=== PATIENT | female | born 1995 | race Hispanic/Latino ===

== ENCOUNTER 2017-09-25 19:45 | Emergency (ER) | payer SELFPAY ==
[2017-09-25 20:30] LABS: Urine Bacteria <20 /HPF (<20); Urine Culture Reflex Order NOT NEEDED; Urine RBC <5 /HPF (NONE SEEN)
[2017-09-25 20:31] LABS: Urine Amorphous Sediment 1+ /HPF (NONE SEEN)
[2017-09-25 20:31] LABS: Urine Blood TRACE (NEG); Urine Glucose NEGATIVE (NEG); Urine Protein 1+ (NEG); Urine Specific Gravity >1.030 (1.005-1.030)
[2017-09-25] MEDS ORDERED: MORPHINE 4 MG/ML SYR ONE (20:51)
[2017-09-25] MEDS ORDERED: ONDANSETRON 4 MG/2 ML VIAL ONE (20:51)
[2017-09-25 20:59] LABS: Absolute Lymphocytes (CBC) 1.5 K/uL (0.7-4.9); Absolute Monocytes 0.5 K/uL (0.1-1.3); Absolute Neutrophil 6.3 K/uL (1.8-8.0); Basophils % 0.6 % (0-1.3); Eosinophils % 2.2 % (0-4.4); Hematocrit 40.7 % (36.0-45.0); Lymphocytes % 17.6 % (15.3-44.8); MCH 31.4 pg (27.0-35.0); MCV 90.2 fL (80-100); MPV 9.9 fL (7.6-11.3); RBC Red Blood Cell Count 4.51 M/uL (3.86-4.86)
[2017-09-25 21:20] LABS: ALT/SGPT 15 U/L (12-78); AST/SGOT 11 U/L (15-37); Albumin 3.9 g/dL (3.4-5.0); Alkaline Phosphatase 70 U/L (45-117); Amylase Level 62 U/L (25-115); BUN Blood Urea Nitrogen 15 mg/dL (7-18); Bicarbonate 25 mmol/L (21-32); Bilirubin Direct < 0.1 mg/dL (0-0.2); Bilirubin Total 0.4 mg/dL (0.2-1.0); Glucose Level 76 mg/dL (74-106); Lipase 142 U/L (73-393); Potassium 3.8 mmol/L (3.5-5.1); Protein, Total 7.6 g/dL (6.4-8.2); Sodium Level 138 mmol/L (136-145)
--- NOTE | 2017-09-25 22:04 | RAD REPORT ---
EXAM DESCRIPTION: CT - Abdomen Pelvis W Contrast - 09/25/2017 9:51 pm CLINICAL HISTORY: Bilateral pelvic pain, abdominal pain COMPARISON: CT study April 2015 TECHNIQUE: Biphasic, helical CT imaging of the abdomen and pelvis was performed following 100 ml non -ionic IV contrast. Oral contrast was given. All CT scans are performed using dose optimization technique as appropriate and may include automated exposure control or mA/KV adjustment according to patient size. FINDINGS: No suspicious findings in the lung bases. The liver, spleen, and pancreas show no suspicious findings. Gallbladder and biliary tree are also wi thout suspicious finding. Symmetric renal function is seen with no hydronephrosis or suspicious renal mass. No pyelonephritis o r acute renal parenchymal process. Mostly contracted urinary bladder shows no suspicious finding. No suspicious uterine finding. A small involuting cyst is noted in the left ovary probably not a source for the patient's multi month pelvic pain pattern. No suspicious right ovarian finding. There are num erous fluid-filled small bowel loops draping along the ovaries and uterus. Active bowel process is un likely. No appendicitis findings. No dilated bowel loops or bowel wall thickening. No free air, free fluid or inflammatory stranding. No hernia, mass or bulky lymphadenopathy. No adrenal abnormality. No suspicious bony findings. IMPRESSION: Contrast enhanced CT abdomen and pelvis showing no significant or suspicious finding. Uterus and ovaries show no suspicious findings. Numerous fluid-filled small bowel loops drape along t he uterus, ovaries and adnexa. Active bowel process is not suspected.
--- NOTE | 2017-09-25 22:25 | ER ---
Nurse's Notes [facility] Name: Sonja Covarrubias Age: 22 yrs Sex: Female : 1995 Arrival Date: 09/25/2017 Time: 19:47 Bed 6 Private MD: Diagnosis: Lower abdominal pain, unspecified Presentation: 09/25 19:52 Presenting complaint: Patient states: Bilateral pelvic pain that started a few months aj ago but got worse in the past few days. Patient has appointment with OBGYN for same complaint but feels she cannot wait. Transition of care: patient was not received from another setting of care. Onset of symptoms was May 2017. Risk Assessment: Do you want to hurt yourself or someone else? Patient reports no desire to harm self or others. Initial Sepsis Screen: Does the patient meet any 2 criteria? No. Patient's initial sepsis screen is negative. Does the patient have a suspected source of infection? No. Patient's initial sepsis screen is negative. Care prior to arrival: None. 19:52 Method Of Arrival: Ambulatory 19:52 Acuity: JANNY 3 aj Triage Assessment: 19:54 General: Appears in no apparent distress. comfortable, Behavior is calm, cooperative, aj appropriate for age. Pain: Complains of pain in suprapubic area, right inguinal area and left inguinal area. Neuro: Level of Consciousness is awake, alert, obeys commands, Oriented to person, place, time, situation, Appropriate for age. Respiratory: Airway is patent Respiratory effort is even, unlabored, Respiratory pattern is regular, symmetrical. : Reports pain in bilateral in suprapubic area. Derm: Skin is intact, is healthy with good turgor, Skin is pink, warm \T\ dry. normal. 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 - Social history:: Smoking status: Patient/guardian denies using tobacco. - Ebola Screening: : Patient negative for fever greater than or equal to 101.5 degrees Fahrenheit, and additional compatible Ebola Virus Disease symptoms Patient denies exposure to infectious person Patient denies travel to an Ebola-affected area in the 21 days before illness onset No symptoms or risks identified at this time. Screenin:52 Abuse screen: Denies threats or abuse. Denies injuries from another. Nutritional tl1 screening: No deficits noted. Tuberculosis screening: No symptoms or risk factors identified. Fall Risk IV access (20 points). Assessment: 20:21 General: Appears in no apparent distress. comfortable, Behavior is calm, cooperative, tl1 appropriate for age. Pain: Complains of pain in pelvis and left inguinal area and right inguinal area and suprapubic area. 20:22 Neuro: Level of Consciousness is awake, alert, obeys commands, Oriented to person, tl1 place, time, situation. Cardiovascular: Denies chest pain. Respiratory: Airway is patent Trachea midline Respiratory effort is even, unlabored, Breath sounds are clear bilaterally. GI: Abdomen is non-distended, Bowel sounds present X 4 quads. Abd is soft X 4 quads Abdomen is tender to palpation in suprapubic area Reports lower abdominal pain. : No signs and/or symptoms were reported regarding the genitourinary system. EENT: No signs and/or symptoms were reported regarding the EENT system. 21:52 Reassessment: Pt out to CT. tl2 22:38 Reassessment: Patient appears in no apparent distress at this time. Patient and/or tl2 family updated on plan of care and expected duration. Pain level reassessed. Patient is alert, oriented x 3, equal unlabored respirations, skin warm/dry/pink. Pt and family verbalized understanding of discharge instructions, need for follow up. Vital Signs: 19:54 BP 128 / 85; Pulse 75; Resp 16; Temp 98.5; Pulse Ox 100% on R/A; Weight 58.06 kg; aj Height 5 ft. 5 in. (165.10 cm); 20:48 BP 110 / 65; Pulse 67; Resp 17; Pulse Ox 100% on R/A; mw2 21:57 BP 123 / 78; Pulse 96; Resp 18; Pulse Ox 100% on R/A; tl2 22:38 BP 112 / 77; Pulse 83; Resp 18; Pulse Ox 100% on R/A; tl2 19:54 Body Mass Index 21.30 (58.06 kg, 165.10 cm) ED Course: 19:47 Patient arrived in ED. am2 19:53 Triage completed. aj 19:54 Arm band placed on right wrist. Patient placed in an exam room. aj 20:00 Micheal Leon PA is PHCP. cp 20:00 Temo Holliday MD is Attending Physician. cp 20:01 Trisha Hi, APARNA is Primary Nurse. tl1 20:42 Radiology exam delayed due to lab results not completed at this time. (BUN/Creatinine). 20:51 No provider procedures requiring assistance completed. Inserted saline lock: 20 gauge tl1 in left antecubital area, using aseptic technique. 21:00 Radiology exam delayed due to lab results not completed at this time. (BUN/Creatinine). vm2 21:00 Patient has correct armband on for positive identification. Placed in gown. Bed in low tl2 position. Call light in reach. Side rails up X 1. Adult w/ patient. 21:[address] nj 21:51 CT completed. Patient tolerated procedure well. Patient moved back from CT. nj 21:51 CT Abd/Pelvis - W/Contrast: no oral contrast In Process Unspecified. EDMS 22:24 Kat Tobin MD is Referral Physician. cp 22:39 IV discontinued, intact, bleeding controlled, No redness/swelling at site. Pressure tl2 dressing applied. Administered Medications: 20:54 Drug: morphine 2 mg Route: IVP; Infused Over: 2 mins; Site: left antecubital; tl1 21:30 Follow up: Response: No adverse reaction; Pain is decreased tl2 20:54 Drug: Zofran 4 mg Route: IVP; Infused Over: 2 mins; Site: left antecubital; tl1 21:30 Follow up: Response: No adverse reaction tl2 Outcome: 22:24 Discharge ordered by MD. cp 22:39 Discharged to home ambulatory, with family. tl2 22:39 Condition: stable tl2 22:39 Discharge instructions given to patient, family, Instructed on discharge instructions, follow up and referral plans. Demonstrated understanding of instructions, follow-up care. 22:40 Patient left the ED. tl2 Signatures: Dispatcher [employer] EDIA Amalia Castilol RN RN aj Jones, Susan Trisha Hi, RN RN tl1 Micheal Leon PA PA cp Knox, Taylor, RN RN tl2 Amauri Quintero Amanda am2 Yue Jimenez 2 Braxton Harmon 2 Corrections: (The following items were deleted from the chart) 22:39 21:00 IV discontinued, intact, bleeding controlled, No redness/swelling at site. tl2 Pressure dressing applied, tl2 22:40 22:39 Discharged to 2 tl2
--- NOTE | 2017-09-25 22:25 | EDPHYS ---
Physician Documentation [facility] Name: Sonja Covarrubias Age: 22 yrs Sex: Female : 1995 Arrival Date: 09/25/2017 Time: 19:47 Bed 6 Private MD: ED Physician Temo Holliday HPI: 09/25 20:18 This 22 yrs old Female presents to ER via Ambulatory with complaints of Pelvic cp Pain. 20:18 The patient presents with pelvic pain, that is located in/on the lower abdomen. cp 20:18 Onset: The symptoms/episode began/occurred 2 month(s) ago, and became worse 3 day(s) cp ago. 20:18 Associated signs and symptoms: Pertinent positives: vaginal discharge, Pertinent cp negatives: constipation, diarrhea, dysuria, fever, vaginal bleeding. Severity of symptoms: in the emergency department the symptoms are unchanged, despite home interventions. 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 - Social history:: Smoking status: Patient/guardian denies using tobacco. - Ebola Screening: : Patient negative for fever greater than or equal to 101.5 degrees Fahrenheit, and additional compatible Ebola Virus Disease symptoms Patient denies exposure to infectious person Patient denies travel to an Ebola-affected area in the 21 days before illness onset No symptoms or risks identified at this time. ROS: 20:25 Constitutional: Negative for body aches, chills, fever, poor PO intake. cp 20:25 Eyes: Negative for injury, pain, redness, and discharge. cp 20:25 ENT: Negative for drainage from ear(s), ear pain, sore throat, difficulty swallowing, difficulty handling secretions. 20:25 Cardiovascular: Negative for chest pain, palpitations. 20:25 Respiratory: Negative for cough, shortness of breath, wheezing. 20:25 Abdomen/GI: Positive for abdominal pain, of the right lower quadrant and left lower quadrant, Negative for vomiting, diarrhea, constipation, black/tarry stool, rectal bleeding. 20:25 Back: Negative for pain at rest, pain with movement, radiated pain. 20:25 : Positive for vaginal discharge, Negative for urinary symptoms, vaginal bleeding. 20:25 Skin: Negative for cellulitis, rash. 20:25 Neuro: Negative for altered mental status, headache, weakness. 20:25 All other systems are negative. Exam: 20:30 Constitutional: The patient appears in no acute distress, alert, awake, non-toxic, well cp developed, well nourished. 20:30 Head/Face: Normocephalic, atraumatic. cp 20:30 Eyes: Periorbital structures: appear normal, Conjunctiva: normal, no exudate, no injection, Sclera: no appreciated abnormality, Lids and lashes: appear normal, bilaterally. 20:30 ENT: External ear(s): are unremarkable, Nose: is normal, Mouth: is normal, Posterior pharynx: is normal, airway is patent, no erythema, no exudate. 20:30 Neck: ROM/movement: is normal, is supple, without pain, no range of motions limitations, no nuchal rigidity. 20:30 Chest/axilla: Inspection: normal, Palpation: is normal, no crepitus, no tenderness. 20:30 Cardiovascular: Rate: normal, Rhythm: regular. 20:30 Respiratory: the patient does not display signs of respiratory distress, Respirations: normal, no use of accessory muscles, no retractions, no splinting, no tachypnea, labored breathing, is not present, Breath sounds: are clear throughout, no decreased breath sounds, no stridor, no wheezing. 20:30 Abdomen/GI: Inspection: abdomen appears normal, Bowel sounds: active, all quadrants, Palpation: soft, in all quadrants, moderate abdominal tenderness, in the right lower quadrant and left lower quadrant, rebound tenderness, is not appreciated, voluntary guarding, is elicited in the right lower quadrant and left lower quadrant, involuntary guarding, is not appreciated. 20:30 Back: pain, is absent, ROM is normal, CVA tenderness, is absent. 20:30 Skin: cellulitis, is not appreciated, no rash present. 20:30 Neuro: Orientation: to person, place \T\ time. Mentation: lucid, able to follow commands, Cerebellar function: is grossly normal, Motor: moves all fours, strength is normal, Sensation: is normal. 22:15 : Pelvic Exam: The exam is refused by the patient/guardian. The risks and cp consequences are understood by the patient, Sexual behavior: the patient is sexually active, and reports a single partner. Vital Signs: 19:54 BP 128 / 85; Pulse 75; Resp 16; Temp 98.5; Pulse Ox 100% on R/A; Weight 58.06 kg; aj Height 5 ft. 5 in. (165.10 cm); 20:48 BP 110 / 65; Pulse 67; Resp 17; Pulse Ox 100% on R/A; mw2 21:57 BP 123 / 78; Pulse 96; Resp 18; Pulse Ox 100% on R/A; tl2 22:38 BP 112 / 77; Pulse 83; Resp 18; Pulse Ox 100% on R/A; tl2 19:54 Body Mass Index 21.30 (58.06 kg, 165.10 cm) aj MDM: 20:00 Patient medically screened. cp 21:00 Differential diagnosis: UTI, PID, ovarian cyst, appendicitis. cp 21:00 Differential diagnosis: appendicitis, cervicitis, ovarian cyst, pelvic inflammatory cp disease, urinary tract infection, vaginosis. 22:15 Refusal of service: The patient/guardian displays adequate decision making capability cp and despite a detailed discussion of alternatives, benefits, risks, and consequences refuses: pelvic exam. 22:20 Data reviewed: vital signs, nurses notes, lab test result(s), radiologic studies, CT cp scan, and as a result, I will discharge patient. 22:20 Special discussion: Based on the patient's Hx, exam, and Dx evaluation, there is no cp indication for emergent surgery or inpatient Tx. It is understood by the patient/guardian that if the Sx's persist or worsen they need to return immediately for re-evaluation. 09/25 20:14 Order name: Urine Dipstick--Ancillary (enter results); Complete Time: 22:04 [facility] 09/25 22:25 Interpretation: Normal except: UBLD TRACE; UPROT 1+. cp 09/25 20:14 Order name: Urine Microscopic Only; Complete Time: 22:04 [facility] 09/25 20:14 Order name: Urine --Ancillary (enter results); Complete Time: 22:04 [facility] 09/25 20:28 Order name: Amylase, Serum; Complete Time: 22:04 cp 09/25 20:28 Order name: Basic Metabolic Panel; Complete Time: 22:04 cp 09/25 22:04 Interpretation: Normal except: CRE 0.50. cp 09/25 20:28 Order name: CBC with Diff; Complete Time: 22:04 cp 09/25 20:28 Order name: Creatinine for Radiology; Complete Time: 22:04 cp 09/25 20:28 Order name: Hepatic Function; Complete Time: 22:04 cp 09/25 20:28 Order name: Lipase; Complete Time: 22:04 cp 09/25 20:34 Order name: CT Abd/Pelvis - W/Contrast: no oral contrast; Complete Time: 22:04 cp 09/25 20:28 Order name: IV Saline Lock; Complete Time: 20:45 cp 09/25 20:28 Order name: Labs collected and sent; Complete Time: 20:45 cp 09/25 20:28 Order name: Urine Dipstick-Ancillary (obtain specimen); Complete Time: 20:46 cp Administered Medications: 20:54 Drug: morphine 2 mg Route: IVP; Infused Over: 2 mins; Site: left antecubital; tl1 21:30 Follow up: Response: No adverse reaction; Pain is decreased tl2 20:54 Drug: Zofran 4 mg Route: IVP; Infused Over: 2 mins; Site: left antecubital; tl1 21:30 Follow up: Response: No adverse reaction tl2 Disposition: 09/26 06:45 Co-signature as Attending Physician, Temo Holliday MD. Disposition: 09/25/17 22:24 Discharged to Home. Impression: Lower abdominal pain, unspecified. - Condition is Stable. - Discharge Instructions: Abdominal Pain, Women. - Medication Reconciliation Form, Thank You Letter, Antibiotic Education, Prescription Opioid Use form. - Follow up: Kat Tobin MD; When: 1 - 2 days; Reason: Recheck today's complaints. - Problem is new. - Symptoms have improved. - Notes: may take extra strength tylenol for pain. Follow-up with MANAGER INVESTMENT Signatures: Dispatcher [employer] Amalia Luque RN RN aj Lasagna, Tonya, RN RN tl1 Micheal Leon PA PA cp Knox, Taylor, RN RN tl2 Temo Holliday MD MD Corrections: (The following items were deleted from the chart) 09/25 22:37 22:06 Pelvic Exam Setup ordered. cp tl2 22:40 22:24 09/25/2017 22:24 Discharged to Home. Impression: Lower abdominal pain, tl2 unspecified. Condition is Stable. Forms are Medication Reconciliation Form, Thank You Letter, Antibiotic Education, Prescription Opioid Use. Follow up: Mini Mahad; When: 1 - 2 days; Reason: Recheck today's complaints. Problem is new. Symptoms have improved. cp
== END 2017-09-25 22:40 | disposition home or self-care (01) ==
LOC: ER 19:45
DX: R10.30 Lower abdominal pain, unspecified (principal); Z88.6 Allergy status to analgesic agent
CPT/HCPCS: 36415; 74177; 80048; 80076; 81003; 81015; 81025; 82150; 83690; 85025; 96374; 96375; 99284; J2405; Q9967

== ENCOUNTER 2018-02-06 20:56 | Emergency (ER) | payer SELFPAY ==
[2018-02-06] MEDS ORDERED: ONDANSETRON 4 MG/2 ML VIAL ONE (22:13)
[2018-02-06] MEDS ORDERED: FAMOTIDINE 20 MG/2 ML VIAL IV ONE (22:14)
[2018-02-06 22:21] LABS: Absolute Lymphocytes (CBC) 1.6 K/uL (0.7-4.9); Absolute Monocytes 0.6 K/uL (0.1-1.3); Absolute Neutrophil 4.1 K/uL (1.8-8.0); Basophils % 0.4 % (0-1.3); Eosinophils % 3.1 % (0-4.4); Hematocrit 40.3 % (36.0-45.0); Lymphocytes % 24.4 % (15.3-44.8); MCH 32.1 pg (27.0-35.0); MCV 90.9 fL (80-100); MPV 9.6 fL (7.6-11.3); RBC Red Blood Cell Count 4.43 M/uL (3.86-4.86)
[2018-02-06 22:33] LABS: ALT/SGPT 19 U/L (12-78); AST/SGOT 12 U/L (15-37); Albumin 3.8 g/dL (3.4-5.0); Alkaline Phosphatase 101 U/L (45-117); BUN Blood Urea Nitrogen 14 mg/dL (7-18); Bicarbonate 28 mmol/L (21-32); Bilirubin Direct 0.2 mg/dL (0-0.2); Bilirubin Total 0.6 mg/dL (0.2-1.0); Glucose Level 79 mg/dL (74-106); Lipase 129 U/L (73-393); Potassium 3.7 mmol/L (3.5-5.1); Protein, Total 7.9 g/dL (6.4-8.2); Sodium Level 140 mmol/L (136-145)
[2018-02-06 22:42] LABS: Urine Blood NEGATIVE (NEG); Urine Glucose NEGATIVE (NEG); Urine Protein TRACE (NEG); Urine pH 8.5 (5.0-7.0)
[2018-02-06] MEDS ORDERED: MAGNE/ALUM HYDROXD 30 ML UCUP ONE (23:29)
[2018-02-06] MEDS ORDERED: LIDOCAINE VISCOUS 2% SOLN 15 ML UDC ONE (23:30)
[2018-02-06] MEDS ORDERED: DICYCLOMINE HCL 10 MG CAP ONE (23:30)
--- NOTE | 2018-02-07 00:44 | EDPHYS ---
Physician Documentation [facility] Name: Sonja Covarrubias Age: 23 yrs Sex: Female : 1995 Arrival Date: 02/06/2018 Time: 20:59 Bed 19 Private MD: ED Physician Cody Carias HPI: 02/06 21:40 This 23 yrs old Female presents to ER via Ambulatory with complaints of cp Abdominal Pain. 21:40 The patient presents with abdominal pain in the epigastric area, in the upper abdomen. cp 21:40 Onset: The symptoms/episode began/occurred 3 day(s) ago. cp 21:40 The symptoms do not radiate. Associated signs and symptoms: Pertinent positives: cp nausea, Pertinent negatives: anorexia, blood in stools, constipation, diarrhea, dysuria, fever, active vomiting. The symptoms are described as sharp. Modifying factors: the symptoms are aggravated by pressure. Severity of pain: in the emergency department the pain is unchanged despite home interventions. 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 - Social history:: Smoking status: Patient/guardian denies using tobacco. - Ebola Screening: : Patient denies travel to an Ebola-affected area in the 21 days before illness onset. ROS: 21:45 Constitutional: Negative for body aches, chills, fever, poor PO intake. cp 21:45 Eyes: Negative for injury, pain, redness, and discharge. cp 21:45 ENT: Negative for drainage from ear(s), ear pain, sore throat, difficulty swallowing, difficulty handling secretions. 21:45 Cardiovascular: Negative for chest pain, edema, palpitations. 21:45 Respiratory: Negative for cough, shortness of breath, wheezing. 21:45 Abdomen/GI: Positive for abdominal pain, nausea, Negative for diarrhea, constipation, black/tarry stool, rectal bleeding, active vomiting. 21:45 Back: Negative for pain at rest, pain with movement. 21:45 : Negative for urinary symptoms, vaginal bleeding, vaginal discharge. 21:45 Skin: Negative for cellulitis, rash. 21:45 Neuro: Negative for altered mental status, headache, weakness. 21:45 All other systems are negative. Exam: 21:52 Constitutional: The patient appears in no acute distress, alert, awake, non-toxic, well cp developed, well nourished, uncomfortable. 21:52 Head/Face: Normocephalic, atraumatic. Eyes: Pupils equal round and reactive to light, cp extra-ocular motions intact. Lids and lashes normal. Conjunctiva and sclera are non-icteric and not injected. Cornea within normal limits. Periorbital areas with no swelling, redness, or edema. ENT: Nares patent. No nasal discharge, no septal abnormalities noted. Tympanic membranes are normal and external auditory canals are clear. Oropharynx with no redness, swelling, or masses, exudates, or evidence of obstruction, uvula midline. Mucous membranes moist. Neck: Trachea midline, no thyromegaly or masses palpated, and no cervical lymphadenopathy. Supple, full range of motion without nuchal rigidity, or vertebral point tenderness. No Meningismus. Chest/axilla: Normal chest wall appearance and motion. Nontender with no deformity. No lesions are appreciated. 21:52 Cardiovascular: Rate: normal, Rhythm: regular. 21:52 Respiratory: the patient does not display signs of respiratory distress, Respirations: normal, no use of accessory muscles, no retractions, no splinting, no tachypnea, labored breathing, is not present, Breath sounds: are clear throughout, no decreased breath sounds, no stridor, no wheezing. 21:52 Abdomen/GI: Inspection: abdomen appears normal, Bowel sounds: active, all quadrants, Palpation: soft, in all quadrants, moderate abdominal tenderness, in the epigastric area, right upper quadrant and left upper quadrant, rebound tenderness, is not appreciated, voluntary guarding, is elicited in the epigastric area, right upper quadrant and left upper quadrant. 21:52 Back: CVA tenderness, is absent. 21:52 Skin: cellulitis, is not appreciated, no rash present. Vital Signs: 21:14 BP 111 / 82; Pulse 92; Resp 20; Temp 97.8; Pulse Ox 100% on R/A; aj1 21:32 Weight 60.2 kg (M); Height 5 ft. 4 in. (162.56 cm) (R); jb4 22:38 BP 108 / 83; Pulse 78; Resp 16; Pulse Ox 100% on R/A; jb4 23:30 BP 108 / 83; Pulse 72; Resp 16; Pulse Ox 100% on R/A; jb4 02/07 00:10 BP 107 / 80; Pulse 70; Resp 16; Pulse Ox 99% on R/A; rr5 02/06 21:32 Body Mass Index 22.78 (60.20 kg, 162.56 cm) jb4 MDM: 02/06 21:34 Patient medically screened. cp 22:00 Differential diagnosis: cholecystitis, Cholelithiasis, gastritis, gastroesophageal cp reflux disease, GI Bleed, pancreatitis, Pyelonephritis, Ureterolithiasis, urinary tract infection. 02/07 00:42 Data reviewed: vital signs, nurses notes, lab test result(s), radiologic studies, CT cp scan, ultrasound. 00:42 Counseling: I had a detailed discussion with the patient and/or guardian regarding: the cp historical points, exam findings, and any diagnostic results supporting the discharge/admit diagnosis, lab results, radiology results, to return to the emergency department if symptoms worsen or persist or if there are any questions or concerns that arise at home. Response to treatment: the patient's symptoms have markedly improved after treatment, VSS. Pain improved with IV fluids and meds. Will discharge to home for continued monitoring. 02/06 21:39 Order name: Urine Dipstick--Ancillary (enter results); Complete Time: 22:55 mw2 02/06 21:39 Order name: Urine --Ancillary (enter results); Complete Time: 22:55 mw2 02/06 21:52 Order name: Basic Metabolic Panel; Complete Time: 22:55 cp 02/06 21:52 Order name: CBC with Diff; Complete Time: 22:33 cp 02/06 22:33 Interpretation: Reviewed. cp 02/06 21:52 Order name: Creatinine for Radiology; Complete Time: 22:33 cp 02/06 21:52 Order name: Hepatic Function; Complete Time: 22:55 cp 02/06 21:34 Order name: Urine Dipstick-Ancillary (obtain specimen); Complete Time: 21:38 cp 02/06 21:52 Order name: Lipase; Complete Time: 22:55 cp 02/06 22:33 Order name: US Abdomen Limited: RUQ/epigastric area cp 02/06 22:57 Order name: CT Abd/Pelvis - W/Contrast: no oral contrast cp 02/06 21:34 Order name: Urine Test (obtain specimen); Complete Time: 21:38 cp 02/06 21:52 Order name: IV Saline Lock; Complete Time: 22:02 cp 02/06 21:52 Order name: Labs collected and sent; Complete Time: 22:02 cp 02/07 00:40 Order name: PO challenge; Complete Time: 00:47 cp Administered Medications: 02/06 20:13 Drug: Zofran 4 mg Route: IVP; Site: right antecubital; jb4 23:24 Follow up: Response: No adverse reaction; Nausea is decreased jb4 20:15 Drug: Pepcid 20 mg Route: IVP; Site: right antecubital; jb4 23:24 Follow up: Response: No adverse reaction; Pain is decreased jb4 23:28 Drug: Bentyl 20 mg Route: PO; jb4 02/07 00:58 Follow up: Response: No adverse reaction rr5 02/06 23:28 Drug: GI Cocktail without - (Maalox Suspension 30 ml, Lidocaine Liquid 2 % 15 jb4 ml) Route: PO; 02/07 00:58 Follow up: Response: No adverse reaction rr5 Disposition: 02/07/18 00:43 Discharged to Home. Impression: Upper abdominal pain, unspecified. - Condition is Stable. - Discharge Instructions: Abdominal Pain, Adult. - Prescriptions for Protonix 40 mg Oral Tablet - take 1 tablet by ORAL route once daily; 30 tablet. Zofran 4 mg Oral Tablet - take 1 tablet by ORAL route every 12 hours As needed; 20 tablet. - Medication Reconciliation Form, Thank You Letter, Antibiotic Education, Prescription Opioid Use form. - Follow up: Private Physician; When: 2 - 3 days; Reason: Recheck today's complaints. - Problem is new. - Symptoms have improved. Addendum: 02/08/2018 04:05 Co-signature as Attending Physician, Cody Carias MD I agree with the assessment and w a plan of care. Signatures: Dispatcher MedJefferson Lansdale HospitalLoida Greene RN RN aj1 Micheal Leon PA PA Dre Morris RN RN jb4 Cody Carias MD MD wa Roque, Raymond, RN RN rr5 Corrections: (The following items were deleted from the chart) 02/07 00:59 00:43 02/07/2018 00:43 Discharged to Home. Impression: Upper abdominal pain, rr5 unspecified. Condition is Stable. Forms are Medication Reconciliation Form, Thank You Letter, Antibiotic Education, Prescription Opioid Use. Follow up: Private Physician; When: 2 - 3 days; Reason: Recheck today's complaints. Problem is new. Symptoms have improved. cp
--- NOTE | 2018-02-07 00:44 | ER ---
Nurse's Notes [facility] Name: Sonja Covarrubias Age: 23 yrs Sex: Female : 1995 Arrival Date: 02/06/2018 Time: 20:59 Bed 19 Private MD: Diagnosis: Upper abdominal pain, unspecified Presentation: 02/06 21:10 Presenting complaint: Patient states: Abdominal pain for the past 3 days. She was aj1 running fever yesterday, but not today. Denies N/V/D. Reports epigastric pain that she reports as throbbing. Transition of care: patient was not received from another setting of care. Onset of symptoms was February 03, 2018. Risk Assessment: Do you want to hurt yourself or someone else? Patient reports no desire to harm self or others. Initial Sepsis Screen: Does the patient meet any 2 criteria? No. Patient's initial sepsis screen is negative. Does the patient have a suspected source of infection? Yes: Acute abdominal pain. Care prior to arrival: None. 21:10 [facility] 21:10 Acuity: JANNY 3 aj1 Triage Assessment: 21:14 General: Appears in no apparent distress. comfortable, Behavior is calm, cooperative, aj1 appropriate for age. Pain: Complains of pain in epigastric area. Neuro: Level of Consciousness is awake, alert, obeys commands. Cardiovascular: Patient's skin is warm and dry. Respiratory: Airway is patent Respiratory effort is even, unlabored, Respiratory pattern is regular, symmetrical. GI: Reports upper abdominal pain. 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 - Social history:: Smoking status: Patient/guardian denies using tobacco. - Ebola Screening: : Patient denies travel to an Ebola-affected area in the 21 days before illness onset. Screenin:26 Abuse screen: Denies threats or abuse. Nutritional screening: No deficits noted. jb4 Tuberculosis screening: No symptoms or risk factors identified. Fall Risk None identified. Assessment: 21:26 General: Appears in no apparent distress. uncomfortable, Behavior is calm, cooperative, jb4 appropriate for age. Pain: Complains of pain in umbilical area, right upper quadrant and left upper quadrant Pain does not radiate. Pain currently is 4 out of 10 on a pain scale. at worst was 9 out of 10 on a pain scale. Quality of pain is described as crampy, Pain began 2-3 days ago. Neuro: Level of Consciousness is awake, alert, obeys commands, Oriented to person, place, time, situation. Cardiovascular: Patient's skin is warm and dry. Respiratory: Airway is patent Respiratory effort is even, unlabored, Respiratory pattern is regular, symmetrical. GI: Abdomen is flat, non-distended, Bowel sounds present X 4 quads. Abd is soft X 4 quads Abd is non tender in right lower quadrant and left lower quadrant Abdomen is tender to palpation in umbilical area, right upper quadrant and left upper quadrant. : No signs and/or symptoms were reported regarding the genitourinary system. EENT: No signs and/or symptoms were reported regarding the EENT system. Derm: Skin is intact, Skin is pink, warm \T\ dry. Musculoskeletal: Circulation, motion, and sensation intact. 22:38 Reassessment: Patient appears in no apparent distress at this time. Patient and/or jb4 family updated on plan of care and expected duration. Pain level reassessed. Patient is alert, oriented x 3, equal unlabored respirations, skin warm/dry/pink. Patient states feeling better. 23:30 Reassessment: Patient appears in no apparent distress at this time. Patient and/or jb4 family updated on plan of care and expected duration. Pain level reassessed. Patient is alert, oriented x 3, equal unlabored respirations, skin warm/dry/pink. Pt to CT. 02/07 00:40 Reassessment: Patient appears in no apparent distress at this time. Patient and/or rr5 family updated on plan of care and expected duration. Pain level reassessed. Patient is alert, oriented x 3, equal unlabored respirations, skin warm/dry/pink. tolerated the fluid challenge. explained to patients brother the discharged instruction, follow up and medication. Patient states feeling better. Vital Signs: 02/06 21:14 BP 111 / 82; Pulse 92; Resp 20; Temp 97.8; Pulse Ox 100% on R/A; aj1 21:32 Weight 60.2 kg (M); Height 5 ft. 4 in. (162.56 cm) (R); jb4 22:38 BP 108 / 83; Pulse 78; Resp 16; Pulse Ox 100% on R/A; jb4 23:30 BP 108 / 83; Pulse 72; Resp 16; Pulse Ox 100% on R/A; jb4 02/07 00:10 BP 107 / 80; Pulse 70; Resp 16; Pulse Ox 99% on R/A; rr5 02/06 21:32 Body Mass Index 22.78 (60.20 kg, 162.56 cm) jb4 ED Course: 02/06 20:59 Patient arrived in ED. al2 21:12 Triage completed. aj1 21:14 Arm band placed on Patient placed in an exam room. aj1 21:17 Dre Hernandez, RN is Primary Nurse. jb4 21:34 Mihceal Leon PA is PHCP. cp 21:34 Cody Carias MD is Attending Physician. cp 22:54 US Abdomen Limited: RUQ/epigastric area In Process Unspecified. EDMS 02/07 00:00 CT Abd/Pelvis - W/Contrast: no oral contrast In Process Unspecified. EDMS 00:00 CT completed. Patient tolerated procedure well. Patient moved to CT via wheelchair. Patient moved back from CT. 00:00 Patient has correct armband on for positive identification. Bed in low position. Call rr5 light in reach. 00:54 No provider procedures requiring assistance completed. IV discontinued, bleeding rr5 controlled, Pressure dressing applied. Administered Medications: 02/06 20:13 Drug: Zofran 4 mg Route: IVP; Site: right antecubital; jb4 23:24 Follow up: Response: No adverse reaction; Nausea is decreased jb4 20:15 Drug: Pepcid 20 mg Route: IVP; Site: right antecubital; jb4 23:24 Follow up: Response: No adverse reaction; Pain is decreased jb4 23:28 Drug: Bentyl 20 mg Route: PO; jb4 02/07 00:58 Follow up: Response: No adverse reaction rr5 02/06 23:28 Drug: GI Cocktail without - (Maalox Suspension 30 ml, Lidocaine Liquid 2 % 15 jb4 ml) Route: PO; 02/07 00:58 Follow up: Response: No adverse reaction rr5 Outcome: 00:43 Discharge ordered by MD. cp 00:54 Discharged to home via ambulance, with family. rr5 00:54 Condition: stable 00:54 Discharge instructions given to family, Instructed on discharge instructions, follow up and referral plans. medication usage, Demonstrated understanding of instructions, follow-up care, medications, Prescriptions given X 2. 00:59 Patient left the ED. rr5 Signatures: Dispatcher [employer] EDMS Loida Ingram RN RN aj1 Laureano Long Corey, PA PA Dre Morris RN RN jb4 Ambika Sanabria Raymond RN RN rr5 Corrections: (The following items were deleted from the chart) 01:15 00:40 Reassessment: Patient appears in no apparent distress at this time. Patient rr5 and/or family updated on plan of care and expected duration. Pain level reassessed. Patient is alert, oriented x 3, equal unlabored respirations, skin warm/dry/pink. tolerated the fluid challenge Patient states feeling better. rr5
--- NOTE | 2018-02-07 07:49 | RAD REPORT ---
EXAM DESCRIPTION: CT - Abdomen Pelvis W Contrast - 02/07/2018 5:12 am CLINICAL HISTORY: Abdominal pain/epigastric pain for 3 days COMPARISON: none. TECHNIQUE: Computed axial tomography of the abdomen pelvis was obtained. 100 cc Isovue-300 was admin istered intravenously. Oral contrast was not requested which limits evaluation of bowel. A preliminar y report was generated by [employer] in review prior to this dictation All CT scans are performed using dose optimization technique as appropriate and may include automated exposure control or mA/KV adjustment according to patient size. FINDINGS: The liver, spleen, pancreas, adrenal and kidneys appear unremarkable. Small left renal cys t suspected There is no evidence of diverticulitis. The appendix is not seen. An adnexal mass is not visualized. Fluid is present within nondilated small bowel. Small umbilical hernia IMPRESSION: Fluid within nondilated small bowel may indicate an enteritis
--- NOTE | 2018-02-07 07:53 | RAD REPORT ---
EXAM DESCRIPTION: US - Abdomen Exam Limited - 02/06/2018 10:54 pm CLINICAL HISTORY: Abdominal pain. COMPARISON: None. FINDINGS: The gallbladder is contracted. Gallbladder wall is mildly thickened. A gallstone is not se en although evaluation is limited. The biliary tree is normal caliber. IMPRESSION: Contracted gallbladder can be normal the patient has recently eaten. If not this could i ndicate chronic cholecystitis. A gallstone is not seen however evaluation is limited secondary to the degree contraction of the gall bladder
== END 2018-02-07 00:59 | disposition home or self-care (01) ==
LOC: ER 20:56
DX: R10.10 Upper abdominal pain, unspecified (principal); Z88.6 Allergy status to analgesic agent
CPT/HCPCS: 36415; 74177; 76705; 80048; 80076; 81003; 81025; 83690; 85025; 96374; 96375; 99284; J2405; Q9967

== ENCOUNTER 2018-03-29 19:26 | Emergency (ER) | payer SELFPAY ==
[2018-03-29 20:26] LABS: Absolute Lymphocytes (CBC) 1.7 K/uL (0.7-4.9); Absolute Monocytes 0.5 K/uL (0.1-1.3); Absolute Neutrophil 4.1 K/uL (1.8-8.0); Basophils % 0.5 % (0-1.3); Eosinophils % 3.4 % (0-4.4); Hematocrit 40.1 % (36.0-45.0); Lymphocytes % 25.6 % (15.3-44.8); MPV 9.6 fL (7.6-11.3); Monocytes % 7.1 % (3.3-12.3); RBC Red Blood Cell Count 4.41 M/uL (3.86-4.86)
[2018-03-29] MEDS ORDERED: NA CHLORIDE 0.9% 1,000 ML ONE (20:31)
[2018-03-29 20:37] LABS: Urine Blood NEGATIVE (NEG); Urine Glucose NEGATIVE (NEG); Urine Protein NEGATIVE (NEG); Urine Specific Gravity 1.025 (1.005-1.030)
[2018-03-29 20:45] LABS: ALT/SGPT 18 U/L (12-78); AST/SGOT 9 U/L (15-37); Alkaline Phosphatase 78 U/L (45-117); BUN Blood Urea Nitrogen 18 mg/dL (7-18); Bicarbonate 30 mmol/L (21-32); Bilirubin Direct 0.1 mg/dL (0-0.2); Bilirubin Total 0.4 mg/dL (0.2-1.0); Glucose Level 76 mg/dL (74-106); Lipase 134 U/L (73-393); Potassium 3.7 mmol/L (3.5-5.1); Protein, Total 7.4 g/dL (6.4-8.2); Sodium Level 141 mmol/L (136-145)
--- NOTE | 2018-03-29 23:42 | ER ---
Nurse's Notes [facility] Name: Sonja Covarrubias Age: 23 yrs Sex: Female : 1995 Arrival Date: 03/29/2018 Time: 19:27 Bed 26 Private MD: Diagnosis: Abdominal pain Presentation: 03/29 19:57 Presenting complaint: Patient states: Suprapubic pain for the past 5 days. Denies aj1 abnormal vaginal discharge, denies dysuria. Patient reports LMP was March 11. Denies N/V/D. Denies fever. Transition of care: patient was not received from another setting of care. Onset of symptoms was March 2018. Risk Assessment: Do you want to hurt yourself or someone else? Patient reports no desire to harm self or others. Initial Sepsis Screen: Does the patient meet any 2 criteria? No. Patient's initial sepsis screen is negative. Does the patient have a suspected source of infection? Yes: Acute abdominal pain. Care prior to arrival: None. 19:57 Method Of Arrival: Ambulatory aj 19:57 Acuity: JANNY 3 aj1 Triage Assessment: 19:59 General: Appears in no apparent distress. uncomfortable, Behavior is calm, cooperative, aj1 appropriate for age. Pain: Complains of pain in suprapubic area. Neuro: Level of Consciousness is awake, alert, obeys commands. Cardiovascular: Patient's skin is warm and dry. Respiratory: Airway is patent Respiratory effort is even, unlabored, Respiratory pattern is regular, symmetrical. GI: Patient currently denies diarrhea, nausea, vomiting. : Denies burning with urination, discharge, vaginal bleeding. 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 - Social history:: Smoking status: Patient/guardian denies using tobacco. - Ebola Screening: : Patient denies travel to an Ebola-affected area in the 21 days before illness onset. Screenin:29 Abuse screen: Denies threats or abuse. Denies injuries from another. Nutritional kr2 screening: No deficits noted. Tuberculosis screening: No symptoms or risk factors identified. Fall Risk None identified. Assessment: 20:14 Reassessment: Patient communicates through writing due to being deaf, family member at kr2 bedside. 20:15 General: Appears in no apparent distress. comfortable, well groomed, well developed, kr2 well nourished, Behavior is calm, cooperative. Pain: Complains of pain in right lower quadrant and suprapubic area Pain does not radiate. Pain currently is 5 out of 10 on a pain scale. Quality of pain is described as aching, tender, Is continuous, Alleviated by rest, Aggravated by increased activity. Neuro: Level of Consciousness is awake, alert, obeys commands, Oriented to person, place, time, situation, Appropriate for age. Cardiovascular: Capillary refill < 3 seconds in bilateral fingers Patient's skin is warm and dry. Respiratory: Airway is patent Respiratory effort is even, unlabored, Respiratory pattern is regular, symmetrical. GI: Abdomen is flat, non-distended, Bowel sounds present X 4 quads. Abd is soft X 4 quads Abdomen is tender to palpation in suprapubic area and right lower quadrant. : Urine is clear. EENT: Oral mucosa is moist. Derm: Skin is intact, is healthy with good turgor, Skin is pink, warm \T\ dry. Musculoskeletal: Circulation, motion, and sensation intact. 21:15 Reassessment: Patient appears in no apparent distress at this time. Patient and/or kr2 family updated on plan of care and expected duration. Pain level reassessed. Patient is alert, oriented x 3, equal unlabored respirations, skin warm/dry/pink. 22:18 Reassessment: No changes from previously documented assessment. kr2 23:50 Reassessment: Patient appears in no apparent distress at this time. Patient and/or kr2 family updated on plan of care and expected duration. Pain level reassessed. Patient is alert, oriented x 3, equal unlabored respirations, skin warm/dry/pink. Patient communicates through writing due to be deaf, indicates in writing that she understands discharge instructions. Vital Signs: 19:59 BP 110 / 61; Pulse 80; Resp 16; Temp 98.0; Pulse Ox 99% on R/A; Height 5 ft. 4 in. aj1 (162.56 cm) (R); 21:42 BP 114 / 80; Pulse 67; Resp 16; Pulse Ox 100% on R/A; mt 22:19 BP 113 / 77; Pulse 65; Resp 17; Pulse Ox 100% ; kr2 23:50 BP 120 / 77; Pulse 66; Resp 16; Pulse Ox 99% ; Pain 0/10; kr2 ED Course: 19:27 Patient arrived in ED. do 19:58 Triage completed. aj1 19:59 Giovanni Buchanan MD is Attending Physician. pkl 19:59 Arm band placed on Patient placed in an exam room. aj1 20:10 Patient has correct armband on for positive identification. Bed in low position. Call kr2 light in reach. Side rails up X 1. Adult w/ patient. Pulse ox on. NIBP on. Door closed. Warm blanket given. Head of bed elevated. 20:11 Mini Terry, APARNA is Primary Nurse. kr2 20:21 Inserted saline lock: 20 gauge in right antecubital area, using aseptic technique. la Blood collected. 23:03 CT Abd/Pelvis - W/Contrast In Process Unspecified. EDMS 23:03 CT completed. Patient tolerated procedure well. Patient moved to CT via stretcher. Patient moved back from CT. 23:53 No provider procedures requiring assistance completed. IV discontinued, intact, kr2 bleeding controlled, No redness/swelling at site. Pressure dressing applied. Administered Medications: Discontinued: NS 0.9% 1000 ml IV at 125 ml/hr continuous 20:27 Drug: NS 0.9% 1000 ml Route: IV; Rate: 125 ml/hr; Site: right antecubital; kr2 23:45 Follow up: Response: No adverse reaction; IV Status: Order to discontinue infusion kr2 Outcome: 23:41 Discharge ordered by . pkchico 23:53 Discharged to home ambulatory, with family. kr2 23:53 Condition: good 23:53 Discharge instructions given to patient, family, Instructed on discharge instructions, follow up and referral plans. medication usage, Demonstrated understanding of instructions, follow-up care, medications, Prescriptions given X 1. 23:55 Patient left the ED. kr2 Signatures: Dispatcher [employer] EDMS Loida Ingram RN RN aj1 Giovanni Buchanan MD MD pkl Hagler, Ervin Gayle Underwood [facility] Mini Terry RN RN kr2
--- NOTE | 2018-03-29 23:42 | EDPHYS ---
Physician Documentation [facility] Name: Sonja Covarrubias Age: 23 yrs Sex: Female : 1995 Arrival Date: 03/29/2018 Time: 19:27 Bed 26 Private MD: ED Physician Giovanni Buchanan HPI: 03/29 20:17 This 23 yrs old Female presents to ER via Ambulatory with complaints of pkl Abdominal Pain. 20:17 The patient presents with abdominal pain right lower quadrant, suprapubic. Onset: The pkl symptoms/episode began/occurred 1 week(s) ago. The symptoms do not radiate. Associated signs and symptoms: Pertinent positives: vaginal bleeding. The patient has not experienced similar symptoms in the past. 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 - Social history:: Smoking status: Patient/guardian denies using tobacco. - Ebola Screening: : Patient denies travel to an Ebola-affected area in the 21 days before illness onset. ROS: 20:17 Eyes: Negative for injury, pain, redness, and discharge, ENT: Negative for injury, pkl pain, and discharge, Neck: Negative for injury, pain, and swelling, Cardiovascular: Negative for chest pain, palpitations, and edema, Respiratory: Negative for shortness of breath, cough, wheezing, and pleuritic chest pain. 20:17 Abdomen/GI: Positive for abdominal pain, of the suprapubic area and right lower quadrant. 20:17 Back: Negative for acute changes. 20:17 : Positive for vaginal bleeding. 20:17 MS/extremity: Negative for acute changes. 20:17 Skin: Negative for rash. 20:17 Neuro: Negative for altered mental status. Exam: 20:17 Head/Face: Normocephalic, atraumatic. Eyes: Pupils equal round and reactive to light, pkl extra-ocular motions intact. Lids and lashes normal. Conjunctiva and sclera are non-icteric and not injected. Cornea within normal limits. Periorbital areas with no swelling, redness, or edema. ENT: Nares patent. No nasal discharge, no septal abnormalities noted. Tympanic membranes are normal and external auditory canals are clear. Oropharynx with no redness, swelling, or masses, exudates, or evidence of obstruction, uvula midline. Mucous membranes moist. Neck: Trachea midline, no thyromegaly or masses palpated, and no cervical lymphadenopathy. Supple, full range of motion without nuchal rigidity, or vertebral point tenderness. No Meningismus. Chest/axilla: Normal chest wall appearance and motion. Nontender with no deformity. No lesions are appreciated. Cardiovascular: Regular rate and rhythm with a normal S1 and S2. No gallops, murmurs, or rubs. Normal PMI, no JVD. No pulse deficits. Respiratory: Lungs have equal breath sounds bilaterally, clear to auscultation and percussion. No rales, rhonchi or wheezes noted. No increased work of breathing, no retractions or nasal flaring. 20:17 Abdomen/GI: Bowel sounds: normal, Palpation: soft, mild abdominal tenderness, in the suprapubic area and right lower quadrant. 20:17 Back: Exam negative for acute changes. 20:17 : Exam negative for acute changes. 20:17 Musculoskeletal/extremity: Exam is negative for acute changes. 20:17 Skin: Exam negative for rash. 20:17 Neuro: Orientation: is normal, Mentation: is normal, Cranial nerves: grossly normal, Motor: is normal. Vital Signs: 19:59 BP 110 / 61; Pulse 80; Resp 16; Temp 98.0; Pulse Ox 99% on R/A; Height 5 ft. 4 in. aj1 (162.56 cm) (R); 21:42 BP 114 / 80; Pulse 67; Resp 16; Pulse Ox 100% on R/A; mt 22:19 BP 113 / 77; Pulse 65; Resp 17; Pulse Ox 100% ; kr2 23:50 BP 120 / 77; Pulse 66; Resp 16; Pulse Ox 99% ; Pain 0/10; kr2 MDM: 19:59 Patient medically screened. pkl 23:40 Data reviewed: vital signs, nurses notes, lab test result(s), radiologic studies, CT pkl scan. 03/29 20:05 Order name: Urine Dipstick--Ancillary (enter results); Complete Time: 20:46 ar5 03/29 20:05 Order name: Urine --Ancillary (enter results); Complete Time: 20:46 ar5 03/29 20:11 Order name: Basic Metabolic Panel; Complete Time: 20:46 pkl 03/29 20:11 Order name: CBC with Diff; Complete Time: 20:46 pkl 03/29 20:11 Order name: Creatinine for Radiology; Complete Time: 20:46 pkl 03/29 20:11 Order name: Hepatic Function; Complete Time: 20:46 pkl 03/29 20:11 Order name: Lipase; Complete Time: 20:46 pkl 03/29 20:11 Order name: IV Saline Lock; Complete Time: 20:13 pkl 03/29 20:11 Order name: Labs collected and sent; Complete Time: 20:13 pkl 03/29 20:11 Order name: CT Abd/Pelvis - W/Contrast pkl Administered Medications: Discontinued: NS 0.9% 1000 ml IV at 125 ml/hr continuous 20:27 Drug: NS 0.9% 1000 ml Route: IV; Rate: 125 ml/hr; Site: right antecubital; kr2 23:45 Follow up: Response: No adverse reaction; IV Status: Order to discontinue infusion kr2 Disposition: 03/29/18 23:41 Discharged to Home. Impression: Abdominal pain. - Condition is Stable. - Prescriptions for Ultram 50 mg Oral Tablet - take 1 tablet by ORAL route every 8 hours As needed; 20 tablet. - Medication Reconciliation Form, Thank You Letter, Antibiotic Education, Prescription Opioid Use form. - Follow up: Private Physician; When: 2 - 3 days; Reason: Re-evaluation by your physician. - Problem is new. - Symptoms have improved. Signatures: Dispatcher [employer] EDLoida Greene RN RN aj1 Giovanni Buchanan MD MD pkl Mini Terry RN RN kr2 Corrections: (The following items were deleted from the chart) 23:55 23:41 03/29/2018 23:41 Discharged to Home. Impression: Abdominal pain. Condition is kr2 Stable. Forms are Medication Reconciliation Form, Thank You Letter, Antibiotic Education, Prescription Opioid Use. Follow up: Private Physician; When: 2 - 3 days; Reason: Re-evaluation by your physician. Problem is new. Symptoms have improved. pkl
--- NOTE | 2018-03-30 11:34 | RAD REPORT ---
EXAM DESCRIPTION: CTAbdomen Pelvis W Contrast - 03/30/2018 5:06 am CLINICAL HISTORY: Abdominal pain. ABD PAIN COMPARISON: Abdomen Pelvis W Contrast dated 02/06/2018; Abdomen Pelvis W Contrast dated 09/25/2017 ; CT ABD PELVIS W CONTRAST dated 04/14/2015; CT ABD PELVIS W CONTRAST dated 08/15/2013 TECHNIQUE: Biphasic CT imaging of the abdomen and pelvis was performed with 100 ml non-ionic IV cont rast. All CT scans are performed using dose optimization technique as appropriate and may include automated exposure control or mA/KV adjustment according to patient size. FINDINGS: The lung bases are clear. The liver, spleen, pancreas, adrenal glands and kidneys are within normal limits. Benign renal cysts noted, small. No bowel obstruction, free air, free fluid or abscess. The appendix is normal. No evidence of signi ficant lymphadenopathy. No suspicious bony findings. IMPRESSION: No acute intra-abdominal or pelvic finding.
== END 2018-03-29 23:55 | disposition home or self-care (01) ==
LOC: ER 19:26
DX: R10.31 Right lower quadrant pain (principal); Z88.6 Allergy status to analgesic agent
CPT/HCPCS: 36415; 74177; 80048; 80076; 81003; 81025; 83690; 85025; 96360; 96361; 99284; J7030; Q9967

== ENCOUNTER 2018-05-29 18:51 | Emergency (ER) | payer SELFPAY ==
--- NOTE | 2018-05-29 21:08 | RAD REPORT ---
EXAM DESCRIPTION: RAD - Chest Pa And Lat (2 Views) - 05/29/2018 8:52 pm CLINICAL HISTORY: Cough, abdominal pain COMPARISON: September 2016 TECHNIQUE: PA and lateral views of the chest were obtained. FINDINGS: The lungs are clear. Heart size is normal and central vasculature is within normal limit s. No pleural effusion or pneumothorax seen. No acute bony finding noted. No aortic abnormality. IMPRESSION: No acute cardiopulmonary process. No significant change from comparison.
[2018-05-29 21:29] LABS: Urine Bacteria <20 /HPF (<20); Urine Culture Reflex Order NOT NEEDED; Urine Mucus 1+ /HPF (NONE SEEN); Urine RBC <5 /HPF (NONE SEEN)
[2018-05-29 21:37] LABS: Urine Specific Gravity 1.025 (1.005-1.030)
[2018-05-29 21:39] LABS: Urine Blood NEGATIVE (NEG); Urine Glucose NEGATIVE (NEG); Urine Protein TRACE (NEG); Urine Specific Gravity 1.025 (1.005-1.030)
--- NOTE | 2018-05-29 22:39 | ER ---
Nurse's Notes [facility] Name: Sonja Covarrubias Age: 23 yrs Sex: Female : 1995 Arrival Date: 05/29/2018 Time: 18:53 Bed 19 Private MD: Diagnosis: Lower abdominal pain, unspecified;Cough Presentation: 05/29 19:08 Presenting complaint: Significant other states: Shes had lower abdominal cramping and sg pain for several days, denies any nausea/vomiting, reports having a cough as well, no N/V/D/Fever reported at this time. Transition of care: patient was not received from another setting of care. Onset of symptoms was May 29, 2018. Risk Assessment: Do you want to hurt yourself or someone else? Patient reports no desire to harm self or others. Initial Sepsis Screen: Does the patient meet any 2 criteria? No. Patient's initial sepsis screen is negative. Does the patient have a suspected source of infection? No. Patient's initial sepsis screen is negative. Care prior to arrival: None. 19:08 Method Of Arrival: Ambulatory sg 19:08 Acuity: JANNY 3 sg Historical: - Allergies: 19:07 Motrin; sg - Home Meds: 19:08 None [Active]; sg - PMHx: 19:07 Deaf; mute; sg - Immunization history:: Adult Immunizations up to date. - Social history:: Smoking status: Patient/guardian denies using tobacco. - Ebola Screening: : Patient negative for fever greater than or equal to 101.5 degrees Fahrenheit, and additional compatible Ebola Virus Disease symptoms Patient denies exposure to infectious person Patient denies travel to an Ebola-affected area in the 21 days before illness onset No symptoms or risks identified at this time. Screenin:00 Abuse screen: Denies threats or abuse. Nutritional screening: No deficits noted. jb4 Tuberculosis screening: No symptoms or risk factors identified. Fall Risk None identified. Assessment: 20:00 General: Appears uncomfortable, slender, well groomed, well developed, well nourished, jb4 Behavior is calm, cooperative, appropriate for age. Pain: Complains of pain in anterior aspect of left lateral abdomen and left lower quadrant Pain does not radiate. Pain currently is 2 out of 10 on a pain scale. Quality of pain is described as crampy. Neuro: Level of Consciousness is awake, alert, obeys commands, Oriented to person, place, time, situation. Cardiovascular: Patient's skin is warm and dry. Respiratory: Airway is patent Respiratory effort is even, unlabored, Respiratory pattern is regular, symmetrical. GI: Abdomen is flat, non-distended, Bowel sounds present X 4 quads. Abd is soft X 4 quads Abd is non tender in right upper quadrant, left upper quadrant and left lower quadrant Abdomen is tender to palpation in right lower quadrant. : No signs and/or symptoms were reported regarding the genitourinary system. EENT: No signs and/or symptoms were reported regarding the EENT system. Derm: Skin is intact, Skin is pink, warm \T\ dry. Musculoskeletal: Circulation, motion, and sensation intact. Range of motion: intact in all extremities. 21:18 Reassessment: No changes from previously documented assessment. Patient and/or family jb4 updated on plan of care and expected duration. Pain level reassessed. Patient is alert, oriented x 3, equal unlabored respirations, skin warm/dry/pink. 22:14 Reassessment: No changes from previously documented assessment. Patient and/or family jb4 updated on plan of care and expected duration. Pain level reassessed. Patient is alert, oriented x 3, equal unlabored respirations, skin warm/dry/pink. 23:03 Reassessment: No changes from previously documented assessment. Patient and/or family jb4 updated on plan of care and expected duration. Pain level reassessed. Patient is alert, oriented x 3, equal unlabored respirations, skin warm/dry/pink. Vital Signs: 19:07 Pulse 98; Resp 17; Temp 98.0; Pulse Ox 100% on R/A; sg 19:07 BP 116 / 66; sg 20:00 BP 112 / 70; Pulse 76; Resp 18; Pulse Ox 100% on R/A; jb4 21:18 BP 112 / 78; Pulse 76; Resp 18; Pulse Ox 100% on R/A; jb4 22:14 BP 112 / 75; Pulse 65; Resp 18; Pulse Ox 100% on R/A; jb4 22:45 BP 126 / 97; Pulse 69; Resp 16; Pulse Ox 100% on R/A; jb4 ED Course: 18:53 Patient arrived in ED. as 19:06 Arm band placed on. sg 19:09 Triage completed. sg 20:00 Patient has correct armband on for positive identification. Bed in low position. Call jb4 light in reach. Side rails up X 1. Pulse ox on. NIBP on. Warm blanket given. 20:11 Eusebia Maharaj FNP-C is [facility]. snw 20:11 Cody Carias MD is Attending Physician. snw 20:13 Dre Hernandez, RN is Primary Nurse. jb4 20:35 Radiology exam delayed due to test not completed at this time. kw 20:44 Patient moved to radiology via wheelchair. kw 20:53 Chest Pa And Lat (2 Views) XRAY In Process Unspecified. EDMS 21:32 US Transvaginal Study (Probe) In Process Unspecified. EDMS 23:04 No provider procedures requiring assistance completed. Patient did not have IV access jb4 during this emergency room visit. Administered Medications: 22:37 CANCELLED (motrin severe allergy): TORadol 60 mg IM once snw 22:45 Drug: [place] 5 mg-325 mg 1 tabs Route: PO; jb4 23:04 Follow up: Response: No adverse reaction jb4 Outcome: 22:38 Discharge ordered by . snw 23:04 Discharged to home ambulatory, with family. jb4 23:04 Condition: stable 23:04 Discharge instructions given to patient, family, Instructed on discharge instructions, follow up and referral plans. medication usage, Demonstrated understanding of instructions, follow-up care, medications, Prescriptions given X 1. 23:05 Patient left the ED. jb4 Signatures: Dispatcher [employer] Eulogio Anderson RN RN Eusebia Maharaj FNP-C HYPERCIL CORE TRANSFORMER ASSEMBLER-Thais Johnson Kimberlee Dre Hernandez, RN RN jb4
--- NOTE | 2018-05-29 22:39 | EDPHYS ---
Physician Documentation [facility] Name: Sonja Covarrubias Age: 23 yrs Sex: Female : 1995 Arrival Date: 05/29/2018 Time: 18:53 Bed 19 Private MD: ED Physician Cody Carias HPI: 05/29 23:48 This 23 yrs old Female presents to ER via Ambulatory with complaints of snw Abdominal Pain, Cough. 21:17 The patient presents with abdominal pain in the lower abdomen, abdominal distention snw that is diffuse. Onset: The symptoms/episode began/occurred gradually, 2 month(s) ago, and became persistent. The symptoms do not radiate. The symptoms are described as crampy. Severity of pain: At its worst the pain was moderate. It is unknown whether or not the patient has had similar symptoms in the past. It is unknown whether or not the patient has recently seen a physician. Historical: - Allergies: 19:07 Motrin; sg - Home Meds: 19:08 None [Active]; sg - PMHx: 19:07 Deaf; mute; sg - Immunization history:: Adult Immunizations up to date. - Social history:: Smoking status: Patient/guardian denies using tobacco. - Ebola Screening: : Patient negative for fever greater than or equal to 101.5 degrees Fahrenheit, and additional compatible Ebola Virus Disease symptoms Patient denies exposure to infectious person Patient denies travel to an Ebola-affected area in the 21 days before illness onset No symptoms or risks identified at this time. ROS: 21:16 Eyes: Negative for injury, pain, redness, and discharge, ENT: Negative for injury, snw pain, and discharge, Neck: Negative for injury, pain, and swelling, Cardiovascular: Negative for chest pain, palpitations, and edema. 21:16 Back: Negative for injury and pain, : Negative for injury, bleeding, discharge, and swelling, MS/Extremity: Negative for injury and deformity, Skin: Negative for injury, rash, and discoloration, Neuro: Negative for headache, weakness, numbness, tingling, and seizure. 21:16 Constitutional: Positive for malaise, Negative for fever. 21:16 Respiratory: Positive for cough. 21:16 Abdomen/GI: Positive for abdominal pain. Exam: 21:14 Constitutional: This is a well developed, well nourished patient who is awake, alert, snw and in no acute distress. Head/Face: Normocephalic, atraumatic. Eyes: Pupils equal round and reactive to light, extra-ocular motions intact. Lids and lashes normal. Conjunctiva and sclera are non-icteric and not injected. Cornea within normal limits. Periorbital areas with no swelling, redness, or edema. ENT: Nares patent. No nasal discharge, no septal abnormalities noted. Tympanic membranes are normal and external auditory canals are clear. Oropharynx with no redness, swelling, or masses, exudates, or evidence of obstruction, uvula midline. Mucous membranes moist. Neck: Trachea midline, no thyromegaly or masses palpated, and no cervical lymphadenopathy. Supple, full range of motion without nuchal rigidity, or vertebral point tenderness. No Meningismus. Chest/axilla: Normal chest wall appearance and motion. Nontender with no deformity. No lesions are appreciated. Cardiovascular: Regular rate and rhythm with a normal S1 and S2. No gallops, murmurs, or rubs. Normal PMI, no JVD. No pulse deficits. Respiratory: Lungs have equal breath sounds bilaterally, clear to auscultation and percussion. No rales, rhonchi or wheezes noted. No increased work of breathing, no retractions or nasal flaring. Dry cough 21:14 Back: No spinal tenderness. No costovertebral tenderness. Full range of motion. Skin: Warm, dry with normal turgor. Normal color with no rashes, no lesions, and no evidence of cellulitis. MS/ Extremity: Pulses equal, no cyanosis. Neurovascular intact. Full, normal range of motion. Neuro: Awake and alert, GCS 15, oriented to person, place, time, and situation. Cranial nerves II-XII grossly intact. Motor strength 5/5 in all extremities. Sensory grossly intact. Cerebellar exam normal. Normal gait. Psych: Awake, alert, with orientation to person, place and time. Behavior, mood, and affect are within normal limits. 21:14 Abdomen/GI: Inspection: distension, Bowel sounds: normal, in all quadrants, Palpation: moderate abdominal tenderness, in the suprapubic area. Vital Signs: 19:07 Pulse 98; Resp 17; Temp 98.0; Pulse Ox 100% on R/A; sg 19:07 BP 116 / 66; sg 20:00 BP 112 / 70; Pulse 76; Resp 18; Pulse Ox 100% on R/A; jb4 21:18 BP 112 / 78; Pulse 76; Resp 18; Pulse Ox 100% on R/A; jb4 22:14 BP 112 / 75; Pulse 65; Resp 18; Pulse Ox 100% on R/A; jb4 22:45 BP 126 / 97; Pulse 69; Resp 16; Pulse Ox 100% on R/A; jb4 MDM: 20:15 Patient medically screened. snw 23:46 Data reviewed: vital signs, nurses notes. Data interpreted: Pulse oximetry: on room air snw is 100 %. Interpretation: normal. Counseling: I had a detailed discussion with the patient and/or guardian regarding: the historical points, exam findings, and any diagnostic results supporting the discharge/admit diagnosis, lab results, the need for outpatient follow up, for definitive care, to return to the emergency department if symptoms worsen or persist or if there are any questions or concerns that arise at home. 23:47 Special discussion: Based on the history and exam findings, there is no indication for snw further emergent testing or inpatient evaluation. I discussed with the patient/guardian the need to see the OB Gyne specialist for further evaluation of the symptoms. 05/29 20:12 Order name: Urine Microscopic Only; Complete Time: 21:46 snw 05/29 20:30 Order name: Urine Dipstick--Ancillary (enter results); Complete Time: 21:46 mw2 05/29 20:12 Order name: Chest Pa And Lat (2 Views) XRAY; Complete Time: 21:10 snw 05/29 21:06 Order name: Urine --Ancillary (enter results); Complete Time: 21:46 snw 05/29 21:10 Order name: US Transvaginal Study (Probe) snw 05/29 20:12 Order name: Urine Test (obtain specimen); Complete Time: 20:46 snw 05/29 20:12 Order name: Urine Dipstick-Ancillary (obtain specimen); Complete Time: 20:32 snw Administered Medications: 22:37 CANCELLED (motrin severe allergy): TORadol 60 mg IM once snw 22:45 Drug: [place] 5 mg-325 mg 1 tabs Route: PO; jb4 23:04 Follow up: Response: No adverse reaction jb4 Disposition: 05/30 07:46 Co-signature as Attending Physician, Cody Carias MD I agree with the assessment and tx plan of care. Disposition: 05/29/18 22:38 Discharged to Home. Impression: Lower abdominal pain, unspecified, Cough. - Condition is Stable. - Discharge Instructions: Abdominal Pain, Adult, Cool Mist Vaporizer, Cough, Adult. - Prescriptions for Protonix 40 mg Oral Tablet - take 1 tablet by ORAL route once daily; 30 tablet. - Medication Reconciliation Form, Thank You Letter, Antibiotic Education, Prescription Opioid Use form. - Follow up: Private Physician; When: 2 - 3 days; Reason: Recheck today's complaints, Continuance of care, Re-evaluation by your physician. Follow up: Emergency Department; When: As needed; Reason: Worsening of condition. Signatures: Dispatcher [employer] EDMS Eulogio Vogt RN RN sg Therrien, Shelly, INVESTMENT ACCOUNTANT-C INVESTMENT ACCOUNTANT-Csnw Dre Hernandez RN RN jbCody Reis MD MD tx Corrections: (The following items were deleted from the chart) 05/29 22:37 22:32 TORadol 60 mg IM once ordered. snw snw 23:05 22:38 05/29/2018 22:38 Discharged to Home. Impression: Lower abdominal pain, jb4 unspecified; Cough. Condition is Stable. Forms are Medication Reconciliation Form, Thank You Letter, Antibiotic Education, Prescription Opioid Use. Follow up: Private Physician; When: 2 - 3 days; Reason: Recheck today's complaints, Continuance of care, Re-evaluation by your physician. Follow up: Emergency Department; When: As needed; Reason: Worsening of condition. snw
[2018-05-29] MEDS ORDERED: HYDROCODONE/APAP 5/325 MG TAB ONE (22:51)
--- NOTE | 2018-05-30 07:42 | RAD REPORT ---
EXAM DESCRIPTION: US - Transvaginal Study Probe - 05/29/2018 9:32 pm CLINICAL HISTORY: Pelvic pain Preliminary findings provided the time of the study. COMPARISON: None. TECHNIQUE: Endovaginal sonography was performed. FINDINGS: Endometrial stripe is 8- 9 mm in maximum thickness. No focal endometrial mass or polyp kendall ntifiable. Endometrium myometrium interface is preserved. No myometrial mass identified. Both ovaries are identified. Doppler evaluation shows normal stroma blood flow pattern. No dominant s olid or cystic ovarian or adnexal finding. No blood or fluid in the cul de sac. IMPRESSION: Negative endovaginal pelvic ultrasound.
== END 2018-05-29 23:05 | disposition home or self-care (01) ==
LOC: ER 18:51
DX: R05 Cough (principal); Z88.6 Allergy status to analgesic agent
CPT/HCPCS: 71046; 76830; 81003; 81015; 81025; 99284

== ENCOUNTER 2018-06-12 07:58 | Emergency (ER) | payer SELFPAY ==
[2018-06-12 08:38] LABS: Absolute Lymphocytes (CBC) 0.3 K/uL (0.7-4.9); Absolute Monocytes 0.3 K/uL (0.1-1.3); Absolute Neutrophil 7.4 K/uL (1.8-8.0); Basophils % 0.2 % (0-1.3); Eosinophils % 0.8 % (0-4.4); Hematocrit 43.1 % (36.0-45.0); Lymphocytes % 3.7 % (15.3-44.8); MPV 9.1 fL (7.6-11.3); Monocytes % 3.3 % (3.3-12.3); RBC Red Blood Cell Count 4.75 M/uL (3.86-4.86)
[2018-06-12 08:46] LABS: BUN Blood Urea Nitrogen 17 mg/dL (7-18); Bicarbonate 27 mmol/L (21-32); Glucose Level 96 mg/dL (74-106); Potassium 3.9 mmol/L (3.5-5.1); Sodium Level 141 mmol/L (136-145)
[2018-06-12] MEDS ORDERED: NA CHLORIDE 0.9% 1,000 ML ONE (09:00)
[2018-06-12 09:01] LABS: Albumin 3.9 g/dL (3.4-5.0); Bilirubin Direct 0.2 mg/dL (0-0.2); Bilirubin Total 0.8 mg/dL (0.2-1.0); Protein, Total 7.5 g/dL (6.4-8.2)
[2018-06-12 09:05] LABS: Urine Blood NEGATIVE (NEG); Urine Glucose NEGATIVE (NEG); Urine Protein 1+ (NEG); Urine Specific Gravity 1.025 (1.005-1.030)
--- NOTE | 2018-06-12 09:31 | RAD REPORT ---
EXAM DESCRIPTION: CT - Stone Protocol - 06/12/2018 9:03 am CLINICAL HISTORY: Abdominal pain. Lower abdominal pain. Urinary frequency COMPARISON: March 2018 TECHNIQUE: Computed axial tomography of the abdomen pelvis was obtained without oral or IV contrast. Lack of IV and oral contrast limits evaluation of solid organs, bowel, and vessels. Coronal reformat diane images were obtained and reviewed. All CT scans are performed using dose optimization technique as appropriate and may include automated exposure control or mA/KV adjustment according to patient size. FINDINGS: A renal calculus is not seen. An ureteral calculus is not noted. A bladder calculus is not present. The liver, spleen, pancreas and adrenals appear grossly normal There is no evidence of diverticulitis. The appendix appears normal The posterior aspect of the uterus appears more prominent on the prior exam IMPRESSION: Negative for a genitourinary calculus Posterior aspect of the uterus appears more prominent than on the prior exam. It is uncertain if this indicates a fibroid, isodense adnexal mass or simply the normal retroverted appearance of the uterus . Pelvic ultrasound recommended
[2018-06-12 09:32] LABS: Blood Morphology Comment NOTED (NOT SEEN); Platelet Estimate ADEQ; Polychromasia 1+
[2018-06-12 09:33] LABS: Platelets, Giant FEW
[2018-06-12] MEDS ORDERED: MORPHINE 4 MG/ML SYR ONE (11:25)
[2018-06-12] MEDS ORDERED: CEFTRIAXONE/SWI 1gm 1 GM/10 ML SYR ONE (11:25)
[2018-06-12] MEDS ORDERED: ONDANSETRON 4 MG/2 ML VIAL ONE (11:25)
--- NOTE | 2018-06-12 12:16 | RAD REPORT ---
EXAM DESCRIPTION: CTAbdomen Pelvis W Contrast - 06/12/2018 12:05 pm CLINICAL HISTORY: Abdominal pain. ABD PAIN COMPARISON: Abdomen Pelvis W Contrast dated 03/29/2018; Abdomen Pelvis W Contrast dated 8; Abdomen Pelvis W Contrast dated 09/25/2017; CT ABD PELVIS W CONTRAST dated 04/14/2015; Stone Martín col dated 06/12/2018 TECHNIQUE: Biphasic CT imaging of the abdomen and pelvis was performed with 100 ml non-ionic IV cont rast. All CT scans are performed using dose optimization technique as appropriate and may include automated exposure control or mA/KV adjustment according to patient size. FINDINGS: The lung bases are clear. The liver, spleen, pancreas, adrenal glands and kidneys are within normal limits. No bowel obstruction, free air, free fluid or abscess. The appendix is normal. No evidence of signi ficant lymphadenopathy. No suspicious bony findings. IMPRESSION: No acute intra-abdominal or pelvic finding.
--- NOTE | 2018-06-12 13:02 | ER ---
Nurse's Notes [facility] Name: Sonja Covarrubias Age: 23 yrs Sex: Female : 1995 Arrival Date: 06/12/2018 Time: 08:00 Bed 15 Private MD: Diagnosis: Abdominal tenderness;Vomiting Presentation: 06/12 08:13 Presenting complaint: Low back pain that radiates to groin and N/V x 2 days. Transition hb of care: patient was not received from another setting of care. Onset of symptoms was June 11, 2018. Risk Assessment: Do you want to hurt yourself or someone else? Patient reports no desire to harm self or others. Initial Sepsis Screen: Does the patient meet any 2 criteria? No. Patient's initial sepsis screen is negative. Does the patient have a suspected source of infection? No. Patient's initial sepsis screen is negative. Care prior to arrival: None. 08:13 Method Of Arrival: Ambulatory hb 08:13 Acuity: JANNY 3 hb Triage Assessment: 09:32 General: Appears uncomfortable, Behavior is calm, cooperative. Musculoskeletal: No ls4 deficits noted. 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 - Social history:: Smoking status: Patient/guardian denies using tobacco. - Ebola Screening: : No symptoms or risks identified at this time. - Family history:: not pertinent. Screenin:54 Abuse screen: Denies threats or abuse. Denies injuries from another. Nutritional ls4 screening: No deficits noted. Tuberculosis screening: No symptoms or risk factors identified. Fall Risk. Assessment: 08:53 Pain: Complains of pain in suprapubic area, posterior aspect of right lateral abdomen, ls4 posterior aspect of left lateral abdomen and right upper quadrant Pain currently is 7 out of 10 on a pain scale. Neuro: Level of Consciousness is awake, alert, obeys commands, Oriented to person, place, time, situation. Respiratory: Airway is patent Respiratory effort is even, unlabored, Respiratory pattern is regular. Derm: Skin is pink, warm \T\ dry. 09:31 Reassessment: No changes from previously documented assessment. Patient and/or family ls4 updated on plan of care and expected duration. Pain level reassessed. Patient is alert, oriented x 3, equal unlabored respirations, skin warm/dry/pink. PAIN AND ANTI NAUSEA MEDICATION OFFERED. PT REFUSED. 10:30 Reassessment: Patient and/or family updated on plan of care and expected duration. Pain ls4 level reassessed. Patient is alert, oriented x 3, equal unlabored respirations, skin warm/dry/pink. Vital Signs: 08:14 BP 121 / 81; Pulse 116; Resp 16; Temp 98.9; Pulse Ox 98% on R/A; Pain 8/10; hb 11:42 BP 116 / 73; Pulse 98; Resp 16; Pulse Ox 99% on R/A; Pain 3/10; ls4 13:24 BP 110 / 78; Pulse 14; Resp 84; Pulse Ox 100% on R/A; Pain 3/10; ls4 ED Course: 08:00 Patient arrived in ED. tw3 08:12 Micheal Leon MD is Attending Physician. johanna 08:14 Triage completed. hb 08:14 Arm band placed on. hb 08:17 Ruthy Mukherjee, RN is Primary Nurse. ls4 08:36 No provider procedures requiring assistance completed. Initial lab(s) drawn, by or, ls4 sent to lab. Urine collected: clean catch specimen, cloudy, main colored. Inserted saline lock: 20 gauge in right antecubital area, using aseptic technique. Blood collected. 08:54 Patient has correct armband on for positive identification. Bed in low position. Call ls4 light in reach. Side rails up X 1. 09:01 CT completed. Patient tolerated procedure well. Patient moved to CT via wheelchair. jg6 Patient moved back from CT. 09:03 CT Stone Protocol In Process Unspecified. EDMS 10:41 Blood Culture Adult (2) Sent. mh5 10:41 Procalcitonin Sent. mh5 10:45 First set of blood cultures drawn by or, Second set of blood cultures drawn by me. mh5 10:46 Warm blanket given. Pulse ox on. NIBP on. 5 12:06 CT Abd/Pelvis - W/Contrast In Process Unspecified. EDMS 12:06 CT completed. Patient tolerated procedure well. Patient moved to CT via wheelchair. jg6 Patient moved back from CT. Patient moved back from radiology. 13:23 Patient did not have IV access during this emergency room visit. intact, bleeding ls4 controlled, No redness/swelling at site. Pressure dressing applied. Administered Medications: 08:55 Drug: NS 0.9% 1000 ml Route: IV; Rate: 1 bolus; Site: right antecubital; ls4 09:00 Follow up: IV Status: Completed infusion; IV Intake: 1000ml ls4 11:22 Drug: Rocephin - (cefTRIAXone) 1 grams Route: IVPB; Infused Over: 10 mins; Site: right ls4 antecubital; 11:32 Follow up: Response: No adverse reaction; IV Status: Completed infusion; IV Intake: [id number] 11:23 Drug: morphine 4 mg Route: IVP; Site: right antecubital; ls4 12:08 Follow up: Response: No adverse reaction; Marked relief of symptoms; Pain is decreased ls4 11:23 Drug: Zofran 4 mg Route: IVP; Site: right antecubital; ls4 11:53 Follow up: Response: No adverse reaction ls4 Intake: 09:00 IV: 1000ml; Total: 1000ml. ls4 11:32 IV: 10ml; Total: 1010ml. ls4 Outcome: 13:02 Discharge ordered by MD. spencer 13:25 Discharged to home ambulatory, with family. ls4 13:25 Condition: good 13:25 Discharge instructions given to patient, family, Instructed on discharge instructions, follow up and referral plans. medication usage, Demonstrated understanding of instructions, follow-up care, medications. 13:27 Patient left the ED. ls4 Signatures: Dispatcher [employer] EDMicheal Gurrola MD MD cha Baxter, Heather, RN RN Jordana Ch 5 Virginia Alexander 3 Ana Moore6 Ruthy Mukherjee RN RN ls4 Corrections: (The following items were deleted from the chart) 12:08 11:53 Response: No adverse reaction ls4 ls4
--- NOTE | 2018-06-12 13:02 | EDPHYS ---
Physician Documentation [facility] Name: Sonja Covarrubias Age: 23 yrs Sex: Female : 1995 Arrival Date: 06/12/2018 Time: 08:00 Bed 15 Private MD: ED Physician Micheal Leon HPI: 06/12 09:10 This 23 yrs old Female presents to ER via Ambulatory with complaints of Back johanna Pain, Side Pain. 09:10 The patient presents with pain that is acute, with no known mechanism of injury. The johanna symptoms are located in the left low back, left mid back, right mid back and right low back. Onset: The symptoms/episode began/occurred 60 day(s) ago. The pain does not radiate. Associated signs and symptoms: Pertinent positives: vomiting. Severity of symptoms: At their worst the symptoms were mild, moderate, in the emergency department the symptoms are unchanged. 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 - Social history:: Smoking status: Patient/guardian denies using tobacco. - Ebola Screening: : No symptoms or risks identified at this time. - Family history:: not pertinent. ROS: 09:10 Constitutional: Negative for fever, chills, and weight loss, Eyes: Negative for injury, johanna pain, redness, and discharge, ENT: Negative for injury, pain, and discharge, Neck: Negative for injury, pain, and swelling, Cardiovascular: Negative for chest pain, palpitations, and edema, Respiratory: Negative for shortness of breath, cough, wheezing, and pleuritic chest pain, : Negative for injury, bleeding, discharge, and swelling, MS/Extremity: Negative for injury and deformity, Skin: Negative for injury, rash, and discoloration, Neuro: Negative for headache, weakness, numbness, tingling, and seizure, Psych: Negative for depression, anxiety, suicide ideation, homicidal ideation, and hallucinations, Allergy/Immunology: Negative for hives, rash, and allergies, Endocrine: Negative for neck swelling, polydipsia, polyuria, polyphagia, and marked weight changes, Hematologic/Lymphatic: Negative for swollen nodes, abnormal bleeding, and unusual bruising. 09:10 Abdomen/GI: Positive for abdominal pain, nausea and vomiting, of the posterior aspect of right lateral abdomen, posterior aspect of left lateral abdomen, right lower quadrant and left lower quadrant. Exam: 09:10 Constitutional: This is a well developed, well nourished patient who is awake, alert, johanna and in no acute distress. Head/Face: Normocephalic, atraumatic. Eyes: Pupils equal round and reactive to light, extra-ocular motions intact. Lids and lashes normal. Conjunctiva and sclera are non-icteric and not injected. Cornea within normal limits. Periorbital areas with no swelling, redness, or edema. ENT: Nares patent. No nasal discharge, no septal abnormalities noted. Tympanic membranes are normal and external auditory canals are clear. Oropharynx with no redness, swelling, or masses, exudates, or evidence of obstruction, uvula midline. Mucous membranes moist. Neck: Trachea midline, no thyromegaly or masses palpated, and no cervical lymphadenopathy. Supple, full range of motion without nuchal rigidity, or vertebral point tenderness. No Meningismus. Chest/axilla: Normal chest wall appearance and motion. Nontender with no deformity. No lesions are appreciated. Respiratory: Lungs have equal breath sounds bilaterally, clear to auscultation and percussion. No rales, rhonchi or wheezes noted. No increased work of breathing, no retractions or nasal flaring. Back: No spinal tenderness. No costovertebral tenderness. Full range of motion. Female : Normal external genitalia. Skin: Warm, dry with normal turgor. Normal color with no rashes, no lesions, and no evidence of cellulitis. MS/ Extremity: Pulses equal, no cyanosis. Neurovascular intact. Full, normal range of motion. Neuro: Awake and alert, GCS 15, oriented to person, place, time, and situation. Cranial nerves II-XII grossly intact. Motor strength 5/5 in all extremities. Sensory grossly intact. Cerebellar exam normal. Normal gait. Psych: Awake, alert, with orientation to person, place and time. Behavior, mood, and affect are within normal limits. 09:10 Cardiovascular: Rate: tachycardic, Rhythm: regular, Pulses: Pulses are 4+ in bilateral radial, brachial, femoral, popliteal, posterior tibial and and dorsalis pedis arteries.. Heart sounds: normal, JVD: is not appreciated. Vital Signs: 08:14 BP 121 / 81; Pulse 116; Resp 16; Temp 98.9; Pulse Ox 98% on R/A; Pain 8/10; hb 11:42 BP 116 / 73; Pulse 98; Resp 16; Pulse Ox 99% on R/A; Pain 3/10; ls4 13:24 BP 110 / 78; Pulse 14; Resp 84; Pulse Ox 100% on R/A; Pain 3/10; ls4 MDM: 08:12 Patient medically screened. [facility] 09:13 Data reviewed: vital signs, nurses notes, lab test result(s), radiologic studies. [facility] 06/12 08:21 Order name: CBC with Diff; Complete Time: 09:40 [facility] 06/12 08:21 Order name: Basic Metabolic Panel; Complete Time: 09:04 [facility] 06/12 08:25 Order name: Creatinine for Radiology; Complete Time: 09:04 [facility] 06/12 08:25 Order name: Hepatic Function; Complete Time: 09:04 [facility] 06/12 08:25 Order name: Lipase; Complete Time: 09:04 [facility] 06/12 08:25 Order name: Urine Culture [facility] 06/12 08:37 Order name: Urine Dipstick--Ancillary (enter results); Complete Time: 09:40 06/12 08:37 Order name: Urine --Ancillary (enter results); Complete Time: 09:40 06/12 08:42 Order name: Manual Differential; Complete Time: 09:40 EDMS 06/12 08:42 Order name: CT Stone Protocol; Complete Time: 09:40 [facility] 06/12 09:50 Order name: Blood Culture Adult (2) [facility] 06/12 09:50 Order name: CT Abd/Pelvis - W/Contrast; Complete Time: 12:54 johanna 06/12 09:50 Order name: Procalcitonin; Complete Time: 12:54 [facility] 06/12 08:25 Order name: IV Saline Lock; Complete Time: 08:35 [facility] 06/12 08:25 Order name: Labs collected and sent; Complete Time: 08:35 johanna 06/12 08:25 Order name: Urine Dipstick-Ancillary (obtain specimen); Complete Time: 08:35 [facility] 06/12 08:25 Order name: Urine Test (obtain specimen); Complete Time: 08:35 [facility] Administered Medications: 08:55 Drug: NS 0.9% 1000 ml Route: IV; Rate: 1 bolus; Site: right antecubital; ls4 09:00 Follow up: IV Status: Completed infusion; IV Intake: 1000ml ls4 11:22 Drug: Rocephin - (cefTRIAXone) 1 grams Route: IVPB; Infused Over: 10 mins; Site: right ls4 antecubital; 11:32 Follow up: Response: No adverse reaction; IV Status: Completed infusion; IV Intake: [id number] 11:23 Drug: morphine 4 mg Route: IVP; Site: right antecubital; ls4 12:08 Follow up: Response: No adverse reaction; Marked relief of symptoms; Pain is decreased ls4 11:23 Drug: Zofran 4 mg Route: IVP; Site: right antecubital; ls4 11:53 Follow up: Response: No adverse reaction ls4 Disposition: 06/12/18 13:02 Discharged to Home. Impression: Abdominal tenderness, Vomiting. - Condition is Stable. - Discharge Instructions: Abdominal Pain, Adult, Nausea and Vomiting, Adult, Nausea and Vomiting, Adult, [id number], Abdominal Pain, Adult, [id number]. - Prescriptions for Bentyl 20 mg Oral Tablet - take 1 tablet by ORAL route every 6 hours As needed; 20 tablet. Cipro 250 mg Oral Tablet - take 1 tablet by ORAL route every 12 hours; 14 tablet. Pepcid 20 mg Oral Tablet - take 1 tablet by ORAL route every 12 hours for 10 days; 20 tablet. Zofran 4 mg Oral Tablet - take 1 tablet by ORAL route every 12 hours As needed; 20 tablet. - Medication Reconciliation Form, Thank You Letter, Antibiotic Education, Prescription Opioid Use form. - Follow up: Private Physician; When: 2 - 3 days; Reason: Recheck today's complaints, Continuance of care, Re-evaluation by your physician. - Problem is new. - Symptoms have improved. Signatures: Dispatcher [employer] EDVT Micheal Leon MD MD cha Baxter, Heather, RN RN Ruthy Bey RN RN ls4 Corrections: (The following items were deleted from the chart) 13:04 13:02 06/12/2018 13:02 Discharged to Home. Impression: Abdominal tenderness. Condition johanna is Stable. Forms are Medication Reconciliation Form, Thank You Letter, Antibiotic Education, Prescription Opioid Use. Follow up: Private Physician; When: 2 - 3 days; Reason: Recheck today's complaints, Continuance of care, Re-evaluation by your physician. Problem is new. Symptoms have improved. [facility] 13:27 13:04 06/12/2018 13:02 Discharged to Home. Impression: Abdominal tenderness; Vomiting. ls4 Condition is Stable. Forms are Medication Reconciliation Form, Thank You Letter, Antibiotic Education, Prescription Opioid Use. Follow up: Private Physician; When: 2 - 3 days; Reason: Recheck today's complaints, Continuance of care, Re-evaluation by your physician. Problem is new. Symptoms have improved. [facility]
== END 2018-06-12 13:27 | disposition home or self-care (01) ==
LOC: ER 07:58
DX: R11.10 Vomiting, unspecified (principal); Z88.6 Allergy status to analgesic agent
CPT/HCPCS: 36415; 74176; 74177; 76377; 80048; 80076; 81003; 81025; 83690; 84145; 85025; 87040; 87086; 87088; 96374; 96375; 99284; J0696; J2405; J7030; Q9967

== ENCOUNTER 2019-01-19 17:54 | Emergency (ER) | payer SELFPAY ==
[2019-01-19] MEDS ORDERED: CYCLOBENZAPRINE 10 MG TAB ONE (19:32)
[2019-01-19] MEDS ORDERED: ACETAMINOPHEN 500 MG TAB ONE (19:32)
[2019-01-19 20:30] LABS: Urine Blood NEGATIVE (NEG); Urine Glucose NEGATIVE (NEG); Urine Protein NEGATIVE (NEG); Urine pH 5.5 (5.0-7.0)
--- NOTE | 2019-01-19 20:33 | ER ---
Nurse's Notes [facility] Name: Sonja Covarrubias Age: 23 yrs Sex: Female : 1995 Arrival Date: 01/19/2019 Time: 17:56 Bed 14 Private MD: Diagnosis: Strain of muscle, fascia and tendon at neck level-left Presentation: 01/19 18:29 Presenting complaint: Left Shoulder pain, "Wasn't doing anything strenuous, just hurts. 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 Onset of symptoms was January 19, 2019. Risk Assessment: Do you want to hurt yourself or someone else? Patient reports no desire to harm self or others. Initial Sepsis Screen: Does the patient meet any 2 criteria? No. Patient's initial sepsis screen is negative. Does the patient have a suspected source of infection? No. Patient's initial sepsis screen is negative. Care prior to arrival: None. 18:29 Method Of Arrival: Ambulatory [facility] 18:29 Acuity: JANNY 4 [facility] 18:37 Presenting complaint:. 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 - Social history:: Smoking status: Patient/guardian denies using tobacco. - Ebola Screening: : No symptoms or risks identified at this time. Screenin:16 Abuse screen: Denies threats or abuse. Denies injuries from another. Nutritional wh screening: No deficits noted. Tuberculosis screening: No symptoms or risk factors identified. Fall Risk None identified. Assessment: 20:16 General: Appears in no apparent distress. comfortable, Behavior is calm, cooperative, wh appropriate for age. Pain: Complains of pain in Left Shoulder Pain does not radiate. Pain currently is 9 out of 10 on a pain scale. Quality of pain is described as aching, Pain began 2 hours ago. Neuro: Level of Consciousness is awake, alert, obeys commands. Cardiovascular: Capillary refill < 3 seconds. Respiratory: Airway is patent Respiratory effort is even, unlabored, Respiratory pattern is regular, symmetrical. GI: Abdomen is flat, non-distended. : No signs and/or symptoms were reported regarding the genitourinary system. EENT: No signs and/or symptoms were reported regarding the EENT system. Derm: Skin is intact, is healthy with good turgor, Skin is pink, warm \\T\\ dry. normal. Musculoskeletal: Circulation, motion, and sensation intact. 20:50 Reassessment: Patient appears in no apparent distress at this time. No changes from previously documented assessment. Patient and/or family updated on plan of care and expected duration. Pain level reassessed. Patient is alert, oriented x 3, equal unlabored respirations, skin warm/dry/pink. Patient states feeling better. Patient states symptoms have improved. Vital Signs: 18:36 BP 112 / 73; Pulse 96; Resp 16 S; Temp 98.2(O); Pulse Ox 100% on R/A; Pain 10/10; jl7 20:00 BP 102 / 54; Pulse 94; Resp 18; Pulse Ox 97% on R/A; wh ED Course: 17:56 Patient arrived in ED. mr 18:35 Triage completed. jl7 18:36 Arm band placed on right wrist. jl7 18:45 Micheal Leon PA is PHCP. cp 18:45 Papito Joe MD is Attending Physician. cp 19:31 Bandar Carbajal is Primary Nurse. wh 19:47 Micheal Leon MD is Attending Physician. cp 20:00 XRAY Chest (1 view) In Process Unspecified. EDMS 20:18 Patient has correct armband on for positive identification. Placed in gown. Bed in low wh position. Call light in reach. Side rails up X 1. Pulse ox on. NIBP on. 20:49 No provider procedures requiring assistance completed. Patient did not have IV access during this emergency room visit. Administered Medications: 19:34 Drug: Flexeril 10 mg Route: PO; 20:48 Follow up: Response: No adverse reaction; Pain is decreased wh 19:34 Drug: Tylenol 1000 mg Route: PO; 20:48 Follow up: Response: No adverse reaction; Pain is decreased wh 20:38 Drug: Lidoderm 5 % (700 mg/patch) 1 patches Route: Topical; Site: affected area; 20:49 Follow up: Response: No adverse reaction; Pain is decreased Outcome: 20:33 Discharge ordered by MD. cp 20:49 Discharged to home ambulatory, with family. 20:49 Condition: stable 20:49 Discharge instructions given to patient, family, Instructed on discharge instructions, follow up and referral plans. medication usage, POC Muscle strain Demonstrated understanding of instructions, follow-up care, medications, POC Prescriptions given X 2. 20:50 Patient left the ED. Signatures: Dispatcher [employer] ROHIT CabreraJoy leroy mr Micheal Leon, PA PA Claudio Lynn RN RN tina7 Bandar Carbajal Corrections: (The following items were deleted from the chart) 18:38 18:29 Presenting complaint: Left Shoulder pain, "Wasn't doing anything strenuous, just jl7 hurts. Feels like a pull." jl7
--- NOTE | 2019-01-19 20:33 | EDPHYS ---
Physician Documentation [facility] Name: Sonja Covarrubias Age: 23 yrs Sex: Female : 1995 Arrival Date: 01/19/2019 Time: 17:56 Bed 14 Private MD: ED Physician Micheal Leon HPI: 01/19 19:30 This 23 yrs old Female presents to ER via Ambulatory with complaints of cp Shoulder Pain. 19:30 The patient presents with pain that is acute, and tenderness. cp 19:30 The symptoms are located in the left trapezius and left scapular area and left anterior cp shoulder. Onset: The symptoms/episode began/occurred suddenly, 1 hour(s) ago. The pain does not radiate. Associated signs and symptoms: Pertinent negatives: abdominal pain, chest pain, fever, headache, numbness, tingling, weakness. The problem was sustained Patient reports she was talking on phone when she turned head suddenly to right and started having pain. 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 - Social history:: Smoking status: Patient/guardian denies using tobacco. - Ebola Screening: : No symptoms or risks identified at this time. ROS: 19:35 Constitutional: Negative for body aches, chills, fever, poor PO intake. cp 19:35 Eyes: Negative for injury, pain, redness, and discharge. cp 19:35 Neck: Positive for pain with movement, pain at rest, stiffness, tenderness, of the left lateral neck. 19:35 Cardiovascular: Negative for chest pain, edema, palpitations. 19:35 Respiratory: Negative for cough, shortness of breath, wheezing. 19:35 Back: Positive for pain at rest, pain with movement, of the left trapezius and left scapular area. 19:35 MS/extremity: Positive for pain, tenderness, of the anterior left shoulder, Negative for injury or acute deformity, decreased range of motion, paresthesias. 19:35 Neuro: Negative for headache, numbness. 19:35 All other systems are negative. Exam: 19:45 Constitutional: The patient appears in no acute distress, alert, awake, cp non-diaphoretic, non-toxic, well developed, well nourished, uncomfortable. 19:45 Head/Face: Normocephalic, atraumatic. cp 19:45 Eyes: Periorbital structures: appear normal, Conjunctiva: normal, no exudate, no injection, Sclera: no appreciated abnormality, Lids and lashes: appear normal, bilaterally. 19:45 ENT: External ear(s): are unremarkable, Nose: is normal, Mouth: Lips: moist, Oral mucosa: pink and intact, moist, Posterior pharynx: is normal, airway is patent. 19:45 Neck: External neck: swelling, that is mild, left lateral neck, tenderness, that is moderate, left lateral neck, ROM/movement: pain, that is moderate, with rotation to the left, limited range of motion, that is moderate, when rotating to the left, Meningeal signs: are not present. 19:45 Chest/axilla: Inspection: normal, Palpation: is normal, no crepitus, no tenderness. 19:45 Cardiovascular: Rate: normal, Rhythm: regular, Heart sounds: murmur, not appreciated, Edema: is not appreciated, JVD: is not appreciated. 19:45 Respiratory: the patient does not display signs of respiratory distress, Respirations: normal, no use of accessory muscles, no retractions, no splinting, no tachypnea, labored breathing, is not present, Breath sounds: are clear throughout, no decreased breath sounds, no stridor, no wheezing. 19:45 Abdomen/GI: Exam negative for discomfort, distension, guarding, Inspection: abdomen appears normal. 19:45 Back: pain, that is moderate, of the left trapezius and left scapular area, ROM is painful, with rotation to the left. 19:45 Musculoskeletal/extremity: Extremities: grossly normal except: noted in the anterior left shoulder: tenderness, There is no evidence of decreased ROM, deformity. 19:45 Skin: no rash present. 19:45 Neuro: Orientation: to person, place \T\ time. Mentation: is normal, Motor: moves all fours, strength is normal, Sensation: is normal. Vital Signs: 18:36 BP 112 / 73; Pulse 96; Resp 16 S; Temp 98.2(O); Pulse Ox 100% on R/A; Pain 10/10; jl7 20:00 BP 102 / 54; Pulse 94; Resp 18; Pulse Ox 97% on R/A; wh MDM: 19:12 Patient medically screened. cp 19:35 Differential diagnosis: cervical strain, pneumothorax, torticollis. cp 20:32 Data reviewed: vital signs, nurses notes, radiologic studies, plain films. cp 20:32 Test interpretation: by ED physician or midlevel provider: plain radiologic studies, cp chest xray negative for pneumothorax or infiltrates. Counseling: I had a detailed discussion with the patient and/or guardian regarding: the historical points, exam findings, and any diagnostic results supporting the discharge/admit diagnosis, radiology results, the need for outpatient follow up, a family practitioner, to return to the emergency department if symptoms worsen or persist or if there are any questions or concerns that arise at home. Response to treatment: the patient's symptoms have mildly improved after treatment, and as a result, I will discharge patient. 01/19 20:14 Order name: Urine Dipstick--Ancillary (enter results); Complete Time: 20:32 cm6 01/19 20:14 Order name: Urine --Ancillary (enter results); Complete Time: 20:32 cm6 01/19 19:22 Order name: XRAY Chest (1 view) cp 01/19 19:12 Order name: Urine Dipstick-Ancillary (obtain specimen); Complete Time: 19:31 cp 01/19 19:12 Order name: Urine Test (obtain specimen); Complete Time: 19:31 cp Administered Medications: 19:34 Drug: Flexeril 10 mg Route: PO; wh 20:48 Follow up: Response: No adverse reaction; Pain is decreased wh 19:34 Drug: Tylenol 1000 mg Route: PO; wh 20:48 Follow up: Response: No adverse reaction; Pain is decreased wh 20:38 Drug: Lidoderm 5 % (700 mg/patch) 1 patches Route: Topical; Site: affected area; wh 20:49 Follow up: Response: No adverse reaction; Pain is decreased wh Disposition: 01/20 06:17 Co-signature as Attending Physician, Micheal Leon MD I agree with the assessment and johanna plan of care. Disposition: 01/19/19 20:33 Discharged to Home. Impression: Strain of muscle, fascia and tendon at neck level - left. - Condition is Stable. - Discharge Instructions: Muscle Strain, Heat Therapy, Neck Exercises. - Prescriptions for Lidoderm 5 % Topical adhesive patch,medicated - apply 1 patch by TRANSDERMAL route once daily; 1 box. Cyclobenzaprine 10 mg Oral Tablet - take 1 tablet by ORAL route every 8 hours As needed no driving while taking medication; 20 tablet. - Medication Reconciliation Form, Thank You Letter, Antibiotic Education, Prescription Opioid Use form. - Follow up: Private Physician; When: 2 - 3 days; Reason: Recheck today's complaints. - Problem is new. - Symptoms have improved. Signatures: Dispatcher [employer] EDMS Micheal Leon MD MD cha Page, Corey, PA PA cp Leal, Jahala, RN RN Bandar Sarabia Corrections: (The following items were deleted from the chart) 01/19 20:50 20:33 01/19/2019 20:33 Discharged to Home. Impression: Strain of muscle, fascia and wh tendon at neck level - left. Condition is Stable. Forms are Medication Reconciliation Form, Thank You Letter, Antibiotic Education, Prescription Opioid Use. Follow up: Private Physician; When: 2 - 3 days; Reason: Recheck today's complaints. Problem is new. Symptoms have improved. cp
--- NOTE | 2019-01-19 20:40 | RAD REPORT ---
EXAM DESCRIPTION: RAD - Chest Single View - 01/19/2019 8:00 pm CLINICAL HISTORY: Chest pain, left shoulder pain COMPARISON: May 2018 TECHNIQUE: AP portable chest image was obtained 1939 hours . FINDINGS: Lungs are clear. Heart and vasculature are normal. No measurable pleural effusion and no p neumothorax. No acute bony abnormality seen. No acute aortic findings suspected. IMPRESSION: No acute cardiopulmonary process.
[2019-01-19] MEDS ORDERED: LIDOCAINE 4% PATCH ONE (20:45)
[2019-01-19 20:57] VITALS: TEMP 98.2
[2019-01-19 20:58] VITALS: BP 102/54; O2SAT 97
== END 2019-01-19 20:50 | disposition home or self-care (01) ==
LOC: ER 17:54
DX: S16.1XXA Strain of muscle, fascia and tendon at neck level, initial encounter (principal); X58.XXXA Exposure to other specified factors, initial encounter; Y93.89 Activity, other specified; Y92.9 Unspecified place or not applicable; Z88.6 Allergy status to analgesic agent
CPT/HCPCS: 71045; 81003; 81025

== ENCOUNTER 2019-04-23 23:38 | Emergency (ER) | payer SELFPAY ==
--- NOTE | 2019-04-24 00:30 | EDPHYS ---
Physician Documentation [facility] Name: Sonja Covarrubias Age: 24 yrs Sex: Female : 1995 Arrival Date: 04/23/2019 Time: 23:40 Bed 15 Private MD: CADEN Physician Micheal Leon HPI: 04/24 00:02 This 24 yrs old Female presents to ER via Ambulatory with complaints of Leg la1 Pain. 00:02 The patient presents with pain, that is acute. The complaints affect the right knee. la1 Context: The problem was sustained at an unknown site, resulted from an unknown cause, the patient can fully bear weight, the patient is able to ambulate, without difficulty. Onset: The symptoms/episode began/occurred 3 month(s) ago. Modifying factors: The symptoms are alleviated by nothing. the symptoms are aggravated by bending knee. Associated signs and symptoms: The patient has no apparent associated signs or symptoms. Severity of symptoms: At their worst the symptoms were mild. 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 - Social history:: Smoking status: Patient denies any tobacco usage or history of. - Ebola Screening: : No symptoms or risks identified at this time. ROS: 00:04 MS/extremity: Positive for pain, of the right knee. la1 00:04 All other systems are negative. Exam: 00:04 Constitutional: This is a well developed, well nourished patient who is awake, alert, la1 and in no acute distress. Head/Face: Normocephalic, atraumatic. ENT: Mucous membranes moist. Neck: . No Meningismus. Chest/axilla: Normal chest wall appearance and motion. Nontender with no deformity. No lesions are appreciated. Cardiovascular: Regular rate and rhythm with a normal S1 and S2. No gallops, murmurs, or rubs. Normal PMI, no JVD. No pulse deficits. Respiratory: No increased work of breathing, no retractions or nasal flaring. Back: No spinal tenderness. No costovertebral tenderness. Full range of motion. Skin: Warm, dry with normal turgor. MS/ Extremity: Pulses equal, no cyanosis. Neurovascular intact. Full, normal range of motion. Vital Signs: 00:01 BP 136 / 97; Pulse 83; Resp 16; Temp 97.8(TE); Pulse Ox 100% on R/A; Weight 66.68 kg; lp1 Height 5 ft. 4 in. (162.56 cm); Pain 9/10; 00:01 Body Mass Index 25.23 (66.68 kg, 162.56 cm) lp1 MDM: 04/23 23:53 Patient medically screened. johanna 04/24 00:28 Data reviewed: vital signs, nurses notes, radiologic studies, plain films, and as a la1 result, I will discharge patient. Data interpreted: Pulse oximetry: on room air is 100 %. Interpretation: normal. Test interpretation: by ED physician or midlevel provider: plain radiologic studies. Counseling: I had a detailed discussion with the patient and/or guardian regarding: the historical points, exam findings, and any diagnostic results supporting the discharge/admit diagnosis, radiology results, the need for outpatient follow up, a orthopedic surgeon, to return to the emergency department if symptoms worsen or persist or if there are any questions or concerns that arise at home. Special discussion: Based on the history and exam findings, there is no indication for further emergent testing or inpatient evaluation. I discussed with the patient/guardian the need to see the orthopedic surgeon for further evaluation of the symptoms. 04/23 23:57 Order name: Knee Right 3 View XRAY la1 Administered Medications: 00:06 Drug: Tylenol 650 mg Route: PO; ea 00:40 Follow up: Response: No adverse reaction ea Disposition: 09:29 Co-signature as Attending Physician, Micheal Leon MD I agree with the assessment and johanna plan of care. Disposition: 04/24/19 00:29 Discharged to Home. Impression: Pain in right knee. - Condition is Stable. - Discharge Instructions: Joint Pain, Musculoskeletal Pain, Knee Pain. - Medication Reconciliation Form, Thank You Letter form. - Follow up: Private Physician; When: As needed; Reason: Recheck today's complaints, Continuance of care, Re-evaluation by your physician. - Problem is new. - Symptoms are unchanged. - Notes: There are no fractures or broken bones on you X-ray, you should see an orthopedic doctor for further evaluation of the pain in your knee. Take ibuprofen or tylenol as needed for the pain at home. The list of orthopedic doctors is in you discharge paperwork. Signatures: Dispatcher [employer] Micheal Robles MD MD cha Pena, Laura, RN RN lp1 Jean Oro, ROLL BUILDER-C ROLL BUILDER-Cla1 Alla West RN RN ea Corrections: (The following items were deleted from the chart) 00:42 00:29 04/24/2019 00:29 Discharged to Home. Impression: Pain in right knee. Condition is ea Stable. Forms are Medication Reconciliation Form, Thank You Letter, Antibiotic Education, Prescription Opioid Use. Follow up: Private Physician; When: As needed; Reason: Recheck today's complaints, Continuance of care, Re-evaluation by your physician. Problem is new. Symptoms are unchanged. la1
--- NOTE | 2019-04-24 00:30 | ER ---
Nurse's Notes [facility] Name: Sonja Covarrubias Age: 24 yrs Sex: Female : 1995 Arrival Date: 04/23/2019 Time: 23:40 Bed 15 Private MD: Diagnosis: Pain in right knee Presentation: 04/24 00:00 Presenting complaint: Patient states: R knee pain since December, denies any trauma or lp1 injury; States pain when walking, bending right knee. Transition of care: patient was not received from another setting of care. Onset of symptoms was April 24, 2019. Risk Assessment: Do you want to hurt yourself or someone else? Patient reports no desire to harm self or others. Initial Sepsis Screen: Does the patient meet any 2 criteria? No. Patient's initial sepsis screen is negative. Does the patient have a suspected source of infection? No. Patient's initial sepsis screen is negative. Care prior to arrival: None. 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 - Social history:: Smoking status: Patient denies any tobacco usage or history of. - Ebola Screening: : No symptoms or risks identified at this time. Screenin:03 Abuse screen: Denies threats or abuse. Denies injuries from another. Nutritional lp1 screening: No deficits noted. Tuberculosis screening: No symptoms or risk factors identified. Fall Risk None identified. Assessment: 00:02 General: Appears in no apparent distress. Behavior is calm, cooperative, appropriate lp1 for age. Pain: Complains of pain in right knee Pain currently is 9 out of 10 on a pain scale. Aggravated by exercise, weight bearing. Neuro: No deficits noted. Cardiovascular: No deficits noted. Respiratory: No deficits noted. GI: No deficits noted. : No deficits noted. EENT: No deficits noted. Derm: Skin is pink, warm \T\ dry. Musculoskeletal: Circulation, motion, and sensation intact. Reports pain in right knee. 00:41 Reassessment: Patient and/or family updated on plan of care and expected duration. Pain ea level reassessed. Patient is alert, oriented x 3, equal unlabored respirations, skin warm/dry/pink. Discharge instruction given to patient, verbalized the understanding of instruction. Pt left ED ambulatory accompanied by significant other. Vital Signs: 00:01 BP 136 / 97; Pulse 83; Resp 16; Temp 97.8(TE); Pulse Ox 100% on R/A; Weight 66.68 kg; lp1 Height 5 ft. 4 in. (162.56 cm); Pain 9/10; 00:01 Body Mass Index 25.23 (66.68 kg, 162.56 cm) lp1 ED Course: 04/23 23:40 Patient arrived in ED. cl3 23:49 [facility] la1 23:49 Micheal Leon MD is Attending Physician. la1 04/24 00:01 Triage completed. lp1 00:01 Arm band placed on. lp1 00:02 Alla West, RN is Primary Nurse. ea 00:03 Patient has correct armband on for positive identification. lp1 00:18 Knee Right 3 View XRAY In Process Unspecified. EDMS 00:40 No provider procedures requiring assistance completed. Patient did not have IV access ea during this emergency room visit. Administered Medications: 00:06 Drug: Tylenol 650 mg Route: PO; ea 00:40 Follow up: Response: No adverse reaction ea Outcome: 00:29 Discharge ordered by MD. la1 00:41 Discharged to home ambulatory, with significant other. ea 00:41 Condition: stable 00:41 Discharge instructions given to patient, Instructed on discharge instructions, Demonstrated understanding of instructions. 00:42 Patient left the ED. ea Signatures: Dispatcher [employer] EDMS Shirley Bautista RN RN lp1 Jean Oro FNP-C FNP-[facility] Alla West RN RN ea Lewis, Charde cl3
[2019-04-24 01:00] VITALS: BP 136/97; TEMP 97.8; O2SAT 100
--- NOTE | 2019-04-24 08:53 | RAD REPORT ---
EXAM DESCRIPTION: RAD - Knee Right 3 View - 04/24/2019 12:18 am CLINICAL HISTORY: PAIN COMPARISON: No comparisons FINDINGS: No fracture, dislocation or joint effusion.
== END 2019-04-24 00:42 | disposition home or self-care (01) ==
LOC: ER 23:38
DX: M79.604 Pain in right leg (principal)
CPT/HCPCS: 99283

== ENCOUNTER 2019-06-05 00:27 | Emergency (ER) | payer SELFPAY ==
[2019-06-05] MEDS ORDERED: NA CHLORIDE 0.9% 500 ML ONE (00:58)
[2019-06-05 01:06] LABS: Absolute Lymphocytes (CBC) 1.8 K/uL (0.7-4.9); Basophils % 0.3 % (0-1.3); Hematocrit 40.3 % (36.0-45.0); Lymphocytes % 25.4 % (15.3-44.8); MPV 9.3 fL (7.6-11.3); RBC Red Blood Cell Count 4.39 M/uL (3.86-4.86)
[2019-06-05] MEDS ORDERED: MORPHINE 4 MG/ML SYR ONE (01:12)
[2019-06-05] MEDS ORDERED: ONDANSETRON 4 MG/2 ML VIAL ONE (01:12)
[2019-06-05 01:23] LABS: ALT/SGPT 82 U/L (12-78); AST/SGOT 40 U/L (15-37); Albumin 3.9 g/dL (3.4-5.0); Alkaline Phosphatase 92 U/L (45-117); BUN Blood Urea Nitrogen 16 mg/dL (7-18); Bicarbonate 28 mmol/L (21-32); Bilirubin Direct 0.2 mg/dL (0-0.2); Bilirubin Total 0.5 mg/dL (0.2-1.0); Glucose Level 92 mg/dL (74-106); Lipase 112 U/L (73-393); Protein, Total 7.8 g/dL (6.4-8.2); Sodium Level 141 mmol/L (136-145)
--- NOTE | 2019-06-05 02:20 | ER ---
Nurse's Notes [facility] Name: Sonja Covarrubias Age: 24 yrs Sex: Female : 1995 Arrival Date: 06/05/2019 Time: 00:28 Bed 8 Private MD: Diagnosis: Abdominal and pelvic pain Presentation: 06/04 00:36 Chief complaint: Parent and/or Guardian states: "She is having lower stomach pain and j has reported she is having woman's problems. she also haven't had her period in 3 months.". Coronavirus screen: The patient has NOT traveled to a country currently being monitored by the [facility] within the last 14 days. The patient has NOT had contact with any known and/or suspected case of coronavirus. Proceed with normal triage procedures. Ebola Screen: Patient negative for fever greater than or equal to 101.5 degrees Fahrenheit, and additional compatible Ebola Virus Disease symptoms. Initial Sepsis Screen: Does the patient meet any 2 criteria? No. Patient's initial sepsis screen is negative. Does the patient have a suspected source of infection? No. Patient's initial sepsis screen is negative. Risk Assessment: Do you want to hurt yourself or someone else? Patient reports no desire to harm self or others. 00:36 Method Of Arrival: Ambulatory [facility] 00:36 Acuity: JANNY 3 [facility] 00:44 Onset of symptoms was June 05, 2019. 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 - Social history:: Smoking status: Patient denies any tobacco usage or history of. Screenin:43 Abuse screen: Denies threats or abuse. Nutritional screening: No deficits noted. jd3 Tuberculosis screening: No symptoms or risk factors identified. Fall Risk Ambulatory Aid- None/Bed Rest/Nurse Assist (0 pts). Gait- Normal/Bed Rest/Wheelchair (0 pts) Mental Status- Oriented to own ability (0 pts). Total Montejo Fall Scale indicates No Risk (0-24 pts). Assessment: 00:47 General: Appears in no apparent distress. comfortable, Behavior is calm, cooperative. mg2 Pain: Complains of pain in abdomen Pain does not radiate. Quality of pain is described as aching, Pain began gradually. Neuro: Level of Consciousness is awake, alert, obeys commands, Oriented to person, place, time, situation. Cardiovascular: Capillary refill < 3 seconds Patient's skin is warm and dry. Respiratory: Airway is patent Respiratory effort is even, unlabored, Respiratory pattern is regular, symmetrical. GI: Bowel sounds present X 4 quads. Abd is soft and non tender Reports lower abdominal pain. : No signs and/or symptoms were reported regarding the genitourinary system. EENT: No deficits noted. Derm: Skin is intact, is healthy with good turgor, Skin is pink, warm \\T\\ dry. normal. Musculoskeletal: Circulation, motion, and sensation intact. Capillary refill < 3 seconds. 01:20 Reassessment: Patient appears in no apparent distress at this time. Patient and/or mg2 family updated on plan of care and expected duration. Pain level reassessed. Patient is alert, oriented x 3, equal unlabored respirations, skin warm/dry/pink. 02:20 Reassessment: Patient denies pain at this time. Patient states feeling better. Patient mg2 states symptoms have improved. Vital Signs: 00:40 BP 115 / 81; Pulse 110; Resp 17 S; Temp 98.2(TE); Pulse Ox 99% on R/A; Weight 69.85 kg jd3 (R); Height 5 ft. 4 in. (162.56 cm) (R); Pain 7/10; 01:49 BP 122 / 86; Pulse 84; Resp 18; Pulse Ox 100% on R/A; mg2 02:20 BP 120 / 78; Pulse 82; Resp 18; Temp 98; Pulse Ox 100% on R/A; mg2 00:40 Body Mass Index 26.43 (69.85 kg, 162.56 cm) jd3 ED Course: 00:28 Patient arrived in ED. cl3 00:29 Juice Wiseman, APARNA is Primary Nurse. jd3 00:33 [facility]C [facility] la1 00:33 Rodrigo Lizarraga MD is Attending Physician. la1 00:37 Gardose, Ben, RN is Primary Nurse. mg2 00:39 Triage completed. jd3 00:41 Arm band placed on. jd3 00:43 Patient has correct armband on for positive identification. Bed in low position. Call jd3 light in reach. Side rails up X 1. Adult w/ patient. 00:48 No provider procedures requiring assistance completed. mg2 00:55 Inserted saline lock: 20 gauge in right antecubital area, using aseptic technique. mg2 Blood collected. 02:32 IV discontinued, intact, bleeding controlled, No redness/swelling at site. Pressure jd3 dressing applied. Administered Medications: 01:01 Drug: NS 0.9% 500 ml Route: IV; Rate: bolus; Site: right antecubital; mg2 02:13 Follow up: Response: No adverse reaction; IV Status: Completed infusion; IV Intake: mg2 500ml 01:12 Drug: Zofran (Ondansetron) 4 mg Route: IVP; Site: right antecubital; mg2 02:12 Follow up: Response: No adverse reaction mg2 01:13 Drug: morphine 2 mg Route: IVP; Site: right antecubital; mg2 02:13 Follow up: Response: No adverse reaction; RASS: Alert and Calm (0) mg2 01:13 Drug: morphine 2 mg Route: IVP; Site: right antecubital; mg2 02:12 Follow up: Response: No adverse reaction; Marked relief of symptoms mg2 Intake: 02:13 IV: 500ml; Total: 500ml. mg2 Outcome: 02:18 Discharge ordered by MD. la1 02:29 Discharged to home ambulatory, with family. jd3 02:29 Condition: stable 02:29 Discharge instructions given to patient, family, Instructed on discharge instructions, follow up and referral plans. medication usage, Demonstrated understanding of instructions, follow-up care, medications, Prescriptions given X 2. 02:33 Patient left the ED. jd3 Signatures: Jean Oro, ASPHALT PAVING FOREMAN-C ASPHALT PAVING FOREMAN-Cla1 Juice Wiseman RN RN jBen Jenkins RN RN mg2 Johana Dorantes cl3 Corrections: (The following items were deleted from the chart) 00:43 00:40 LMP 04/01/2019 jd3 jd3 01:50 01:49 BP 122 / 86; Pulse 66bpm; Resp 18bpm; Pulse Ox 100% RA; mg2 mg2 02:32 02:29 Discharge instructions given to patient, family, Instructed on discharge jd3 instructions, follow up and referral plans. Demonstrated understanding of instructions, follow-up care, jd3
--- NOTE | 2019-06-05 02:21 | EDPHYS ---
Physician Documentation [facility] Name: Sonja Covarrubias Age: 24 yrs Sex: Female : 1995 Arrival Date: 06/05/2019 Time: 00:28 Bed 8 Private MD: ED Physician Rodrigo Lizarraga HPI: 06/04 00:54 This 24 yrs old Female presents to ER via Ambulatory with complaints of la1 Abdominal Pain. 00:54 The patient presents with abdominal pain right lower quadrant. Onset: The la1 symptoms/episode began/occurred 3 day(s) ago. The symptoms do not radiate. The symptoms are described as sharp. Modifying factors: The symptoms are alleviated by nothing, the symptoms are aggravated by pressure. Severity of pain: At its worst the pain was moderate. The patient has not experienced similar symptoms in the past. 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 - Social history:: Smoking status: Patient denies any tobacco usage or history of. ROS: 00:54 Constitutional: Negative for fever, chills, and weight loss, Eyes: Negative for injury, la1 pain, redness, and discharge, ENT: Negative for injury, pain, and discharge, Neck: Negative for injury, pain, and swelling, Cardiovascular: Negative for chest pain, palpitations, and edema, Respiratory: Negative for shortness of breath, cough, wheezing, and pleuritic chest pain. 00:54 Back: Negative for injury and pain, : Negative for injury, bleeding, discharge, and swelling, MS/Extremity: Negative for injury and deformity, Neuro: Negative for headache, weakness, numbness, tingling, and seizure. 00:54 Abdomen/GI: Positive for abdominal pain, constipation. Exam: 00:55 Constitutional: This is a well developed, well nourished patient who is awake, alert, la1 and in no acute distress. Head/Face: Normocephalic, atraumatic. ENT: Mucous membranes moist. Neck: Trachea midline, Chest/axilla: Normal chest wall appearance and motion. Nontender with no deformity. No lesions are appreciated. Cardiovascular: Regular rate and rhythm with a normal S1 and S2. No gallops, murmurs, or rubs. Normal PMI, no JVD. No pulse deficits. 00:55 Respiratory: Lungs have equal breath sounds bilaterally, clear to auscultation and percussion. 00:55 Abdomen/GI: Inspection: abdomen appears normal, Bowel sounds: normal, Palpation: soft, in all quadrants, moderate abdominal tenderness, in the right lower quadrant, Indicators: McBurney's point is tender, Cao's sign is negative, Rovsing's sign is negative, Obturator sign is negative, Psoas sign is negative. Vital Signs: 00:40 BP 115 / 81; Pulse 110; Resp 17 S; Temp 98.2(TE); Pulse Ox 99% on R/A; Weight 69.85 kg jd3 (R); Height 5 ft. 4 in. (162.56 cm) (R); Pain 7/10; 01:49 BP 122 / 86; Pulse 84; Resp 18; Pulse Ox 100% on R/A; mg2 02:20 BP 120 / 78; Pulse 82; Resp 18; Temp 98; Pulse Ox 100% on R/A; mg2 00:40 Body Mass Index 26.43 (69.85 kg, 162.56 cm) jd3 MDM: 00:33 Patient medically screened. la1 02:18 Data reviewed: vital signs, nurses notes, lab test result(s), radiologic studies, I la1 have discussed the patient's presentation/case with the attending Emergency Department Physician; and as a result, I will discharge patient. Data interpreted: Pulse oximetry: on room air is 100 %. Interpretation: normal. Counseling: I had a detailed discussion with the patient and/or guardian regarding: the historical points, exam findings, and any diagnostic results supporting the discharge/admit diagnosis, lab results, radiology results, the need for outpatient follow up. Special discussion: Based on the patient's Hx, exam, and Dx evaluation, there is no indication for emergent surgery or inpatient Tx. It is understood by the patient/guardian that if the Sx's persist or worsen they need to return immediately for re-evaluation. 06/04 00:46 Order name: Basic Metabolic Panel mg2 06/04 00:46 Order name: CBC with Diff mg2 06/04 00:46 Order name: Creatinine for Radiology mg2 06/04 00:46 Order name: Hepatic Function mg2 06/04 00:46 Order name: Lipase mg2 06/04 01:10 Order name: CBC with Automated Diff; Complete Time: 02:09 EDMS 06/04 00:47 Order name: CT Abd/Pelvis - IV Contrast Only la1 06/04 01:23 Order name: Creatinine (Radiology Only); Complete Time: 02:09 EDMS 06/04 01:23 Order name: Basic Metabolic Panel; Complete Time: 02:09 EDMS 06/04 01:23 Order name: Liver (Hepatic) Function; Complete Time: 02:09 EDMS 06/04 01:23 Order name: Lipase; Complete Time: 02:09 EDMS 06/04 00:46 Order name: IV Saline Lock; Complete Time: 01:01 mg2 06/04 00:46 Order name: Labs collected and sent; Complete Time: 01:01 mg2 06/04 00:46 Order name: Urine Dipstick-Ancillary (obtain specimen); Complete Time: 00:46 mg2 06/04 00:46 Order name: Urine Test (obtain specimen); Complete Time: 00:46 mg2 Administered Medications: 01:01 Drug: NS 0.9% 500 ml Route: IV; Rate: bolus; Site: right antecubital; mg2 02:13 Follow up: Response: No adverse reaction; IV Status: Completed infusion; IV Intake: mg2 500ml 01:12 Drug: Zofran (Ondansetron) 4 mg Route: IVP; Site: right antecubital; mg2 02:12 Follow up: Response: No adverse reaction mg2 01:13 Drug: morphine 2 mg Route: IVP; Site: right antecubital; mg2 02:13 Follow up: Response: No adverse reaction; RASS: Alert and Calm (0) mg2 01:13 Drug: morphine 2 mg Route: IVP; Site: right antecubital; mg2 02:12 Follow up: Response: No adverse reaction; Marked relief of symptoms mg2 Disposition: 04:18 Co-signature as Attending Physician, Rodrigo Lizarraga MD I agree with the assessment and tw4 plan of care. Disposition: 06/05/19 02:18 Discharged to Home. Impression: Abdominal and pelvic pain. - Condition is Stable. - Discharge Instructions: Abdominal Pain, Adult, Abdominal Pain, Adult, [id number]. - Prescriptions for Bentyl 20 mg Oral Tablet - take 1 tablet by ORAL route every 6 hours As needed; 20 tablet. Zofran 4 mg Oral Tablet - take 1 tablet by ORAL route every 12 hours As needed; 6 tablet. - Medication Reconciliation Form, Thank You Letter form. - Follow up: Private Physician; When: 2 - 3 days; Reason: Recheck today's complaints, Re-evaluation by your physician. - Problem is new. - Symptoms have improved. Signatures: Dispatcher [employer] EDMS Jean Oro, PIANO MOVER-C PIANO MOVER-Cla1 Juice Wiseman, RN RN jd3 Rodrigo Lizarraga MD MD tw4 Ben Joyce RN RN mg2 Corrections: (The following items were deleted from the chart) 02:33 02:18 06/05/2019 02:18 Discharged to Home. Impression: Abdominal and pelvic pain. jd3 Condition is Stable. Forms are Medication Reconciliation Form, Thank You Letter, Antibiotic Education, Prescription Opioid Use. Follow up: Private Physician; When: 2 - 3 days; Reason: Recheck today's complaints, Re-evaluation by your physician. Problem is new. Symptoms have improved. la1
[2019-06-05 02:42] VITALS: TEMP 98.2
[2019-06-05 02:43] VITALS: BP 122/86; O2SAT 100
--- NOTE | 2019-06-05 09:24 | RAD REPORT ---
EXAM DESCRIPTION: CT - Abdomen Pelvis W Contrast - 06/05/2019 4:48 am CLINICAL HISTORY: 24 years Female ABD PAIN TECHNIQUE: Contiguous axial images obtained through the abdomen and pelvis following intravenous con trast administration. Coronal and sagittal reformatted images provided. This CT exam was performed according to our departmental dose-optimization program, which includes on e or more of the following dose reduction techniques: automated exposure control, adjustment of the m A and/or kV according to patient size, and/or use of iterative reconstruction technique. COMPARISON: No prior exams provided for comparison. FINDINGS: The appendix is normal. There is no bowel inflammation, obstruction, free intraperitoneal air, or ascites. Minimal bibasilar atelectasis. The liver, biliary tree, gallbladder, pancreas, spleen, adrenal glands , kidneys, uterus, ovaries, urinary bladder, and osseous structures are unremarkable. Small fat-containing umbilical hernia. IMPRESSION: Normal appendix. No acute abdominal or pelvic abnormalities. Electronically signed by: Claudia Castro MD 06/05/2019 1:54 AM WARDROBE COORDINATOR Due to temporary technical issues with the PACS/Fluency reporting system, reports are being signed by the in house radiologist as a courtesy to ensure prompt reporting. The interpreting radiologist is f ully responsible for the content of the report.
== END 2019-06-05 02:33 | disposition home or self-care (01) ==
LOC: ER 00:27
DX: R10.2 Pelvic and perineal pain (principal); H91.3 Deaf nonspeaking, not elsewhere classified
CPT/HCPCS: 36415; 74177; 80048; 80076; 83690; 85025; 96361; 96374; 96375; 99284; J2405; J7040; Q9967

== ENCOUNTER 2019-07-06 15:11 | Emergency (ER) | payer SELFPAY ==
--- NOTE | 2019-07-06 16:56 | RAD REPORT ---
EXAM DESCRIPTION: CT - Soft Tissue Neck W/Contr - 07/06/2019 4:44 pm CLINICAL HISTORY: r/o peritonsillar abscess, sore throat, swollen tonsils, right ear pain COMPARISON: No comparisons TECHNIQUE: During dynamic enhancement using 100 milliliters nonionic IV contrast, axial 5 millimeter thick images of the neck were obtained. All CT scans are performed using dose optimization technique as appropriate and may include automated exposure control or mA/KV adjustment according to patient size. FINDINGS: Intracranial portion the examination is unremarkable. No globe or orbital content abnormal ity seen. Mastoid air cells are clear. Middle ears are normally aerated as well. No ossicle abnormali ty seen. Paranasal sinuses are clear. No nasopharyngeal mucosal mass or asymmetry. Parapharyngeal fat is normal in appearance. Tonsillar ti ssue is minimally prominent, slightly greater on the right. No peritonsillar abscess. No tongue base abnormality identified. Soft palate and epiglottis are without suspicious findings. No vocal cord abn ormality seen. The thyroid, submandibular and thyroid gland tissue show no suspicious findings. Patient has small bi lateral nonspecific cervical lymph nodes. No abscess or necrotic lymph nodes seen. No one lymph node seen that shows more aggressive or prominent enhancement pattern. No vascular abnormality seen. IMPRESSION: No peritonsillar abscess. Right tonsil is fractionally larger than the left but does not have any abnormal enhancement or hypoe choic areas. Small nonspecific bilateral cervical lymph nodes. The mastoid air cells and middle ears are clear. No external auditory canal abnormality seen.
--- NOTE | 2019-07-06 17:03 | ER ---
Nurse's Notes [facility] Name: Sonja Covarrubias Age: 24 yrs Sex: Female : 1995 Arrival Date: 07/06/2019 Time: 15:13 Bed 18 Private MD: Diagnosis: Acute tonsillitis Presentation: 07/05 15:17 Chief complaint: Patient states: sore throat and swollen tonsils that began today. Pt aa5 also reports right ear pain. Coronavirus screen: Patient denies a cough. Patient denies shortness of breath or difficulty breathing. Patient denies measured and/or subjective temperature greater than 100.4F prior to today's visit. Patient denies travel on a cruise ship or to a country the [facility] currently lists as an affected area. Patient denies contact with known and/or suspected case of COVID-19. Ebola Screen: Patient negative for fever greater than or equal to 101.5 degrees Fahrenheit, and additional compatible Ebola Virus Disease symptoms. Initial Sepsis Screen: Does the patient meet any 2 criteria? No. Patient's initial sepsis screen is negative. Does the patient have a suspected source of infection? No. Patient's initial sepsis screen is negative. Risk Assessment: Do you want to hurt yourself or someone else? Patient reports no desire to harm self or others. Onset of symptoms was July 2019. 15:17 Method Of Arrival: Ambulatory aa5 15:17 Acuity: JANNY 3 aa5 Historical: - Allergies: 15:20 Motrin; aa5 - Home Meds: 15:20 levothyroxine oral [Active]; aa5 - PMHx: 15:20 Deaf; mute; Hypothyroidism; aa5 - PSHx: 15:20 None; aa5 - Immunization history:: Adult Immunizations up to date. - Social history:: Smoking status: Patient denies any tobacco usage or history of. Screenin:15 Abuse screen: Denies threats or abuse. Denies injuries from another. Nutritional ph screening: No deficits noted. Tuberculosis screening: No symptoms or risk factors identified. Fall Risk None identified. Assessment: 16:00 General: Appears in no apparent distress. comfortable, well groomed, Behavior is calm, ph cooperative, appropriate for age. Pain: Complains of pain in throat. Neuro: Level of Consciousness is awake, alert, obeys commands, Oriented to person, place, time, situation. Cardiovascular: Capillary refill < 3 seconds in bilateral fingers Patient's skin is warm and dry. Respiratory: Airway is patent Respiratory effort is even, unlabored, Respiratory pattern is regular, symmetrical, Breath sounds are clear bilaterally. GI: Patient currently denies abdominal pain, nausea, vomiting. EENT: Throat is reddened has enlarged tonsils on right Reports pain when swallowing. Derm: Skin is intact, is healthy with good turgor, Skin is pink, warm \T\ dry. Musculoskeletal: Circulation, motion, and sensation intact. Range of motion: intact in all extremities. Vital Signs: 15:20 BP 107 / 86; Pulse 71; Resp 18 S; Temp 98.2(TE); Pulse Ox 100% on R/A; Weight 63.5 kg aa5 (R); 17:25 BP 104 / 78; Pulse 68; Resp 18; Temp 97.8; Pulse Ox 99% on R/A; ph ED Course: 15:13 Patient arrived in ED. mr 15:14 Micheal Leon MD is Attending Physician. [facility] 15:14 Lisa Ji FNP-C [facility]. kb 15:19 Triage completed. aa5 15:19 Arm band placed on. aa5 15:30 Radha Antunez, RN is Primary Nurse. ph 15:37 Initial lab(s) drawn, by me, sent to lab. Strep swab sent to lab. Inserted saline lock: dh3 20 gauge in right antecubital area, using aseptic technique. Blood collected. 16:10 Radiology exam delayed due to lab results not completed at this time. (BUN/Creatinine). nj 16:44 CT Soft Tissue Neck W/contr In Process Unspecified. EDMS 17:15 Patient has correct armband on for positive identification. Bed in low position. Call ph light in reach. Side rails up X 1. Pulse ox on. NIBP on. Warm blanket given. 17:17 No provider procedures requiring assistance completed. IV discontinued, intact, ph bleeding controlled, No redness/swelling at site. Pressure dressing applied. Administered Medications: No medications were administered Outcome: 17:02 Discharge ordered by . kb 17:27 Discharged to home ambulatory. ph 17:27 Condition: good 17:27 Discharge instructions given to patient, Instructed on discharge instructions, follow up and referral plans. medication usage, Demonstrated understanding of instructions, follow-up care, medications, Prescriptions given X 1. 17:30 Patient left the ED. ph Signatures: Dispatcher [employer] EDLisa Gilliland, MODESTA QUINNP-Micheal Lynne MD MD cha Rivera, Joy mr [place], Lianna RN RN aa5 Radha Antunez RN RN [facility], Amauri Brown, Katelyn [facility] Corrections: (The following items were deleted from the chart) 15:20 15:17 Chief complaint: Patient states: sore throat and swollen tonsils that began today aa5 aa5 15:32 15:17 Acuity: JANNY 4 aa5 aa5
--- NOTE | 2019-07-06 17:03 | EDPHYS ---
Physician Documentation [facility] Name: Sonja Covarrubias Age: 24 yrs Sex: Female : 1995 Arrival Date: 07/06/2019 Time: 15:13 Bed 18 Private MD: ED Physician Micheal Leon HPI: 07/05 15:38 This 24 yrs old Female presents to ER via Ambulatory with complaints of Sore kb Throat. 15:38 The patient presents with sore throat. The patient describes throat pain as constant. kb Onset: The symptoms/episode began/occurred 4 day(s) ago. Severity of symptoms: At their worst the symptoms were moderate, in the emergency department the symptoms are unchanged. Modifying factors: The symptoms are alleviated by nothing, the symptoms are aggravated by swallowing, Patient's oral intake status: good Denies contact with similarly ill indivduals. Associated signs and symptoms: Pertinent positives: Sore throat Pertinent negatives fever, shortness of breath. The patient has not experienced similar symptoms in the past. The patient has not recently seen a physician. Historical: - Allergies: 15:20 Motrin; aa5 - Home Meds: 15:20 levothyroxine oral [Active]; aa5 - PMHx: 15:20 Deaf; mute; Hypothyroidism; aa5 - PSHx: 15:20 None; aa5 - Immunization history:: Adult Immunizations up to date. - Social history:: Smoking status: Patient denies any tobacco usage or history of. ROS: 15:31 Constitutional: Negative for fever, chills, and weight loss, Neck: Negative for injury, kb pain, and swelling, Cardiovascular: Negative for chest pain, palpitations, and edema, Respiratory: Negative for shortness of breath, cough, wheezing, and pleuritic chest pain, Abdomen/GI: Negative for abdominal pain, nausea, vomiting, diarrhea, and constipation, Back: Negative for injury and pain, MS/Extremity: Negative for injury and deformity, Skin: Negative for injury, rash, and discoloration, Neuro: Negative for headache, weakness, numbness, tingling, and seizure. 15:31 ENT: Positive for sore throat, Negative for injury or acute deformity, drainage from ear(s), ear pain, foreign body sensation, Gum pain hearing loss, pulling at ears, Teeth pain tinnitus, nasal discharge, rhinorrhea, sinus congestion, sinus pain, dental pain, difficulty swallowing, difficulty handling secretions, hoarseness. Exam: 15:37 Constitutional: This is a well developed, well nourished patient who is awake, alert, kb and in no acute distress. Head/Face: Normocephalic, atraumatic. Neck: Trachea midline, no thyromegaly or masses palpated, and no cervical lymphadenopathy. Supple, full range of motion without nuchal rigidity, or vertebral point tenderness. No Meningismus. Chest/axilla: Normal chest wall appearance and motion. Nontender with no deformity. No lesions are appreciated. Cardiovascular: Regular rate and rhythm with a normal S1 and S2. No gallops, murmurs, or rubs. Normal PMI, no JVD. No pulse deficits. Respiratory: Lungs have equal breath sounds bilaterally, clear to auscultation and percussion. No rales, rhonchi or wheezes noted. No increased work of breathing, no retractions or nasal flaring. Abdomen/GI: Soft, non-tender, with normal bowel sounds. No distension or tympany. No guarding or rebound. No evidence of tenderness throughout. Skin: Warm, dry with normal turgor. Normal color with no rashes, no lesions, and no evidence of cellulitis. MS/ Extremity: Pulses equal, no cyanosis. Neurovascular intact. Full, normal range of motion. Neuro: Awake and alert, GCS 15, oriented to person, place, time, and situation. Cranial nerves II-XII grossly intact. Motor strength 5/5 in all extremities. Sensory grossly intact. Cerebellar exam normal. Normal gait. 15:37 ENT: Posterior pharynx: Airway: normal, no evidence of obstruction, Tonsils: enlarged on the right, with erythema, with exudate, Uvula: normal, midline, swelling, that is moderate, erythema, that is moderate, exudate, that is moderate. Vital Signs: 15:20 BP 107 / 86; Pulse 71; Resp 18 S; Temp 98.2(TE); Pulse Ox 100% on R/A; Weight 63.5 kg aa5 (R); 17:25 BP 104 / 78; Pulse 68; Resp 18; Temp 97.8; Pulse Ox 99% on R/A; ph MDM: 15:24 Patient medically screened. [facility] 15:37 Data reviewed: vital signs, nurses notes. Data interpreted: Pulse oximetry: on room air kb is 100 %. Interpretation: normal. 17:02 Counseling: I had a detailed discussion with the patient and/or guardian regarding: the kb historical points, exam findings, and any diagnostic results supporting the discharge/admit diagnosis, lab results, radiology results, the need for outpatient follow up, an ENT specialist, to return to the emergency department if symptoms worsen or persist or if there are any questions or concerns that arise at home. 07/05 15:19 Order name: Strep; Complete Time: 16:15 kb 07/05 15:29 Order name: Creatinine for Radiology; Complete Time: 16:15 kb 07/05 15:29 Order name: IV Start; Complete Time: 15:44 kb 07/05 15:29 Order name: CT Soft Tissue Neck W/contr; Complete Time: 17:02 kb 07/05 16:12 Order name: Throat Culture EDMS Administered Medications: No medications were administered Disposition: 07/06 07:39 Co-signature as Attending Physician, Micheal Leon MD I agree with the assessment and [facility] plan of care. Disposition: 07/06/19 17:02 Discharged to Home. Impression: Acute tonsillitis. - Condition is Stable. - Discharge Instructions: Tonsillitis, [id number]. - Prescriptions for Augmentin 875- 125 mg Oral Tablet - take 1 tablet by ORAL route every 12 hours for 10 days; 20 tablet. - Medication Reconciliation Form, Thank You Letter, Antibiotic Education, Prescription Opioid Use form. - Follow up: Emergency Department; When: As needed; Reason: Worsening of condition. Follow up: Private Physician; When: 2 - 3 days; Reason: Recheck today's complaints, Continuance of care, Re-evaluation by your physician. Signatures: Dispatcher [employer] EDMS Lisa Ji, CUTTING MACHINE TENDER DECORATIVE-C ROSS-Micheal Lynne MD MD cha Calderon, Audri, RN RN xu5 Radha Antunez RN RN ph Corrections: (The following items were deleted from the chart) 07/05 17:30 17:02 07/06/2019 17:02 Discharged to Home. Impression: Acute tonsillitis. Condition is ph Stable. Forms are Medication Reconciliation Form, Thank You Letter, Antibiotic Education, Prescription Opioid Use. Follow up: Emergency Department; When: As needed; Reason: Worsening of condition. Follow up: Private Physician; When: 2 - 3 days; Reason: Recheck today's complaints, Continuance of care, Re-evaluation by your physician. kb
[2019-07-06 17:38] VITALS: BP 104/78; TEMP 97.8; O2SAT 99
== END 2019-07-06 17:30 | disposition home or self-care (01) ==
LOC: ER 15:11
DX: J03.90 Acute tonsillitis, unspecified (principal); E03.9 Hypothyroidism, unspecified; Z88.6 Allergy status to analgesic agent
CPT/HCPCS: 36415; 70491; 87070; 87081; 99284; Q9967

== ENCOUNTER 2019-10-07 19:57 | Inpatient (IN) | payer SELFPAY ==
[2019-10-08] MEDS ORDERED: ACETAMINOPHEN 325 MG TABLET ONE (00:11)
[2019-10-08] MEDS ORDERED: dexAMETHasone 10 MG/ML VIAL ONE (00:12)
[2019-10-08] MEDS ORDERED: AZITHROMYCIN 500 MG INJ IVPB ONE (00:12)
[2019-10-08] MEDS ORDERED: NA CHLORIDE 0.9% 250 ML ONE (00:12)
[2019-10-08] MEDS ORDERED: CEFTRIAXONE/SWI 1gm 1 GM/10 ML SYR ONE (00:12)
[2019-10-08 01:06] LABS: Absolute Lymphocytes (CBC) 0.5 K/uL (0.7-4.9); Basophils % 0.3 % (0-1.3); Hematocrit 38.8 % (36.0-45.0); Lymphocytes % 11.7 % (15.3-44.8); MPV 10.3 fL (7.6-11.3); RBC Red Blood Cell Count 4.25 M/uL (3.86-4.86)
[2019-10-08 01:23] LABS: ALT/SGPT 16 U/L (12-78); AST/SGOT 10 U/L (15-37); Albumin 3.9 g/dL (3.4-5.0); Alkaline Phosphatase 64 U/L (45-117); BUN Blood Urea Nitrogen 9 mg/dL (7-18); Bicarbonate 23 mmol/L (21-32); Bilirubin Total 0.7 mg/dL (0.2-1.0); Glucose Level 83 mg/dL (74-106); Potassium 3.8 mmol/L (3.5-5.1); Protein, Total 7.8 g/dL (6.4-8.2); Sodium Level 138 mmol/L (136-145)
--- NOTE | 2019-10-08 05:22 | EDPHYS ---
Physician Documentation [facility] Name: Sonja Covarrubias Age: 24 yrs Sex: Female : 1995 Arrival Date: 10/07/2019 Time: 19:59 Bed 8 Private MD: CADEN Physician Micheal Leon HPI: 10/06 23:48 This 24 yrs old Female presents to ER via Ambulatory with complaints of Heart johanna Racing. 23:48 The patient has shortness of breath with light activity. Onset: The symptoms/episode johanna began/occurred 3 day(s) ago. Duration: The symptoms are continuous, and are steadily getting worse. The patient's shortness of breath is aggravated by supine position, talking, walking, is alleviated by application of supplemental oxygen. The patient presents with a history of heart racing. Context: The symptoms occur with light activity. Modifying factors: The symptoms are aggravated by nothing. The symptoms are alleviated by nothing. The patient or guardian reports cough, flu symptoms. 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 - Social history:: Smoking status: Patient denies any tobacco usage or history of. - Family history:: not pertinent. ROS: 23:48 Constitutional: Negative for fever, chills, and weight loss, Eyes: Negative for injury, johanna pain, redness, and discharge, ENT: Negative for injury, pain, and discharge, Neck: Negative for injury, pain, and swelling, Abdomen/GI: Negative for abdominal pain, nausea, vomiting, diarrhea, and constipation, Back: Negative for injury and pain, : Negative for injury, bleeding, discharge, and swelling, MS/Extremity: Negative for injury and deformity, Skin: Negative for injury, rash, and discoloration, Neuro: Negative for headache, weakness, numbness, tingling, and seizure, Psych: Negative for depression, anxiety, suicide ideation, homicidal ideation, and hallucinations, Allergy/Immunology: Negative for hives, rash, and allergies, Endocrine: Negative for neck swelling, polydipsia, polyuria, polyphagia, and marked weight changes. 23:48 Cardiovascular: Positive for chest pain, palpitations. 23:48 Respiratory: Positive for cough, shortness of breath, at rest. 23:48 MS/extremity: Negative for decreased range of motion, swelling, tenderness. Exam: 23:50 Constitutional: This is a well developed, well nourished patient who is awake, alert, johanna and in no acute distress. Head/Face: Normocephalic, atraumatic. Eyes: Pupils equal round and reactive to light, extra-ocular motions intact. Lids and lashes normal. Conjunctiva and sclera are non-icteric and not injected. Cornea within normal limits. Periorbital areas with no swelling, redness, or edema. ENT: Nares patent. No nasal discharge, no septal abnormalities noted. Tympanic membranes are normal and external auditory canals are clear. Oropharynx with no redness, swelling, or masses, exudates, or evidence of obstruction, uvula midline. Mucous membranes moist. Neck: Trachea midline, no thyromegaly or masses palpated, and no cervical lymphadenopathy. Supple, full range of motion without nuchal rigidity, or vertebral point tenderness. No Meningismus. Chest/axilla: Normal chest wall appearance and motion. Nontender with no deformity. No lesions are appreciated. Cardiovascular: Regular rate and rhythm with a normal S1 and S2. No gallops, murmurs, or rubs. Normal PMI, no JVD. No pulse deficits. Respiratory: Lungs have equal breath sounds bilaterally, clear to auscultation and percussion. No rales, rhonchi or wheezes noted. No increased work of breathing, no retractions or nasal flaring. Abdomen/GI: Soft, non-tender, with normal bowel sounds. No distension or tympany. No guarding or rebound. No evidence of tenderness throughout. Back: No spinal tenderness. No costovertebral tenderness. Full range of motion. Female : Normal external genitalia. Skin: Warm, dry with normal turgor. Normal color with no rashes, no lesions, and no evidence of cellulitis. MS/ Extremity: Pulses equal, no cyanosis. Neurovascular intact. Full, normal range of motion. Neuro: Awake and alert, GCS 15, oriented to person, place, time, and situation. Cranial nerves II-XII grossly intact. Motor strength 5/5 in all extremities. Sensory grossly intact. Cerebellar exam normal. Normal gait. Psych: Awake, alert, with orientation to person, place and time. Behavior, mood, and affect are within normal limits. 23:50 Musculoskeletal/extremity: DVT Exam: No signs of deep vein thrombosis. no pain, no swelling, no tenderness, negative Homans' sign noted on exam, no appreciated bluish discoloration, no erythema, no increased warmth. Vital Signs: 20:13 BP 126 / 77; Pulse 122; Resp 18; Temp 100.1(TE); Pulse Ox 100% on R/A; sg 20:30 BP 125 / 86; Pulse 122; Resp 20; Pulse Ox 100% on R/A; sg 20:30 Temp 100.8; sg 23:16 BP 127 / 87; Pulse 92; Resp 18; Pulse Ox 99% on R/A; 10/07 01:00 BP 110 / 74; Pulse 84; Resp 18; Pulse Ox 100% on R/A; 02:30 BP 106 / 69; Pulse 85; Resp 18; Temp 98.5; Pulse Ox 100% on R/A; 04:00 BP 108 / 61; Pulse 79; Resp 18; Pulse Ox 100% on R/A; 05:30 BP 105 / 63; Pulse 58; Resp 18; Pulse Ox 100% on R/A; 05:31 Weight 63.5 kg; Height 5 ft. 4 in. (162.56 cm); 06:30 BP 120 / 75; Pulse 77; Resp 18; Pulse Ox 100% on R/A; 05:31 Body Mass Index 24.03 (63.50 kg, 162.56 cm) MDM: 10/06 23:05 Patient medically screened. johanna 23:51 Differential diagnosis: Anemia Anxiety Reaction asthma, CHF exacerbation, Chronic johanna Obstructive Pulmonary Disease bronchitis, flu, URI, pneumonia, pulmonary edema, reactive airway disease, Sepsis Unstable Angina. Antibiotic administration: Rocephin and Zithromax given. The patient's Wells Deep Vein Thrombosis Score was calculated as follows: Total Score: 0-2 Pts- Low Risk. The patient's pulmonary embolism risk score was calculated as follows: Total Score: 0-2 points. This patient was found to be at low risk for a pulmonary embolism by using the Well's assessment criteria. Data reviewed: vital signs, nurses notes, EMS record, lab test result(s), CBC, electrolytes, Flu: radiologic studies. 10/07 01:40 Immunization status:. ED course: d dimer positive, ct chest ro pe ordered. [facility] 01:42 Data interpreted: awake overnight monitor: rate is 92 beats/min, rhythm is regular, Pulse johanna oximetry: on room air is 99 %. Test interpretation: by ED physician or midlevel provider: plain radiologic studies. Counseling: I had a detailed discussion with the patient and/or guardian regarding: the historical points, exam findings, and any diagnostic results supporting the discharge/admit diagnosis, lab results, radiology results, the need for outpatient follow up. 10/06 21:03 Order name: Flu 10/06 21:03 Order name: Strep 10/06 22:00 Order name: Group A Streptococcus Rapid Sc; Complete Time: 23:42 EDPA 10/06 22:00 Order name: Influenza Screen (A ; Complete Time: 23:42 EDPA 10/06 23:46 Order name: CBC with Diff [facility] 10/06 23:46 Order name: Comprehensive Metabolic Panel [facility] 10/06 23:46 Order name: D-Dimer [facility] 10/06 23:46 Order name: COVID-19 [facility] 10/06 23:46 Order name: Blood Culture Adult (2) [facility] 10/07 00:17 Order name: Urine Dipstick--Ancillary (enter results) [facility] 10/07 00:17 Order name: Urine --Ancillary (enter results) [facility] 10/07 01:11 Order name: D-Dimer; Complete Time: 01:39 EDPA 10/07 01:12 Order name: CBC with Automated Diff; Complete Time: 01:39 [facility] 10/07 01:23 Order name: Comprehensive Metabolic Panel; Complete Time: 01:39 EDPA 10/06 23:46 Order name: Chest Single View XRAY [facility] 10/06 23:47 Order name: Urine Dipstick-Ancillary (obtain specimen); Complete Time: 00:16 [facility] 10/06 23:47 Order name: Urine Test (obtain specimen); Complete Time: 00:16 [facility] 10/07 01:40 Order name: CT Chest For PE Angio [facility] 10/07 06:48 Order name: CORONAVIRUS; Complete Time: 07:26 EDPA 10/07 07:30 Order name: RAD EDMS 10/07 17:52 Order name: CT EDMS Administered Medications: 00:34 Drug: Rocephin 1 grams Route: IV; Rate: calculated rate; Site: right antecubital; 05:59 Follow up: Response: No adverse reaction; IV Status: Completed infusion 00:36 Drug: Decadron - Dexamethasone 6 mg Route: IVP; Site: right antecubital; 05:59 Follow up: Response: No adverse reaction 00:38 Drug: Tylenol 650 mg Route: PO; 06:07 Follow up: Response: No adverse reaction; Temperature is decreased 00:38 Drug: Zithromax 500 mg Route: IVPB; Infused Over: 1 hrs; Site: right antecubital; 05:59 Follow up: Response: No adverse reaction; IV Status: Completed infusion 05:45 Drug: Lovenox 1 mg/kg Route: Sub-Q; Site: right lower abdomen; 05:59 Follow up: Response: No adverse reaction 06:58 Follow up: Response: No adverse reaction Disposition: 10/08/19 05:22 Hospitalization ordered by Abel Tavera for Observation. Preliminary diagnosis are Chest pain, unspecified, Pulmonary embolism - left upprt lobe. - Bed requested for [facility] ER HOLD. - Status is Observation. ph - Condition is Stable. - Problem is new. - Symptoms have improved. Signatures: Dispatcher [employer] EDPA Micheal Leon MD MD cha Smirch, Shelby, RN Jean Lei, TITLE CHECKER-C TITLE CHECKER-[facility] Radha Antunez RN RN Bandar Carbajal Lesli Dunbar Corrections: (The following items were deleted from the chart) 06:55 05:22 Hospitalization Ordered by Abel Tavera for Observation. Preliminary diagnosis eb is Chest pain, unspecified; Pulmonary embolism - left upprt lobe. Bed requested for Telemetry/MedSurg (observation). Status is Observation. Condition is Stable. Problem is new. Symptoms have improved. [facility] 19:00 06:55 10/08/2019 05:22 Hospitalization Ordered by Abel Tavera for Observation. ph Preliminary diagnosis is Chest pain, unspecified; Pulmonary embolism - left upprt lobe. Bed requested for [facility] ER HOLD. Status is Observation. Condition is Stable. Problem is new. Symptoms have improved. eb
--- NOTE | 2019-10-08 05:22 | ER ---
Nurse's Notes [facility] Name: Sonja Covarrubias Age: 24 yrs Sex: Female : 1995 Arrival Date: 10/07/2019 Time: 19:59 Bed 8 Private MD: Diagnosis: Chest pain, unspecified;Pulmonary embolism-left upprt lobe Presentation: 10/06 20:13 Acuity: JANNY 3 ss 20:13 Chief complaint: Patient states: I woke up from a nap with back pain some chills, sg feeling dizzy, and having body aches, having coughing with sneezing as well, [employer] hourly sign language interpreter utilized, [id number]. Coronavirus screen: Patient reports a cough. Patient denies shortness of breath or difficulty breathing. Patient denies measured and/or subjective temperature greater than 100.4F prior to today's visit. Patient denies travel on a cruise ship or to a country the [facility] currently lists as an affected area. Patient denies contact with known and/or suspected case of COVID-19. reports feeling chills. Ebola Screen: Patient negative for fever greater than or equal to 101.5 degrees Fahrenheit, and additional compatible Ebola Virus Disease symptoms Patient denies exposure to infectious person. Care prior to arrival: None. Transition of care: patient was not received from another setting of care. 20:13 Method Of Arrival: Ambulatory sg 20:13 Acuity: JANNY 3 sg 23:13 Chief complaint: Patient states: per hourly sign language interpreter Pt C/O coughing, sneezing, loss of wh appetite, leg pain, back pain and chills and body aches that started this morning. Coronavirus screen: Proceed with normal triage. Patient reports a cough. Patient denies shortness of breath or difficulty breathing. Patient denies measured and/or subjective temperature greater than 100.4F prior to today's visit. Patient denies travel on a cruise ship or to a country the [facility] currently lists as an affected area. Patient denies contact with known and/or suspected case of COVID-19. Ebola Screen: Patient negative for fever greater than or equal to 101.5 degrees Fahrenheit, and additional compatible Ebola Virus Disease symptoms Patient denies exposure to infectious person. Initial Sepsis Screen: Does the patient meet any 2 criteria? No. Patient's initial sepsis screen is negative. Does the patient have a suspected source of infection? No. Patient's initial sepsis screen is negative. Risk Assessment: Do you want to hurt yourself or someone else? Patient reports no desire to harm self or others. Onset of symptoms was October 07, 2019. 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 - Social history:: Smoking status: Patient denies any tobacco usage or history of. - Family history:: not pertinent. Screenin:14 Abuse screen: Denies threats or abuse. Denies injuries from another. Nutritional wh screening: No deficits noted. Tuberculosis screening: No symptoms or risk factors identified. Fall Risk None identified. Assessment: 23:15 General: Appears in no apparent distress. Behavior is calm, cooperative, appropriate wh for age. Pain: Complains of pain in back pain and leg pain. Neuro: Level of Consciousness is awake, alert, obeys commands, Oriented to person, place, time, situation, Appropriate for age. Cardiovascular: Heart tones S1 S2. Respiratory: Airway is patent Respiratory effort is even, unlabored, Respiratory pattern is regular, symmetrical, Breath sounds are clear bilaterally. GI: Abdomen is flat, non-distended, Abd is soft and non tender X 4 quads. : No signs and/or symptoms were reported regarding the genitourinary system. EENT: No signs and/or symptoms were reported regarding the EENT system. Derm: Skin is intact, is healthy with good turgor, Skin is pink, warm \T\ dry. normal. Musculoskeletal: Circulation, motion, and sensation intact. 10/07 01:00 Reassessment: No changes from previously documented assessment. Patient and/or family wh updated on plan of care and expected duration. Pain level reassessed. Patient is alert, oriented x 3, equal unlabored respirations, skin warm/dry/pink. 01:20 Reassessment: d dimer 560 called by shaan, ED provider aware. rr5 02:52 Reassessment: Patient appears in no apparent distress at this time. No changes from previously documented assessment. Patient and/or family updated on plan of care and expected duration. Pain level reassessed. Patient is alert, oriented x 3, equal unlabored respirations, skin warm/dry/pink. 04:30 Reassessment: Patient appears in no apparent distress at this time. No changes from previously documented assessment. Patient and/or family updated on plan of care and expected duration. Pain level reassessed. Patient is alert, oriented x 3, equal unlabored respirations, skin warm/dry/pink. 05:57 Reassessment: Patient appears in no apparent distress at this time. No changes from previously documented assessment. Patient and/or family updated on plan of care and expected duration. Pain level reassessed. Patient is alert, oriented x 3, equal unlabored respirations, skin warm/dry/pink. MD at bedside explaining POC need for admit. 06:45 Reassessment: Patient appears in no apparent distress at this time. No changes from previously documented assessment. Patient and/or family updated on plan of care and expected duration. Pain level reassessed. Patient is alert, oriented x 3, equal unlabored respirations, skin warm/dry/pink. Vital Signs: 10/06 20:13 BP 126 / 77; Pulse 122; Resp 18; Temp 100.1(TE); Pulse Ox 100% on R/A; sg 20:30 BP 125 / 86; Pulse 122; Resp 20; Pulse Ox 100% on R/A; sg 20:30 Temp 100.8; sg 23:16 BP 127 / 87; Pulse 92; Resp 18; Pulse Ox 99% on R/A; 10/07 01:00 BP 110 / 74; Pulse 84; Resp 18; Pulse Ox 100% on R/A; 02:30 BP 106 / 69; Pulse 85; Resp 18; Temp 98.5; Pulse Ox 100% on R/A; 04:00 BP 108 / 61; Pulse 79; Resp 18; Pulse Ox 100% on R/A; 05:30 BP 105 / 63; Pulse 58; Resp 18; Pulse Ox 100% on R/A; 05:31 Weight 63.5 kg; Height 5 ft. 4 in. (162.56 cm); 06:30 BP 120 / 75; Pulse 77; Resp 18; Pulse Ox 100% on R/A; 05:31 Body Mass Index 24.03 (63.50 kg, 162.56 cm) ED Course: 10/06 19:59 Patient arrived in ED. cl3 20:13 Triage completed. ss 20:13 Arm band placed on. ss 23:04 Bandar Carbajal is Primary Nurse. 23:05 Micheal Leon MD is Attending Physician. johanna 23:15 Patient has correct armband on for positive identification. Bed in low position. Call light in reach. Side rails up X 1. Pulse ox on. NIBP on. 10/07 00:30 Inserted saline lock: 20 gauge in right antecubital area, using aseptic technique. Blood collected. 05:17 Abel Tavera is Hospitalizing Provider. [facility] 06:58 No provider procedures requiring assistance completed. Patient admitted, IV remains in place. 07:20 Primary Nurse role handed off by Bandar Carbajal 07:20 Katerina Dominguez RN is Primary Nurse. sv Administered Medications: 00:34 Drug: Rocephin 1 grams Route: IV; Rate: calculated rate; Site: right antecubital; 05:59 Follow up: Response: No adverse reaction; IV Status: Completed infusion 00:36 Drug: Decadron - Dexamethasone 6 mg Route: IVP; Site: right antecubital; 05:59 Follow up: Response: No adverse reaction 00:38 Drug: Tylenol 650 mg Route: PO; 06:07 Follow up: Response: No adverse reaction; Temperature is decreased 00:38 Drug: Zithromax 500 mg Route: IVPB; Infused Over: 1 hrs; Site: right antecubital; 05:59 Follow up: Response: No adverse reaction; IV Status: Completed infusion 05:45 Drug: Lovenox 1 mg/kg Route: Sub-Q; Site: right lower abdomen; 05:59 Follow up: Response: No adverse reaction 06:58 Follow up: Response: No adverse reaction Outcome: 05:22 Decision to Hospitalize by Provider. johanna 06:58 Admitted to ER Hold. Please see [facility] for further documentation. 06:58 Condition: stable 06:58 Instructed on the need for admit. 19:00 Patient left the ED. ph Signatures: Katerina Dominguez, RN RN Eulogio Scott, RN RN Micheal Gonzales MD MD cha Smirch, Shelby, RN RN ss Radha Antunez, RN RN sammy Carbajal, Kaleb Gamboa RN RN rr5 Jose E, Johana cl3
[2019-10-08] MEDS ORDERED: ENOXAPARIN 80 MG/0.8 ML SQ ONE (05:45)
--- NOTE | 2019-10-08 06:50 | P.HP ---
Certification for Inpatient Patient admitted to: Observation With expected LOS: <2 Midnights Practitioner: I am a practitioner with admitting privileges, knowledge of patient current condition, hospital course, and medical plan of care. 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 Workup in the ED was positive for elevated D-dimer. CTA thorax performed report small burden pulmonary embolism. Patient is not hypoxic, denies any chest pain. History is limited because she is deaf and dumb. She is placed under observation for further management. Allergies ibuprofen [From Motrin] Allergy (Unverified 09/25/17 22:42) Unknown NKDA Allergy (Uncoded 08/15/13 17:31) Unknown No Known Allergies Allergy (Uncoded 04/14/15 04:34) Unknown - Past Medical/Surgical History -: None - Family History Family History: Reviewed- Non-Contributory - Social History Smoking Status: Never smoker Alcohol use: No CD- Drugs: No Place of Residence: Home Review of Systems Other: Except as documented, all other systems reviewed and negative. Physical Examination - Physical Exam General: Alert, In no apparent distress, Oriented x3 HEENT: Normocephalic, PERRLA, Mucous membr. moist/pink, Sclerae nonicteric Neck: Supple, JVD not distended Respiratory: Clear to auscultation bilaterally, Normal air movement Cardiovascular: No edema, Regular rate/rhythm, Normal S1 S2 Capillary refill: <2 Seconds Gastrointestinal: Normal bowel sounds, Soft and benign, No tenderness Musculoskeletal: No swelling, No erythema Integumentary: No rashes Neurological: Normal strength at 5/5 x4 extr - Studies Laboratory Data (last 24 hrs) 10/08/19 00:20: Sodium 138, Potassium 3.8, BUN 9, Creatinine 0.68, Glucose 83, Total Bilirubin 0.7, AST 10 L, ALT 16, Alkaline Phosphatase 64 10/08/19 00:20: WBC 4.2 L, Hgb 13.3, Hct 38.8, Plt Count 174 Microbiology Data (last 24 hrs): 10/07/19 21:00 Nasopharnyx Influenza Type A Antigen Screen - Final 10/07/19 21:00 Nasopharnyx Influenza Type B Antigen Screen - Final 10/07/19 21:00 Throat Group A Streptococcus Rapid Screen - Final Assessment and Plan - Problems (Diagnosis) (1) Pulmonary embolism Current Visit: Yes Status: Acute (2) Acute viral disease Current Visit: Yes Status: Acute - Plan Place patient under observation. Will start patient on Xarelto. Obtain venous Doppler of lower extremities to rule out DVT. COVID 19 screen is done and the result is pending. - Advance Directives Does patient have a Living Will: No Does patient have a Durable POA for Healthcare: No
--- NOTE | 2019-10-08 07:30 | RAD REPORT ---
EXAM DESCRIPTION: [place] Single View10/08/2019 1:06 am CLINICAL HISTORY: Chest pain COMPARISON: 2019 FINDINGS: The lungs appear clear of acute infiltrate. The heart is normal size IMPRESSION: No acute abnormalities displayed
[2019-10-08] MEDS ORDERED: ACETAMINOPHEN 500 MG TAB PO PRN (07:54)
[2019-10-08] MEDS ORDERED: NA CHLORIDE 0.9% 1,000 ML IV SCH (08:00)
[2019-10-08 10:07] VITALS: BMI 24.0
--- NOTE | 2019-10-08 16:46 | P.DS ---
Admission Date: 10/08/19 Discharge Date: 10/08/19 Primary Care Provider: none Disposition: ROUTINE DISCHARGE Discharge Condition: GOOD Reason for Admission: Shortness of breath Consultations: Pulmonary-Dr. Barnes Procedures: CT Scan: Left upper lobe pulmonary embolism Medical Problem List: Shortness of breath secondary to pulmonary embolism likely from medication- Provera/Clomid complicated with positive COVID 19 Hypothyroidism Brief History of Present Illness: 24-year-old female presented to the emergency room with shortness of breath. Patient had been started recently on Provera and Clomid to help with ovulation to get . She also has underlying hypothyroidism. D-dimer was elevated. CT scan revealed left upper lobe pulmonary embolism. Patient was admitted for further evaluation and treatment. Hospital Course: Patient presented with shortness of breath secondary to left upper lobe pulmonary embolism. This is likely related to recent medication-Provera and Clomid. Both medication were initiated recently by her physician to help with ovulation and to get . D-dimer elevated in the emergency room. CT scan revealed left upper lobe pulmonary embolism. Patient was started on IV Lovenox. Pulmonology was consulted. Pulmonology recommends anticoagulation therapy for 6 months. During the course of her stay, she has done well. Lab unremarkable. Hemoglobin stable. She is without significant shortness of breath. Social work has arranged for the patient to obtain free Eliquis through the company web site. Recommendation is for the patient to continue with Eliquis at 10 mg twice daily for 7 days then 5 mg twice daily for 6 months. Risk and benefit addressed with the patient in detail. Risks include bleeding. Benefit outweighs risk at this time. She agrees with plan of care to continue Eliquis. At discharge she would provided information on Eliquis. She will also be provided information about pulmonary embolism. At discharge she will need a follow up with pulmonology in 1 week to follow up this hospitalization. Pulmonology will continue to monitor her and make further recommendation. The patient will also need to establish care with a PCP to continue her care. Recommend to recheck lab-CBC in 2-4 weeks to monitor her progress. It is recommended at discharge to discontinue Provera and Clomid as this is the likely cause of the pulmonary embolism. Patient will need to practice abstinence and safe sex to prevent , as this mamay further complicate her treatment for pulmonary embolism. If patient continues to have shortness of breath, excessive bleeding, she is to contact her PCP or return to the hospital. Prior to discharge family has obtained her medication. Patient also has hypothyroidism. Patient may continue with her current thyroid medication. Recommend to recheck tsh and free T4 in 4-6 weeks to monitor progress. Further adjustment can be done by her PCP. Patient was evaluated for COVID 19. She did test positive. This also could be a cause of her pulmonary embolism. Patient will continue with Eliquis as directed above. Due to her positive test she will need to quarantine for 14 days. She will need to continue with hand washing, face mask and social distanc ing. CDC guidelines on further recommendations will be provided. Infection control will contact the health department to further evaluate her positive test. Family members may need to be tested as well. Patient does not have any significant symptoms at this time. 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) Neck: Supple Respiratory: Clear to auscultation bilaterally, Normal air movement Cardiovascular: Normal pulses, Regular rate/rhythm Gastrointestinal: Normal bowel sounds, No tenderness, No masses, No rebound, No guarding Neurological: Normal strength at 5/5 x4 extr, Normal tone, Normal affect Laboratory Data at Discharge: WBC 4.2 K/uL (4.3-10.9) L 10/08/19 00:20 Hgb 13.3 g/dL (12.0-15.0) 10/08/19 00:20 Hct 38.8 % (36.0-45.0) 10/08/19 00:20 Plt Count 174 K/uL (152-406) 10/08/19 00:20 Sodium 138 mmol/L (136-145) 10/08/19 00:20 Potassium 3.8 mmol/L (3.5-5.1) 10/08/19 00:20 BUN 9 mg/dL (7-18) 10/08/19 00:20 Creatinine 0.68 mg/dL (0.55-1.3) 10/08/19 00:20 Glucose 83 mg/dL (74-106) 10/08/19 00:20 Total Bilirubin 0.7 mg/dL (0.2-1.0) 10/08/19 00:20 AST 10 U/L (15-37) L 10/08/19 00:20 ALT 16 U/L (12-78) 10/08/19 00:20 Alkaline Phosphatase 64 U/L (45-117) 10/08/19 00:20 Home Medications: Apixaban [Eliquis] 5 mg PO SEECOM #70 tablet 10/08/19 New Medications: Apixaban [Eliquis] 5 mg PO SEECOM #70 tablet Patient Discharge Instructions: 1. Patient presented with shortness of breath secondary to left upper lobe pulmonary embolism. This is likely related to recent medication-Provera and Clomid. Both medication were initiated recently by her physician to help with ovulation and to get . D-dimer elevated in the emergency room. CT scan revealed left upper lobe pulmonary embolism. Patient was started on IV Lovenox. Pulmonology was consulted. Pulmonology recommends anticoagulation therapy for 6 months. During the course of her stay, she has done well. Lab unremarkable. Hemoglobin stable. She is without significant shortness of breath. Social work has arranged for the patient to obtain free Eliquis through the company web site. Recommendation is for the patient to continue with Eliquis at 10 mg twice daily for 7 days then 5 mg twice daily for 6 months. Risk and benefit addressed with the patient in detail. Risks include bleeding. Benefit outweighs risk at this time. She agrees with plan of care to continue Eliquis. At discharge she would provided information on Eliquis. She will also be provided information about pulmonary embolism. At discharge she will need a follow up with pulmonology in 1 week to follow up this hospitalization. Pulmonology will continue to monitor her and make further recommendation. The patient will also need to establish care with a PCP to continue her care. Recommend to recheck lab-CBC in 2-4 weeks to monitor her progress. It is recommended at discharge to discontinue Provera and Clomid as this is the likely cause of the pulmonary embolism. Patient will need to practice abstinence and safe sex to prevent , as this mamay further complicate her treatment for pulmonary embolism. If patient continues to have shortness of breath, excessive bleeding, she is to contact her PCP or return to the hospital. Prior to discharge family has obtained her medication. 2. Patient also has hypothyroidism. Patient may continue with her current thyroid medication. Recommend to recheck tsh and free T4 in 4-6 weeks to monitor progress. Further adjustment can be done by her PCP. 3. Patient was evaluated for COVID 19. She did test positive. This also could be a cause of her pulmonary embolism. Patient will continue with Eliquis as directed above. Due to her positive test she will need to quarantine for 14 days. She will need to continue with hand washing, face mask and social distancing. CDC guidelines on further recommendations will be provided. Infection control will contact the health department to further evaluate her positive test. Family members may need to be tested as well. Patient does not have any significant symptoms at this time. Diet: Regular Activity: Ad jaci Time spent managing pt's care (in minutes): 55
--- NOTE | 2019-10-08 17:51 | RAD REPORT ---
EXAM DESCRIPTION: CT - Chest For Pe Angio - 10/08/2019 6:19 am ADDENDUM #1 These critical findings were discussed with Dr. Micheal Leon on 10/08/2019 at 5:12 AM central time by a member of [facility] (Katerina Pratt) since my phone was not operating. Electronically signed by: Zuri Freed DO 10/08/2019 5:42 AM CDT End of Addendum EXAM: CT chest angiography with intravenous contrast CLINICAL HISTORY: 24-year-old female with chest pain, coughing, sneezing, body aches and chills. TECHNIQUE: Following the administration of intravenous contrast, multiple high-resolution axial images of the ch est were performed followed by sagittal and coronal reconstructed images. No MIP images were performe d. The CT study is performed according to ALARA (as low as reasonably achievable) or ALARA/IMAGE GENT LY, with automatic adjustment of mA and/or kV according to patient size. Performed on: 10/08/2019 at 3:56 AM COMPARISON: 10/04/2016 FINDINGS: There is satisfactory visualization and contrast opacification of pulmonary arteries. Th ere appear to be small intra-arterial filling defects within an anterior left upper lobe pulmonary ar maria guadalupe branch concerning for pulmonary emboli (series 401, image 47 through 50). Otherwise, no signific ant intra-arterial filling defects are identified. The thoracic aorta is normal in caliber and contou r without evidence of aneurysm or dissection. The lungs are well expanded and are clear. There is no evidence of a pneumothorax. There are no pleur al effusions. The heart is normal in size. There is no pericardial effusion. There is no evidence of hilar, mediastinal or axillary lymphadenopathy. No acute osseous abnormality is identified. The visualized upper abdominal structures are unremarkable. IMPRESSION: 1. There appear to be small intra-arterial filling defects within an anterior left upper lobe pulmona ry artery branch concerning for pulmonary emboli. Otherwise, no significant pulmonary emboli are iden tified. 2. No evidence of thoracic aortic aneurysm or dissection. 3. No acute lung pathology. Electronically signed by: Zuri Freed DO 10/08/2019 5:10 AM CDT Due to temporary technical issues with the PACS/Fluency reporting system, reports are being signed by the in house radiologist without Review as a courtesy to ensure prompt reporting. The interpreting r adiologist is fully responsible for the content of the report.
[2019-10-08 19:00] VITALS: BP 115/74; TEMP 98
[2019-10-08 19:47] VITALS: O2SAT 100
[2019-10-08 21:54] LABS: Urine Blood 1+ (NEG); Urine Glucose NEGATIVE (NEG); Urine Protein 1+ (NEG); Urine Specific Gravity >1.030 (1.005-1.030); Urine pH 5.5 (5.0-7.0)
--- NOTE | 2019-10-09 13:03 | ECHO ---
HEIGHT: 5 ft 4 in WEIGHT: 139 lb 15.897 oz DATE OF STUDY: 10/08/[address]: muriel sotelo 2-DIMENSIONAL: YES M.MODE: YES DOPPLER: YES COLOR FLOW: YES TDS: NO PORTABLE: NO DEFINITY: NO BUBBLE STUDY: NO DIAGNOSIS: PULMONARY EMBOLISM CARDIAC HISTORY: CATHERIZATION: NO SURGERY: NO PROSTHETIC VALVE: NO PACEMAKER: NO MEASUREMENTS (cm) DIASTOLIC (NORMALS) SYSTOLIC (NORMALS) IVSd 0.7 (0.6-1.2) LA Diam 2.0 (1.9-4.0) LVEF 59% LVIDd 3.5 (3.5-5.7) LVIDs 2.4 (2.0-3.5) %FS 31% LVPWd 0.9 (0.6-1.2) Ao Diam 2.2 (2.0-3.7) 2 DIMENSIONAL ASSESSMENT: RIGHT ATRIUM: NORMAL LEFT ATRIUM: NORMAL RIGHT VENTRICLE: NORMAL LEFT VENTRICLE: NORMAL TRICUSPID VALVE: TRACE TRICUSPID REGURGITATION MITRAL VALVE: NORMAL PULMONIC VALVE: MILD PULMONIC INSUFFICIENCY AORTIC VALVE: NORMAL PERICARDIAL EFFUSION: NONE AORTIC ROOT: NORMAL LEFT VENTRICULAR WALL MOTION: NORMAL. DOPPLER/COLOR FLOW: NORMAL. COMMENTS: NORMAL LEFT VENTRICULAR EJECTION FRACTION 55-60% WITH NORMAL WALL MOTION. NORMAL DIASTOLIC FUNCTION. RIGHT VENTRICLE APPEARS NORMAL IN SIZE AND FUNCTION TECHNOLOGIST: LUZ SOUSA
== END 2019-10-08 18:40 | disposition home or self-care (01) | DRG 177 ==
LOC: ER 19:57 → ERHOLD 10-08 07:38 → OBSVTOIN 10-08 11:00
PROVIDERS: ADMIT Internal Medicine; ATTEND Internal Medicine
DX: U07.1 COVID-19 (principal); I26.99 Other pulmonary embolism without acute cor pulmonale; E03.9 Hypothyroidism, unspecified; B34.9 Viral infection, unspecified; T38.5X5A Adverse effect of other estrogens and progestogens, initial encounter; Z79.890 Hormone replacement therapy; Z88.8 Allergy status to other drugs, medicaments and biological substances
CPT/HCPCS: 36415; 71045; 71275; 80053; 81003; 81025; 85025; 85379; 87040; 87070; 87081; 87804; 93306; 96365; 96366; 96372; 96375; 99285; G0378; J0456; J0696; J1100; J7050; Q9967; U0002

== ENCOUNTER 2019-11-09 18:00 | Emergency (ER) | payer SELFPAY ==
--- NOTE | 2019-11-10 07:29 | EDPHYS ---
Physician Documentation [facility] Name: Sonja Covarrubias Age: 24 yrs Sex: Female : 1995 Arrival Date: 11/09/2019 Time: 18:05 Bed 19 Private MD: ED Physician Papito Joe HPI: 11/08 19:10 This 24 yrs old Female presents to ER via Ambulatory with complaints of jr8 Medication Refill . 19:10 Patient had PE secondary to COVID about a month ago. Is down to six left on her jr8 Eliquis. Stated that she was given eliquis assistance card and has been trying to utilize it but that it is not working and/or disabled. Had pharmacy try as well and called assistance line without help. Came here to see if we could assist since she was admitted here . Severity of symptoms: At their worst the symptoms were very mild. The patient has not experienced similar symptoms in the past. The patient has not recently seen a physician. Historical: - Allergies: 18:08 Motrin; ll1 - PMHx: 18:08 Hypothyroidism; Deaf; mute; ll1 - PSHx: 18:08 None; ll1 - Immunization history:: Flu vaccine is not up to date. - Social history:: Smoking status: Patient denies any tobacco usage or history of. Patient/guardian denies using alcohol, street drugs. ROS: 19:10 Constitutional: Negative for fever, chills, and weight loss, Cardiovascular: Negative jr8 for chest pain, palpitations, and edema, Respiratory: Negative for shortness of breath, cough, wheezing, and pleuritic chest pain, Neuro: Negative for headache, weakness, numbness, tingling, and seizure. 19:10 All other systems are negative. Exam: 19:10 Constitutional: This is a well developed, well nourished patient who is awake, alert, jr8 and in no acute distress. Cardiovascular: Regular rate and rhythm with a normal S1 and S2. No gallops, murmurs, or rubs. Normal PMI, no JVD. No pulse deficits. Respiratory: Lungs have equal breath sounds bilaterally, clear to auscultation and percussion. No rales, rhonchi or wheezes noted. No increased work of breathing, no retractions or nasal flaring. Abdomen/GI: Soft, non-tender, with normal bowel sounds. No distension or tympany. No guarding or rebound. No evidence of tenderness throughout. Skin: Warm, dry with normal turgor. Normal color with no rashes, no lesions, and no evidence of cellulitis. MS/ Extremity: Pulses equal, no cyanosis. Neurovascular intact. Full, normal range of motion. Neuro: Awake and alert, GCS 15, oriented to person, place, time, and situation. Cranial nerves II-XII grossly intact. Motor strength 5/5 in all extremities. Sensory grossly intact. Cerebellar exam normal. Normal gait. Vital Signs: 18:08 BP 115 / 80; Pulse 68; Resp 17; Temp 98.5; Pulse Ox 99% ; ll1 MDM: 18:36 Patient medically screened. jr8 19:08 Data reviewed: vital signs, nurses notes. Medical screen evaluation completed. BELLE [email or web address] emergency medical condition absent. 19:10 ED course: Called Dr. Nagel about situation since Case management is gone for the day. jr8 He does not have any of the assistance cards either. Took patients information down and is going to assist her with this tomorrow. Patient is good with this plan . Administered Medications: No medications were administered Disposition: 19:08 Encounter for Medication Refill. jr8 Disposition: 11/09/19 19:09 Discharged to Home. Impression: Encounter for Medication Refill . - Condition is Stable. - Medication Reconciliation Form, Thank You Letter, Antibiotic Education, Prescription Opioid Use form. - Follow up: Private Physician; When: 1 - 2 days; Reason: Recheck today's complaints, Continuance of care, Re-evaluation by your physician. - Problem is new. - Symptoms are unchanged. Signatures: Gabriela Baumann, RN RN Atul Zapata PA PA jr8 Drew Dorantes RN RN ll1 Corrections: (The following items were deleted from the chart) 19:14 19:09 11/09/2019 19:09 Discharged to Home. Impression: Encounter for Medication Refill iw . Condition is Stable. Forms are Medication Reconciliation Form, Thank You Letter, Antibiotic Education, Prescription Opioid Use. Follow up: Private Physician; When: 1 - 2 days; Reason: Recheck today's complaints, Continuance of care, Re-evaluation by your physician. Problem is new. Symptoms are unchanged. jr8
--- NOTE | 2019-11-10 07:30 | ER ---
Nurse's Notes [facility] Name: Sonja Covarrubias Age: 24 yrs Sex: Female : 1995 Arrival Date: 11/09/2019 Time: 18:05 Bed 19 Private MD: Diagnosis: Encounter for Medication Refill Presentation: 11/08 18:08 Method Of Arrival: Ambulatory ll1 18:15 Chief complaint: Patient states: Having trouble refilling her Eliquis. States she was ll1 put on eliquis by Dr. Davidson for PE. [place] sign language int. used for triage. Coronavirus screen: Client denies travel out of the [place] in the last 14 days. At this time, the client does not indicate any symptoms associated with coronavirus-19. Ebola Screen: Patient denies travel to an Ebola-affected area in the 21 days before illness onset. Initial Sepsis Screen: Does the patient meet any 2 criteria? No. Patient's initial sepsis screen is negative. Risk Assessment: Do you want to hurt yourself or someone else? Patient reports no desire to harm self or others. Onset of symptoms was November 09, 2019. 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 - Social history:: Smoking status: Patient denies any tobacco usage or history of. Patient/guardian denies using alcohol, street drugs. Screenin:35 Abuse screen: Denies threats or abuse. Denies injuries from another. Nutritional ks7 screening: No deficits noted. Tuberculosis screening: No symptoms or risk factors identified. Fall Risk None identified. Assessment: 18:35 Reassessment: pt comes to ED today d/t no refill of her prescription for eliquis. hx of ks7 prior blood clot. pt aaox4, ambulatory, no s/s of disress. General: Appears in no apparent distress. Behavior is calm, cooperative. Pain: Denies pain. Vital Signs: 18:08 BP 115 / 80; Pulse 68; Resp 17; Temp 98.5; Pulse Ox 99% ; ll1 ED Course: 18:05 Patient arrived in ED. mr 18:09 Atul Zapata PA is PHCP. jr8 18:09 Papito Joe MD is Attending Physician. jr8 18:09 Arm band placed on Patient placed in an exam room, on a stretcher. ll1 18:11 Irene Briggs, APARNA is Primary Nurse. ks7 18:17 Triage completed. ll1 18:35 Resting quietly. ks7 18:35 Patient has correct armband on for positive identification. Bed in low position. Call ks7 light in reach. Side rails up X2. 18:35 No provider procedures requiring assistance completed. Patient did not have IV access ks7 during this emergency room visit. 18:44 Nurse Practitioner and/or Physician Corporate Travel Manager to see patient. in room with PA using the ks7 ASL video electronics warfare technician. Atul TONEY will call hospitalist to try and get a new Eliquis packet with a new reference # so pt can get a refill for Eliquis medication. Pt will wait in room while we try to figure out a way for her to get more meds. Pt resting quietly no s/s of distress. Administered Medications: No medications were administered Outcome: 19:09 Discharge ordered by . jr8 19:14 Patient left the ED. iw Signatures: Joy Cabrera mr Gabriela Baumann, RN RN Atul Peres PA PA jr8 Drew Dorantes, RN RN 1 Irene Briggs, APARNA RN ks7
== END 2019-11-09 19:14 | disposition home or self-care (01) ==
LOC: ER 18:00
DX: Z76.0 Encounter for issue of repeat prescription (principal); Z88.6 Allergy status to analgesic agent
CPT/HCPCS: 99281

== ENCOUNTER 2020-01-19 02:42 | Emergency (ER) | payer SELFPAY ==
[2020-01-19 04:39] LABS: Absolute Lymphocytes (CBC) 1.5 K/uL (0.7-4.9); Basophils % 0.4 % (0-1.3); Hematocrit 39.5 % (36.0-45.0); MPV 9.8 fL (7.6-11.3); RBC Red Blood Cell Count 4.38 M/uL (3.86-4.86)
[2020-01-19 04:53] LABS: ALT/SGPT 18 U/L (12-78); AST/SGOT 13 U/L (15-37); Albumin 3.7 g/dL (3.4-5.0); Alkaline Phosphatase 98 U/L (45-117); BUN Blood Urea Nitrogen 13 mg/dL (7-18); Bicarbonate 24 mmol/L (21-32); Bilirubin Direct 0.1 mg/dL (0-0.2); Bilirubin Total 0.4 mg/dL (0.2-1.0); Glucose Level 98 mg/dL (74-106); NT PRO-BNP 18 pg/mL (<125); Potassium 3.9 mmol/L (3.5-5.1); Protein, Total 7.8 g/dL (6.4-8.2); Sodium Level 139 mmol/L (136-145); Troponin (Emerg Dept Use Only) < 0.02 ng/mL (0.0-0.045)
[2020-01-19 05:00] LABS: Protime INR 1.08
[2020-01-19 05:01] LABS: Urine Blood TRACE (NEG); Urine Glucose NEGATIVE (NEG); Urine Protein NEGATIVE (NEG); Urine pH 7.5 (5.0-7.0)
[2020-01-19] MEDS ORDERED: ACETAMINOPHEN 500 MG TAB ONE (05:06)
[2020-01-19 05:28] LABS: Arterial Blood Carboxyhemoglob 1.1 % (0-1.5); Blood Gas Oxyhemoglobin 61.5 % (94-97); Blood O2 Saturation 62.7 % (92-98.5)
--- NOTE | 2020-01-19 06:01 | ER ---
Nurse's Notes [facility] Name: Sonja Covarrubias Age: 24 yrs Sex: Female : 1995 Arrival Date: 01/19/2020 Time: 02:43 Bed 20 Private MD: Diagnosis: Acute dyspnea ( Resolved ) Presentation: 01/18 03:16 Chief complaint: Patient states: pt stated she had sudden shortness of breath while she jv1 was sleeping. Coronavirus screen: Client denies travel out of the [place] in the last 14 days. Client presents with at least one sign or symptom that may indicate coronavirus-19. Client reports previous positive COVID test result. Date of collection: October 07, 2019. Ebola Screen: No symptoms or risks identified at this time. Initial Sepsis Screen: Does the patient meet any 2 criteria? No. Patient's initial sepsis screen is negative. Does the patient have a suspected source of infection? No. Patient's initial sepsis screen is negative. Risk Assessment: Do you want to hurt yourself or someone else? Patient reports no desire to harm self or others. Onset of symptoms was January 19, 2020 at 01:30. 03:16 Method Of Arrival: Ambulatory jv1 03:16 Acuity: JANNY 3 jv1 03:21 Note pt deaf and mute. Significant other there to translate and pt able to communicate jv1 by reading the questions and writing the answers. Triage Assessment: 03:22 General: Behavior is calm, cooperative, appropriate for age. Respiratory: Reports jv1 shortness of breath since 0130am Onset: The symptoms/episode began/occurred at 01:30am while she was sleeping, the patient has moderate shortness of breath. 03:22 General: Appears in no apparent distress. comfortable, well groomed, Behavior is calm, jv1 cooperative, appropriate for age. 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 - Social history:: Smoking status: Patient/guardian denies using alcohol, street drugs, tobacco products. Screenin:22 Abuse screen: Denies threats or abuse. Nutritional screening: No deficits noted. jv1 Tuberculosis screening: No symptoms or risk factors identified. Fall Risk None identified. Assessment: 03:22 Pain: Complains of pain in head Pain does not radiate. Pain currently is 8 out of 10 on jv1 a pain scale. Quality of pain is described as aching. 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 Speech pt mute and deaf. Cardiovascular: Denies chest pain, Heart tones S1 S2 Capillary refill < 3 seconds Rhythm is regular. Respiratory: Airway is patent Respiratory effort is even, unlabored, Respiratory pattern is regular, symmetrical. GI: Abdomen is flat, non-distended, Bowel sounds present X 4 quads. : No signs and/or symptoms were reported regarding the genitourinary system. EENT: pt deaf and mute. Derm: Skin is healthy with good turgor, Skin is pink, warm \T\ dry. Musculoskeletal: Circulation, motion, and sensation intact. Capillary refill < 3 seconds. 03:30 Reassessment: Dr. Buchanan in the room. jv1 04:30 Reassessment: Patient appears in no apparent distress at this time. No changes from jv1 previously documented assessment. Patient and/or family updated on plan of care and expected duration. Pain level reassessed. Patient is alert, oriented x 3, equal unlabored respirations, skin warm/dry/pink. 04:41 Reassessment: tech took pt for CT. jv1 04:42 Reassessment: notified Dr. Buchanan that pt is complaining of headache, pt stated she gets jv1 headache a lot. Dr. Buchanan ordered tylenol 1000mg po x 1. 04:50 Reassessment: pt back from CT. Respiratory: Breath sounds are clear bilaterally. jv1 05:00 Reassessment: notified Dr. Buchanan that the RT was not able to get an ABG, she tried twice. jv1 Instead was she was able to get was only a VBG. I showed the results to him as well. He said to just document that RT was not able to get ABG. 05:36 Reassessment: Patient appears in no apparent distress at this time. No changes from jv1 previously documented assessment. Patient and/or family updated on plan of care and expected duration. Pain level reassessed. Patient is alert, oriented x 3, equal unlabored respirations, skin warm/dry/pink. Patient denies pain at this time. Patient states feeling better. 05:49 Reassessment: went with Dr. Buchanan in the pt's room. Wrote that she does not have blood jv1 clot and all was normal as per Dr. Buchanan. Wrote questions for the pt to read as well, asked if she feels better, pt stated yes she feels better. Asked if she has any shortness of breath, she said no more shortness of breath. explained to her in writing that she is now for discharge. She understood. Vital Signs: 03:16 BP 116 / 80; Pulse 71; Resp 22; Temp 98.4; Pulse Ox 100% ; Pain 8/10; jv1 03:22 BP 116 / 80; Pulse 71; Resp 22; Temp 98.4; Pulse Ox 100% ; Weight 65.77 kg; Height 5 jv1 ft. 3 in. (160.02 cm); Pain 8/10; 04:30 BP 118 / 82; Pulse 72; Resp 22; Temp 98.5; Pulse Ox 100% ; Pain 8/10; jv1 05:30 BP 118 / 84; Pulse 64; Resp 18; Temp 98.3; Pulse Ox 100% ; Pain 4/10; jv1 06:30 BP 115 / 85; Pulse 65; Resp 18; Temp 98; Pulse Ox 100% ; Pain 0/10; jv1 03:22 Body Mass Index 25.69 (65.77 kg, 160.02 cm) jv1 ED Course: 02:43 Patient arrived in ED. cl3 03:12 Giovanni Buchanan MD is Attending Physician. pkl 03:20 Triage completed. jv1 03:22 Arm band placed on right wrist. jv1 03:22 Patient has correct armband on for positive identification. Placed in gown. Bed in low jv1 position. Call light in reach. Side rails up X 1. 03:58 XRAY Chest (1 view) In Process Unspecified. EDMS 04:25 Inserted saline lock: 22 gauge in left antecubital area, using aseptic technique. Blood ds4 collected. 05:01 CT Chest For PE Angio In Process Unspecified. EDMS 06:10 No provider procedures requiring assistance completed. IV discontinued, intact, jv1 bleeding controlled, No redness/swelling at site. Pressure dressing applied. Administered Medications: 05:00 Drug: Tylenol 1000 mg Route: PO; jv1 06:07 Follow up: Response: No adverse reaction; Pain is decreased jv1 Outcome: 06:00 Discharge ordered by . pkchico 06:30 Discharged to home ambulatory, with family. jv1 06:30 Condition: stable 06:30 Discharge instructions given to patient, significant other, Instructed on discharge instructions, follow up and referral plans. Demonstrated understanding of instructions, follow-up care. 06:43 Patient left the ED. bb Signatures: Dispatcher [employer] EDOH Giovanni Buchanan MD MD pkl Kavita Garcia RN RN bb Phong Smyth ds4 Bekah Rollins RN RN jv1 Johana Dorantes cl3 Corrections: (The following items were deleted from the chart) 04:55 04:51 General: Appears jv1 jv1
--- NOTE | 2020-01-19 06:01 | EDPHYS ---
Physician Documentation [facility] Name: Sonja Covarrubias Age: 24 yrs Sex: Female : 1995 Arrival Date: 01/19/2020 Time: 02:43 Bed 20 Private MD: ED Physician Giovanni Buchanan HPI: 01/18 05:54 This 24 yrs old Female presents to ER via Ambulatory with complaints of pkl Shortness Of Breath. 05:54 The patient has shortness of breath at rest. Onset: The symptoms/episode began/occurred pkl acutely, just prior to arrival. Patient was diagnosed with pulmonary embolism recently. 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 - Social history:: Smoking status: Patient/guardian denies using alcohol, street drugs, tobacco products. ROS: 05:54 Eyes: Negative for injury, pain, redness, and discharge, ENT: Negative for injury, pkl pain, and discharge, Neck: Negative for injury, pain, and swelling, Cardiovascular: Negative for chest pain, palpitations, and edema. 05:54 Respiratory: Positive for shortness of breath, at rest. 05:54 Abdomen/GI: Negative for abdominal pain, nausea, vomiting, and diarrhea. 05:54 Back: Negative for acute changes. 05:54 : Negative for urinary symptoms. 05:54 MS/extremity: Negative for acute changes. 05:54 Skin: Negative for rash. 05:54 Neuro: Negative for altered mental status. Exam: 05:54 Head/Face: Normocephalic, atraumatic. Eyes: Pupils equal round and reactive to light, pkl extra-ocular motions intact. Lids and lashes normal. Conjunctiva and sclera are non-icteric and not injected. Cornea within normal limits. Periorbital areas with no swelling, redness, or edema. ENT: Nares patent. No nasal discharge, no septal abnormalities noted. Tympanic membranes are normal and external auditory canals are clear. Oropharynx with no redness, swelling, or masses, exudates, or evidence of obstruction, uvula midline. Mucous membranes moist. Neck: Trachea midline, no thyromegaly or masses palpated, and no cervical lymphadenopathy. Supple, full range of motion without nuchal rigidity, or vertebral point tenderness. No Meningismus. Chest/axilla: Normal chest wall appearance and motion. Nontender with no deformity. No lesions are appreciated. Cardiovascular: Regular rate and rhythm with a normal S1 and S2. No gallops, murmurs, or rubs. Normal PMI, no JVD. No pulse deficits. Respiratory: Lungs have equal breath sounds bilaterally, clear to auscultation and percussion. No rales, rhonchi or wheezes noted. No increased work of breathing, no retractions or nasal flaring. Abdomen/GI: Soft, non-tender, with normal bowel sounds. No distension or tympany. No guarding or rebound. No evidence of tenderness throughout. Back: No spinal tenderness. No costovertebral tenderness. Full range of motion. Skin: Warm, dry with normal turgor. Normal color with no rashes, no lesions, and no evidence of cellulitis. MS/ Extremity: Pulses equal, no cyanosis. Neurovascular intact. Full, normal range of motion. Neuro: Awake and alert, GCS 15, oriented to person, place, time, and situation. Cranial nerves II-XII grossly intact. Motor strength 5/5 in all extremities. Sensory grossly intact. Cerebellar exam normal. Normal gait. Vital Signs: 03:16 BP 116 / 80; Pulse 71; Resp 22; Temp 98.4; Pulse Ox 100% ; Pain 8/10; jv1 03:22 BP 116 / 80; Pulse 71; Resp 22; Temp 98.4; Pulse Ox 100% ; Weight 65.77 kg; Height 5 jv1 ft. 3 in. (160.02 cm); Pain 8/10; 04:30 BP 118 / 82; Pulse 72; Resp 22; Temp 98.5; Pulse Ox 100% ; Pain 8/10; jv1 05:30 BP 118 / 84; Pulse 64; Resp 18; Temp 98.3; Pulse Ox 100% ; Pain 4/10; jv1 06:30 BP 115 / 85; Pulse 65; Resp 18; Temp 98; Pulse Ox 100% ; Pain 0/10; jv1 03:22 Body Mass Index 25.69 (65.77 kg, 160.02 cm) jv1 MDM: 03:12 Patient medically screened. pkl 05:54 Data reviewed: vital signs, nurses notes, EKG, radiologic studies. pkl 06:00 ED course: Patient feeling better. Discussed lab and CT Scan results with patient and pkl . Advised to follow up with PCP in 1 to 2 days. To return if necessary. Patient and understood instructions. 01/18 03:34 Order name: Basic Metabolic Panel; Complete Time: 05:44 pkl 01/18 03:34 Order name: CBC with Diff; Complete Time: 05:44 pkl 01/18 03:34 Order name: LFT's; Complete Time: 05:44 pkl 01/18 03:34 Order name: Magnesium; Complete Time: 05:44 pkl 01/18 03:34 Order name: NT PRO-BNP; Complete Time: 05:44 pkl 01/18 03:34 Order name: PT-INR; Complete Time: 05:44 pkl 01/18 03:34 Order name: Troponin (emerg Dept Use Only); Complete Time: 05:44 pkl 01/18 03:34 Order name: XRAY Chest (1 view) pkl 01/18 03:34 Order name: D-Dimer; Complete Time: 05:44 pkl 01/18 03:34 Order name: ABG; Complete Time: 05:44 pkl 01/18 03:58 Order name: Urine Dipstick--Ancillary (enter results); Complete Time: 05:44 mw2 01/18 03:58 Order name: Urine --Ancillary (enter results); Complete Time: 05:44 mw2 01/18 04:07 Order name: CT Chest For PE Angio pkl 01/18 04:46 Order name: CREATININE WHOLE BLOOD; Complete Time: 05:44 EDMS 01/18 03:34 Order name: EKG; Complete Time: 03:35 pkl 01/18 03:34 Order name: Cardiac monitoring; Complete Time: 04:38 pkl 01/18 03:34 Order name: EKG - Nurse/Tech; Complete Time: 04:38 pkl 01/18 03:34 Order name: IV Saline Lock; Complete Time: 04:38 pkl 01/18 03:34 Order name: Labs collected and sent; Complete Time: 04:38 pkl 01/18 03:34 Order name: O2 Per Protocol; Complete Time: 04:39 pkl 01/18 03:34 Order name: O2 Sat Monitoring; Complete Time: 04:39 pkl Administered Medications: 05:00 Drug: Tylenol 1000 mg Route: PO; jv1 06:07 Follow up: Response: No adverse reaction; Pain is decreased jv1 Disposition: 01/19/20 06:00 Discharged to Home. Impression: Acute dyspnea ( Resolved ). - Condition is Stable. - Medication Reconciliation Form, Thank You Letter, Antibiotic Education, Prescription Opioid Use form. - Follow up: Private Physician; When: 2 - 3 days; Reason: Re-evaluation by your physician. - Problem is new. - Symptoms have improved. Signatures: Dispatcher [employer] EDMS Giovanni Buchanan MD MD pkl Kavita Garcia, RN RN bb Bekah Rollins RN RN jv1 Corrections: (The following items were deleted from the chart) 06:43 06:00 01/19/2020 06:00 Discharged to Home. Impression: Acute dyspnea ( Resolved ). bb Condition is Stable. Forms are Medication Reconciliation Form, Thank You Letter, Antibiotic Education, Prescription Opioid Use. Follow up: Private Physician; When: 2 - 3 days; Reason: Re-evaluation by your physician. Problem is new. Symptoms have improved. pkl
[2020-01-19 07:12] VITALS: O2SAT 100
[2020-01-19 07:17] VITALS: BP 118/84; TEMP 98.3
--- NOTE | 2020-01-19 09:05 | RAD REPORT ---
EXAM DESCRIPTION: RAD - Chest Single View - 01/19/2020 3:58 am CLINICAL HISTORY: DYSPNEA Chest pain. COMPARISON: Chest Single View dated 10/08/2019; Chest Single View dated 01/19/2019; Chest Pa And Lat ( 2 Views) dated 05/29/2018; Chest Single View dated 10/04/2016 FINDINGS: Portable technique limits examination quality. The lungs are grossly clear. The heart is normal in size. No displaced fractures. IMPRESSION: No acute intrathoracic process suspected.
--- NOTE | 2020-01-19 09:53 | RAD REPORT ---
EXAM DESCRIPTION: CT Angiography Chest With Intravenous Contrast CLINICAL HISTORY: The patient is 24 years old and is Female; DYSPNEA TECHNIQUE: Axial computed tomographic angiography images of the chest with intravenous contrast. S agittal and coronal reformatted images were created and reviewed. This CT exam was performed using one or more of the following dose reduction techniques: automated exposure control, adjustment of t he mA and/or kV according to patient size, and/or use of iterative reconstruction technique. MIP re constructed images were created and reviewed. COMPARISON: CTA chest October 08, 2019. FINDINGS: Pulmonary arteries: No PE identified. Aorta: No acute findings. No thoracic aortic aneurysm. Lungs: No pulmonary consolidation or groundglass opacities. Pleural space: No pleural effusion or pneumothorax. Heart: Unremarkable. No cardiomegaly. No significant pericardial effusion. No evidence of RV dysfunction. Bones/joints: No acute fracture. No dislocation. Soft tissues: Unremarkable. Lymph nodes: Unremarkable. No enlarged lymph nodes. IMPRESSION: No PE identified. Electronically signed by: Katerina Ortiz MD 01/19/2020 5:15 AM CDT Due to temporary technical issues with the PACS/Fluency reporting system, reports are being signed by the in house radiologist without review as a courtesy to ensure prompt reporting. The interpreting r adiologist is fully responsible for the content of the report.
--- NOTE | 2020-01-19 16:08 | EKG ---
Test Date: 2020-01-19 Test Time: 04:34:08 Zipper Trimmer: RUDI MEASUREMENT RESULTS: Intervals: Rate: 63 FL: 182 QRSD: 76 QT: 404 QTc: 413 [place]: P: 63 FL: 182 QRS: 64 T: 54 INTERPRETIVE STATEMENTS: Normal sinus rhythm Normal ECG Compared to ECG 10/03/2016 23:26:45 Sinus arrhythmia no longer present Electronically Signed On 01-19-20 16:07:46 CDT by Kanu Umana
== END 2020-01-19 06:43 | disposition home or self-care (01) ==
LOC: ER 02:42
DX: R06.02 Shortness of breath (principal); E03.9 Hypothyroidism, unspecified; Z86.711 Personal history of pulmonary embolism; Z79.01 Long term (current) use of anticoagulants; Z88.6 Allergy status to analgesic agent
CPT/HCPCS: 36415; 71045; 71275; 80048; 80076; 81003; 81025; 82565; 82805; 83735; 83880; 84484; 85025; 85379; 85610; 93005; 99284; Q9967

== ENCOUNTER 2020-02-08 03:22 | Emergency (ER) | payer SELFPAY ==
[2020-02-08 04:17] LABS: Urine Blood NEGATIVE (NEG); Urine Glucose NEGATIVE (NEG); Urine Protein NEGATIVE (NEG); Urine Specific Gravity 1.015 (1.005-1.030)
[2020-02-08 04:18] LABS: Absolute Lymphocytes (CBC) 2.1 K/uL (0.7-4.9); Basophils % 0.3 % (0-1.3); Hematocrit 38.8 % (36.0-45.0); Lymphocytes % 27.9 % (15.3-44.8); MPV 9.7 fL (7.6-11.3); RBC Red Blood Cell Count 4.31 M/uL (3.86-4.86)
[2020-02-08] MEDS ORDERED: FENTANYL CITR 100 MCG/2 ML ONE (04:24)
[2020-02-08] MEDS ORDERED: ONDANSETRON 4 MG/2 ML VIAL ONE (04:24)
[2020-02-08 04:35] LABS: ALT/SGPT 19 U/L (12-78); AST/SGOT 11 U/L (15-37); Albumin 3.9 g/dL (3.4-5.0); Alkaline Phosphatase 85 U/L (45-117); BUN Blood Urea Nitrogen 20 mg/dL (7-18); Bicarbonate 25 mmol/L (21-32); Bilirubin Direct 0.2 mg/dL (0-0.2); Bilirubin Total 0.7 mg/dL (0.2-1.0); Glucose Level 81 mg/dL (74-106); Lipase 124 U/L (73-393); Potassium 3.7 mmol/L (3.5-5.1); Protein, Total 7.9 g/dL (6.4-8.2); Sodium Level 138 mmol/L (136-145)
--- NOTE | 2020-02-08 05:54 | EDPHYS ---
Physician Documentation [facility] Name: Sonja Covarrubias Age: 25 yrs Sex: Female : 1995 Arrival Date: 02/08/2020 Time: 03:23 Bed 5 Private MD: ED Physician Rodrigo Lizarraga HPI: 02/07 04:09 This 25 yrs old Female presents to ER via Ambulatory with complaints of tw4 Abdominal Pain. 04:09 Onset: The symptoms/episode began/occurred today. Modifying factors: The symptoms are tw4 alleviated by nothing, the symptoms are aggravated by nothing. Associated signs and symptoms: The patient has no apparent associated signs or symptoms. Severity of symptoms: At their worst the symptoms were moderate, in the emergency department the symptoms are unchanged. The patient has not experienced similar symptoms in the past. 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 - Social history:: Smoking status: Patient denies any tobacco usage or history of. Patient/guardian denies using alcohol, street drugs. ROS: 04:09 Constitutional: Negative for fever, chills, and weight loss, Eyes: Negative for injury, tw4 pain, redness, and discharge, Cardiovascular: Negative for chest pain, palpitations, and edema, Respiratory: Negative for shortness of breath, cough, wheezing, and pleuritic chest pain, : Negative for injury, bleeding, discharge, and swelling, MS/Extremity: Negative for injury and deformity, Skin: Negative for injury, rash, and discoloration, Neuro: Negative for headache, weakness, numbness, tingling, and seizure. Exam: 04:09 Chest/axilla: Normal chest wall appearance and motion. Nontender with no deformity. tw4 No lesions are appreciated. Cardiovascular: Regular rate and rhythm with a normal S1 and S2. No gallops, murmurs, or rubs. Normal PMI, no JVD. No pulse deficits. Respiratory: Lungs have equal breath sounds bilaterally, clear to auscultation and percussion. No rales, rhonchi or wheezes noted. No increased work of breathing, no retractions or nasal flaring. Abdomen/GI: Soft, non-tender, with normal bowel sounds. No distension or tympany. No guarding or rebound. No evidence of tenderness throughout. Back: No spinal tenderness. No costovertebral tenderness. Full range of motion. MS/ Extremity: Pulses equal, no cyanosis. Neurovascular intact. Full, normal range of motion. Neuro: Awake and alert, GCS 15, oriented to person, place, time, and situation. Cranial nerves II-XII grossly intact. Motor strength 5/5 in all extremities. Sensory grossly intact. Cerebellar exam normal. Normal gait. 04:09 Constitutional: The patient appears uncomfortable. 04:42 : Pelvic Exam: External exam: is normal, Speculum exam: normal findings, bimanual tw4 exam reveals cervical motion tenderness, os that is closed. Vital Signs: 03:47 BP 130 / 92; Pulse 92; Resp 16; Temp 98.2(TE); Pulse Ox 98% on R/A; Weight 67.13 kg jb4 (R); Height 5 ft. 4 in. (162.56 cm) (R); Pain 10/10; 04:30 BP 117 / 69; Pulse 73; Resp 16; Pulse Ox 100% on R/A; jb4 06:07 BP 97 / 67; Pulse 62; Resp 16; Temp 98; Pulse Ox 99% on R/A; rv 03:47 Body Mass Index 25.40 (67.13 kg, 162.56 cm) jb4 MDM: 03:46 Patient medically screened. tw4 06:55 Differential diagnosis: nonspecific abdominal pain, appendicitis, Abraham catheter tw4 problem, prostatitis. Data reviewed: vital signs, nurses notes. Data interpreted: Pulse oximetry: Interpretation: normal. Counseling: I had a detailed discussion with the patient and/or guardian regarding: the historical points, exam findings, and any diagnostic results supporting the discharge/admit diagnosis, lab results. Special discussion: I discussed with the patient/guardian in detail that at this point there is no indication for admission to the hospital. It is understood, however, that if the symptoms persist or worsen the patient needs to return immediately for re-evaluation. Special discussion: Based on the patient's Hx, exam, and Dx evaluation, there is no indication for emergent surgery or inpatient Tx. It is understood by the patient/guardian that if the Sx's persist or worsen they need to return immediately for re-evaluation. 02/07 03:48 Order name: Basic Metabolic Panel 02/07 03:48 Order name: CBC with Diff 02/07 03:48 Order name: Hepatic Function 02/07 03:48 Order name: Lipase 02/07 03:48 Order name: Basic Metabolic Panel; Complete Time: 05:38 EDMS 02/07 05:38 Interpretation: Normal except: BUN 20. 02/07 03:48 Order name: CBC with Automated Diff; Complete Time: 05:38 EDMS 02/07 05:39 Interpretation: Within normal limits. 02/07 03:48 Order name: Liver (Hepatic) Function; Complete Time: 05:38 EDMS 02/07 05:38 Interpretation: Normal except: AST 11; GLOB 4.0; A/G 1.0. 02/07 03:48 Order name: Lipase; Complete Time: 05:38 EDMS 02/07 05:39 Interpretation: Within normal limits: LIP 124. 02/07 04:15 Order name: Urine --Ancillary (enter results); Complete Time: 05:38 tt3 02/07 05:39 Interpretation: Within normal limits: USPGR 1.015. 02/07 04:15 Order name: Urine Dipstick--Ancillary (enter results); Complete Time: 05:38 tt3 02/07 05:39 Interpretation: Within normal limits. 02/07 04:37 Order name: GC (GONORR/CHLAMYDIA) Probe 02/07 04:37 Order name: Wet Prep; Complete Time: 05:38 02/07 03:48 Order name: IV Saline Lock; Complete Time: 04:11 02/07 03:48 Order name: Labs collected and sent; Complete Time: 04:11 02/07 03:48 Order name: Urine Dipstick-Ancillary (obtain specimen); Complete Time: 04:11 02/07 03:48 Order name: Urine Test (obtain specimen); Complete Time: 04:11 tw4 Administered Medications: 04:14 Drug: fentaNYL (PF) 25 mcg {Note: rass 0.} Route: IVP; Site: right antecubital; rv 04:30 Follow up: Response: No adverse reaction; Pain is decreased; RASS: Alert and Calm (0) jb4 04:15 Drug: Zofran (Ondansetron) 4 mg Route: IVP; Site: right antecubital; rv 04:30 Follow up: Response: No adverse reaction jb4 Disposition: 02/08/20 05:54 Discharged to Home. Impression: Bacterial vaginosis, Abdominal and pelvic pain. - Condition is Stable. - Discharge Instructions: Bacterial Vaginosis, Vaginitis. - Prescriptions for Flagyl 500 mg Oral Tablet - take 1 tablet by ORAL route every 12 hours for 7 days; 14 tablet. - Medication Reconciliation Form, Thank You Letter, Antibiotic Education, Prescription Opioid Use form. - Follow up: Private Physician; When: Upon discharge from the Emergency Department; Reason: Recheck today's complaints, Continuance of care, Re-evaluation by your physician. - Problem is new. - Symptoms have improved. Signatures: Dispatcher [employer] EDMS Dre Hernandez RN RN jb4 Rodrigo Lizarraga MD MD tw4 Ricardo Rollins RN RN rv Corrections: (The following items were deleted from the chart) 06:21 05:54 02/08/2020 05:54 Discharged to Home. Impression: Bacterial vaginosis; Abdominal jb4 and pelvic pain. Condition is Stable. Forms are Medication Reconciliation Form, Thank You Letter, Antibiotic Education, Prescription Opioid Use. Follow up: Private Physician; When: Upon discharge from the Emergency Department; Reason: Recheck today's complaints, Continuance of care, Re-evaluation by your physician. Problem is new. Symptoms have improved. tw4
--- NOTE | 2020-02-08 05:54 | ER ---
Nurse's Notes [facility] Name: Sonja Covarrubias Age: 25 yrs Sex: Female : 1995 Arrival Date: 02/08/2020 Time: 03:23 Bed 5 Private MD: Diagnosis: Bacterial vaginosis;Abdominal and pelvic pain Presentation: 02/07 03:47 Chief complaint: Patient states: I am having vaginal or rectal pain that started jb4 tonight. It is painful when I urinate and it all hurts in my private region. Coronavirus screen: Client denies travel out of the [place] in the last 14 days. At this time, the client does not indicate any symptoms associated with coronavirus-19. Ebola Screen: No symptoms or risks identified at this time. Initial Sepsis Screen: Does the patient meet any 2 criteria? HR > 90 bpm. Yes Does the patient have a suspected source of infection? No. Patient's initial sepsis screen is negative. Risk Assessment: Do you want to hurt yourself or someone else? Patient reports no desire to harm self or others. Onset of symptoms was February 08, 2020. Transition of care: patient was not received from another setting of care. 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 - Social history:: Smoking status: Patient denies any tobacco usage or history of. Patient/guardian denies using alcohol, street drugs. Screenin:40 Abuse screen: Denies threats or abuse. Nutritional screening: No deficits noted. jb4 Tuberculosis screening: No symptoms or risk factors identified. Fall Risk None identified. Assessment: 03:40 General: Appears in no apparent distress. uncomfortable, Behavior is calm, cooperative, jb4 appropriate for age. Pain: Complains of pain in buttocks and pelvis Pain does not radiate. Pain currently is 10 out of 10 on a pain scale. Quality of pain is described as crampy. Neuro: Level of Consciousness is awake, alert, obeys commands, Oriented to person, place, time, situation. Cardiovascular: Patient's skin is warm and dry. Respiratory: Airway is patent Respiratory effort is even, unlabored, Respiratory pattern is regular, symmetrical. GI: Abdomen is flat, non-distended. : Reports burning with urination, pain in groin. EENT: No signs and/or symptoms were reported regarding the EENT system. Derm: Skin is intact, Skin is pink, warm \T\ dry. Musculoskeletal: Circulation, motion, and sensation intact. Range of motion: intact in all extremities. 04:30 Reassessment: Patient appears in no apparent distress at this time. Patient and/or jb4 family updated on plan of care and expected duration. Pain level reassessed. Patient is alert, oriented x 3, equal unlabored respirations, skin warm/dry/pink. Patient states feeling better. 05:30 Reassessment: Patient appears in no apparent distress at this time. Patient and/or jb4 family updated on plan of care and expected duration. Pain level reassessed. Patient is alert, oriented x 3, equal unlabored respirations, skin warm/dry/pink. 06:00 Reassessment: Patient appears in no apparent distress at this time. Patient and/or jb4 family updated on plan of care and expected duration. Pain level reassessed. Patient is alert, oriented x 3, equal unlabored respirations, skin warm/dry/pink. Vital Signs: 03:47 BP 130 / 92; Pulse 92; Resp 16; Temp 98.2(TE); Pulse Ox 98% on R/A; Weight 67.13 kg 4 (R); Height 5 ft. 4 in. (162.56 cm) (R); Pain 10/10; 04:30 BP 117 / 69; Pulse 73; Resp 16; Pulse Ox 100% on R/A; jb4 06:07 BP 97 / 67; Pulse 62; Resp 16; Temp 98; Pulse Ox 99% on R/A; rv 03:47 Body Mass Index 25.40 (67.13 kg, 162.56 cm) [facility] ED Course: 03:23 Patient arrived in ED. cl3 03:40 Patient has correct armband on for positive identification. Bed in low position. Call jb4 light in reach. Side rails up X 1. Pulse ox on. NIBP on. 03:46 Rodrigo Lizarraga MD is Attending Physician. tw4 03:47 Dre Hernandez, RN is Primary Nurse. jb4 03:53 Triage completed. jb4 03:54 Arm band placed on right wrist. jb4 04:05 Initial lab(s) drawn, by me, sent to lab. Inserted saline lock: 20 gauge in right rv antecubital area, using aseptic technique. Blood collected. 04:40 Assist provider with pelvic exam: Set up pelvic tray. Performed by Rodrigo Lizarraga MD lp1 Specimens sent to lab. Patient tolerated well. 06:00 IV discontinued, intact, bleeding controlled, No redness/swelling at site. Pressure jb4 dressing applied. Administered Medications: 04:14 Drug: fentaNYL (PF) 25 mcg {Note: rass 0.} Route: IVP; Site: right antecubital; rv 04:30 Follow up: Response: No adverse reaction; Pain is decreased; RASS: Alert and Calm (0) jb4 04:15 Drug: Zofran (Ondansetron) 4 mg Route: IVP; Site: right antecubital; rv 04:30 Follow up: Response: No adverse reaction jb4 Outcome: 05:54 Discharge ordered by . tw4 06:00 Discharged to home ambulatory. jb4 06:00 Condition: stable 06:00 Discharge instructions given to patient, family, Instructed on discharge instructions, follow up and referral plans. medication usage, Demonstrated understanding of instructions, follow-up care, medications, Prescriptions given X 1. 06:21 Patient left the ED. jb4 Signatures: Shirley Bautista RN RN lp1 Dre Hernandez, RN RN jb4 Rodrigo Lizarraga MD MD [facility] Ricardo Rollins RN RN Johana Dorantes cl3
[2020-02-08 06:34] VITALS: BP 97/67; TEMP 98; O2SAT 99
[2020-02-11 06:18] LABS: C.trachomatis RNA,TMA Not Detected (Not Detected)
== END 2020-02-08 06:21 | disposition home or self-care (01) ==
LOC: ER 03:22
DX: N76.0 Acute vaginitis (principal); E03.9 Hypothyroidism, unspecified; Z86.711 Personal history of pulmonary embolism; Z79.01 Long term (current) use of anticoagulants; Z88.5 Allergy status to narcotic agent; Z88.6 Allergy status to analgesic agent
CPT/HCPCS: 36415; 80048; 80076; 81003; 81025; 83690; 85025; 87210; 87490; 87590; 96374; 96375; 99284; J2405; J3010

== ENCOUNTER 2020-05-24 23:35 | Emergency (ER) | payer SELFPAY ==
[2020-05-25 01:14] LABS: Urine Amorphous Sediment 4+ /HPF (NONE SEEN); Urine Bacteria <20 /HPF (<20); Urine RBC NONE SEEN /HPF (NONE SEEN)
[2020-05-25 01:14] LABS: Urine Blood NEGATIVE (NEG); Urine Glucose NEGATIVE (NEG); Urine Protein NEGATIVE (NEG); Urine Specific Gravity 1.025 (1.005-1.030); Urine pH 8.5 (5.0-7.0)
[2020-05-25] MEDS ORDERED: ONDANSETRON 4 MG/2 ML VIAL ONE (01:14)
[2020-05-25] MEDS ORDERED: NA CHLORIDE 0.9% 1,000 ML ONE (01:14)
[2020-05-25 01:35] LABS: Basophils % 0.3 % (0-1.3); Lymphocytes % 13.3 % (15.3-44.8); MPV 10.4 fL (7.6-11.3)
[2020-05-25 01:49] LABS: ALT/SGPT 16 U/L (12-78); AST/SGOT 7 U/L (15-37); Albumin 3.9 g/dL (3.4-5.0); Alkaline Phosphatase 86 U/L (45-117); BUN Blood Urea Nitrogen 10 mg/dL (7-18); Bicarbonate 27 mmol/L (21-32); Bilirubin Direct 0.1 mg/dL (0-0.2); Bilirubin Total 0.4 mg/dL (0.2-1.0); Glucose Level 111 mg/dL (74-106); Lipase 120 U/L (73-393); Potassium 3.9 mmol/L (3.5-5.1); Protein, Total 7.4 g/dL (6.4-8.2); Sodium Level 141 mmol/L (136-145)
--- NOTE | 2020-05-25 01:53 | ER ---
Nurse's Notes [facility] Name: Sonja Covarrubias Age: 25 yrs Sex: Female : 1995 Arrival Date: 05/24/2020 Time: 23:43 Bed 6 Private MD: Diagnosis: Other viral enteritis Presentation: 05/24 23:48 Chief complaint: Patient states: she is having abdominal pain and nausea feels like she bb is going to throw up but hasn't thrown up yet does not know when her last menstrual cycle was. Coronavirus screen: At this time, the client does not indicate any symptoms associated with coronavirus-19. Ebola Screen: No symptoms or risks identified at this time. Initial Sepsis Screen: Does the patient meet any 2 criteria? No. Patient's initial sepsis screen is negative. Does the patient have a suspected source of infection? No. Patient's initial sepsis screen is negative. Risk Assessment: Do you want to hurt yourself or someone else? Patient reports no desire to harm self or others. Onset of symptoms was May 24, 2020. 23:48 Method Of Arrival: Ambulatory bb 23:48 Acuity: JANNY 3 bb Triage Assessment: 23:57 General: Appears in no apparent distress. Behavior is calm, cooperative. Pain: bb Complains of pain in abdomen Pain currently is 5 out of 10 on a pain scale. GI: Abdomen is non-distended, Reports lower abdominal pain, upper abdominal pain, nausea. 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 - Social history:: Smoking status: unknown. Screenin/24 00:35 Abuse screen: Denies threats or abuse. Nutritional screening: No deficits noted. jb4 Tuberculosis screening: No symptoms or risk factors identified. Fall Risk None identified. Assessment: 00:35 General: Appears in no apparent distress. comfortable, Behavior is calm, cooperative, jb4 appropriate for age. Pain: Denies pain. Neuro: Level of Consciousness is awake, alert, obeys commands, Oriented to person, place, time, situation. Cardiovascular: Respiratory: Airway is patent Respiratory effort is even, unlabored, Respiratory pattern is regular, symmetrical. GI: Abdomen is round non-distended, Bowel sounds present X 4 quads. Abd is soft and non tender X 4 quads. : No signs and/or symptoms were reported regarding the genitourinary system. EENT: No signs and/or symptoms were reported regarding the EENT system. Derm: Skin is intact, Skin is pink, warm \T\ dry. Musculoskeletal: Circulation, motion, and sensation intact. Range of motion: intact in all extremities. 01:15 Reassessment: Patient appears in no apparent distress at this time. Patient and/or jb4 family updated on plan of care and expected duration. Pain level reassessed. Patient is alert, oriented x 3, equal unlabored respirations, skin warm/dry/pink. Vital Signs: 05/24 23:48 BP 121 / 87; Pulse 66; Resp 16 S; Temp 98(O); Pulse Ox 99% on R/A; Weight 65.77 kg (M); bb Height 5 ft. 4 in. (162.56 cm) (R); Pain 5/10; 05/25 01:15 BP 107 / 75; Pulse 63; Resp 16; Pulse Ox 98% on R/A; jb4 05/24 23:48 Body Mass Index 24.89 (65.77 kg, 162.56 cm) ED Course: 05/24 23:43 Patient arrived in ED. am4 23:56 Triage completed. bb 23:57 Arm band placed on Patient placed in an exam room, on a stretcher, on pulse oximetry. bb 05/25 00:18 Dre Hernandez, RN is Primary Nurse. jb4 00:23 Rodrigo Lizarraga MD is Attending Physician. tw4 00:35 Patient has correct armband on for positive identification. Bed in low position. Call jb4 light in reach. Side rails up X 1. Pulse ox on. NIBP on. 01:00 Initial lab(s) drawn, by me, sent to lab. Inserted saline lock: 20 gauge in right jb4 antecubital area, using aseptic technique. Blood collected. 02:04 No provider procedures requiring assistance completed. IV discontinued, intact, jb4 bleeding controlled, No redness/swelling at site. Pressure dressing applied. Administered Medications: 01:05 Drug: Zofran (Ondansetron) 4 mg Route: IVP; Site: right antecubital; jb4 01:30 Follow up: Response: No adverse reaction; Marked relief of symptoms jb4 01:05 Drug: NS 0.9% 1000 ml Route: IV; Rate: 1 bolus; Site: right antecubital; jb4 02:05 Follow up: Response: No adverse reaction; IV Status: Order to discontinue infusion; IV jb4 Intake: 500ml Intake: 02:05 IV: 500ml; Total: 500ml. jb4 Outcome: 01:52 Discharge ordered by . tw4 02:04 Discharged to home ambulatory. jb4 02:04 Condition: stable 02:04 Discharge instructions given to patient, Instructed on discharge instructions, follow up and referral plans. medication usage, Demonstrated understanding of instructions, follow-up care, medications, Prescriptions given X 3. 02:05 Patient left the ED. jb4 Signatures: Kavita Garcia RN RN bb Bryson, James, RN RN jb4 Rodrigo Lizarraga MD MD 4 Valeria Wolfe
--- NOTE | 2020-05-25 01:53 | EDPHYS ---
Physician Documentation [facility] Name: Sonja Covarrubias Age: 25 yrs Sex: Female : 1995 Arrival Date: 05/24/2020 Time: 23:43 Bed 6 Private MD: ED Physician Rodrigo Lizarraga HPI: 05/25 06:41 This 25 yrs old Female presents to ER via Ambulatory with complaints of tw4 Abdominal Pain, Nausea. 06:41 The patient presents to the emergency department with nausea, diarrhea. Onset: The tw4 symptoms/episode began/occurred today. Possible causes: unknown. The symptoms are aggravated by nothing. The symptoms are alleviated by nothing. Associated signs and symptoms: The patient has no apparent associated signs or symptoms. Severity of symptoms: At their worst the symptoms were mild in the emergency department the symptoms are unchanged. The patient has not experienced similar symptoms in the past. 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 - Social history:: Smoking status: unknown. ROS: 05/25 06:41 Constitutional: Negative for fever, chills, and weight loss, Eyes: Negative for injury, tw4 pain, redness, and discharge, Cardiovascular: Negative for chest pain, palpitations, and edema, Respiratory: Negative for shortness of breath, cough, wheezing, and pleuritic chest pain, Back: Negative for injury and pain, MS/Extremity: Negative for injury and deformity, Skin: Negative for injury, rash, and discoloration, Neuro: Negative for headache, weakness, numbness, tingling, and seizure. Abdomen/GI: Positive for abdominal pain, nausea and vomiting, nausea, vomiting, and diarrhea, vomiting, Negative for abdominal cramps, abdominal distension, anorexia, dysphagia, hematemesis, black/tarry stool, rectal pain, rectal bleeding, bowel incontinence. Exam: 06:41 Constitutional: This is a well developed, well nourished patient who is awake, alert, tw4 and in no acute distress. Head/Face: Normocephalic, atraumatic. Chest/axilla: Normal chest wall appearance and motion. Nontender with no deformity. No lesions are appreciated. Cardiovascular: Regular rate and rhythm with a normal S1 and S2. No gallops, murmurs, or rubs. Normal PMI, no JVD. No pulse deficits. Respiratory: Lungs have equal breath sounds bilaterally, clear to auscultation and percussion. No rales, rhonchi or wheezes noted. No increased work of breathing, no retractions or nasal flaring. Abdomen/GI: Soft, non-tender, with normal bowel sounds. No distension or tympany. No guarding or rebound. No evidence of tenderness throughout. Skin: Warm, dry with normal turgor. Normal color with no rashes, no lesions, and no evidence of cellulitis. MS/ Extremity: Pulses equal, no cyanosis. Neurovascular intact. Full, normal range of motion. Neuro: Awake and alert, GCS 15, oriented to person, place, time, and situation. Cranial nerves II-XII grossly intact. Motor strength 5/5 in all extremities. Sensory grossly intact. Cerebellar exam normal. Normal gait. Vital Signs: 05/24 23:48 BP 121 / 87; Pulse 66; Resp 16 S; Temp 98(O); Pulse Ox 99% on R/A; Weight 65.77 kg (M); bb Height 5 ft. 4 in. (162.56 cm) (R); Pain 5/10; 05/25 01:15 BP 107 / 75; Pulse 63; Resp 16; Pulse Ox 98% on R/A; jb4 05/24 23:48 Body Mass Index 24.89 (65.77 kg, 162.56 cm) bb MDM: 00:27 Patient medically screened. tw4 06:41 Differential diagnosis: Nonspecific abd pain, gastritis, cholecystitis, pancreatitis. tw4 Data reviewed: vital signs, nurses notes. Data interpreted: Pulse oximetry: Interpretation: normal. Counseling: I had a detailed discussion with the patient and/or guardian regarding: the historical points, exam findings, and any diagnostic results supporting the discharge/admit diagnosis. Special discussion: I discussed with the patient/guardian in detail that at this point there is no indication for admission to the hospital. It is understood, however, that if the symptoms persist or worsen the patient needs to return immediately for re-evaluation. 05/25 00:23 Order name: Basic Metabolic Panel 05/25 00:23 Order name: CBC with Diff; Complete Time: :47 05/25 00:23 Order name: Hepatic Function 05/25 00:23 Order name: Lipase 05/25 00:23 Order name: Urine Microscopic Only; Complete Time: :47 05/25 00:48 Order name: Urine Dipstick--Ancillary (enter results); Complete Time: :47 mw2 05/25 00:23 Order name: IV Saline Lock; Complete Time: :19 05/25 00:23 Order name: Labs collected and sent; Complete Time: :05/25 00:23 Order name: Urine Dipstick-Ancillary (obtain specimen); Complete Time: 00:44 05/25 00:23 Order name: Urine Test (obtain specimen); Complete Time: 00:44 05/25 00:48 Order name: Urine --Ancillary (enter results); Complete Time: :47 mw Administered Medications: 01:05 Drug: Zofran (Ondansetron) 4 mg Route: IVP; Site: right antecubital; jb4 01:30 Follow up: Response: No adverse reaction; Marked relief of symptoms jb4 01:05 Drug: NS 0.9% 1000 ml Route: IV; Rate: 1 bolus; Site: right antecubital; jb4 02:05 Follow up: Response: No adverse reaction; IV Status: Order to discontinue infusion; IV jb4 Intake: 500ml Disposition: 05/25/20 01:52 Discharged to Home. Impression: Other viral enteritis. - Condition is Stable. - Discharge Instructions: Food Choices to Help Relieve Diarrhea, Adult, Viral Gastroenteritis, Adult. - Prescriptions for Bentyl 20 mg Oral Tablet - take 1 tablet by ORAL route every 6 hours As needed; 20 tablet. Zofran 4 mg Oral Tablet - take 1 tablet by ORAL route every 12 hours As needed; 6 tablet. Lomotil 2.5- 0.025 mg Oral Tablet - take 2 tablet by ORAL route once daily As needed; 20 tablet. - Medication Reconciliation Form, Thank You Letter, Antibiotic Education, Prescription Opioid Use form. - Follow up: Private Physician; When: Upon discharge from the Emergency Department; Reason: Recheck today's complaints, Continuance of care, Re-evaluation by your physician. - Problem is new. - Symptoms have improved. Signatures: Dispatcher [employer] EDKavita Gates, RN RN bb Dre Hernandez RN RN jb4 Rodrigo Lizarraga MD MD tw4 Corrections: (The following items were deleted from the chart) 02:05 01:52 05/25/2020 01:52 Discharged to Home. Impression: Other viral enteritis. Condition jb4 is Stable. Forms are Medication Reconciliation Form, Thank You Letter, Antibiotic Education, Prescription Opioid Use. Follow up: Private Physician; When: Upon discharge from the Emergency Department; Reason: Recheck today's complaints, Continuance of care, Re-evaluation by your physician. Problem is new. Symptoms have improved. tw4
[2020-05-25 02:18] VITALS: TEMP 98
[2020-05-25 02:20] VITALS: BP 107/75; O2SAT 98
== END 2020-05-25 02:05 | disposition home or self-care (01) ==
LOC: ER 23:35
DX: A08.4 Viral intestinal infection, unspecified (principal); E03.9 Hypothyroidism, unspecified
CPT/HCPCS: 36415; 80048; 80076; 81003; 81015; 81025; 83690; 85025; 96361; 96374; 99284; J2405; J7030

== ENCOUNTER 2020-06-03 23:25 | Emergency (ER) | payer SELFPAY ==
--- NOTE | 2020-06-04 00:06 | ER ---
Nurse's Notes [facility] Name: Sonja Covarrubias Age: 25 yrs Sex: Female : 1995 Arrival Date: 06/03/2020 Time: 23:28 Bed 7 Private MD: Diagnosis: Stomatitis and related lesions Presentation: 06/03 23:32 Chief complaint: Patient states: pt reports pain in mouth, worsening with speaking. Has sg a picture of ulcerative area in the mouth, writes is painful, has been a problem for about 5 days now. Coronavirus screen: Client denies travel out of the [place] in the last 14 days. Ebola Screen: Patient negative for fever greater than or equal to 101.5 degrees Fahrenheit, and additional compatible Ebola Virus Disease symptoms Patient denies exposure to infectious person. Patient denies travel to an Ebola-affected area in the 21 days before illness onset. No symptoms or risks identified at this time. Initial Sepsis Screen: Does the patient meet any 2 criteria? No. Patient's initial sepsis screen is negative. Does the patient have a suspected source of infection? No. Patient's initial sepsis screen is negative. Risk Assessment: Do you want to hurt yourself or someone else? Patient reports no desire to harm self or others. Onset of symptoms was May 30, 2020. Care prior to arrival: None. Transition of care: patient was not received from another setting of care. 23:32 Acuity: JANNY 4 sg 23:32 Method Of Arrival: Ambulatory sg Historical: - Allergies: 23:32 Morphine; mg2 23:32 Motrin; mg2 - PMHx: 23:32 Hypothyroidism; mg2 - PSHx: 23:32 None; mg2 - Immunization history:: Adult Immunizations unknown. - Social history:: Smoking status: unknown. Screenin:53 Abuse screen: Denies threats or abuse. Denies injuries from another. Nutritional mg2 screening: No deficits noted. Tuberculosis screening: No symptoms or risk factors identified. Fall Risk None identified. Assessment: 23:51 General: Appears in no apparent distress. comfortable, Behavior is calm, cooperative. mg2 Pain: Denies pain. Neuro: Level of Consciousness is awake, alert, obeys commands, Oriented to person, place, time, situation. Cardiovascular: Capillary refill < 3 seconds Patient's skin is warm and dry. Respiratory: Airway is patent Respiratory effort is even, unlabored, Respiratory pattern is regular, symmetrical. GI: No signs and/or symptoms were reported involving the gastrointestinal system. : No signs and/or symptoms were reported regarding the genitourinary system. EENT: white patches and small blood clot at the roof of the mouth. 23:53 Derm: Skin is intact, is healthy with good turgor, Skin is pink, warm \T\ dry. normal. mg2 Musculoskeletal: Circulation, motion, and sensation intact. Capillary refill < 3 seconds. 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 mg2 Vital Signs: 23:56 BP 114 / 75; Pulse 75; Resp 18; Temp 98.5; Pulse Ox 100% on R/A; mg2 ED Course: 23:28 Patient arrived in ED. am4 23:32 Kaleb Camacho RN is Primary Nurse. rr5 23:32 Arm band placed on. sg 23:35 Triage completed. 23:38 Micheal Leon PA is PHCP. cp 23:38 Leighton Weston MD is Attending Physician. cp 23:53 Patient has correct armband on for positive identification. mg2 23:53 No provider procedures requiring assistance completed. Patient did not have IV access mg2 during this emergency room visit. Administered Medications: No medications were administered Outcome: [id number] 00:05 Discharge ordered by . cp 00:08 Discharged to home ambulatory. mg2 00:08 Condition: stable 00:08 Discharge instructions given to patient, Instructed on discharge instructions, follow up and referral plans. Demonstrated understanding of instructions, follow-up care. 00:09 Patient left the ED. mg2 Signatures: Eulogio Vogt RN APARNA Micheal Leon PA PA cp Ben Joyce RN RN mg2 Kaleb Camacho RN RN rr5 Valeria Wolfe am4
--- NOTE | 2020-06-04 00:06 | EDPHYS ---
Physician Documentation [facility] Name: Sonja Covarrubias Age: 25 yrs Sex: Female : 1995 Arrival Date: 06/03/2020 Time: 23:28 Bed 7 Private MD: ED Physician Leighton Weston HPI: 06/03 23:55 This 25 yrs old Female presents to ER via Ambulatory with complaints of Mouth cp Problem. 23:55 The patient presents with redness, ulceration, a white plaque. The problem is located cp in the left buccal mucosa. Onset: The symptoms/episode began/occurred noticed tonight. Associated signs and symptoms: Pertinent positives: redness in area, Pertinent negatives: anorexia, dysphagia, fever, inability to eat, pain. Historical: - Allergies: 23:32 Morphine; mg2 23:32 Motrin; mg2 - PMHx: 23:32 Hypothyroidism; mg2 - PSHx: 23:32 None; mg2 - Immunization history:: Adult Immunizations unknown. - Social history:: Smoking status: unknown. ROS: 23:56 Constitutional: Negative for chills, fever, poor PO intake. cp 23:56 ENT: Negative for drainage from ear(s), ear pain, Gum pain Teeth pain sore throat, difficulty swallowing, difficulty handling secretions. 23:56 Neck: Negative for pain with movement, pain at rest, stiffness. 23:56 Respiratory: Negative for cough, shortness of breath, wheezing. 23:56 Neuro: Negative for headache. 23:56 All other systems are negative. Exam: 23:57 Head/Face: Normocephalic, atraumatic. cp 23:57 Constitutional: The patient appears in no acute distress, alert, awake, non-toxic, well developed, well nourished. 23:57 ENT: External ear(s): are unremarkable, Nose: is normal, Mouth: Lips: moist, Oral mucosa: moist, on the left buccal mucosa, mild erythema, small superficial ulceration with several white plaques, Gums: normal with healthy appearance, Tongue: is normal, abscess, is not appreciated, Posterior pharynx: Airway: no evidence of obstruction, patent, Tonsils: are normal in appearance, erythema, is not appreciated, exudate, is not appreciated. 23:57 Neck: Lymph nodes: no appreciated lymphadenopathy. Vital Signs: 23:56 BP 114 / 75; Pulse 75; Resp 18; Temp 98.5; Pulse Ox 100% on R/A; mg2 MDM: 23:43 Patient medically screened. cp 23:59 Differential diagnosis: dental caries, gingivitis, dental abscess, aphthous ulcers. cp Data reviewed: vital signs, nurses notes. Administered Medications: No medications were administered Disposition: 06/04 00:10 Chart complete. cp 03:15 Co-signature as Attending Physician, Leighton Weston MD. mh7 Disposition: 06/04/20 00:05 Discharged to Home. Impression: Stomatitis and related lesions. - Condition is Stable. - Discharge Instructions: Canker Sores. - Medication Reconciliation Form, Thank You Letter, Antibiotic Education, Prescription Opioid Use form. - Follow up: Private Physician; When: 2 - 3 days; Reason: Worsening of condition. - Problem is new. - Symptoms are unchanged. Signatures: Micheal Leon PA PA cp Ben Joyce RN RN [facility] [place] Leighton Weston MD MD mh7 Corrections: (The following items were deleted from the chart) 00:09 00:05 06/04/2020 00:05 Discharged to Home. Impression: Stomatitis and related lesions. mg2 Condition is Stable. Forms are Medication Reconciliation Form, Thank You Letter, Antibiotic Education, Prescription Opioid Use. Follow up: Private Physician; When: 2 - 3 days; Reason: Worsening of condition. Problem is new. Symptoms are unchanged. cp
[2020-06-04 03:19] VITALS: BP 114/75; TEMP 98.5; O2SAT 100
== END 2020-06-04 00:09 | disposition home or self-care (01) ==
LOC: ER 23:25
DX: K12.1 Other forms of stomatitis (principal); Z88.5 Allergy status to narcotic agent; Z88.6 Allergy status to analgesic agent
CPT/HCPCS: 99281

== ENCOUNTER 2020-06-13 22:10 | Emergency (ER) | payer SELFPAY ==
[2020-06-14 00:43] LABS: SARS-COV-2 RT PCR NEGATIVE (NEGATIVE)
--- NOTE | 2020-06-14 01:13 | ER ---
Nurse's Notes [facility] Name: Sonja Covarrubias Age: 25 yrs Sex: Female : 1995 Arrival Date: 06/13/2020 Time: 22:15 Bed External Waiting [facility] MD: Diagnosis: Acute pharyngitis;Otitis media, unspecified, bilateral Presentation: 06/13 22:47 Chief complaint: Patient states: Runny nose and sore throat x 2 days. Denies fever. ca1 Reports a little headache. Coronavirus screen: Client denies travel out of the [place] in the last 14 days. congestion, runny nose, sore throat, Client presents with at least one sign or symptom that may indicate coronavirus-19. Standard/surgical mask placed on the client. Provider contacted for isolation considerations. Ebola Screen: Patient negative for fever greater than or equal to 101.5 degrees Fahrenheit, and additional compatible Ebola Virus Disease symptoms Patient denies exposure to infectious person. Patient denies travel to an Ebola-affected area in the 21 days before illness onset. No symptoms or risks identified at this time. Initial Sepsis Screen: Does the patient meet any 2 criteria? No. Patient's initial sepsis screen is negative. Does the patient have a suspected source of infection? No. Patient's initial sepsis screen is negative. Risk Assessment: Do you want to hurt yourself or someone else? Patient reports no desire to harm self or others. Onset of symptoms was June 13, 2020. 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 - Social history:: Smoking status: Patient denies any tobacco usage or history of. Assessment: 06/14 01:05 Reassessment: pt in triage at this time being evaluated by ISAIAH TONEY, awaiting [employer] to respond, pt using pen and paper for communication with PA at this time. Vital Signs: 06/13 22:47 BP 103 / 74; Pulse 100; Resp 16 S; Temp 97.3(TE); Pulse Ox 100% on R/A; Weight 66.22 kg ca1 (R); Height 5 ft. 4 in. (162.56 cm) (R); 22:47 Body Mass Index 25.06 (66.22 kg, 162.56 cm) ca1 ED Course: 22:15 Patient arrived in ED. ag3 22:49 Triage completed. ca1 22:50 Arm band placed on right wrist. ca1 22:58 COVID swab sent to lab. Flu and/or RSV swab sent to lab. Strep swab sent to lab. ca1 23:35 Micheal Leon PA is PHCP. cp 23:35 Rodrigo Lizarraga MD is Attending Physician. cp 06/14 01:08 Eulogio Vogt, RN is Primary Nurse. sg Administered Medications: No medications were administered Outcome: 01:12 Discharge ordered by . cp 01:20 Patient left the ED. sg Signatures: Eulogio Vogt RN RN Micheal Watkins PA PA cp Gomez, Alice 3 Irlanda Andrews RN RN ca1
--- NOTE | 2020-06-14 01:14 | EDPHYS ---
Physician Documentation [facility] Name: Sonja Covarrubias Age: 25 yrs Sex: Female : 1995 Arrival Date: 06/13/2020 Time: 22:15 Bed External Waiting Private MD: ED Physician Rodrigo Lizarraga HPI: 06/14 01:08 This 25 yrs old Female presents to ER via Ambulatory with complaints of Sore cp Throat, Headache. 01:08 The patient presents with sore throat. Onset: The symptoms/episode began/occurred 2 cp day(s) ago. Associated signs and symptoms: Pertinent positives: cough, earache, fever, rhinorrhea, Pertinent negatives diarrhea, vomiting. 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 - Social history:: Smoking status: Patient denies any tobacco usage or history of. ROS: 06/14 01:08 Eyes: Negative for injury, pain, redness, and discharge. cp Constitutional: Negative for body aches, fever, poor PO intake. ENT: Positive for ear pain, rhinorrhea, sore throat, Negative for drainage from ear(s), difficulty swallowing, difficulty handling secretions. Respiratory: Positive for cough, Negative for shortness of breath, wheezing. Abdomen/GI: Negative for abdominal pain, vomiting, diarrhea, constipation. Neuro: Positive for headache, Negative for altered mental status. All other systems are negative. Exam: 01:08 Head/Face: Normocephalic, atraumatic. cp 01:08 Constitutional: The patient appears in no acute distress, alert, awake, non-toxic, well developed, well nourished. 01:08 Eyes: Periorbital structures: appear normal, Conjunctiva: normal, no exudate, no injection, Lids and lashes: appear normal, bilaterally. 01:08 ENT: External ear(s): are unremarkable, Ear canal(s): are normal, clear, TM's: erythema, that is mild, bilaterally, Mouth: Lips: moist, Oral mucosa: moist, Posterior pharynx: Airway: no evidence of obstruction, patent, Tonsils: bilaterally enlarged, with erythema, no exudate, Uvula: midline, erythema, that is moderate, exudate, is not appreciated. 01:08 Neck: ROM/movement: is normal, is supple, without pain, no range of motions limitations, no meningismus, Lymph nodes: lymphadenopathy is appreciated, anterior cervical nodes. 01:08 Cardiovascular: Rate: tachycardic. 01:08 Respiratory: the patient does not display signs of respiratory distress, Respirations: normal, no use of accessory muscles, no retractions, labored breathing, is not present. Vital Signs: 06/13 22:47 BP 103 / 74; Pulse 100; Resp 16 S; Temp 97.3(TE); Pulse Ox 100% on R/A; Weight 66.22 kg ca1 (R); Height 5 ft. 4 in. (162.56 cm) (R); 22:47 Body Mass Index 25.06 (66.22 kg, 162.56 cm) ca1 MDM: 06/14 01:00 Differential diagnosis: group A strep tonsillitis, influenza, pharyngitis, cp retropharyngeal abcess tonsillitis, upper respiratory infection, uvulitis, COVID-19. 01:12 Patient medically screened. cp 01:12 Data reviewed: vital signs, nurses notes, lab test result(s), and as a result, I will cp discharge patient. 01:12 Counseling: I had a detailed discussion with the patient and/or guardian regarding: the cp historical points, exam findings, and any diagnostic results supporting the discharge/admit diagnosis, lab results, to return to the emergency department if symptoms worsen or persist or if there are any questions or concerns that arise at home. 06/13 22:52 Order name: Flu ca1 06/13 22:52 Order name: COVID-19 : Document "Date of Symptom Onset" if Symptomatic. ca1 06/13 22:52 Order name: Strep ca1 06/13 23:48 Order name: Group A Streptococcus Rapid Sc; Complete Time: 00:57 EDMS 06/14 00:43 Order name: COVID-19/FLU A+B; Complete Time: 00:57 EDMS 06/14 00:51 Order name: Throat Culture [facility] Administered Medications: No medications were administered Disposition: :21 Co-signature as Attending Physician, Rodrigo Lizarraga MD I agree with the assessment and 4 plan of care. Disposition: 06/14/20 01:12 Discharged to Home. Impression: Acute pharyngitis, Otitis media, unspecified, bilateral. - Condition is Stable. - Discharge Instructions: Otitis Media, Adult, Pharyngitis, Sore Throat. - Prescriptions for Amoxicillin 875 mg Oral Tablet - take 1 tablet by ORAL route every 12 hours for 10 days; 20 tablet. - Medication Reconciliation Form, Thank You Letter, Antibiotic Education, Prescription Opioid Use form. - Follow up: Private Physician; When: 2 - 3 days; Reason: Worsening of condition. - Problem is new. - Symptoms are unchanged. Signatures: Dispatcher [employer] [facility] Eulogio Vogt RN RN sg Micheal Leon PA PA cp Wadley, Terrence, MD MD rust Irlanda Andrews RN RN ca1 Corrections: (The following items were deleted from the chart) 06/13 23:54 23:48 Influenza Screen (A ordered. [facility] 23:55 23:48 CORONAVIRUS ordered. [facility] 06/14 01:20 01:12 06/14/2020 01:12 Discharged to Home. Impression: Acute pharyngitis; Otitis media, sg unspecified, bilateral. Condition is Stable. Forms are Medication Reconciliation Form, Thank You Letter, Antibiotic Education, Prescription Opioid Use. Follow up: Private Physician; When: 2 - 3 days; Reason: Worsening of condition. Problem is new. Symptoms are unchanged. cp
[2020-06-14 04:20] VITALS: BP 103/74; TEMP 97.3; O2SAT 100
== END 2020-06-14 01:20 | disposition home or self-care (01) ==
LOC: ER 22:10
DX: H66.93 Otitis media, unspecified, bilateral (principal); Z20.822 Contact with and (suspected) exposure to COVID-19; E03.9 Hypothyroidism, unspecified; Z88.5 Allergy status to narcotic agent; Z88.6 Allergy status to analgesic agent
CPT/HCPCS: 0240U; 87070; 87081; 99282

== ENCOUNTER 2020-07-10 00:27 | Emergency (ER) | payer SELFPAY ==
[2020-07-10 01:45] LABS: Urine Blood 1+ (Negative); Urine Glucose Negative (Negative); Urine Protein Trace (Negative); Urine Specific Gravity >=1.030 (1.005-1.030)
[2020-07-10 01:52] LABS: Urine Specific Gravity/Preg >1.030 (1.005-1.030)
[2020-07-10 01:55] LABS: Absolute Lymphocytes (CBC) 1.5 K/uL (0.7-4.9); Basophils % 0.5 % (0-1.3); Hematocrit 37.9 % (36.0-45.0); Lymphocytes % 15.4 % (15.3-44.8); MPV 9.9 fL (7.6-11.3); RBC Red Blood Cell Count 4.13 M/uL (3.86-4.86)
[2020-07-10 02:14] LABS: ALT/SGPT 34 U/L (12-78); AST/SGOT 18 U/L (15-37); Albumin 3.7 g/dL (3.4-5.0); Alkaline Phosphatase 70 U/L (45-117); BUN Blood Urea Nitrogen 17 mg/dL (7-18); Bicarbonate 28 mmol/L (21-32); Bilirubin Direct 0.1 mg/dL (0-0.2); Bilirubin Total 0.4 mg/dL (0.2-1.0); Glucose Level 81 mg/dL (74-106); Lipase 153 U/L (73-393); Potassium 4.1 mmol/L (3.5-5.1); Protein, Total 7.3 g/dL (6.4-8.2); Sodium Level 141 mmol/L (136-145)
[2020-07-10] MEDS ORDERED: NA CHLORIDE 0.9% 1,000 ML ONE (04:50)
[2020-07-10] MEDS ORDERED: FENTANYL CITR 100 MCG/2 ML ONE (04:50)
[2020-07-10] MEDS ORDERED: DIPHENHYDRAMINE 50 MG/ML VIAL ONE (05:18)
--- NOTE | 2020-07-10 08:19 | EDPHYS ---
Physician Documentation [facility] Name: Sonja Covarrubias Age: 25 yrs Sex: Female : 1995 Arrival Date: 07/10/2020 Time: 00:31 Bed 19 Private MD: ED Physician Leighton Weston HPI: 07/10 01:40 This 25 yrs old Female presents to ER via Ambulatory with complaints of mh7 Abdominal Pain. 01:40 The patient presents with abdominal pain in the lower abdomen. Onset: The mh7 symptoms/episode began/occurred today, at 00:00. The symptoms do not radiate. Associated signs and symptoms: Pertinent negatives: nausea, vomiting, and diarrhea, nausea and vomiting, anorexia, blood in stools, chest pain, constipation, diarrhea, dysuria, fever, headache, hematuria, nausea, palpitations, shortness of breath, vaginal discharge, vomiting, vomiting blood. The symptoms are described as intermittent, vague, waxing/waning. Modifying factors: The symptoms are alleviated by nothing, the symptoms are aggravated by nothing. Severity of pain: At its worst the pain was moderate today, in the emergency department the pain has improved moderately. Patient reports having lower abdominal pain while having intercourse. Denies any vaginal bleeding, nausea, vomiting, dysuria, or other complaints.. 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 - Social history:: Smoking status: Patient denies any tobacco usage or history of. Patient/guardian denies using alcohol, street drugs, IV drugs. ROS: 01:40 Constitutional: Negative for fever, chills, and weight loss, Eyes: Negative for injury, mh7 pain, redness, and discharge, ENT: Negative for injury, pain, and discharge, Neck: Negative for injury, pain, and swelling, Cardiovascular: Negative for chest pain, palpitations, and edema, Respiratory: Negative for shortness of breath, cough, wheezing, and pleuritic chest pain, Back: Negative for injury and pain, : Negative for injury, bleeding, discharge, and swelling, MS/Extremity: Negative for injury and deformity, Skin: Negative for injury, rash, and discoloration, Neuro: Negative for headache, weakness, numbness, tingling, and seizure, Psych: Negative for depression, anxiety, suicide ideation, homicidal ideation, and hallucinations, Allergy/Immunology: Negative for hives, rash, and allergies, Endocrine: Negative for neck swelling, polydipsia, polyuria, polyphagia, and marked weight changes, Hematologic/Lymphatic: Negative for swollen nodes, abnormal bleeding, and unusual bruising. Exam: 01:40 Constitutional: This is a well developed, well nourished patient who is awake, alert, mh7 and in no acute distress. Head/Face: Normocephalic, atraumatic. Eyes: Pupils equal round and reactive to light, extra-ocular motions intact. Lids and lashes normal. Conjunctiva and sclera are non-icteric and not injected. Cornea within normal limits. Periorbital areas with no swelling, redness, or edema. Neck: Trachea midline, no thyromegaly or masses palpated, and no cervical lymphadenopathy. Supple, full range of motion without nuchal rigidity, or vertebral point tenderness. No Meningismus. Chest/axilla: Normal chest wall appearance and motion. Nontender with no deformity. No lesions are appreciated. Cardiovascular: Regular rate and rhythm with a normal S1 and S2. No gallops, murmurs, or rubs. Normal PMI, no JVD. No pulse deficits. Respiratory: Lungs have equal breath sounds bilaterally, clear to auscultation and percussion. No rales, rhonchi or wheezes noted. No increased work of breathing, no retractions or nasal flaring. 01:40 Back: No spinal tenderness. No costovertebral tenderness. Full range of motion. Skin: Warm, dry with normal turgor. Normal color with no rashes, no lesions, and no evidence of cellulitis. MS/ Extremity: Pulses equal, no cyanosis. Neurovascular intact. Full, normal range of motion. Neuro: Awake and alert, GCS 15, oriented to person, place, time, and situation. Cranial nerves II-XII grossly intact. Motor strength 5/5 in all extremities. Sensory grossly intact. Cerebellar exam normal. Normal gait. Psych: Awake, alert, with orientation to person, place and time. Behavior, mood, and affect are within normal limits. 01:40 Abdomen/GI: Inspection: abdomen appears normal, Bowel sounds: normal, in all quadrants, Palpation: mild abdominal tenderness, in the suprapubic area, mass, is not appreciated, rebound tenderness, is not appreciated, voluntary guarding, is not appreciated, involuntary guarding, is not appreciated, no appreciated organomegaly, Rectal exam: the exam is deferred, because of patient request, Indicators: McBurney's point is not tender, Cao's sign is negative, Rovsing's sign is negative, Obturator sign is negative, Psoas sign is negative, Liver: no appreciated palpable abnormalities, Hernia: not appreciated. Vital Signs: 01:10 BP 113 / 85; Pulse 90; Resp 16; Temp 98.1; Pulse Ox 100% ; Weight 65.77 kg; Height 5 sf ft. 4 in. (162.56 cm); Pain 5/10; 01:30 BP 103 / 77; Pulse 80; Resp 16; Pulse Ox 100% ; sf 02:00 BP 103 / 69; Pulse 80; Resp 16; Pulse Ox 100% ; sf 02:30 BP 96 / 69; Pulse 81; Resp 16; Pulse Ox 100% ; sf 03:24 BP 112 / 68; Pulse 79; Resp 16; Pulse Ox 100% ; sf 03:30 BP 106 / 73; Pulse 76; Resp 16; Pulse Ox 100% ; sf 04:33 Pain 2/10; sf 05:02 BP 119 / 93; Pulse 102; Resp 16; Pulse Ox 98% ; sf 06:00 BP 104 / 63; Pulse 72; Resp 16; Pulse Ox 100% ; sf 07:50 BP 92 / 54; Pulse 86; Resp 18; Pulse Ox 100% on R/A; bw 01:10 Body Mass Index 24.89 (65.77 kg, 162.56 cm) sf MDM: 07:22 ED course: Pt signed out to me by Dr. Weston pending ultrasound to rule out torsion. rn Per report, gas technician has not arrived even though is torsion study and emergent study. 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 08:13 Differential diagnosis: non-specific abd pain, Ovarian Torsion, Ureterolithiasis, rn urinary tract infection, ovarian cyst. Data reviewed: vital signs, nurses notes, lab test result(s), radiologic studies, CT scan, doppler, and as a result, I will discharge patient. Counseling: I had a detailed discussion with the patient and/or guardian regarding: the historical points, exam findings, and any diagnostic results supporting the discharge/admit diagnosis, lab results, radiology results, the need for outpatient follow up, to return to the emergency department if symptoms worsen or persist or if there are any questions or concerns that arise at home. Response to treatment: the patient's symptoms have mildly improved after treatment, and as a result, I will discharge patient. Special discussion: Based on the patient's Hx, exam, and Dx evaluation, there is no indication for emergent surgery or inpatient Tx. It is understood by the patient/guardian that if the Sx's persist or worsen they need to return immediately for re-evaluation. I discussed with the patient/guardian in detail that at this point there is no indication for admission to the hospital. It is understood, however, that if the symptoms persist or worsen the patient needs to return immediately for re-evaluation. ED course: Per U/S tech, no evidence of ovarian torsion. 08:18 Patient medically screened. rn 07/10 01:19 Order name: Basic Metabolic Panel; Complete Time: 02: [facility] 07/10 01:19 Order name: CBC with Diff; Complete Time: : [facility] 07/10 01:19 Order name: Hepatic Function; Complete Time: 02: [facility] 07/10 01:19 Order name: Lipase; Complete Time: : [facility] 07/10 01:45 Order name: Urine Dipstick-Ancillary; Complete Time: 02:38 [facility] 07/10 01:46 Order name: Urine --Ancillary (enter results); Complete Time: 02:38 [facility] 07/10 01:19 Order name: IV Saline Lock; Complete Time: : [facility] 07/10 01:19 Order name: Labs collected and sent; Complete Time: : [facility] 07/10 01:19 Order name: Urine Dipstick-Ancillary (obtain specimen); Complete Time: 01:31 [facility] 07/10 02:41 Order name: CT Abd/Pelvis - IV Contrast Only [facility] 07/10 04:01 Order name: US Pelvis Complete [facility]07/10 01:19 Order name: Urine Test (obtain specimen); Complete Time: :31 [facility] Administered Medications: 04:34 Drug: NS 0.9% 1000 ml Route: IV; Rate: 1000 ml; Site: right antecubital; 05:25 Follow up: Response: Other; IV Status: IV converted to saline lock; IV Intake: 800ml ; patient request to stop infusion 04:35 Drug: fentaNYL (PF) 25 mcg Route: IVP; Site: right antecubital; 05:02 Follow up: Response: Adverse reaction, Physician notified 05:05 Drug: Benadryl (diphenhydrAMINE) 25 mg {Note: by APARNA Walls.} Route: IVP; Site: right sf antecubital; Disposition: 07/10/20 08:18 Discharged to Home. Impression: Lower abdominal pain, unspecified. - Condition is Stable. - Discharge Instructions: Abdominal Pain, Adult, Ovarian Cyst. - Medication Reconciliation Form, Thank You Letter, Antibiotic Education, Prescription Opioid Use form. - Follow up: Private Physician; When: As needed; Reason: Recheck today's complaints, Re-evaluation by your physician. - Problem is new. - Symptoms have improved. Signatures: Dispatcher [employer] EDMS Papito Joe MD MD rn Holmes, Maurice, MD MD [facility] Eulogio Marti RN RN [facility], APARNA Cortes RN bw Corrections: (The following items were deleted from the chart) 05:09 01:27 Allergies: Morphine; [facility] 08:39 08:18 07/10/2020 08:18 Discharged to Home. Impression: Lower abdominal pain, bw unspecified. Condition is Stable. Forms are Medication Reconciliation Form, Thank You Letter, Antibiotic Education, Prescription Opioid Use. Follow up: Private Physician; When: As needed; Reason: Recheck today's complaints, Re-evaluation by your physician. Problem is new. Symptoms have improved. rn
--- NOTE | 2020-07-10 08:19 | ER ---
Nurse's Notes [facility] Name: Sonja Covarrubias Age: 25 yrs Sex: Female : 1995 Arrival Date: 07/10/2020 Time: 00:31 Bed 19 Private MD: Diagnosis: Lower abdominal pain, unspecified Presentation: 07/10 01:00 Chief complaint: Patient states: Pain during sex tonight around 0000, pain now 5/10. sf Coronavirus screen: Client denies travel out of the [place] in the last 14 days. At this time, the client does not indicate any symptoms associated with coronavirus-19. Ebola Screen: Patient negative for fever greater than or equal to 101.5 degrees Fahrenheit, and additional compatible Ebola Virus Disease symptoms Patient denies exposure to infectious person. Patient denies travel to an Ebola-affected area in the 21 days before illness onset. No symptoms or risks identified at this time. Initial Sepsis Screen: Does the patient meet any 2 criteria? No. Patient's initial sepsis screen is negative. Does the patient have a suspected source of infection? Yes: Acute abdominal pain. Risk Assessment: Do you want to hurt yourself or someone else? Patient reports no desire to harm self or others. Onset of symptoms was July 10, 2020 at 00:00. 01:00 Method Of Arrival: Ambulatory sf 01:00 Acuity: JANNY 3 sf Triage Assessment: 01:00 General: Appears in no apparent distress. comfortable, Behavior is calm, cooperative. sf Pain: Complains of pain in pelvis Pain currently is 5 out of 10 on a pain scale. at worst was 10 out of 10 on a pain scale. EENT: No deficits noted. No signs and/or symptoms were reported regarding the EENT system. Neuro: Level of Consciousness is awake, alert, Oriented to person, place, time, situation. Cardiovascular: No deficits noted. Capillary refill < 3 seconds Patient's skin is warm and dry. Respiratory: No deficits noted. Airway is patent Respiratory effort is even, unlabored, Respiratory pattern is regular, symmetrical. GI: Abdomen is non-distended, Abd is soft X 4 quads Abdomen is tender to palpation in suprapubic area Patient currently denies diarrhea, nausea, vomiting. : Reports pain in suprapubic area Denies burning with urination, urinary frequency, urgency, vaginal bleeding, vaginal itching, Patient is sexually active Method of control is none. Derm: No signs and/or symptoms reported regarding the dermatologic system. Musculoskeletal: No signs and/or symptoms reported regarding the musculoskeletal system. 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 - Social history:: Smoking status: Patient denies any tobacco usage or history of. Patient/guardian denies using alcohol, street drugs, IV drugs. Screenin:00 Abuse screen: Denies threats or abuse. Denies injuries from another. Nutritional sf screening: No deficits noted. Tuberculosis screening: No symptoms or risk factors identified. Never had TB. Possible symptoms: None Risk factors: None. Fall Risk None identified. No fall in past 12 months (0 pts). No secondary diagnosis (0 pts). IV access (20 points). Ambulatory Aid- None/Bed Rest/Nurse Assist (0 pts). Gait- Normal/Bed Rest/Wheelchair (0 pts) Mental Status- Oriented to own ability (0 pts). Total Montejo Fall Scale indicates No Risk (0-24 pts). Assessment: 01:00 Reassessment: SEE TRIAGE ASSESSMENT. sf 02:00 Reassessment: Patient appears in no apparent distress at this time. No changes from sf previously documented assessment. Patient and/or family updated on plan of care and expected duration. Pain level reassessed. Patient is alert, oriented x 3, equal unlabored respirations, skin warm/dry/pink. 03:44 Reassessment: Patient appears in no apparent distress at this time. No changes from sf previously documented assessment. Patient and/or family updated on plan of care and expected duration. Pain level reassessed. Patient is alert, oriented x 3, equal unlabored respirations, skin warm/dry/pink. 04:07 Reassessment: Patient appears in no apparent distress at this time. No changes from sf previously documented assessment. Patient and/or family updated on plan of care and expected duration. Pain level reassessed. Patient is alert, oriented x 3, equal unlabored respirations, skin warm/dry/pink. Patient and family updated on waiting for US, patient denies pain at this time but would like pain medication because it is coming and going, instructed to use call button when pain comes to get medication at that time. 04:55 Reassessment: Patient called out to report redness to arm proximal from IV site after sf fentanyl, Dr. Weston notified, see orders for benadryl. 05:58 Reassessment: Patient appears in no apparent distress at this time. Patient and/or sf family updated on plan of care and expected duration. Pain level reassessed. Patient is alert, oriented x 3, equal unlabored respirations, skin warm/dry/pink. Ambulatory to restroom per request, hives are better. 06:55 Reassessment: Patient appears in no apparent distress at this time. No changes from sf previously documented assessment. Patient and/or family updated on plan of care and expected duration. Pain level reassessed. Patient is alert, oriented x 3, equal unlabored respirations, skin warm/dry/pink. Used american sign language teacher ([id number]) to explain wait to patient and family and explain about shift change. 07:50 Reassessment: Patient appears in no apparent distress at this time. No changes from previously documented assessment. Patient and/or family updated on plan of care and expected duration. Pain level reassessed. Patient is alert, oriented x 3, equal unlabored respirations, skin warm/dry/pink. GI: Bowel sounds present X 4 quads. Vital Signs: 01:10 BP 113 / 85; Pulse 90; Resp 16; Temp 98.1; Pulse Ox 100% ; Weight 65.77 kg; Height 5 sf ft. 4 in. (162.56 cm); Pain 5/10; 01:30 BP 103 / 77; Pulse 80; Resp 16; Pulse Ox 100% ; sf 02:00 BP 103 / 69; Pulse 80; Resp 16; Pulse Ox 100% ; sf 02:30 BP 96 / 69; Pulse 81; Resp 16; Pulse Ox 100% ; sf 03:24 BP 112 / 68; Pulse 79; Resp 16; Pulse Ox 100% ; sf 03:30 BP 106 / 73; Pulse 76; Resp 16; Pulse Ox 100% ; sf 04:33 Pain 2/10; sf 05:02 BP 119 / 93; Pulse 102; Resp 16; Pulse Ox 98% ; sf 06:00 BP 104 / 63; Pulse 72; Resp 16; Pulse Ox 100% ; sf 07:50 BP 92 / 54; Pulse 86; Resp 18; Pulse Ox 100% on R/A; bw 01:10 Body Mass Index 24.89 (65.77 kg, 162.56 cm) ED Course: 00:31 Patient arrived in ED. cf2 01:00 Eulogio Marti RN is Primary Nurse. sf 01:00 Arm band placed on Patient american sign language teacher used during triage and assessment ([id number]). 01:00 Patient has correct armband on for positive identification. Bed in low position. Call sf light in reach. Side rails up X 1. Pulse ox on. NIBP on. Door closed. Noise minimized. Visitors limited. Lights dimmed. Warm blanket given. Verbal reassurance given. 01:02 Leighton Weston MD is Attending Physician. [facility] 01:26 Triage completed. sf 01:30 Urine collected: clean catch specimen, clear. sf 01:35 Initial lab(s) drawn, by ia, sent to lab. Inserted saline lock: 20 gauge in right sf antecubital area, using aseptic technique. Blood collected. 02:55 CT Abd/Pelvis - IV Contrast Only Sent. sf 03:21 CT Abd/Pelvis - IV Contrast Only In Process Unspecified. EDMS 03:56 called Manfred spoke to Joey to call out Ultrasound. mw2 04:55 Awaiting: Ultrasound exam. sf 05:58 Awaiting: Ultrasound exam. sf 06:55 Awaiting: Ultrasound exam. sf 07:18 Report given to LUIS Cortes. sf 08:19 US Pelvis Complete In Process Unspecified. EDMS 08:27 No provider procedures requiring assistance completed. IV discontinued. bw Administered Medications: 04:34 Drug: NS 0.9% 1000 ml Route: IV; Rate: 1000 ml; Site: right antecubital; sf 05:25 Follow up: Response: Other; IV Status: IV converted to saline lock; IV Intake: 800ml ; patient request to stop infusion 04:35 Drug: fentaNYL (PF) 25 mcg Route: IVP; Site: right antecubital; sf 05:02 Follow up: Response: Adverse reaction, Physician notified sf 05:05 Drug: Benadryl (diphenhydrAMINE) 25 mg {Note: by LUIS Walls.} Route: IVP; Site: right sf antecubital; Intake: 05:25 IV: 800ml; Total: 800ml. sf Outcome: 08:18 Discharge ordered by . luis 08:27 Discharged to home ambulatory. bw 08:27 Condition: stable 08:27 Discharge instructions given to patient. 08:39 Patient left the ED. Signatures: Dispatcher [employer] EDMS Papito Joe MD MD rn Westbrook, MyKena 2 Reginald Carrasco 2 Leighton Weston MD MD [facility] Eulogio Marti RN RN sf Sophia Bill RN RN Corrections: (The following items were deleted from the chart) 05:09 01:27 Allergies: Morphine; sf sf
[2020-07-10 08:48] VITALS: TEMP 98.1
[2020-07-10 08:58] VITALS: O2SAT 100
[2020-07-10 08:59] VITALS: BP 92/54
--- NOTE | 2020-07-10 11:07 | RAD REPORT ---
EXAM DESCRIPTION: US - Pelvis Complete - 07/10/2020 8:19 am CLINICAL HISTORY: right ovarian cyst Pelvic pain. COMPARISON: Transvaginal Study Probe dated 05/29/2018; Abdomen Pelvis W Contrast dated 07/10/2020 FINDINGS: The uterus is normal in size, shape and echotexture. The uterus measures 8.7 x 4.4 cm. The endometrial stripe measures 8 mm, normal. Both ovaries are normal in size, shape and echotexture. The right ovary measures 6.8 x 4.9 cm. The left ovary measures 3.3 x 2.3 cm.. The right ovary appears prominent in size contains a 4.9 x 2.9 cm solid and cystic lesion. No adnexal masses. Normal Doppler blood flow was demonstrated to both ovaries. No significant pelvic ascites. IMPRESSION: The right ovary appears enlarged and contains 4.9 x 2.9 cm solid and cystic lesion. This may represent a complex ovarian cyst, less likely an ovarian mass.Recommend follow-up pelvic sonogra phy in 6 weeks 4 surveillance purposes.
--- NOTE | 2020-07-11 11:20 | RAD REPORT ---
EXAM DESCRIPTION: CT Abdomen and Pelvis With Intravenous Contrast CLINICAL HISTORY: The patient is 25 years old and is Female; lower abdominal pain;Abd pain TECHNIQUE: Axial computed tomography images of the abdomen and pelvis with intravenous contrast. S agittal and coronal reformatted images were created and reviewed. This CT exam was performed using one or more of the following dose reduction techniques: automated exposure control, adjustment of t he mA and/or kV according to patient size, and/or use of iterative reconstruction technique. COMPARISON: CT abdomen and pelvis 06/05/2019. FINDINGS: Lung bases: Unremarkable. No mass. No consolidation. ABDOMEN: Liver: Unremarkable. No mass. Gallbladder and bile ducts: Unremarkable. No calcified stones. No ductal dilation. Pancreas: Unremarkable. No mass. No ductal dilation. Spleen: Unremarkable. No splenomegaly. Adrenals: Unremarkable. No mass. Kidneys and ureters: Stable 1 cm intermediate attenuation lesion in the left kidney. No hydronephrosis. Stomach and bowel: Unremarkable. No obstruction. No mucosal thickening. PELVIS: Appendix: No findings to suggest acute appendicitis. Bladder: Unremarkable. No mass. Reproductive: 5 cm right ovarian/adnexal cyst. Prominence of the lower uterine segment/cervix. ABDOMEN and PELVIS: Intraperitoneal space: Unremarkable. No free air. No significant fluid collection. Bones/joints: No acute fracture. No dislocation. Soft tissues: Unremarkable. Vasculature: Unremarkable. No abdominal aortic aneurysm. Lymph nodes: Unremarkable. No enlarged lymph nodes. IMPRESSION: 5 cm right ovarian/adnexal cyst. Prominence of the lower uterine segment/cervix. Consi kalen pelvic ultrasound for further evaluation if clinically indicated. Electronically signed by: Maykel Valentino MD 07/10/2020 3:50 AM CDT Due to temporary technical issues with the PACS/Fluency reporting system, reports are being signed by the in house radiologist without review as a courtesy to ensure prompt reporting. The interpreting r adiologist is fully responsible for the content of the report.
== END 2020-07-10 08:39 | disposition home or self-care (01) ==
LOC: ER 00:27
DX: R10.30 Lower abdominal pain, unspecified (principal); E03.9 Hypothyroidism, unspecified; Z88.4 Allergy status to anesthetic agent; Z88.6 Allergy status to analgesic agent
CPT/HCPCS: 36415; 74177; 76856; 80048; 80076; 81003; 81025; 83690; 85025; 96361; 96374; 96375; 99284; J1200; J3010; J7030; Q9967

== ENCOUNTER 2020-07-15 12:40 | Day surgery (SDC) | payer SELFPAY ==
[2020-07-15 13:33] LABS: Absolute Lymphocytes (CBC) 1.2 K/uL (0.7-4.9); Basophils % 0.4 % (0-1.3); Hematocrit 37.8 % (36.0-45.0); RBC Red Blood Cell Count 4.13 M/uL (3.86-4.86)
[2020-07-15 13:51] LABS: Specific Gravity 1.015 (1.005-1.030)
[2020-07-15] MEDS ORDERED: Ringers Lactate 1,000 ML IV ONE ×3 (14:26→18:35)
[2020-07-15 14:34] VITALS: TEMP 97.6
[2020-07-15] MEDS ORDERED: BUPIVACAINE 0.25% PF 30 ML VIAL ONE (15:33)
[2020-07-15] MEDS ORDERED: MIDAZOLAM HCL 2 MG/2 ML INJ ONE (16:33)
[2020-07-15] MEDS ORDERED: SUCCINYLCHOLINE 20 MG/ML (10 ML) IV ONE (16:34)
[2020-07-15] MEDS ORDERED: propofoL 200 MG/20 ML VIAL IV ONE (16:34)
[2020-07-15] MEDS ORDERED: MORPHINE SULFATE/PF 1 MG/ML (10 ML AMP) ONE (16:36)
[2020-07-15] MEDS ORDERED: ROCURONIUM 50 MG/5 ML VIAL IV ONE (16:51)
[2020-07-15] MEDS ORDERED: ONDANSETRON 4 MG/2 ML VIAL ONE ×2 (17:37→18:33)
[2020-07-15] MEDS ORDERED: dexAMETHasone 4 MG/ML VIAL ONE (17:38)
[2020-07-15] MEDS ORDERED: KETOROLAC 30 MG/ML INJ ONE (18:00)
[2020-07-15] MEDS ORDERED: GLYCOPYRROLATE 0.2 MG/ML SYR ONE (18:03)
[2020-07-15] MEDS ORDERED: NEOSTIGMINE 1 MG/ML -5 ML ONE (18:03)
[2020-07-15] MEDS ORDERED: Mastisol Adhesive Liq ONE (18:31)
[2020-07-15] MEDS ORDERED: HYDROMORPHONE HCL 1 MG/ML INJ ONE (18:34)
[2020-07-15] MEDS ORDERED: HYDROCODONE/APAP 7.5/325 MG TAB ONE (18:35)
[2020-07-15 18:45] VITALS: O2SAT 100
[2020-07-15] MEDS: MEPERIDINE HCL 25 MG/ML SYR ONE ×2 (18:45→19:05)
[2020-07-15] MEDS: PROMETHAZINE INJ 25 MG/ML AMP ONE ×2 (19:15→19:25)
[2020-07-15 19:45] VITALS: BP 121/64
--- NOTE | 2020-07-16 01:24 | OP ---
Date of Procedure: 07/15/2020 Surgeon: Laury Scales MD Individual Pension Adviser: None. Preoperative Diagnosis: Right lower quadrant pain. CT from 5 days ago with 4.9 cm complex right adn exal mass. History of irregular bleeding and patient is on clomiphene for the cycle through her [facility] nurse practitioner. Postoperative Diagnosis: Right lower quadrant pain. CT from 5 days ago with 4.9 cm complex right ad nexal mass. History of irregular bleeding and patient is on clomiphene for the cycle through her [facility] nurse practitioner. Procedures Performed: Diagnostic laparoscopy to rule out torsion and multiple large follicles in the right ovary, adhesions in the right lower quadrant above the pelvic brim from the omentum and patricia lonic fat on the descending colon. Anesthesia: General endotracheal. Specimens: No specimens. Complications: No complications. Drains: No drains. Condition: Stable. Findings: The left ovary completely unremarkable. Both tubes normal. The right ovary slightly enla rged, may be about 4.5 cm with multiple cystic masses consistent with follicular cyst from stimulatio n from the clomiphene. No evidence of any endometriosis. Appendix, gallbladder, and liver are all n ormal. No evidence of any other abnormalities in the pelvic cavity. Indication: The patient is a 25-year-old who presented to my office today with severe right lower qu adrant pain, difficult to move or even travel in her car. She had sudden onset right lower quadrant pain, had worsening of her right lower quadrant starting July 10 at which time she had gone to the E R at [facility] in [place]. So she had a clinical evaluation and imaging, which showed a 4.9 cm complex right adnexal mass. She was discharged home. Her pain she rated at the worst to be 9 to 10/10, and her pain at this current time, when I evaluated her in the office, was close to a similar level although the patient did not appear to be in such distress. However, on pelvic examination, she had local rebound, mild cervical motion tenderness. No adnexal m asses were palpable on clinical exam. There was tenderness more with the abdominal hand or hand examining the adnexa. We discussed about the patient was asking for pain medications. This pain was intolerable. She also described that her dyspareunia was extremely severe when she was sexually active. She had taken kin miphene for 5 days starting on day 5 of her period. Finished the medication on July 02. Her perio d has started 2 days ago, today is her day 3 of the period and the bleeding was mild. Past medical history, hypothyroidism, possible history of PE, and there was question for the patient, she was unsure if this was COVID related, however there was no confirmed COVID history according to the mother or the patient herself. All communication through her mom and through writing on a paper. The patient replied her answers back on the paper as well. She apparently was on a medication, a blood thinner starting with E for 6 months and then she had sto pped a few months ago and she is not on any blood thinners at this time. The patient requested for pain medication as this was very severe. I discussed the possibility of ov ebonie torsion, which could compromise her fertility or compromise the ovary itself. Given the clinic al exam, she definitely noted to rule out torsion and discussing this and offering her the option, xu e chose to go with the laparoscopy and not take a chance to miss a torsion and consequentially the ov sherri. Description Of Procedure: After informed consent was verified, the patient was taken back to the OR. She was placed in supine fashion on the operating table. General anesthesia was given. Placed in a dorsal lithotomy position. Abdomen, vulva, vagina and perineum were prepped and draped in a steril e fashion. Time-out was done and Abraham was inserted. Diagnostic VCare was inserted. Uterus was fir st degree retroflexed. This area was then draped. A 1 cm infraumbilical incision was made with a lo maria using the open laparoscopy technique. Fascia was incised and 0 Vicryl sutures tagged to the ed ges. Peritoneum was entered sharply. Julieta introduced. Site of entry checked after insufflation a dequately and was it unremarkable. Two 5 suprapubic and left lower quadrant ports were placed under direct vision and on clinical examination findings are as dictated above. So I went on to drain the fluid from the cyst on the right ovary so that this could decrease the volume and size of the ovary. The tip of monopolar scissors was used to create an opening in the cystic follicle and then the tip was inserted in the middle of it to perform the ovarian drilling. Once this was done, the goal was t o drain and ablate the cavity of the follicle that was present, so that this could decrease the volum e of her ovary and relieve her pain. No evidence of any distortion of the tubes of the left ovary. No evidence of any endometriosis. So, once this was done satisfactorily, about 6 holes were drilled. Once this was all drained, the ovary appeared to be less tense. There was very minimal spillage of blood. All the trocars were removed under direct vision. 40% Marcaine was injected at the skin and the fascia levels on either side of the port site for entry and exit. Then, fascia at the umbilicus was also injected with 0.25% Marcaine and the skin as well near the umbilical incision. The sutures were tied together that tagged the fascial edges and then the subcutaneous 4-0 Vicryl sutures were p laced to bring the skin edges together at all sites. Steri-Strips and bandages were placed. Abraham a nd VCare were removed. Instrument, needle, and sponge counts were correct at the end of the case. T he patient tolerated the procedure well. Findings discussed with the patient's mother. She will hav e 1 week follow up with me. Heparin 5000 subcu was given. SCDs were started prior to the beginning of the case and case was a short case, so she will go home without any anticoagulation at this time d ue to lack of any contamination of her pathology. WARREN/SANA Voice ID: [id number] Report ID: [id number]
== END 2020-07-15 20:05 | disposition home or self-care (01) ==
LOC: OR 12:40
PROVIDERS: ATTEND Obstetrics & Gynecology
PROC: 0U904ZZ Drainage of Right Ovary, Percutaneous Endoscopic Approach (ICD-10-PCS; principal; 2020-07-15 16:00)
PROC: 0U504ZZ Destruction of Right Ovary, Percutaneous Endoscopic Approach (ICD-10-PCS; 2020-07-15 16:00)
DX: R10.31 Right lower quadrant pain (principal); R19.03 Right lower quadrant abdominal swelling, mass and lump; N83.291 Other ovarian cyst, right side; N92.6 Irregular menstruation, unspecified; Z20.822 Contact with and (suspected) exposure to COVID-19
CPT/HCPCS: 36415; 81025; 85025; 86850; 86900; 86901; J0330; J1100; J1170; J2175; J2250; J2405; J2550; J2704; J2710; J7120; U0003

== ENCOUNTER 2020-11-23 09:02 | Emergency (ER) | payer SELFPAY ==
--- OUTSIDE RECORDS SUMMARY | 2020-11-23 09:05 | XMS REPORT | Continuity of Care Document ---
:1995 Author Organization [facility] t Address [address] [place] [address] [address] [place] [address] Care Team Providers Name Role Phone Unavailable Unavailable Unavailable Problems This patient has no known problems. Allergies, Adverse Reactions, Alerts This patient has no known allergies or adverse reactions. Social History Social Habit Start Date Stop Date Quantity Comments Source Sex Assigned At [facility] Medications This patient has no known medications. Procedures This patient has no known procedures. Results Test Description Test Time Test Comments Results Result Comments Source SARS-COV2/RT-PCR ([facility]) 2019-10-08 15:27:00 Test Item Value Reference Range Interpretation Comme nts SARS-COV2/RT-PCR (test code = 2398075) Positive Not Detected, N egative AA SARS-COV-2 PERFORMING LAB (test code = 3827024) [facility] Results are for the detection of SARS-CoV-2 RNA. The SARS-CoV-2 RNA is generally detectable in nasopharyngeal swab specimens during the acute phase of infection. Positive results are indicative of active infection with SARS-CoV-2 and the patient is presumed to be contagious. Laboratory test results should always be considered in the clinical correlation with patient history and other epidemiological and diagnostic information that is necessary to determine patient infection status. Patient management decisions should follow current CDC guidelines. Positive results do not rule out bacterial infection or co- infection with other viruses. The agent detected may not be the definite cause of disease.The limit of detection for this assay is 800 copies/mL.This SARS CoV- 2 test is a real-time RT-PCR test intended for the qualitative detection of nucleic acid from SARS-CoV-2 in a nasopharyngeal swab specimen collected from individuals suspected of COVID-19 by their healthcare provider.This test has not been Food and Drug Administration (FDA) cleared or approved. This is a modified version of an approved Emergency Use Authorization (EUA) and is in the process of review by the FDA. Once authorized by the FDA, the issued EUA will be effective until the declaration that circumstances exist justifying the authorization of the emergency use of in vitro diagnostic tests for detection and/or diagnosis of COVID-19 is terminated under Section 564(b)(2) of the Act or the EUA is revoked under Section 564(g) of the Act.Fact Sheet for Healthcare Providers:https://www.[employer].Create/sites/default/files/product/d ocuments/Eloa_Wncvs_MB_Hbgylmkuc_Tkmu_TRJJ-LfW-1.pdfFact Sheet for Healthcare Patients:https://www.[employer].Create/sites/default/files/product/documents/Fact_Sheet_Patients_Lyra_SARS-CoV -2.pdfPerforming Laboratory:[facility] [place] [address]
--- NOTE | 2020-11-23 10:55 | EDPHYS ---
Physician Documentation [facility] Name: Sonja Covarrubias Age: 25 yrs Sex: Female : 1995 Arrival Date: 11/23/2020 Time: 09:05 Bed DX1 Private MD: ED Physician Micheal Leon HPI: 11/23 09:45 This 25 yrs old Female presents to ER via Ambulatory with complaints of Sore kb Throat. 09:45 The patient presents with sore throat. The patient describes throat pain as constant. kb Onset: The symptoms/episode began/occurred yesterday. Severity of symptoms: At their worst the symptoms were moderate, in the emergency department the symptoms are unchanged. Modifying factors: The symptoms are alleviated by nothing, the symptoms are aggravated by swallowing, Patient's oral intake status: good. Associated signs and symptoms: Pertinent positives: congestion, runny nose. The patient has not experienced similar symptoms in the past. The patient has not recently seen a physician. Pt reports sore throat, congestion and runny nose since yesterday. 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 - Social history:: Smoking status: Patient denies any tobacco usage or history of. ROS: 09:43 Constitutional: Negative for fever, chills, and weight loss. kb 09:43 ENT: Positive for rhinorrhea, sinus congestion, sore throat. 09:43 Neuro: Positive for headache. 09:43 All other systems are negative. Exam: 09:43 Constitutional: This is a well developed, well nourished patient who is awake, alert, kb and in no acute distress. Head/Face: Normocephalic, atraumatic. Cardiovascular: Regular rate and rhythm with a normal S1 and S2. No gallops, murmurs, or rubs. No pulse deficits. Respiratory: Respirations even and unlabored. No increased work of breathing, no retractions or nasal flaring. Abdomen/GI: Soft, non-tender. No distention Skin: Warm, dry with normal turgor. Normal color. MS/ Extremity: Pulses equal, no cyanosis. Neurovascular intact. Full, normal range of motion. Neuro: Awake and alert, GCS 15, oriented to person, place, time, and situation. Moves all extremities. Normal gait. Psych: Awake, alert, with orientation to person, place and time. Behavior, mood, and affect are within normal limits. 09:43 ENT: Posterior pharynx: erythema, that is mild, that is moderate. Vital Signs: 09:18 BP 115 / 80; Pulse 83; Resp 20 S; Temp 98.8(O); Pulse Ox 100% on R/A; aa5 MDM: 09:14 Patient medically screened. kb 09:43 Data reviewed: vital signs, nurses notes. Data interpreted: Pulse oximetry: on room air kb is 100 %. Interpretation: normal. 10:54 Counseling: I had a detailed discussion with the patient and/or guardian regarding: the kb historical points, exam findings, and any diagnostic results supporting the discharge/admit diagnosis, lab results, the need for outpatient follow up, a family practitioner, to return to the emergency department if symptoms worsen or persist or if there are any questions or concerns that arise at home. 11/23 09:22 Order name: Strep; Complete Time: 10:00 kb 11/23 10:00 Order name: Throat Culture EDMO 11/23 10:44 Order name: SARS-COV-2 RT PCR; Complete Time: 10:54 EDMS Administered Medications: No medications were administered Disposition Summary: 11/23/20 10:55 Discharge Ordered Location: Home kb Condition: Stable kb Diagnosis - Acute sinusitis, unspecified kb Followup: kb - With: Emergency Department - When: As needed - Reason: Worsening of condition Followup: kb - With: Private Physician - When: 2 - 3 days - Reason: Recheck today's complaints, Continuance of care, Re-evaluation by your physician Discharge Instructions: - Discharge Summary Sheet kb - Sinusitis, Adult, [id number] kb Forms: - Medication Reconciliation Form kb - Thank You Letter kb - Antibiotic Education kb - Prescription Opioid Use kb Addendum: 11/24/2020 14:46 Co-signature as Attending Physician, Micheal Leon MD I agree with the assessment and c rivas plan of care. Signatures: Dispatcher [employer] EDLisa Gilliland FNP-C FNP-Micheal Lynne MD MD cha Calderon, Audri, RN RN aa5 Corrections: (The following items were deleted from the chart) 11/23 09:52 09:22 CORONAVIRUS+BRZ ordered. EDMS EDMS
--- NOTE | 2020-11-23 10:55 | ER ---
Nurse's Notes [facility] Name: Sonja Covarrubias Age: 25 yrs Sex: Female : 1995 Arrival Date: 11/23/2020 Time: 09:05 Bed DX1 Private MD: Diagnosis: Acute sinusitis, unspecified Presentation: 11/23 09:18 Chief complaint: Patient states: using application spec, pt states "my throat hurts aa5 really bag, I have congestion, and drainage from my nose". Denies cough. 09:18 Coronavirus screen: congestion, sore throat. Ebola Screen: Patient negative for fever aa5 greater than or equal to 101.5 degrees Fahrenheit, and additional compatible Ebola Virus Disease symptoms. Initial Sepsis Screen: Does the patient meet any 2 criteria? No. Patient's initial sepsis screen is negative. Does the patient have a suspected source of infection? No. Patient's initial sepsis screen is negative. Risk Assessment: Do you want to hurt yourself or someone else? Patient reports no desire to harm self or others. Onset of symptoms was November 22, 2020. 09:18 Method Of Arrival: Ambulatory aa5 09:18 Acuity: JANNY 4 aa5 Triage Assessment: 12:09 Headache History: Denies prior headaches. General: Appears in no apparent distress. kg Behavior is calm, cooperative, appropriate for age, quiet. Pain: Complains of pain in Head, throat Pain currently is 6 out of 10 on a pain scale. Pain began Noted to be Also complains of. Neuro: Level of Consciousness is awake, alert, obeys commands, Oriented to person, place, time, situation, Appropriate for age. 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 - Social history:: Smoking status: Patient denies any tobacco usage or history of. Screenin:08 Abuse screen: Denies threats or abuse. Denies injuries from another. Nutritional kg screening: No deficits noted. Tuberculosis screening: No symptoms or risk factors identified. Fall Risk None identified. Vital Signs: 09:18 BP 115 / 80; Pulse 83; Resp 20 S; Temp 98.8(O); Pulse Ox 100% on R/A; aa5 ED Course: 09:05 Patient arrived in ED. as 09:14 [facility]C [facility] kb 09:14 Micheal Leon MD is Attending Physician. kb 09:18 Arm band placed on. aa5 09:23 Triage completed. aa5 12:08 Patient has correct armband on for positive identification. kg 12:08 No provider procedures requiring assistance completed. Patient did not have IV access kg during this emergency room visit. Administered Medications: No medications were administered Outcome: 10:55 Discharge ordered by MD. kb 12:08 Discharged to home ambulatory. kg 12:08 Condition: good 12:08 Discharge instructions given to patient, Instructed on discharge instructions, follow up and referral plans. Demonstrated understanding of instructions, follow-up care. 12:10 Patient left the ED. kg Signatures: Lisa Ji FNP-C FNP-Thais Reyes as Lianna Colorado, RN RN aa5 Cayla Hemphill, RN RN kg
[2020-11-23 12:28] VITALS: BP 115/80; TEMP 98.8; O2SAT 100
== END 2020-11-23 12:10 | disposition home or self-care (01) ==
LOC: ER 09:02
DX: J01.90 Acute sinusitis, unspecified (principal); Z20.822 Contact with and (suspected) exposure to COVID-19; Z88.5 Allergy status to narcotic agent; Z88.6 Allergy status to analgesic agent
CPT/HCPCS: 87070; 87081; 99281; U0003

== ENCOUNTER 2020-12-03 13:16 | Emergency (ER) | payer SELFPAY ==
--- NOTE | 2020-12-03 17:03 | RAD REPORT ---
EXAM DESCRIPTION: [facility] Single View12/03/2020 4:19 pm CLINICAL HISTORY: Chest pain COMPARISON: 2019 FINDINGS: The lungs appear clear of acute infiltrate. The heart is normal size IMPRESSION: No acute abnormalities displayed
[2020-12-03 17:55] LABS: Urine Blood Negative (Negative); Urine Glucose Negative (Negative); Urine Protein Negative (Negative); Urine Specific Gravity 1.025 (1.005-1.030); Urine pH 5.5 (5.0-7.0)
[2020-12-03] MEDS ORDERED: ACETAMINOPHEN 500 MG TAB ONE (17:56)
[2020-12-03] MEDS ORDERED: CYCLOBENZAPRINE 10 MG TAB ONE (17:56)
[2020-12-03] MEDS ORDERED: NA CHLORIDE 0.9% 500 ML ONE (17:57)
[2020-12-03 18:28] LABS: Absolute Lymphocytes (CBC) 1.5 K/uL (0.7-4.9); Basophils % 0.4 % (0-1.3); Lymphocytes % 29.5 % (15.3-44.8); MPV 8.9 fL (7.6-11.3); RBC Red Blood Cell Count 5.33 M/uL (3.86-4.86)
[2020-12-03 18:41] LABS: ALT/SGPT 18 U/L (12-78); AST/SGOT 10 U/L (15-37); Alkaline Phosphatase 80 U/L (45-117); BUN Blood Urea Nitrogen 10 mg/dL (7-18); Bicarbonate 25 mmol/L (21-32); Bilirubin Direct 0.2 mg/dL (0-0.2); Bilirubin Total 0.6 mg/dL (0.2-1.0); Glucose Level 78 mg/dL (74-106); Lipase 89 U/L (73-393); Potassium 3.4 mmol/L (3.5-5.1); Protein, Total 8.1 g/dL (6.4-8.2); Sodium Level 137 mmol/L (136-145); Troponin I < 0.02 ng/mL (0.0-0.045)
[2020-12-03 19:01] LABS: Urine Bacteria <20 /HPF (<20); Urine RBC <5 /HPF (NONE SEEN)
--- NOTE | 2020-12-03 20:05 | RAD REPORT ---
EXAM DESCRIPTION: CT - Chest For Pe Angio - 12/03/2020 7:50 pm CLINICAL HISTORY: Chest pain COMPARISON: 2019 TECHNIQUE: Dynamically enhanced axial 3 mm thick images of the chest were obtained during administra tion of <100> mL Isovue 370 IV contrast. Coronal and oblique reconstruction images were generated and reviewed. Exam utilizes a protocol for optimal evaluation of pulmonary arterial tree. Maximum intensity projections 3D imaging was utilized All CT scans are performed using dose optimization technique as appropriate and may include automated exposure control or mA/KV adjustment according to patient size. FINDINGS: A pulmonary embolus is not seen. A thoracic aortic aneurysm is not noted. A pleural effusion is not seen. A pericardial effusion is not seen. A lung consolidation is not present. IMPRESSION: Negative for a pulmonary embolism.
--- NOTE | 2020-12-03 20:19 | ER ---
Nurse's Notes [facility] Name: Sonja Covarrubias Age: 25 yrs Sex: Female : 1995 Arrival Date: 12/03/2020 Time: 13:18 Bed 9 Private MD: Diagnosis: Chest pain, unspecified Presentation: 12/03 14:27 Ebola Screen: Patient negative for fever greater than or equal to 101.5 degrees aa5 Fahrenheit, and additional compatible Ebola Virus Disease symptoms. Initial Sepsis Screen: Does the patient meet any 2 criteria? No. Patient's initial sepsis screen is negative. Does the patient have a suspected source of infection? No. Patient's initial sepsis screen is negative. Risk Assessment: Do you want to hurt yourself or someone else? Patient reports no desire to harm self or others. 14:27 Method Of Arrival: Ambulatory aa5 14:27 Coronavirus screen: At this time, the client does not indicate any symptoms associated aa5 with coronavirus-19. 14:27 Acuity: JANNY 4 aa5 14:27 Chief complaint: Patient states: "my side is hurting bad for like 2 to 3 weeks now". Pt aa5 denies fall, denies cough. Onset of symptoms was 2020. 17:08 Acuity: JANNY 3 iw Historical: - Allergies: 14:26 Fentanyl; redness, itching; aa5 14:26 Motrin; swelling; aa5 - Home Meds: 14:26 levothyroxine 50 mcg tab 1 tab once daily for Hypothyroidism [Active]; aa5 - PMHx: 14:26 Hypothyroidism; aa5 - Social history:: Smoking status: Patient denies any tobacco usage or history of. Screenin:00 Abuse screen: Denies threats or abuse. Denies injuries from another. Nutritional lp1 screening: No deficits noted. Tuberculosis screening: No symptoms or risk factors identified. Fall Risk None identified. Assessment: 20:30 General: Appears in no apparent distress. Behavior is calm, cooperative. Pain: lp1 Complains of pain in chest. Neuro: Level of Consciousness is awake, alert, obeys commands, Oriented to person, place, time, situation. Cardiovascular: Patient's skin is warm and dry. Respiratory: Respiratory effort is even, unlabored, Breath sounds are clear bilaterally. GI: No signs and/or symptoms were reported involving the gastrointestinal system. : No signs and/or symptoms were reported regarding the genitourinary system. EENT: No signs and/or symptoms were reported regarding the EENT system. Derm: Skin is pink, warm \\T\\ dry. Musculoskeletal: No deficits noted. Vital Signs: 14:27 BP 105 / 70; Pulse 75; Resp 16 S; Temp 97.3(TE); Pulse Ox 100% on R/A; aa5 21:47 BP 109 / 67; Pulse 70; Resp 16; Pulse Ox 100% on R/A; Pain 0/10; lp1 ED Course: 13:18 Patient arrived in ED. as 14:18 Patient's name was called from ER lobby. No response. aa5 14:31 Triage completed. aa5 16:04 Micheal Leon PA is PHCP. cp 16:05 Micheal Leon MD is Attending Physician. cp 16:19 Chest Single View XRAY In Process Unspecified. EDMS 17:20 Cayla Hemphill, RN is Primary Nurse. kg 17:53 Urine Microscopic Only Sent. kg 17:53 Basic Metabolic Panel Sent. kg 17:53 D-Dimer Sent. kg 17:53 Troponin I Sent. kg 17:54 CBC with Automated Diff Sent. kg 17:54 Basic Metabolic Panel Sent. kg 17:54 Urine Microscopic Only Sent. kg 19:50 CT Chest For PE Angio: history of pulmonary embolism In Process Unspecified. EDMS 20:30 Patient has correct armband on for positive identification. lp1 20:30 Arm band placed on. lp1 21:47 No provider procedures requiring assistance completed. IV discontinued, No lp1 redness/swelling at site. Pressure dressing applied. Administered Medications: 17:50 Drug: NS 0.9% 500 ml Route: IV; Rate: bolus; Site: right antecubital; kg 17:52 Drug: Tylenol 1000 mg Route: PO; kg 17:52 Drug: Flexeril (cyclobenzaprine) 10 mg Route: PO; kg 18:52 Follow up: Response: No adverse reaction kg 21:46 Drug: Potassium Effervescent Tablet 50 mEq Route: PO; lp1 21:47 Follow up: Response: No adverse reaction; Patient unable to tolerate taste lp1 Intake: Outcome: 20:18 Discharge ordered by . cp 21:47 Discharged to home ambulatory, with significant other. lp1 21:47 Condition: good 21:47 Discharge instructions given to patient, Instructed on discharge instructions, follow up and referral plans. medication usage, Demonstrated understanding of instructions, follow-up care, medications, Prescriptions given X 1. 21:48 Patient left the ED. lp1 Signatures: Dispatcher [employer] EDThais Santacruz Irene, RN RN iw Lianna Colorado RN RN aa5 Shirley Bautista RN RN lp1 Micheal Leon PA PA cp Graham, Kristen, RN RN kg
--- NOTE | 2020-12-03 20:19 | EDPHYS ---
Physician Documentation [facility] Name: Sonja Covarrubias Age: 25 yrs Sex: Female : 1995 Arrival Date: 12/03/2020 Time: 13:18 Bed 9 Private MD: ED Physician Micheal Leon HPI: 12/03 17:00 This 25 yrs old Female presents to ER via Ambulatory with complaints of Rib cp Pain. 17:00 The patient or guardian reports chest pain that is located primarily in the left cp lateral posterior chest and left lateral anterior chest. 17:00 The pain does not radiate. The chest pain is described as aching. Duration: The patient cp or guardian reports multiple episodes, that wax and wane, onset 2-3 weeks ago. Modifying factors: the symptoms are aggravated by deep breath, movement, twisting torso. Severity of pain: in the emergency department the pain is unchanged despite home interventions. Patient denies injury to area. Patient denies cough, shortness of breath. Historical: - Allergies: 14:26 Fentanyl; redness, itching; aa5 14:26 Motrin; swelling; aa5 - Home Meds: 14:26 levothyroxine 50 mcg tab 1 tab once daily for Hypothyroidism [Active]; aa5 - PMHx: 14:26 Hypothyroidism; aa5 - Social history:: Smoking status: Patient denies any tobacco usage or history of. ROS: 17:05 Constitutional: Negative for body aches, chills, fever, poor PO intake. cp 17:05 Eyes: Negative for injury, pain, redness, and discharge. cp 17:05 ENT: Negative for ear pain, sore throat, difficulty swallowing, difficulty handling secretions. 17:05 Cardiovascular: Positive for chest pain, of the left lateral anterior chest and left lateral posterior chest, Negative for edema, palpitations. 17:05 Respiratory: Negative for cough, shortness of breath, wheezing. 17:05 Abdomen/GI: Negative for abdominal pain, nausea, vomiting, and diarrhea. 17:05 MS/extremity: Negative for injury or acute deformity, decreased range of motion. 17:05 Skin: Negative for cellulitis, rash. 17:05 Neuro: Negative for altered mental status, headache, weakness. 17:05 All other systems are negative. Exam: 17:12 Constitutional: The patient appears in no acute distress, alert, awake, cp non-diaphoretic, non-toxic, well developed, well nourished. 17:12 Head/Face: Normocephalic, atraumatic. cp 17:12 Eyes: Periorbital structures: appear normal, Conjunctiva: normal, no exudate, no injection, Sclera: no appreciated abnormality, Lids and lashes: appear normal, bilaterally. 17:12 ENT: External ear(s): are unremarkable, Nose: is normal, Mouth: Lips: moist, Oral mucosa: moist, Posterior pharynx: Airway: no evidence of obstruction, patent. 17:12 Neck: ROM/movement: is normal, is supple, without pain, no range of motions limitations. 17:12 Chest/axilla: Inspection: normal, Palpation: crepitus, is not appreciated, tenderness, that is mild, of the left lateral posterior lower chest and left lateral anterior lower chest. 17:12 Cardiovascular: Rate: normal, Rhythm: regular, Edema: is not appreciated, JVD: is not appreciated. 17:12 Respiratory: the patient does not display signs of respiratory distress, Respirations: normal, no use of accessory muscles, no retractions, labored breathing, is not present, Breath sounds: are clear throughout, no decreased breath sounds, no stridor, no wheezing. 17:12 Abdomen/GI: Inspection: abdomen appears normal, Palpation: abdomen is soft and non-tender, in all quadrants, rebound tenderness, is not appreciated, voluntary guarding, is not appreciated, involuntary guarding, is not appreciated. 17:12 Back: CVA tenderness, is absent. 17:12 Skin: cellulitis, is not appreciated, no rash present. 17:12 Neuro: Orientation: to person, place \T\ time. Mentation: is normal, Motor: moves all fours, strength is normal, Sensation: is normal, Gait: is steady, at a normal pace, without difficulty. 19:25 ECG was reviewed by the Attending Physician. cp Vital Signs: 14:27 BP 105 / 70; Pulse 75; Resp 16 S; Temp 97.3(TE); Pulse Ox 100% on R/A; aa5 21:47 BP 109 / 67; Pulse 70; Resp 16; Pulse Ox 100% on R/A; Pain 0/10; lp1 MDM: 16:05 Patient medically screened. johanna 17:00 Differential diagnosis: acute pericarditis, chest wall pain, costochondritis, pleurisy, cp pneumonia, pneumothorax, pulmonary embolus. 20:18 Data reviewed: vital signs, nurses notes, lab test result(s), EKG, radiologic studies, cp CT scan, plain films. 20:18 Test interpretation: by ED physician or midlevel provider: ECG, plain radiologic cp studies. Special discussion: Based on the patient's history, exam, and Dx evaluation, there is no indication for emergent intervention or inpatient Tx. It is understood by the patient/guardian that if the Sx's persist or worsen they need to return immediately for re-evaluation. 12/03 16:47 Order name: Urine Microscopic Only 12/03 16:47 Order name: Basic Metabolic Panel 12/03 16:47 Order name: Hepatic Function; Complete Time: 19:08 12/03 19:08 Interpretation: Normal except: AST 10; GLOB 4.1; A/G 1.0. 12/03 16:47 Order name: Lipase; Complete Time: 19:08 12/03 16:47 Order name: D-Dimer; Complete Time: 19:08 12/03 16:47 Order name: Troponin I; Complete Time: 19:08 12/03 16:47 Order name: Urine Microscopic Only; Complete Time: 19:08 [facility] 12/03 16:47 Order name: Basic Metabolic Panel; Complete Time: 19:08 [facility] 12/03 19:08 Interpretation: Normal except: K 3.4; CRE 0.54; CA 8.4. 12/03 16:47 Order name: CBC with Automated Diff; Complete Time: 19:08 [facility] 12/03 19:10 Interpretation: Normal except: RBC 5.33; HGB 16.5; HCT 49.0; EOSINOPHIL % 4.7. 12/03 17:55 Order name: Urine Dipstick-Ancillary; Complete Time: 18:24 [facility] 12/03 17:58 Order name: Urine --Ancillary (enter results) em1 12/03 19:56 Order name: SARS-COV-2 RT PCR; Complete Time: 20:12 [facility] 12/03 14:36 Order name: Chest Single View XRAY; Complete Time: 17:04 aa5 12/03 17:04 Interpretation: Report reviewed. 12/03 16:47 Order name: Urine Test (obtain specimen); Complete Time: 17:53 12/03 16:47 Order name: Urine Dipstick-Ancillary (obtain specimen); Complete Time: 17:53 12/03 16:47 Order name: IV Saline Lock; Complete Time: 17:53 12/03 16:47 Order name: Labs collected and sent; Complete Time: 17:53 12/03 16:47 Order name: EKG; Complete Time: 16:47 12/03 16:47 Order name: EKG - Nurse/Tech; Complete Time: 19:22 12/03 19:13 Order name: CT Chest For PE Angio: history of pulmonary embolism; Complete Time: 20:12 cp EC:25 Rate is 70 beats/min. Rhythm is regular. ID interval is normal. QRS interval is normal. cp QT interval is normal. Interpreted by me. Reviewed by me. Administered Medications: 17:50 Drug: NS 0.9% 500 ml Route: IV; Rate: bolus; Site: right antecubital; kg 17:52 Drug: Tylenol 1000 mg Route: PO; kg 17:52 Drug: Flexeril (cyclobenzaprine) 10 mg Route: PO; kg 18:52 Follow up: Response: No adverse reaction kg 21:46 Drug: Potassium Effervescent Tablet 50 mEq Route: PO; lp1 21:47 Follow up: Response: No adverse reaction; Patient unable to tolerate taste lp1 Disposition Summary: 12/03/20 20:18 Discharge Ordered Location: Home cp Problem: new cp Symptoms: have improved cp Condition: Stable cp Diagnosis - Chest pain, unspecified cp Followup: cp - With: Private Physician - When: 2 - 3 days - Reason: Recheck today's complaints Discharge Instructions: - Discharge Summary Sheet cp - Nonspecific Chest Pain, Adult cp Forms: - Medication Reconciliation Form cp - Thank You Letter cp - Antibiotic Education cp - Prescription Opioid Use cp Prescriptions: - Cyclobenzaprine 10 mg Oral Tablet - take 1 tablet by ORAL route every 8 hours As needed no driving while taking cp medication; 20 tablet; Refills: 0, Product Selection Permitted Addendum: 12/05/2020 15:11 Co-signature as Attending Physician, Micheal Leon MD I agree with the assessment and c rivas plan of care. Signatures: Dispatcher [employer] EDMS Micheal Leon MD MD cha Calderon, Audri, RN RN aa5 Shirley Bautista RN RN lp1 Micheal Leon, DAWNA PA cp Cayla Hemphill, APARNA RN kg Corrections: (The following items were deleted from the chart) 12/03 17:54 16:47 CBC+H.LAB.BRZ ordered. EDMS EDMS 18:51 16:47 CORONAVIRUS+MR.LAB.BRZ ordered. EDMS EDMS 19:08 19:08 Normal except: K 3.4; CRE 0.54. cp cp 19:10 19:09 Normal except: RBC 5.33; HGB 16.5; HCT 49.0. cp cp
[2020-12-03 21:48] LABS: Urine Specific Gravity/Preg 1.025 (1.005-1.030)
[2020-12-03 21:52] VITALS: TEMP 97.3; O2SAT 100
[2020-12-03 21:53] VITALS: BP 109/67
[2020-12-03] MEDS ORDERED: POTASSIUM 25 MEQ EFFERV TAB ONE (21:54)
--- NOTE | 2020-12-05 16:59 | EKG ---
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
== END 2020-12-03 21:48 | disposition home or self-care (01) ==
LOC: ER 13:16
DX: R07.9 Chest pain, unspecified (principal); E03.9 Hypothyroidism, unspecified; Z20.822 Contact with and (suspected) exposure to COVID-19; Z88.5 Allergy status to narcotic agent; Z88.6 Allergy status to analgesic agent
CPT/HCPCS: 36415; 71045; 71275; 80048; 80076; 81003; 81015; 81025; 83690; 84484; 85025; 85379; 93005; 99284; J7040; Q9967; U0003

== ENCOUNTER 2021-01-25 21:04 | Emergency (ER) | payer SELFPAY ==
[2021-01-25 23:50] LABS: Urine Blood Negative (Negative); Urine Glucose Negative (Negative); Urine Protein Negative (Negative); Urine Specific Gravity 1.025 (1.005-1.030); Urine pH 7.5 (5.0-7.0)
[2021-01-26] MEDS ORDERED: AZITHROMYCIN 250 MG TAB ONE (00:31)
[2021-01-26] MEDS ORDERED: CEFTRIAXONE 1000 MG/VIAL ONE (00:31)
[2021-01-26 00:46] LABS: Absolute Lymphocytes (CBC) 2.4 K/uL (0.7-4.9); Basophils % 0.4 % (0-1.3); Hematocrit 39.4 % (36.0-45.0); MPV 9.3 fL (7.6-11.3)
[2021-01-26 00:58] LABS: ALT/SGPT 17 U/L (12-78); AST/SGOT 6 U/L (15-37); Albumin 3.7 g/dL (3.4-5.0); Alkaline Phosphatase 89 U/L (45-117); BUN Blood Urea Nitrogen 15 mg/dL (7-18); Bicarbonate 28 mmol/L (21-32); Bilirubin Direct 0.1 mg/dL (0-0.2); Bilirubin Total 0.4 mg/dL (0.2-1.0); Glucose Level 83 mg/dL (74-106); Lipase 107 U/L (73-393); Potassium 3.9 mmol/L (3.5-5.1); Protein, Total 7.8 g/dL (6.4-8.2); Sodium Level 140 mmol/L (136-145)
[2021-01-26 01:15] LABS: Urine Amorphous Sediment 3+ /HPF (NONE SEEN); Urine RBC <5 /HPF (NONE SEEN)
[2021-01-26 01:16] LABS: Urine Bacteria <20 /HPF (<20)
--- NOTE | 2021-01-26 01:18 | ER ---
Nurse's Notes [facility] Name: Sonja Covarrubias Age: 25 yrs Sex: Female : 1995 Arrival Date: 01/25/2021 Time: 21:05 Bed 15 Private MD: Diagnosis: Other ovarian cysts;Pelvic and perineal pain Presentation: 01/25 21:52 Chief complaint: Patient states: left lower abd/pelvic pain. Coronavirus screen: df1 Vaccine status: Patient reports being unvaccinated. Ebola Screen: Patient negative for fever greater than or equal to 101.5 degrees Fahrenheit, and additional compatible Ebola Virus Disease symptoms Patient denies exposure to infectious person. Patient denies travel to an Ebola-affected area in the 21 days before illness onset. Initial Sepsis Screen: Does the patient meet any 2 criteria? No. Patient's initial sepsis screen is negative. Does the patient have a suspected source of infection? No. Patient's initial sepsis screen is negative. Risk Assessment: Do you want to hurt yourself or someone else? Patient reports no desire to harm self or others. Onset of symptoms was January 12, 2021. 21:52 Method Of Arrival: Ambulatory df1 21:52 Acuity: JANNY 3 df1 21:56 Note Pt hearing impaired states lower left pelvic abd pain x 2 weeks increases during df1 intercourse. States some vaginal discharge with odor. Last regular period Dec 04. Some spotting since then. H/O right ovarian cyst removal last June. 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 - Social history:: Smoking status: Patient denies any tobacco usage or history of. Patient/guardian denies using alcohol, street drugs. Screenin:00 Abuse screen: Denies threats or abuse. Denies injuries from another. Nutritional bs2 screening: No deficits noted. Tuberculosis screening: No symptoms or risk factors identified. Fall Risk None identified. Assessment: 22:00 General: Appears in no apparent distress. uncomfortable, slender, well groomed, well bs2 developed, well nourished, Behavior is calm, cooperative, appropriate for age. Pain: Complains of pain in pelvis Pain currently is 5 out of 10 on a pain scale. Pain began gradually. GI: Bowel sounds present X 4 quads. Abd is soft and non tender X 4 quads. Reports cramping. : Reports cramping, pain pain during sex Patient is sexually active. 01/26 00:22 General: [place] [id number]. bs2 Vital Signs: 01/25 21:52 BP 118 / 74; Pulse 75; Resp 18; Temp 98.3; Pulse Ox 100% on R/A; Weight 68.04 kg; df1 Height 5 ft. 4 in. (162.56 cm); Pain 10/10; 21:52 Body Mass Index 25.75 (68.04 kg, 162.56 cm) df1 ED Course: 21:05 Patient arrived in ED. wm 21:55 Triage completed. df1 21:59 Penny Moon, RN is Primary Nurse. bs2 22:00 Patient has correct armband on for positive identification. Placed in gown. Bed in low bs2 position. Call light in reach. Side rails up X 1. Pulse ox on. NIBP on. Door closed. Lights dimmed. Warm blanket given. 22:14 Micheal Leon PA is PHCP. cp 22:14 Giovanni Buchanan MD is Attending Physician. cp 23:36 US Transvaginal Study (Probe) In Process Unspecified. EDMS 23:43 GC (GONORR/CHLAMYDIA) Probe Sent. bs2 23:49 Urine Microscopic Only Sent. bs2 23:56 Basic Metabolic Panel Sent. bs2 23:56 CBC with Diff Sent. bs2 23:56 Hepatic Function Sent. bs2 23:56 Lipase Sent. bs2 23:57 Urine --Ancillary (enter results) Sent. bs2 23:57 Urine --Ancillary Sent. bs2 01/26 00:20 Inserted saline lock: 20 gauge in left antecubital area, using aseptic technique. Blood bs2 collected. 00:21 GC (GONORR/CHLAMYDIA) Probe Sent. bs2 00:21 Wet Prep Sent. bs2 00:21 Urine Microscopic Only Sent. bs2 00:30 Assist provider with pelvic exam: Set up pelvic tray. Performed by Micheal TONEY bs2 Specimens sent to lab. Patient tolerated well. 01:49 Arm band placed on right wrist. bs2 01:50 IV discontinued, intact, bleeding controlled, No redness/swelling at site. Pressure bs2 dressing applied. Administered Medications: 00:20 Drug: Zithromax (azithromycin) 1 grams Route: PO; bs2 01:51 Follow up: Response: No adverse reaction bs2 00:21 Drug: Rocephin (cefTRIAXone) 1 grams Route: IV; Rate: calculated rate; Site: left bs2 antecubital; 01:51 Follow up: IV Status: Completed infusion bs2 Outcome: 01:17 Discharge ordered by . adina 01:49 Discharged to home ambulatory, with family. bs2 01:49 Condition: stable 01:49 Discharge instructions given to patient, Instructed on discharge instructions, follow up and referral plans. medication usage, safe sex practices, control, Demonstrated understanding of instructions, follow-up care, medications, Prescriptions given X 3. 01:53 Patient left the ED. bs2 Signatures: Dispatcher [employer] EDMS Micheal Leon PA PA cp Marsh, Wendy wm Smith, Bridget RN RN bs2 Samanta Steve df1 Corrections: (The following items were deleted from the chart) 01/25 23:49 23:43 Wet Prep+[email or web address] drawn and sent. bs2 EDMS
--- NOTE | 2021-01-26 01:18 | EDPHYS ---
Physician Documentation [facility] Name: Sonja Covarrubias Age: 25 yrs Sex: Female : 1995 Arrival Date: 01/25/2021 Time: 21:05 Bed 15 Private MD: ED Physician Giovanni Buchanan HPI: 01/25 22:52 This 25 yrs old Female presents to ER via Ambulatory with complaints of cp Abdominal Pain. 22:52 The patient presents with abdominal pain in the left lower quadrant. cp 22:52 Onset: The symptoms/episode began/occurred 2 week(s) ago. cp 22:52 The symptoms do not radiate. Associated signs and symptoms: Pertinent positives: cp vaginal discharge, vaginal odor, Pertinent negatives: constipation, diarrhea, dysuria, fever, vomiting. Modifying factors: the symptoms are aggravated by intercourse. Patient reports history of STD in the past. 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 - Social history:: Smoking status: Patient denies any tobacco usage or history of. Patient/guardian denies using alcohol, street drugs. ROS: 23:00 Constitutional: Negative for body aches, chills, fever, poor PO intake. cp 23:00 Eyes: Negative for injury, pain, redness, and discharge. cp 23:00 Cardiovascular: Negative for chest pain, palpitations. 23:00 Respiratory: Negative for cough, shortness of breath, wheezing. 23:00 Abdomen/GI: Positive for abdominal pain, of the suprapubic area and left lower quadrant, Negative for vomiting, diarrhea, constipation. 23:00 : Positive for vaginal discharge, Negative for urinary symptoms, vaginal bleeding. 23:00 Skin: Negative for rash. 23:00 Neuro: Negative for altered mental status, headache, weakness. 23:00 All other systems are negative. Exam: 23:05 Constitutional: The patient appears in no acute distress, alert, awake, non-toxic, well cp developed, well nourished. 23:05 Head/Face: Normocephalic, atraumatic. cp 23:05 Eyes: Periorbital structures: appear normal, Conjunctiva: normal, no exudate, no injection, Sclera: no appreciated abnormality, Lids and lashes: appear normal, bilaterally. 23:05 ENT: External ear(s): are unremarkable, Nose: is normal, Mouth: Lips: moist, Oral mucosa: moist, Posterior pharynx: Airway: no evidence of obstruction, patent. 23:05 Chest/axilla: Inspection: normal. 23:05 Cardiovascular: Rate: normal, Rhythm: regular. 23:05 Respiratory: the patient does not display signs of respiratory distress, Respirations: normal, no use of accessory muscles, no retractions, labored breathing, is not present, Breath sounds: are clear throughout, no decreased breath sounds, no stridor, no wheezing. 23:05 Abdomen/GI: Inspection: abdomen appears normal, Bowel sounds: active, all quadrants, Palpation: soft, in all quadrants, mild abdominal tenderness, in the suprapubic area and left lower quadrant, rebound tenderness, is not appreciated, involuntary guarding, is not appreciated. 23:05 Back: pain, is absent, ROM is normal. 23:46 : Pelvic Exam: External exam: is normal, Speculum exam: no bleeding is noted, no cp cervicitis, os that is closed, no tissue in cervix is seen, no tissue in vagina is seen, bimanual exam reveals cervical motion tenderness, uterine tenderness, no adnexal tenderness on left, no adnexal mass on right, no adnexal mass on left, discharge, white, scant, the nurse was present for the exam, Sexual behavior: the patient is sexually active. Vital Signs: 21:52 BP 118 / 74; Pulse 75; Resp 18; Temp 98.3; Pulse Ox 100% on R/A; Weight 68.04 kg; df1 Height 5 ft. 4 in. (162.56 cm); Pain 10/10; 21:52 Body Mass Index 25.75 (68.04 kg, 162.56 cm) df1 MDM: 22:28 Patient medically screened. cp 23:00 Differential diagnosis: appendicitis, Ectopic , Endometriosis, Ovarian cp Torsion, Pelvic Inflammatory Disease, Pyelonephritis, urinary tract infection. 01/26 01:15 Data reviewed: vital signs, nurses notes, lab test result(s), radiologic studies, cp ultrasound. 01:15 Counseling: I had a detailed discussion with the patient and/or guardian regarding: the cp historical points, exam findings, and any diagnostic results supporting the discharge/admit diagnosis, lab results, radiology results, the need for outpatient follow up, an OB/Gyne specialist, a artificial cherry maker, to return to the emergency department if symptoms worsen or persist or if there are any questions or concerns that arise at home. Response to treatment: the patient's symptoms have mildly improved after treatment, and as a result, I will discharge patient. 01/25 22:43 Order name: Basic Metabolic Panel; Complete Time: 01:02 01/26 01:03 Interpretation: Normal except: CL 108; CRE 0.54. 01/25 22:43 Order name: CBC with Diff; Complete Time: 01:02 01/25 22:43 Order name: Hepatic Function; Complete Time: 01:02 01/26 01:03 Interpretation: Normal except: AST 6; GLOB 4.1; A/G 0.9. 01/25 22:43 Order name: Lipase; Complete Time: 01:02 01/25 22:43 Order name: GC (GONORR/CHLAMYDIA) Probe 01/25 22:43 Order name: Wet Prep 01/25 22:43 Order name: IV Saline Lock; Complete Time: 23:56 01/25 22:43 Order name: US Transvaginal Study (Probe) 01/25 22:43 Order name: Urine Microscopic Only 01/25 23:49 Order name: Urine Dipstick-Ancillary; Complete Time: 23:58 EDTN 01/25 23:50 Order name: Urine --Ancillary (enter results) mw2 01/25 23:51 Order name: Urine --Ancillary EDTN 01/25 22:43 Order name: Labs collected and sent; Complete Time: 23:56 01/25 22:43 Order name: Pelvic Exam Setup; Complete Time: 23:43 01/25 22:43 Order name: Urine Dipstick-Ancillary (obtain specimen); Complete Time: 23:49 01/25 22:43 Order name: Urine Test (obtain specimen); Complete Time: 23:49 cp Administered Medications: 00:20 Drug: Zithromax (azithromycin) 1 grams Route: PO; bs2 01:51 Follow up: Response: No adverse reaction bs2 00:21 Drug: Rocephin (cefTRIAXone) 1 grams Route: IV; Rate: calculated rate; Site: left bs2 antecubital; 01:51 Follow up: IV Status: Completed infusion bs2 Disposition: 02:14 Co-signature as Attending Physician, Giovanni Buchanan MD. [email or web address] Disposition Summary: 01/26/21 01:17 Discharge Ordered Location: Home cp Problem: new cp Symptoms: have improved cp Condition: Stable cp Diagnosis - Other ovarian cysts cp - Pelvic and perineal pain cp Followup: cp - With: Private Physician - When: 1 week - Reason: Recheck today's complaints Discharge Instructions: - Discharge Summary Sheet cp - Abdominal Pain, Adult cp - Ovarian Cyst cp - Pelvic Pain, Female cp Forms: - Medication Reconciliation Form cp - Thank You Letter cp - Antibiotic Education cp - Prescription Opioid Use cp Prescriptions: - Doxycycline Hyclate 100 mg Oral Tablet - take 1 tablet by ORAL route every 12 hours; 20 tablet; Refills: 0, Product cp Selection Permitted - Metronidazole 500 mg Oral Tablet - take 1 tablet by ORAL route every 8 hours; 30 tablet; Refills: 0, Product cp Selection Permitted - dicyclomine 20 mg Oral Tablet - take 1 tablet by ORAL route 4 times per day; 30 tablet; Refills: 0, Product cp Selection Permitted Signatures: Dispatcher [employer] Giovanni Morgan MD MD pkl Micheal Leon PA PA cp Smith, Bridget, RN RN bs2 Samanta Steve df1 Corrections: (The following items were deleted from the chart) 01/25 23:49 22:44 Wet Prep+BA.LAB.BRZ ordered. EDTN EDMS 01/27 00:58 01/25 22:52 The patient presents with abdominal pain in the lower abdomen, cp cp
[2021-01-26 01:23] LABS: Urine Specific Gravity/Preg 1.025 (1.005-1.030)
[2021-01-26] MEDS ORDERED: NA CHLORIDE 0.9% 1,000 ML ONE (01:33)
[2021-01-26] MEDS ORDERED: FAMOTIDINE 20 MG/2 ML VIAL IV ONE (01:33)
[2021-01-26] MEDS ORDERED: ONDANSETRON 4 MG/2 ML VIAL ONE (01:33)
[2021-01-26] MEDS ORDERED: FENTANYL CITR 100 MCG/2 ML ONE (01:34)
[2021-01-26 01:58] VITALS: BP 118/74; TEMP 98.3; O2SAT 100
[2021-01-26] MEDS ORDERED: MORPHINE 4 MG/ML SYR ONE (02:28)
[2021-01-26] MEDS ORDERED: HYDROMORPHONE HCL 0.5 MG/0.5 ML INJ ONE (03:31)
[2021-01-26] MEDS ORDERED: PROMETHAZINE INJ 25 MG/ML AMP ONE (03:31)
--- NOTE | 2021-01-26 12:03 | RAD REPORT ---
EXAM DESCRIPTION: US - Transvaginal Study Probe - 01/26/2021 12:38 am CLINICAL HISTORY: ABD PAIN COMPARISON: None. TECHNIQUE: US PELVIS TRANSVAGINAL 01/25/2021 10:43 PM CDT FINDINGS: Uterus measures 6.9 cm. Endometrium measures 7 mm. Ovaries are normal in size with patent flow. IMPRESSION: Unremarkable study. Electronically signed by: Ivan Miles MD 01/25/2021 11:52 PM CDT Due to temporary technical issues with the PACS/Fluency reporting system, reports are being signed by the in house radiologist without review as a courtesy to ensure prompt reporting. The interpreting r adiologist is fully responsible for the content of the report.
[2021-02-04 02:18] LABS: C.trachomatis RNA,TMA Not Detected (Not Detected)
== END 2021-01-26 01:53 | disposition home or self-care (01) ==
LOC: ER 21:04
DX: N83.299 Other ovarian cyst, unspecified side (principal); E03.9 Hypothyroidism, unspecified; Z88.5 Allergy status to narcotic agent; Z88.6 Allergy status to analgesic agent
CPT/HCPCS: 36415; 76830; 80048; 80076; 81003; 81015; 81025; 83690; 85025; 87210; 87490; 87590; 96365; 99284; J1170; J2405; J2550; J3010; J7030

== ENCOUNTER 2021-01-27 12:30 | Emergency (ER) | payer SELFPAY ==
[2021-01-27 13:16] LABS: Urine Blood Trace-intact (Negative); Urine Glucose Negative (Negative); Urine Protein Negative (Negative); Urine Specific Gravity 1.015 (1.005-1.030); Urine pH 6.5 (5.0-7.0)
[2021-01-27 13:28] LABS: Urine Specific Gravity/Preg 1.015 (1.005-1.030)
[2021-01-27] MEDS ORDERED: ONDANSETRON 4 MG/2 ML VIAL ONE (13:31)
[2021-01-27] MEDS ORDERED: NA CHLORIDE 0.9% 1,000 ML ONE (13:31)
[2021-01-27] MEDS ORDERED: DIPHENHYDRAMINE 50 MG/ML VIAL ONE (13:31)
[2021-01-27 13:38] LABS: Absolute Lymphocytes (CBC) 1.6 K/uL (0.7-4.9); Basophils % 0.4 % (0-1.3); Lymphocytes % 26.6 % (15.3-44.8); MPV 9.1 fL (7.6-11.3); RBC Red Blood Cell Count 4.93 M/uL (3.86-4.86)
[2021-01-27 13:49] LABS: ALT/SGPT 19 U/L (12-78); AST/SGOT 12 U/L (15-37); Albumin 4.2 g/dL (3.4-5.0); Alkaline Phosphatase 89 U/L (45-117); BUN Blood Urea Nitrogen 10 mg/dL (7-18); Bicarbonate 27 mmol/L (21-32); Bilirubin Direct 0.2 mg/dL (0-0.2); Bilirubin Total 0.8 mg/dL (0.2-1.0); Glucose Level 82 mg/dL (74-106); Lipase 84 U/L (73-393); Potassium 3.9 mmol/L (3.5-5.1); Protein, Total 8.5 g/dL (6.4-8.2); Sodium Level 140 mmol/L (136-145)
[2021-01-27] MEDS ORDERED: CEFTRIAXONE 1000 MG/VIAL ONE (14:18)
--- NOTE | 2021-01-27 14:57 | ER ---
Nurse's Notes [facility] Name: Sonja Covarrubias Age: 25 yrs Sex: Female : 1995 Arrival Date: 01/27/2021 Time: 12:35 Bed 12 Private MD: Diagnosis: Nausea-UTI with allergic reaction to medication Presentation: 01/27 12:45 Chief complaint: Patient states: started medication for UTI/ovarian cyst last night, iw about an hour after she started feeling general weakness, feels like her legs and hands are weak, feels like her face is swollen, was started on dicyclomine, metronidazole, doxycycline. Coronavirus screen: At this time, the client does not indicate any symptoms associated with coronavirus-19. Ebola Screen: Patient negative for fever greater than or equal to 101.5 degrees Fahrenheit, and additional compatible Ebola Virus Disease symptoms Patient denies exposure to infectious person. Patient denies travel to an Ebola-affected area in the 21 days before illness onset. No symptoms or risks identified at this time. Onset of symptoms was January 26, 2021. 12:45 Method Of Arrival: Wheelchair iw 12:45 Acuity: JANNY 3 iw 15:17 Initial Sepsis Screen: Does the patient meet any 2 criteria? No. Patient's initial ld1 sepsis screen is negative. Does the patient have a suspected source of infection? No. Patient's initial sepsis screen is negative. Risk Assessment: Do you want to hurt yourself or someone else? Patient reports no desire to harm self or others. 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 - Social history:: Patient/guardian denies using street drugs, The patient lives with family, Smoking status: Patient denies any tobacco usage or history of. Patient/guardian denies using alcohol. - Family history:: not pertinent. Screenin:54 Abuse screen: Denies threats or abuse. Denies injuries from another. Nutritional ld1 screening: No deficits noted. Tuberculosis screening: No symptoms or risk factors identified. Fall Risk None identified. Assessment: 12:54 General: Appears in no apparent distress. comfortable, Behavior is cooperative, ld1 anxious. Pain: Denies pain. Neuro: Level of Consciousness is. Neuro: Level of Consciousness is awake, alert, obeys commands, Oriented to person, place, time, situation. Cardiovascular: Capillary refill < 3 seconds Patient's skin is warm and dry. Rhythm is regular. Respiratory: Airway is patent Respiratory effort is even, unlabored, Respiratory pattern is regular, symmetrical. GI: Abdomen is flat, non-distended. : No signs and/or symptoms were reported regarding the genitourinary system. Reports coming to ER two days ago for a UTI. Denies pain. EENT: Reports Mouth swelling after taking doxycycline and metronidazole last night.. Derm: No signs and/or symptoms reported regarding the dermatologic system. Musculoskeletal: Reports generalized weakness. 14:09 Reassessment: Patient appears in no apparent distress at this time. No changes from ld1 previously documented assessment. Patient and/or family updated on plan of care and expected duration. Pain level reassessed. Patient is alert, oriented x 3, equal unlabored respirations, skin warm/dry/pink. Vital Signs: 12:49 BP 126 / 77; Pulse 78; Resp 16; Pulse Ox 100% on R/A; iw 12:54 BP 129 / 84; Pulse 70; Resp 18; Pulse Ox 100% on R/A; ld1 14:09 BP 131 / 75; Pulse 64; Resp 20; Pulse Ox 99% on R/A; ld1 ED Course: 12:35 Patient arrived in ED. iw 12:47 Danielle Gunderson MD is Attending Physician. ma2 12:47 Thu Wallace RN is Primary Nurse. ld1 12:48 Triage completed. iw 12:49 Arm band placed on. iw 12:54 Patient has correct armband on for positive identification. Placed in gown. Bed in low ld1 position. Call light in reach. Side rails up X2. patient monitor on. Pulse ox on. NIBP on. Door closed. Noise minimized. Warm blanket given. 12:54 No provider procedures requiring assistance completed. ld1 13:06 Adult w/ patient. Pillow given. 5 13:16 Lipase Sent. mh5 13:16 Hepatic Function Sent. 5 13:16 CBC with Diff Sent. 5 13:16 Basic Metabolic Panel Sent. 5 13:16 Initial lab(s) drawn, by ED staff, sent to lab. Urine collected: clean catch specimen, 5 clear. 13:56 Inserted saline lock: 20 gauge in left antecubital area, using aseptic technique. Blood 5 collected. 15:17 IV discontinued, intact, bleeding controlled, No redness/swelling at site. ld1 Administered Medications: 13:51 Drug: NS 0.9% 1000 ml Route: IV; Rate: 1 bolus; Site: right antecubital; 1 13:51 Drug: Benadryl (diphenhydrAMINE) 25 mg Route: IVP; Site: right antecubital; 1 13:55 Follow up: Response: No adverse reaction ld1 13:51 Drug: Zofran (Ondansetron) 4 mg Route: IVP; Site: right antecubital; 1 13:55 Follow up: Response: No adverse reaction ld1 13:55 Drug: Rocephin (cefTRIAXone) 1 grams Route: IV; Rate: calculated rate; Site: right ld1 antecubital; Outcome: 14:56 Discharge ordered by . mary 15:17 Discharged to home ambulatory, with family. ld1 15:17 Condition: stable 15:17 Discharge instructions given to patient, Instructed on discharge instructions, follow up and referral plans. medication usage, Demonstrated understanding of instructions, follow-up care, medications, Prescriptions given X 2. 15:18 Patient left the ED. ld1 Signatures: Gabriela Baumann, RN Jordana Lundy [facility] Danielle Gunderson MD MD ma2 Dibbern, Lauren, RN RN ld1
--- NOTE | 2021-01-27 14:57 | EDPHYS ---
Physician Documentation [facility] Name: Sonja Covarrubias Age: 25 yrs Sex: Female : 1995 Arrival Date: 01/27/2021 Time: 12:35 Bed 12 Private MD: ED Physician Danielle Gunderson HPI: 01/27 14:18 This 25 yrs old Female presents to ER via Wheelchair with complaints of ma2 General Weakness,and generalized body numbness started after she took metronidazone for uti. 14:18 Onset: The symptoms/episode began/occurred suddenly, 3 hour(s) ago. Associated signs ma2 and symptoms: Pertinent negatives: anorexia, chills, dysphagia, fever, inability to eat, nausea, pain, redness in area, swelling, vomiting. Severity of symptoms: At their worst the symptoms were mild, in the emergency department the symptoms have resolved. The patient has not experienced similar symptoms in the past. 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 - Social history:: Patient/guardian denies using street drugs, The patient lives with family, Smoking status: Patient denies any tobacco usage or history of. Patient/guardian denies using alcohol. - Family history:: not pertinent. ROS: 14:18 Constitutional: Negative for fever, chills, and weight loss. ma2 14:18 All other systems are negative. Exam: 14:18 Constitutional: This is a well developed, well nourished patient who is awake, alert, ma2 and in no acute distress. Head/Face: Normocephalic, atraumatic. Eyes: Pupils equal round and reactive to light, extra-ocular motions intact. Lids and lashes normal. Conjunctiva and sclera are non-icteric and not injected. Cornea within normal limits. Periorbital areas with no swelling, redness, or edema. ENT: Nares patent. No nasal discharge, no septal abnormalities noted. Tympanic membranes are normal and external auditory canals are clear. Oropharynx with no redness, swelling, or masses, exudates, or evidence of obstruction, uvula midline. Mucous membranes moist. Neck: Trachea midline, no thyromegaly or masses palpated, and no cervical lymphadenopathy. Supple, full range of motion without nuchal rigidity, or vertebral point tenderness. No Meningismus. Chest/axilla: Normal chest wall appearance and motion. Nontender with no deformity. No lesions are appreciated. Cardiovascular: Regular rate and rhythm with a normal S1 and S2. No gallops, murmurs, or rubs. Normal PMI, no JVD. No pulse deficits. Respiratory: Lungs have equal breath sounds bilaterally, clear to auscultation and percussion. No rales, rhonchi or wheezes noted. No increased work of breathing, no retractions or nasal flaring. Abdomen/GI: Soft, non-tender, with normal bowel sounds. No distension or tympany. No guarding or rebound. No evidence of tenderness throughout. Back: No spinal tenderness. No costovertebral tenderness. Full range of motion. Skin: Warm, dry with normal turgor. Normal color with no rashes, no lesions, and no evidence of cellulitis. MS/ Extremity: Pulses equal, no cyanosis. Neurovascular intact. Full, normal range of motion. Neuro: Awake and alert, GCS 15, oriented to person, place, time, and situation. Cranial nerves II-XII grossly intact. Motor strength 5/5 in all extremities. Sensory grossly intact. Cerebellar exam normal. Normal gait. Vital Signs: 12:49 BP 126 / 77; Pulse 78; Resp 16; Pulse Ox 100% on R/A; iw 12:54 BP 129 / 84; Pulse 70; Resp 18; Pulse Ox 100% on R/A; ld1 14:09 BP 131 / 75; Pulse 64; Resp 20; Pulse Ox 99% on R/A; ld1 MDM: 12:47 Patient medically screened. ma2 14:18 Differential diagnosis: uti vs electrolyte abnormality vs allergic reaction vs anxiety. ma2 14:55 Data reviewed: vital signs, nurses notes. Counseling: I had a detailed discussion with ma2 the patient and/or guardian regarding: the historical points, exam findings, and any diagnostic results supporting the discharge/admit diagnosis, the presence of at least one elevated blood pressure reading (>120/80) during this emergency department visit, the need for outpatient follow up. Response to treatment: the patient's symptoms have markedly improved after treatment. 01/27 12:56 Order name: Basic Metabolic Panel; Complete Time: 13:52 ma2 01/27 12:56 Order name: CBC with Diff; Complete Time: 13:47 ma2 01/27 12:56 Order name: Hepatic Function; Complete Time: 13:52 ma2 01/27 12:56 Order name: Lipase; Complete Time: 13:52 ma2 01/27 13:16 Order name: Urine Dipstick-Ancillary; Complete Time: 13:47 EDMS 01/27 13:17 Order name: Urine --Ancillary (enter results); Complete Time: 13:47 eb 01/27 12:56 Order name: IV Saline Lock; Complete Time: 13:16 ma2 01/27 12:56 Order name: Labs collected and sent; Complete Time: 13:16 ma2 01/27 12:56 Order name: Urine Dipstick-Ancillary (obtain specimen); Complete Time: 13:16 ma2 01/27 12:56 Order name: Urine Test (obtain specimen); Complete Time: 13:16 ma2 Administered Medications: 13:51 Drug: NS 0.9% 1000 ml Route: IV; Rate: 1 bolus; Site: right antecubital; ld1 13:51 Drug: Benadryl (diphenhydrAMINE) 25 mg Route: IVP; Site: right antecubital; ld1 13:55 Follow up: Response: No adverse reaction ld1 13:51 Drug: Zofran (Ondansetron) 4 mg Route: IVP; Site: right antecubital; ld1 13:55 Follow up: Response: No adverse reaction ld1 13:55 Drug: Rocephin (cefTRIAXone) 1 grams Route: IV; Rate: calculated rate; Site: right ld1 antecubital; Disposition Summary: 01/27/21 14:56 Discharge Ordered Location: Home ma2 Condition: Stable ma2 Diagnosis - Nausea - UTI with allergic reaction to medication ma2 Followup: ma2 - With: Private Physician - When: Tomorrow - Reason: Continuance of care Discharge Instructions: - Discharge Summary Sheet ma2 - Nausea, Adult ma2 Forms: - Medication Reconciliation Form ma2 - Thank You Letter ma2 - Antibiotic Education ma2 - Prescription Opioid Use ma2 Prescriptions: - Benadryl 25 mg Oral Capsule - take 1 capsule by ORAL route every 6 hours As needed; 30 tablet; Refills: 0, ma2 Product Selection Permitted - Zofran 4 mg Oral Tablet - take 1 tablet by ORAL route every 12 hours As needed; 6 tablet; Refills: 0, ma2 Product Selection Permitted Signatures: Dispatcher [employer] Gabriela Romero, APARNA BRAUN Danielle Gunderson MD MD ma2 Thu Wallace RN RN ld1
[2021-01-27 15:34] VITALS: BP 131/75; O2SAT 99
== END 2021-01-27 15:18 | disposition home or self-care (01) ==
LOC: ER 12:30
DX: N39.0 Urinary tract infection, site not specified (principal); Z88.8 Allergy status to other drugs, medicaments and biological substances; E03.9 Hypothyroidism, unspecified; Z88.5 Allergy status to narcotic agent; Z88.6 Allergy status to analgesic agent
CPT/HCPCS: 36415; 80048; 80076; 81003; 81025; 83690; 85025; 96374; 96375; 99284; J1200; J2405; J7030

== ENCOUNTER 2021-08-18 14:54 | Emergency (ER) | payer SELFPAY ==
--- OUTSIDE RECORDS SUMMARY | 2021-08-18 14:57 | XMS REPORT | Continuity of Care Document ---
:1995 Author Organization [facility] t Address [address] [place] [address] [address] [place] [address] Care Team Providers Name Role Phone Unavailable Unavailable Unavailable Problems This patient has no known problems. Allergies, Adverse Reactions, Alerts This patient has no known allergies or adverse reactions. Social History Social Habit Start Date Stop Date Quantity Comments Source Sex Assigned At [facility] Medications This patient has no known medications. Procedures This patient has no known procedures. Results Test Description Test Time Test Comments Results Result Comments Source SARS-COV2/RT-PCR ([facility]) 2019-10-08 15:27:00 Test Item Value Reference Range Interpretation Comme nts SARS-COV2/RT-PCR (test code = 8116041) Positive Not Detected, N egative AA SARS-COV-2 PERFORMING LAB (test code = 3988234) [facility] Results are for the detection of SARS-CoV-2 [...] 564(g) of the Act.Fact Sheet for Healthcare Providers:https://www.Create.Splunk/sites/default/files/product/d ocuments/Pkty_Qpoyb_VD_Hadetwsyi_Ywle_EIZN-SnP-5.pdfFact Sheet for Healthcare Patients:https://www.TRELYS.Splunk/sites/default/files/product/documents/Fact_Sheet_Patients_Lyra_SARS-CoV -2.pdfPerforming Laboratory:[facility] [place] [address]
[2021-08-18 16:05] LABS: Urine Blood Negative (Negative); Urine Glucose Negative (Negative); Urine Protein Negative (Negative); Urine pH 6.5 (5.0-7.0)
[2021-08-18 16:09] LABS: Absolute Lymphocytes (CBC) 1.2 K/uL (0.7-4.9); Hematocrit 38.5 % (36.0-45.0); RBC Red Blood Cell Count 4.27 M/uL (3.86-4.86)
[2021-08-18 16:27] LABS: Bilirubin Total 0.8 mg/dL (0.2-1.0); Potassium 3.7 mmol/L (3.5-5.1); Protein, Total 7.7 g/dL (6.4-8.2)
[2021-08-18 16:27] LABS: Urine Bacteria <20 /HPF (<20); Urine RBC <5 /HPF (NONE SEEN)
--- NOTE | 2021-08-18 17:19 | RAD REPORT ---
EXAM DESCRIPTION: CT - Abdomen Pelvis W Contrast - 08/18/2021 5:06 pm CLINICAL HISTORY: LLQ abdominal pain COMPARISON: Abdomen Pelvis W Contrast dated 07/10/2020 TECHNIQUE: Biphasic, helical CT imaging of the abdomen and pelvis was performed following 100 ml non -ionic IV contrast. No oral contrast administered. All CT scans are performed using dose optimization technique as appropriate and may include automated exposure control or mA/KV adjustment according to patient size. FINDINGS: No suspicious findings in the lung bases. The liver, spleen, and pancreas show no suspicious findings. Gallbladder and biliary tree are also wi thout suspicious finding. Symmetric renal function is seen with no hydronephrosis or suspicious renal mass. No pyelonephritis o r acute parenchymal process. Partially filled urinary bladder shows no suspicious findings. No adrena l abnormalities. No uterine abnormality seen. Both ovaries are identified and show small cysts or follicles. Largest i s 2.2 cm on the right. No hemorrhagic or involuting cyst identified. No fallopian tube dilatation. No dilated bowel loops or bowel wall thickening. Appendix is not well defined. No direct or indirect evidence for appendicitis. No free air, free fluid or inflammatory stranding. No hernia, mass or bul ky lymphadenopathy. No suspicious bony findings. IMPRESSION: Contrast enhanced CT abdomen and pelvis showing no acute or emergent finding. Small ovarian cysts or follicles are present, largest 2.2 cm on the right. No ovarian cyst rupture or hemorrhage findings seen.
--- NOTE | 2021-08-18 18:31 | EDPHYS ---
Physician Documentation [facility] Name: Sonja Covarrubias Age: 26 yrs Sex: Female : 1995 Arrival Date: 08/18/2021 Time: 14:56 Bed 15 Private MD: ED Physician Danielle Gunderson HPI: 08/18 15:42 This 26 yrs old Female presents to ER via Ambulatory with complaints of pm1 Abdominal Pain. 15:42 The patient presents with abdominal pain in the left lower quadrant. pm1 15:42 Onset: The symptoms/episode began/occurred yesterday. The symptoms do not radiate. pm1 Associated signs and symptoms: Pertinent positives: vaginal discharge, pain with intercourse, Pertinent negatives: nausea, vomiting, and diarrhea, chest pain, constipation, dysuria, fever, shortness of breath. The symptoms are described as throbbing. Modifying factors: The symptoms are alleviated by nothing, the symptoms are aggravated by nothing. Severity of pain: in the emergency department the pain is unchanged is a 3 / 10. The patient has experienced a previous episode, right side - similar to prior ovarian issues. The patient has not recently seen a physician. Historical: - Allergies: 15:43 Fentanyl; redness, itching; ap3 15:43 Motrin; swelling; ap3 - Home Meds: 15:43 levothyroxine 50 mcg tab 1 tab once daily for Hypothyroidism [Active]; ap3 - PMHx: 15:43 Hypothyroidism; ap3 - PSHx: 15:43 right ovarian cyst removed; ap3 - Immunization history:: Adult Immunizations up to date. - Social history:: Smoking status: Patient denies any tobacco usage or history of. ROS: 15:42 Constitutional: Negative for fever, chills, and weight loss, Cardiovascular: Negative pm1 for chest pain, palpitations, and edema, Respiratory: Negative for shortness of breath, cough, wheezing, and pleuritic chest pain. 15:42 Back: Negative for injury and pain. 15:42 MS/Extremity: Negative for injury and deformity, Skin: Negative for injury, rash, and discoloration, Neuro: Negative for headache, weakness, numbness, tingling, and seizure. 15:42 Abdomen/GI: Positive for abdominal pain, of the left lower quadrant, Negative for nausea, vomiting, and diarrhea. 15:42 : Positive for vaginal discharge, Negative for urinary symptoms. 15:42 All other systems are negative. Exam: 16:49 Constitutional: This is a well developed, well nourished patient who is awake, alert, pm1 and in no acute distress. Head/Face: Normocephalic, atraumatic. 16:49 Back: No spinal tenderness. No costovertebral tenderness. Full range of motion. Skin: Warm, dry with normal turgor. Normal color with no rashes, no lesions, and no evidence of cellulitis. MS/ Extremity: Pulses equal, no cyanosis. Neurovascular intact. Full, normal range of motion. 16:49 Eyes: Exam is negative for acute changes, Extraocular movements: no acute changes, Conjunctiva: no acute changes, no injection, Sclera: no acute changes, icterus, is not appreciated. 16:49 ENT: Exam is negative for acute changes, Mouth: Lips: normal, moist, Oral mucosa: normal, pink and intact, moist. 16:49 Cardiovascular: Exam negative for acute changes, Rate: normal, Rhythm: regular, Pulses: no pulse deficits are appreciated. 16:49 Respiratory: Exam negative for acute changes, respiratory distress, shortness of breath. 16:49 Abdomen/GI: Inspection: abdomen appears normal, Palpation: soft, in all quadrants, mild abdominal tenderness, in the left lower quadrant. 16:49 Neuro: Exam negative for acute changes, Orientation: is normal, Mentation: is normal, Motor: is normal, moves all fours. 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 Sexual behavior: the patient is sexually active. Vital Signs: 15:40 BP 113 / 74; Pulse 85; Resp 17; Temp 97.7; Pulse Ox 100% ; Weight 64.86 kg; Height 5 ap3 ft. 4 in. (162.56 cm); Pain 4/10; 16:45 BP 117 / 64; Pulse 77; Resp 16; Pulse Ox 100% ; Pain 2/10; jh6 18:47 BP 122 / 68; Pulse 76; Resp 17; Temp 97.8; Pulse Ox 100% ; Pain 0/10; jh6 15:40 Body Mass Index 24.55 (64.86 kg, 162.56 cm) ap3 MDM: 15:26 Patient medically screened. pm1 16:11 Data reviewed: vital signs. Data interpreted: Pulse oximetry: on room air is 100 %. pm1 Interpretation: normal. 18:30 Counseling: I had a detailed discussion with the patient and/or guardian regarding: the pm1 historical points, exam findings, and any diagnostic results supporting the discharge/admit diagnosis, lab results, radiology results, the need for outpatient follow up, a family practitioner, to return to the emergency department if symptoms worsen or persist or if there are any questions or concerns that arise at home. 08/18 15:42 Order name: CBC with Diff; Complete Time: 16:11 pm1 08/18 15:42 Order name: CMP; Complete Time: 16:42 pm1 08/18 15:42 Order name: Lipase; Complete Time: 16:42 pm1 08/18 15:42 Order name: Urine Microscopic Only; Complete Time: 16:42 pm1 08/18 15:43 Order name: GC (GONORR/CHLAMYDIA) Probe pm1 08/18 15:43 Order name: Wet Prep; Complete Time: 17:06 pm1 08/18 15:42 Order name: CT Abd/Pelvis - IV Contrast Only; Complete Time: 17:53 pm1 08/18 15:42 Order name: IV Saline Lock; Complete Time: 16:05 pm1 08/18 16:05 Order name: Urine Dipstick-Ancillary; Complete Time: 16:11 EDMS 08/18 16:21 Order name: Urine --Ancillary (enter results); Complete Time: 16:42 3 08/18 15:42 Order name: Labs collected and sent; Complete Time: 16:05 pm1 08/18 15:42 Order name: Urine Dipstick-Ancillary (obtain specimen); Complete Time: 16:05 pm1 08/18 15:42 Order name: Urine Test (obtain specimen); Complete Time: 16:05 pm1 08/18 15:43 Order name: Pelvic Exam Setup; Complete Time: 16:05 pm1 Administered Medications: 18:37 Drug: Rocephin (cefTRIAXone) 250 mg Route: IM; Site: right gluteus; [facility] 18:37 Drug: AZITHromycin 1 grams Route: PO; 6 Disposition Summary: 08/18/21 18:30 Discharge Ordered Location: Home pm1 Problem: new pm1 Symptoms: have improved pm1 Condition: Stable pm1 Diagnosis - Abdominal pain, unspecified pm1 Followup: pm1 - With: Emergency Department - When: As needed - Reason: Worsening of condition Followup: pm1 - With: Private Physician - When: 2 - 3 days - Reason: Recheck today's complaints, Continuance of care, Re-evaluation by your physician Discharge Instructions: - Discharge Summary Sheet pm1 - Abdominal Pain, Adult pm1 Forms: - Medication Reconciliation Form pm1 - Thank You Letter pm1 - Antibiotic Education pm1 - Prescription Opioid Use pm1 Prescriptions: - dicyclomine 20 mg Oral Tablet - take 1 tablet by ORAL route every 6 hours As needed; 20 tablet; Refills: 0, pm1 Product Selection Permitted Signatures: Dispatcher [employer]Host EDPaulino Nam NP DOOR FURRING INSTALLER pm1 Amalia Handley RN RN ap3 Elma Long RN RN jh6
--- NOTE | 2021-08-18 18:31 | ER ---
Nurse's Notes [facility] Name: Sonja Covarrubias Age: 26 yrs Sex: Female : 1995 Arrival Date: 08/18/2021 Time: 14:56 Bed 15 Private MD: Diagnosis: Abdominal pain, unspecified Presentation: 08/18 15:40 Chief complaint: Patient states: she feels like the inside of her vagina is inflamed. ap3 patient also complains of white and yellow vaginal discharge, painful intercourse, and left lower quadrant pain. patient states she initially thought she had a UTI, but then all the symptoms combined had her concerned. Coronavirus screen: At this time, the client does not indicate any symptoms associated with coronavirus-19. Ebola Screen: No symptoms or risks identified at this time. Initial Sepsis Screen: Does the patient meet any 2 criteria? No. Patient's initial sepsis screen is negative. Does the patient have a suspected source of infection? No. Patient's initial sepsis screen is negative. Risk Assessment: Do you want to hurt yourself or someone else? Patient reports no desire to harm self or others. Onset of symptoms was August 17, 2021. 15:40 Method Of Arrival: Ambulatory ap3 15:40 Acuity: JANNY 3 ap3 Triage Assessment: 15:44 General: Appears in no apparent distress. Behavior is calm, cooperative. Pain: ap3 Complains of pain in left lower quadrant Pain currently is 4 out of 10 on a pain scale. Neuro: Level of Consciousness is awake, alert, obeys commands, Oriented to person, place, time, situation, Appropriate for age Gait is steady. Cardiovascular: Patient's skin is warm and dry. Respiratory: Airway is patent Respiratory effort is even, unlabored. GI: Patient currently denies nausea, vomiting. : Reports discharge, from vagina that is white, yellow, pain with intercourse. Historical: - Allergies: 15:43 Fentanyl; redness, itching; ap3 15:43 Motrin; swelling; ap3 - Home Meds: 15:43 levothyroxine 50 mcg tab 1 tab once daily for Hypothyroidism [Active]; ap3 - PMHx: 15:43 Hypothyroidism; ap3 - PSHx: 15:43 right ovarian cyst removed; ap3 - Immunization history:: Adult Immunizations up to date. - Social history:: Smoking status: Patient denies any tobacco usage or history of. Screenin:44 Abuse screen: Denies threats or abuse. Nutritional screening: No deficits noted. ap3 Tuberculosis screening: No symptoms or risk factors identified. Fall Risk None identified. Assessment: 16:06 General: Appears in no apparent distress. Behavior is calm, cooperative. Pain: jh6 Complains of pain in vaginal opening, right labia minora and left labia minora Pain currently is 6 out of 10 on a pain scale. Quality of pain is described as burning, Pain began 2-3 days ago. Is continuous, Aggravated by intercourse and voiding. : Reports burning with urination, discharge, from vagina that is white, yellow, pain in suprapubic area with urination. 16:09 GI: Bowel sounds present X 4 quads. Abd is soft Abdomen is tender to palpation in jh6 suprapubic area. 19:18 Reassessment: No changes from previously documented assessment. I recv'd report on the layne pt in room #15. She is to be dc'd after the provider discusses her lab results with her, using the language kiosk. He is at bedside now. She has had no reaction to the meds she recv'd. Vital Signs: 15:40 BP 113 / 74; Pulse 85; Resp 17; Temp 97.7; Pulse Ox 100% ; Weight 64.86 kg; Height 5 ap3 ft. 4 in. (162.56 cm); Pain 4/10; 16:45 BP 117 / 64; Pulse 77; Resp 16; Pulse Ox 100% ; Pain 2/10; jh6 18:47 BP 122 / 68; Pulse 76; Resp 17; Temp 97.8; Pulse Ox 100% ; Pain 0/10; jh6 15:40 Body Mass Index 24.55 (64.86 kg, 162.56 cm) ap3 ED Course: 14:56 Patient arrived in ED. ds1 15:14 Paulino Smith NP is PHCP. pm1 15:14 Danielle Gunderson MD is Attending Physician. pm1 15:43 Triage completed. ap3 15:45 Elma Long, APARNA is Primary Nurse. jh6 15:45 Arm band placed on right wrist. ap3 15:45 Patient has correct armband on for positive identification. Bed in low position. Call ap3 light in reach. Pulse ox on. NIBP on. Door closed. Noise minimized. 16:05 Urine Microscopic Only Sent. mb7 16:08 Inserted saline lock: 20 gauge in right antecubital area, using aseptic technique. jh6 Blood collected. 16:08 Initial lab(s) drawn, by tx, sent to lab. Urine collected: clean catch specimen, clear. jh6 16:40 Assist provider with pelvic exam: Set up pelvic tray. Performed by Paulino Smith HAULING CONTRACTOR jh6 Specimens sent to lab. Patient tolerated well. 17:08 CT Abd/Pelvis - IV Contrast Only In Process Unspecified. EDMS Administered Medications: 18:37 Drug: Rocephin (cefTRIAXone) 250 mg Route: IM; Site: right gluteus; 6 18:37 Drug: AZITHromycin 1 grams Route: PO; jh6 Medication: 15:46 VIS not applicable for this client. ap3 Outcome: 18:30 Discharge ordered by MD. pm1 19:29 Patient left the ED. layne Signatures: Dispatcher MedHost EDMS Lyly Boss ds1 Paulino Smith, ARIADNA HAULING CONTRACTOR pm1 Amalia Handley, RN RN ap3 Elma Long RN RN jh6 Joy Silva mb7 Kavita Rsoa, RN RN layne
[2021-08-18 20:00] VITALS: BP 122/68; TEMP 97.8; O2SAT 100
[2021-08-22 12:09] LABS: C.trachomatis RNA,TMA Not Detected (Not Detected)
== END 2021-08-18 19:29 | disposition home or self-care (01) ==
LOC: ER 14:54
DX: R10.32 Left lower quadrant pain (principal); E03.9 Hypothyroidism, unspecified; Z88.5 Allergy status to narcotic agent; Z88.6 Allergy status to analgesic agent
CPT/HCPCS: 36415; 74177; 80053; 81003; 81015; 81025; 83690; 85025; 87210; 87490; 87590; 96372; 99284; Q9967

== ENCOUNTER 2021-10-17 21:38 | Emergency (ER) | payer SELFPAY ==
[2021-10-17 23:26] LABS: Urine Blood 3+ (Negative); Urine Glucose Negative (Negative); Urine Protein Trace (Negative); Urine Specific Gravity >=1.030 (1.005-1.030); Urine pH 5.5 (5.0-7.0)
[2021-10-18 00:07] LABS: Hematocrit 44.9 % (36.0-45.0); RBC Red Blood Cell Count 4.95 M/uL (3.86-4.86)
[2021-10-18 00:08] LABS: Absolute Lymphocytes (CBC) 1.5 K/uL (0.7-4.9); Lymphocytes % 19.2 % (15.3-44.8); MCV 90.7 fL (80-100)
[2021-10-18 00:15] LABS: BUN Blood Urea Nitrogen 15 mg/dL (7-18); Bicarbonate 29 mmol/L (21-32); Glomerular Filtration Rate 106 ml/min (=/>90); Glucose Level 98 mg/dL (74-106); Potassium 3.6 mmol/L (3.5-5.1); Sodium Level 139 mmol/L (136-145)
[2021-10-18 00:21] LABS: Urine Bacteria <20 /HPF (<20); Urine RBC 21-50 /HPF (None Seen)
[2021-10-18 00:24] LABS: HCG, Quantitative < 1 mIU/mL (1-3)
--- NOTE | 2021-10-18 02:05 | EDPHYS ---
Physician Documentation [facility] Name: Sonja Covarrubias Age: 26 yrs Sex: Female : 1995 Arrival Date: 10/17/2021 Time: 21:47 Bed 3 Private MD: ED Physician Papito Joe HPI: 10/17 22:45 This 26 yrs old Female presents to ER via Ambulatory with complaints of cp Vaginal Bleeding, + Preg <12wks. 22:45 The patient presents with vaginal bleeding that is light, with no clots. Onset: The cp symptoms/episode began/occurred 5 day(s) ago. 22:45 Associated signs and symptoms: Pertinent positives: cramping, Pertinent negatives: cp constipation, dysuria, fever, vomiting. Severity of symptoms: in the emergency department the symptoms are unchanged, despite home interventions. Patient presents to ED with concern for possible . Patient reports home test showed faint positive line so she came to ED for test. Patient reports light vaginal bleeding and very mild lower abdomen cramping pain. 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 - Social history:: Smoking status: Patient denies any tobacco usage or history of. ROS: 22:50 Constitutional: Negative for body aches, chills, fever, poor PO intake. cp 22:50 Eyes: Negative for injury, pain, redness, and discharge. cp 22:50 Cardiovascular: Negative for chest pain, palpitations. 22:50 Respiratory: Negative for cough, shortness of breath, wheezing. 22:50 Abdomen/GI: Positive for abdominal cramps, Negative for vomiting, diarrhea, constipation. 22:50 : Positive for vaginal bleeding, Negative for urinary symptoms. 22:50 Neuro: Negative for altered mental status, headache, weakness. 22:50 All other systems are negative. Exam: 22:55 Constitutional: The patient appears in no acute distress, alert, awake, comfortable, cp non-toxic, well developed, well nourished. 22:55 Head/Face: Normocephalic, atraumatic. cp 22:55 Eyes: Periorbital structures: appear normal, Conjunctiva: normal, no exudate, no injection, Sclera: no appreciated abnormality, Lids and lashes: appear normal, bilaterally. 22:55 ENT: External ear(s): are unremarkable, Nose: is normal, Mouth: Lips: moist, Oral mucosa: pink and intact, moist, Posterior pharynx: Airway: no evidence of obstruction, patent. 22:55 Chest/axilla: Inspection: normal. 22:55 Cardiovascular: Rate: normal, Rhythm: regular. 22:55 Respiratory: the patient does not display signs of respiratory distress, Respirations: normal, no use of accessory muscles, no retractions, labored breathing, is not present, Breath sounds: are clear throughout, no decreased breath sounds, no stridor, no wheezing. 22:55 Abdomen/GI: Inspection: abdomen appears normal, Bowel sounds: active, all quadrants, Palpation: abdomen is soft and non-tender, in all quadrants, rebound tenderness, is not appreciated, voluntary guarding, is not appreciated, involuntary guarding, is not appreciated. 22:55 Back: pain, is absent, ROM is normal. 22:55 Neuro: Orientation: to person, place \T\ time. Mentation: is normal, Motor: moves all fours, strength is normal. 10/18 01:49 : Pelvic Exam: The exam is refused by the patient/guardian. The risks and cp consequences are understood by the patient, Sexual behavior: the patient is sexually active, and reports a single partner, method of control is none. Vital Signs: 10/17 21:57 BP 124 / 76; Pulse 68; Resp 16; Temp 97.4; Pulse Ox 100% on R/A; Weight 61.23 kg; hb Height 5 ft. 4 in. (162.56 cm); Pain 5/10; 21:57 Body Mass Index 23.17 (61.23 kg, 162.56 cm) hb MDM: 22:11 Patient medically screened. cp 10/18 01:51 Data reviewed: vital signs, nurses notes, lab test result(s), Beta HCG: CBC, urinalysis.cp 01:51 Differential diagnosis: ectopic , urinary tract infection, vaginosis, STD. cp Counseling: I had a detailed discussion with the patient and/or guardian regarding: the historical points, exam findings, and any diagnostic results supporting the discharge/admit diagnosis, lab results, to return to the emergency department if symptoms worsen or persist or if there are any questions or concerns that arise at home. ED course: VSS. Discussed results of labs that were negative urine and serum testing for . Will discharge to home for continued monitoring. 10/17 22:44 Order name: Abo/rh Typing; Complete Time: 10/17 22:44 Order name: Basic Metabolic Panel; Complete Time: 10/17 22:44 Order name: CBC with Diff; Complete Time: 10/18 01:29 Interpretation: Normal except: HGB 15.7; RBC 4.95; DEVAN% 74.4; MN% 3.1. 10/17 22:44 Order name: Quantitative Hcg; Complete Time: 10/17 23:27 Order name: Urine Dipstick-Ancillary; Complete Time: EDTN 10/17 22:44 Order name: IV Saline Lock; Complete Time: 23: 10/17 22:44 Order name: Labs collected and sent; Complete Time: :28 10/17 22:44 Order name: NPO; Complete Time: 00:12 10/17 22:44 Order name: Urine Dipstick-Ancillary (obtain specimen); Complete Time: : 10/17 22:44 Order name: Urine Test (obtain specimen); Complete Time: : 10/17 23:32 Order name: Urine Microscopic Only; Complete Time: 10/18 01:29 Interpretation: Normal except: URBC 21-50. cp Administered Medications: No medications were administered Point of Care Testing: Urine : 02:13 hCG Reading: Positive; kd3 Disposition: 22:05 Co-signature as Attending Physician, Papito Joe MD I agree with the assessment and rn plan of care. Attestation: The patient's history, exam findings, diagnostics, and a summary of any interventions or procedures was reviewed in detail with Micheal TONEY. Disposition Summary: 10/18/21 01:51 Discharge Ordered Location: Home cp Problem: new cp Symptoms: are unchanged cp Condition: Stable cp Diagnosis - Irregular menstruation, unspecified cp Followup: cp - With: Private Physician - When: 2 - 3 days - Reason: Worsening of condition Discharge Instructions: - Discharge Summary Sheet cp - Abnormal Uterine Bleeding cp Forms: - Medication Reconciliation Form cp - Thank You Letter cp - Antibiotic Education cp - Prescription Opioid Use cp Signatures: Dispatcher [employer] EDMS Papito Joe MD MD rn Micheal Leon PA PA cp Yael Sosa, RN RN hb
--- NOTE | 2021-10-18 02:05 | ER ---
Nurse's Notes [facility] Name: Sonja Covarrubias Age: 26 yrs Sex: Female : 1995 Arrival Date: 10/17/2021 Time: 21:47 Bed 3 Private MD: Diagnosis: Irregular menstruation, unspecified Presentation: 10/17 21:57 Chief complaint: light vaginal bleeding and cramping x 5 days. Pt reports positive home hb test, LMP 09/14, . Coronavirus screen: At this time, the client does not indicate any symptoms associated with coronavirus-19. Ebola Screen: No symptoms or risks identified at this time. Initial Sepsis Screen: Does the patient meet any 2 criteria? Yes Does the patient have a suspected source of infection? No. Patient's initial sepsis screen is negative. Risk Assessment: Do you want to hurt yourself or someone else? Patient reports no desire to harm self or others. Onset of symptoms was October 17, 2021. 21:57 Method Of Arrival: Ambulatory hb 21:57 Acuity: JANNY 3 hb Triage Assessment: 10/18 02:13 General: Appears in no apparent distress. Behavior is calm, cooperative. Pain: kd3 Complains of pain in abdomen. : No signs and/or symptoms were reported regarding the genitourinary system. 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 - Social history:: Smoking status: Patient denies any tobacco usage or history of. Screenin/20 02:12 Abuse screen: Denies threats or abuse. Denies injuries from another. Nutritional kd3 screening: No deficits noted. Tuberculosis screening: No symptoms or risk factors identified. Fall Risk None identified. Assessment: :13 Obstetrical Assessment: General assessment: awake and alert. kd3 Vital Signs: 10/17 21:57 BP 124 / 76; Pulse 68; Resp 16; Temp 97.4; Pulse Ox 100% on R/A; Weight 61.23 kg; hb Height 5 ft. 4 in. (162.56 cm); Pain 5/10; 21:57 Body Mass Index 23.17 (61.23 kg, 162.56 cm) hb Vitals: 10/18 02:13 Heart Tones N/A. kd3 ED Course: 10/17 21:47 Patient arrived in ED. ja2 21:58 Micheal Leon PA is PHCP. cp 21:58 Papito Joe MD is Attending Physician. cp 21:59 Triage completed. hb 21:59 Arm band placed on. hb 22:15 Neymar Roberts, APARNA is Primary Nurse. as6 23:27 Warm blanket given. wm 23:27 Initial lab(s) drawn, by ky, sent to lab. Urine collected: clean catch specimen, wm cloudy. Inserted saline lock: 20 gauge in left antecubital area, using aseptic technique. Blood collected. 23:28 Abo/rh Typing Sent. wm 23:28 Basic Metabolic Panel Sent. wm 23:28 CBC with Diff Sent. 23:42 Urine Microscopic Only Sent. 10/18 02:12 Patient has correct armband on for positive identification. kd3 02:12 No provider procedures requiring assistance completed. IV discontinued, intact, kd3 bleeding controlled, No redness/swelling at site. Pressure dressing applied. Administered Medications: No medications were administered Medication: 02:14 VIS not applicable for this client. kd3 Point of Care Testing: Urine : 02:13 hCG Reading: Positive; kd3 Outcome: 01:51 Discharge ordered by MD. cp 02:12 Discharged to home ambulatory. kd3 02:12 Condition: stable 02:12 Discharge instructions given to patient, Instructed on discharge instructions, follow up and referral plans. Demonstrated understanding of instructions, follow-up care. 02:14 Patient left the ED. kd3 Signatures: Micheal Leon PA PA cp Baxter, Heather, RN RN Quinteros Isabella Leon Ana ja2 Neymar Roberts, APARNA BRAUN as6 Don, Gilma, RN RN kd3
[2021-10-18 05:51] VITALS: BP 124/76; TEMP 97.4; O2SAT 100
--- OUTSIDE RECORDS SUMMARY | 2021-10-19 14:56 | XMS REPORT | Continuity of Care Document ---
:1995 Author Organization [facility] t Address [address] [place] [address] [address] [place] [address] Care Team Providers Name Role Phone Unavailable Unavailable Unavailable Problems This patient has no known problems. Allergies, Adverse Reactions, Alerts This patient has no known allergies or adverse reactions. Social History Social Habit Start Date Stop Date Quantity Comments Source Sex Assigned At [facility] Medications This patient has no known medications. Procedures This patient has no known procedures. Results Test Description Test Time Test Comments Results Result Comments Source SARS-COV2/RT-PCR ([facility]) 2019-10-08 15:27:00 Test Item Value Reference Range Interpretation Comme nts SARS-COV2/RT-PCR (test code = 8618780) Positive Not Detected, N egative AA SARS-COV-2 PERFORMING LAB (test code = 8854948) [facility] Results are for the detection of SARS-CoV-2 [...] 564(g) of the Act.Fact Sheet for Healthcare Providers:https://www.[employer]/sites/default/files/product/d ocuments/Brrt_Xemxf_BY_Lafmppqev_Ckph_AQZB-NzZ-4.pdfFact Sheet for Healthcare Patients:https://www.[employer]/sites/default/files/product/documents/Fact_Sheet_Patients_Lyra_SARS-CoV -2.pdfPerforming Laboratory:[facility] [place] [address]
== END 2021-10-18 02:14 | disposition home or self-care (01) ==
LOC: ER 21:38
DX: N92.6 Irregular menstruation, unspecified (principal); E03.9 Hypothyroidism, unspecified; Z88.5 Allergy status to narcotic agent; Z88.6 Allergy status to analgesic agent
CPT/HCPCS: 36415; 80048; 81003; 81015; 84702; 85025; 86900; 86901

== ENCOUNTER 2021-12-12 17:40 | Emergency (ER) | payer SELFPAY ==
--- OUTSIDE RECORDS SUMMARY | 2021-12-12 17:42 | XMS REPORT | Continuity of Care Document ---
:1995 Author Organization [facility] t Address [address] [place] [address] [address] [place] [address] Care Team Providers Name Role Phone Unavailable Unavailable Unavailable Problems This patient has no known problems. Allergies, Adverse Reactions, Alerts This patient has no known allergies or adverse reactions. Social History Social Habit Start Date Stop Date Quantity Comments Source Sex Assigned At [birth year] [facility] Medications This patient has no known medications. Procedures This patient has no known procedures. Results Test Description Test Time Test Comments Results Result Comments Source SARS-COV2/RT-PCR ([facility]) 2019-10-08 15:27:00 Test Item Value Reference Range Interpretation Comme nts SARS-COV2/RT-PCR (test code = 0335607) Positive Not Detected, N egative AA SARS-COV-2 PERFORMING LAB (test code = 7935093) [facility] Results are for the detection of SARS-CoV-2 [...] do not rule out bacterial infection or co-infection with other viruses. The agent detected may not be the definite cause of disease. The limit of detection for this assay is 800 copies/mL.This SARS CoV-2 test is a real-time RT-PCR test intended for the qualitative detection of nucleic acid from SARS-CoV-2 in a nasopharyngeal swab specimen collected from individuals suspected of COVID-19 by their healthcare provider.This test has not been Food and Drug Administration (FDA) cleared or approved. This is a modified version of an approvedEmergency Use Authorization (EUA) and is in the process of review by the FDA. Once authorized by theFDA, the issued EUA will be effective until the declaration that circumstances exist justifying the authorization of the emergency use of in vitro diagnostic tests for detection and/or diagnosis of COVID-19 is terminated under Section 564(b)(2) of the Act or the EUA is revoked under Section 564(g) of the Act.Fact Sheet for Healthcare Providers:https://www.[employer] Data.[employer]/sites/default/files/product/documen ts/Vvzu_Zgztp_WG_Gasddqsfg_Rmic_KZYR-PxG-0.pdfFact Sheet for Healthcare Patients:https://www.Clinical Data.[employer] om/sites/default/files/product/documents/Nvbe_Jyuhf_Owbrcghq_Akas_RDCV-LyS-5.pdf Performing Laboratory:[facility] [place] [address]
[2021-12-12] MEDS ORDERED: FAMOTIDINE 20 MG/2 ML VIAL IV ONE (18:50)
[2021-12-12] MEDS ORDERED: ONDANSETRON 4 MG/2 ML VIAL ONE (18:50)
[2021-12-12] MEDS ORDERED: NA CHLORIDE 0.9% 1,000 ML ONE (18:50)
[2021-12-12 19:01] LABS: Urine Blood Negative (Negative); Urine Glucose Negative (Negative); Urine Protein 2+ (Negative); Urine Specific Gravity >=1.030 (1.005-1.030); Urine pH 5.5 (5.0-7.0)
--- NOTE | 2021-12-12 19:23 | RAD REPORT ---
EXAM DESCRIPTION: US - Abdomen Exam Limited - 12/12/2021 6:50 pm CLINICAL HISTORY: EPIGASTRIC PAIN COMPARISON: Abdomen Exam Limited dated 02/06/2018 FINDINGS: The gallbladder demonstrates no gallstones. No pericholecystic fluid or gallbladder wall t hickening. The common bile duct is normal measuring 2 mm. The liver demonstrates no findings of intrahepatic biliary dilatation. IMPRESSION: Unremarkable examination.
[2021-12-12 20:16] LABS: Hematocrit 42.8 % (36.0-45.0); Lymphocytes % 7.9 % (15.3-44.8); MCV 90.7 fL (80-100); MPV 8.5 fL (7.6-11.3); RBC Red Blood Cell Count 4.72 M/uL (3.86-4.86)
[2021-12-12] MEDS ORDERED: DIPHENHYDRAMINE 50 MG/ML VIAL ONE (20:20)
[2021-12-12] MEDS ORDERED: METOCLOPRAMIDE 10 MG/2mL INJ ONE (20:20)
[2021-12-12] MEDS ORDERED: MORPHINE 2 MG/ML SYR ONE (20:21)
--- NOTE | 2021-12-12 20:25 | RAD REPORT ---
EXAM DESCRIPTION: CT - Abdomen Pelvis Wo Contrast - 12/12/2021 8:11 pm CLINICAL HISTORY: Abdominal pain. abdominal pain, vomiting COMPARISON: Abdomen Pelvis W Contrast dated 08/18/2021; Chest For Pe Angio dated 01/19/2020 TECHNIQUE: CT imaging of the abdomen and pelvis was performed without contrast. Solid organ, bowel a nd vascular assessment is limited due to lack of IV and oral contrast. All CT scans are performed using dose optimization technique as appropriate and may include automated exposure control or mA/KV adjustment according to patient size. FINDINGS: The lower lung roberto are clear. The liver, spleen, pancreas, adrenal glands and kidneys are within normal limits for a limited non-co ntrast examination. No bowel obstruction, free air, intra-abdominal free fluid or abscess. Mild mesenteric edema is prese nt. The appendix is normal. Mild free fluid is present in the pelvis. The osseous structures are within normal limits. IMPRESSION: Mild nonspecific mesenteric edema is present. Mild pelvic free fluid. A limited non-contrast examination was performed as detailed.
[2021-12-12 20:36] LABS: Albumin 4.2 g/dL (3.4-5.0); Bilirubin Total 0.6 mg/dL (0.2-1.0); Potassium 3.7 mmol/L (3.5-5.1); Protein, Total 8.6 g/dL (6.4-8.2)
--- NOTE | 2021-12-12 21:33 | EDPHYS ---
Physician Documentation [facility] Name: Sonja Covarrubias Age: 26 yrs Sex: Female : 1995 Arrival Date: 12/12/2021 Time: 17:43 Bed 19 Private MD: CADEN Physician Micheal Leon HPI: 12/12 18:26 This 26 yrs old Female presents to ER via Ambulatory with complaints of jmm Abdominal Pain, Vomiting/Diarrhea. 18:26 The patient presents with abdominal pain. Onset: The symptoms/episode began/occurred jm acutely, today. The symptoms do not radiate. Associated signs and symptoms: Pertinent positives: nausea and vomiting, diarrhea. The symptoms are described as achy, crampy. Modifying factors: The symptoms are alleviated by nothing, the symptoms are aggravated by nothing. The patient has experienced similar episodes in the past. 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 - Social history:: Smoking status: Patient denies any tobacco usage or history of. Patient/guardian denies using alcohol. ROS: 18:26 Constitutional: Negative for fever, chills, and weight loss, Cardiovascular: Negative jmm for chest pain, palpitations, and edema, Respiratory: Negative for shortness of breath, cough, wheezing, and pleuritic chest pain. 18:26 Back: Negative for injury and pain. 18:26 Abdomen/GI: Positive for abdominal pain, vomiting, diarrhea. 18:26 All other systems are negative. Exam: 18:26 Constitutional: This is a well developed, well nourished patient who is awake, alert, jmm and in no acute distress. Head/Face: atraumatic. Eyes: EOMI, no conjunctival erythema appreciated ENT: Moist Mucus Membranes Neck: Trachea midline, Supple Chest/axilla: Normal chest wall appearance and motion. Cardiovascular: Regular rate and rhythm. No edema appreciated Respiratory: Normal respirations, no respiratory distress appreciated 18:26 Back: Normal ROM Skin: General appearance color normal MS/ Extremity: Moves all extremities, no obvious deformities appreciated, no edema noted to the lower extremities Neuro: Awake and alert Psych: Behavior is normal, Mood is normal, Patient is cooperative and pleasant 18:26 Abdomen/GI: Inspection: abdomen appears normal, Bowel sounds: normal, Palpation: soft, mild abdominal tenderness, in all quadrants. Vital Signs: 18:16 BP 114 / 76; Pulse 100; Resp 16; Temp 98.1(TE); Pulse Ox 100% on R/A; Weight 66.68 kg bm7 (R); Height 5 ft. 4 in. (162.56 cm); Pain 8/10; 21:55 BP 112 / 82; Pulse 79; Resp 14; Pulse Ox 100% on R/A; ja4 18:16 Body Mass Index 25.23 (66.68 kg, 162.56 cm) bm7 MDM: 18:40 Patient medically screened. johanna 21:31 Data reviewed: vital signs, nurses notes. Counseling: I had a detailed discussion with jean carlos the patient and/or guardian regarding: the historical points, exam findings, and any diagnostic results supporting the discharge/admit diagnosis, lab results, radiology results, the need for outpatient follow up, to return to the emergency department if symptoms worsen or persist or if there are any questions or concerns that arise at home. ED course: States feeling much better. Patient able to tolerate p.o. in the ED. Advised to follow with the PCP and otherwise given strict return precautions. Patient understood agrees plan of care.. 12/12 18:26 Order name: CBC with Diff; Complete Time: 20:27 [facility] 12/12 18:26 Order name: CMP; Complete Time: 20:38 [facility] 12/12 18:26 Order name: Lipase; Complete Time: 20:38 [facility] 12/12 19:01 Order name: Urine Dipstick-Ancillary; Complete Time: 19:09 [facility] 12/12 18:26 Order name: CT Abd/Pelvis - Without Contrast; Complete Time: 20:27 [facility] 12/12 18:26 Order name: US Abdomen Limited; Complete Time: 19:27 [facility] 12/12 18:26 Order name: IV Saline Lock [facility] 12/12 18:26 Order name: Labs collected and sent [facility] 12/12 18:26 Order name: Urine Dipstick-Ancillary (obtain specimen) [facility] 12/12 18:26 Order name: Urine Test (obtain specimen) [facility] 12/12 20:04 Order name: Urine Test (obtain specimen) [facility] Administered Medications: 20:21 Drug: Reglan (metoCLOPramide) 20 mg Route: IVP; Site: left antecubital; [facility] 20:21 Drug: morphine 2 mg Route: IVP; Infused Over: 4 mins; Site: left antecubital; ja4 20:21 Drug: diphenhydrAMINE 12.5 mg Route: IVP; Site: left antecubital; 4 20:22 Drug: NS 0.9% 1000 ml Route: IV; Rate: 1 bolus; Site: left antecubital; ja4 20:22 Drug: Pepcid (famotidine) 20 mg Route: IVP; Site: left antecubital; [facility] 20:22 Not Given (provider cancelledd): Zofran (Ondansetron) 4 mg IVP once; over 2 minutes ja Disposition Summary: 12/12/21 21:33 Discharge Ordered Location: Home [facility] Condition: Stable [facility] Diagnosis - Vomiting jmm - Diarrhea, unspecified jm - Abdominal pain, unspecified jmm Followup: [facility] - With: Private Physician - When: 2 - 3 days - Reason: Recheck today's complaints, Continuance of care, Re-evaluation by your physician Discharge Instructions: - Discharge Summary Sheet [facility] - Abdominal Pain, Adult jm - Food Choices to Help Relieve Diarrhea, Adult jm - Vomiting, Adult [facility] Forms: - Medication Reconciliation Form [facility] - Thank You Letter [facility] - Antibiotic Education [facility] - Prescription Opioid Use [facility] Prescriptions: - dicyclomine 20 mg Oral Tablet - take 1 tablet by ORAL route 4 times per day As needed; 30 tablet; Refills: 0, [facility] Product Selection Permitted - ondansetron 4 mg Oral tablet,disintegrating - take 1 tablet by ORAL route every 4-6 hours As needed; 20 tablet; Refills: 0, [facility] Product Selection Permitted Signatures: Dispatcher [employer] Micheal Robles MD MD cha Mickail, Joel, PA PA jmm McCarthy, Brittany, RN RN bm7 Case Young, APARNA RN ja4
--- NOTE | 2021-12-12 21:33 | ER ---
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 She has diarrhea that she can not control. She can not eat or drink anything and she is having a hard time urinating. She has been throwing up so much she has red dots on her face. Coronavirus screen: At this time, the client does not indicate any symptoms associated with coronavirus-19. Ebola Screen: No symptoms or risks identified at this time. Initial Sepsis Screen: Does the patient meet any 2 criteria? No. Patient's initial sepsis screen is negative. Does the patient have a suspected source of infection? No. Patient's initial sepsis screen is negative. Risk Assessment: Do you want to hurt yourself or someone else? Patient reports no desire to harm self or others. Onset of symptoms was December 12, 2021. 18:16 Method Of Arrival: Ambulatory 7 18:16 Acuity: JANNY 3 bm7 Triage Assessment: 18:16 General: Appears in no apparent distress. uncomfortable, Behavior is calm, cooperative, bm7 appropriate for age. Pain: Complains of pain in epigastric area Pain does not radiate. EENT: No deficits noted. No signs and/or symptoms were reported regarding the EENT system. Neuro: No deficits noted. Cardiovascular: No deficits noted. Respiratory: No deficits noted. GI: Abdomen is flat, non-distended, Abd is soft X 4 quads Abdomen is tender to palpation in epigastric area Reports upper abdominal pain, cramping, diarrhea, intolerance of fluids, intolerance of food, nausea, vomiting. : Reports inability to void, urinary frequency. Derm: Rash noted that is petechiae on face. Musculoskeletal: No deficits noted. No signs and/or symptoms reported regarding the musculoskeletal system. 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 - Social history:: Smoking status: Patient denies any tobacco usage or history of. Patient/guardian denies using alcohol. Screenin:30 Abuse screen: Denies threats or abuse. Nutritional screening: No deficits noted. ja4 Tuberculosis screening: No symptoms or risk factors identified. Fall Risk IV access (20 points). Assessment: 20:30 General: Appears uncomfortable, slender. Pain: Complains of pain in abdomen. Neuro: No ja4 deficits noted. 20:30 GI: Reports diarrhea, intolerance of fluids, intolerance of food, nausea. ja4 Vital Signs: 18:16 BP 114 / 76; Pulse 100; Resp 16; Temp 98.1(TE); Pulse Ox 100% on R/A; Weight 66.68 kg [facility] (R); Height 5 ft. 4 in. (162.56 cm); Pain 8/10; 21:55 BP 112 / 82; Pulse 79; Resp 14; Pulse Ox 100% on R/A; ja4 18:16 Body Mass Index 25.23 (66.68 kg, 162.56 cm) 7 ED Course: 17:43 Patient arrived in ED. rg4 17:56 Bhargav Cesar PA is PHCP. jmm 17:56 Micheal Leon MD is Attending Physician. jmm 18:12 Arm band placed on right wrist. bm7 18:22 Triage completed. bm7 18:51 US Abdomen Limited In Process Unspecified. EDMS 19:22 Case Young, APARNA is Primary Nurse. ja4 20:12 CT Abd/Pelvis - Without Contrast In Process Unspecified. EDMS 20:30 Bed in low position. Call light in reach. Side rails up X 1. Adult w/ patient. ja4 20:30 No provider procedures requiring assistance completed. Inserted saline lock: 20 gauge ja4 in left antecubital area, using aseptic technique. Blood collected. 21:55 IV discontinued, intact, bleeding controlled, No redness/swelling at site. Pressure ja4 dressing applied. Administered Medications: 20:21 Drug: Reglan (metoCLOPramide) 20 mg Route: IVP; Site: left antecubital; ja4 20:21 Drug: morphine 2 mg Route: IVP; Infused Over: 4 mins; Site: left antecubital; ja4 20:21 Drug: diphenhydrAMINE 12.5 mg Route: IVP; Site: left antecubital; ja4 20:22 Drug: NS 0.9% 1000 ml Route: IV; Rate: 1 bolus; Site: left antecubital; ja4 20:22 Drug: Pepcid (famotidine) 20 mg Route: IVP; Site: left antecubital; ja4 20:22 Not Given (provider cancelledd): Zofran (Ondansetron) 4 mg IVP once; over 2 minutes ja4 Medication: 20:30 VIS not applicable for this client. ja4 Outcome: 21:33 Discharge ordered by MD. evangelista 21:55 Discharged to home ambulatory. ja4 21:55 Condition: stable 21:55 Discharge instructions given to patient, friend, Instructed on discharge instructions, follow up and referral plans. medication usage. 22:03 Patient left the ED. ja4 Signatures: Dispatcher [employer] EDMS Bhargav Cesar PA PA jmm Garcia, Rubi rg4 Argenis Corcoran, APARNA RN bm7 Case Young RN RN ja4
[2021-12-13 12:55] VITALS: TEMP 98.1; O2SAT 100
[2021-12-13 12:57] VITALS: BP 112/82
== END 2021-12-12 22:03 | disposition home or self-care (01) ==
LOC: ER 17:40
DX: R10.9 Unspecified abdominal pain (principal); R11.10 Vomiting, unspecified; R19.7 Diarrhea, unspecified; E03.9 Hypothyroidism, unspecified; Z88.5 Allergy status to narcotic agent; Z88.8 Allergy status to other drugs, medicaments and biological substances
CPT/HCPCS: 36415; 74176; 76705; 80053; 81003; 83690; 85025; 96374; 96375; 99284; J1200; J2270; J2405; J2765; J7030

== ENCOUNTER 2022-11-05 08:05 | Emergency (ER) | payer SELFPAY ==
--- NOTE | 2022-11-05 09:47 | RAD REPORT ---
EXAM DESCRIPTION: RAD - Shoulder Left 2 View - 11/05/2022 9:26 am CLINICAL HISTORY: PAIN COMPARISON: Scapula Left dated 11/05/2022 TECHNIQUE: Internal and external rotation views of the left shoulder were obtained. FINDINGS: There is no fracture or dislocation. AC joint is normal in appearance. No acute or suspici ous findings. IMPRESSION: Negative two-view left shoulder examination.
--- NOTE | 2022-11-05 09:48 | RAD REPORT ---
EXAM DESCRIPTION: RAD - Scapula Left - 11/05/2022 9:26 am CLINICAL HISTORY: PAIN COMPARISON: No comparisons TECHNIQUE: Internal and external rotation views of the left shoulder were obtained. FINDINGS: There is no fracture or dislocation. AC joint is normal in appearance. No acute or suspici ous findings. IMPRESSION: Negative two-view left shoulder examination.
--- NOTE | 2022-11-05 09:48 | RAD REPORT ---
EXAM DESCRIPTION: RAD - Elbow Left 3 View - 11/05/2022 9:24 am CLINICAL HISTORY: PAIN COMPARISON: No comparisons TECHNIQUE: Left elbow, 3 views. FINDINGS: No fracture is identified. No elevated posterior fat pad to suggest an effusion. There is no dislocation or periosteal reaction noted. No foreign body or other soft tissue abnormalit y. IMPRESSION: Negative left elbow examination.
--- NOTE | 2022-11-05 09:48 | RAD REPORT ---
EXAM DESCRIPTION: RAD - C Spine Ap/Lat - 11/05/2022 9:29 am CLINICAL HISTORY: PAIN COMPARISON: No comparisons TECHNIQUE: Cervical spine, 3 views. FINDINGS: Cervical vertebral bodies are normal in height and alignment. No fracture or acute bony pr ocess seen. No disc space narrowing. There is no prevertebral soft tissue thickening or other suspicious soft tissue finding. IMPRESSION: Negative cervical spine examination.
--- NOTE | 2022-11-05 09:58 | EDPHYS ---
Physician Documentation [facility] Name: Sonja Bella Age: 27 yrs Sex: Female : 1995 Arrival Date: 11/05/2022 Time: 08:05 Bed 9 Private MD: ED Physician Papito Joe HPI: 11/05 08:30 This 27 yrs old Female presents to ER via Ambulatory with complaints of Fall jh7 Injury. 08:30 Details of fall: The patient fell from a height, off furniture, approximately 4 feet, jh7 bed. Onset: The symptoms/episode began/occurred last night. Associated injuries: The patient sustained left elbow and left shoulder and left arm. 27-year-old female presents to the ER post fall. Reports that she rolled out of bed and landed on her left shoulder. Also reports left neck and elbow pain. Denies LOC or head injury. Denies PMH.. Historical: - Allergies: 08:38 Fentanyl; tf2 08:38 Motrin; tf2 - Home Meds: 08:38 levothyroxine 50 mcg tab 1 tab once daily [Active]; tf2 - PMHx: 08:38 Hypothyroidism; PE; tf2 - Social history:: Smoking status: Patient denies any tobacco usage or history of. Patient/guardian denies using street drugs. ROS: 08:30 Constitutional: Negative for fever, chills, and weight loss, Eyes: Negative for injury, jh7 pain, redness, and discharge, ENT: Negative for injury, pain, and discharge, Cardiovascular: Negative for chest pain, palpitations, and edema, Respiratory: Negative for shortness of breath, cough, wheezing, and pleuritic chest pain, Back: Negative for injury and pain, Skin: Negative for injury, rash, and discoloration, Neuro: Negative for headache, weakness, numbness, tingling, and seizure. 08:30 Neck: Positive for pain with movement, tenderness. 08:30 MS/extremity: Positive for decreased range of motion, pain, tenderness, of the left elbow and left shoulder and left arm. 08:30 All other systems are negative. Exam: 08:30 Constitutional: This is a well developed, well nourished patient who is awake, alert, jh7 and in no acute distress. Head/Face: Normocephalic, atraumatic. Eyes: Pupils equal round and reactive to light, extra-ocular motions intact. Lids and lashes normal. Conjunctiva and sclera are non-icteric and not injected. Cornea within normal limits. Periorbital areas with no swelling, redness, or edema. Cardiovascular: Regular rate and rhythm with a normal S1 and S2. No gallops, murmurs, or rubs. Normal PMI, no JVD. No pulse deficits. Respiratory: Lungs have equal breath sounds bilaterally, clear to auscultation and percussion. No rales, rhonchi or wheezes noted. No increased work of breathing, no retractions or nasal flaring. Abdomen/GI: Soft, non-tender, with normal bowel sounds. No distension or tympany. No guarding or rebound. No evidence of tenderness throughout. Back: No spinal tenderness. No costovertebral tenderness. Full range of motion. Skin: Warm, dry with normal turgor. Normal color with no rashes, no lesions, and no evidence of cellulitis. Neuro: Awake and alert, GCS 15, oriented to person, place, time, and situation. Cranial nerves II-XII grossly intact. Motor strength 5/5 in all extremities. Sensory grossly intact. Cerebellar exam normal. Normal gait. 08:30 Neck: External neck: tenderness, that is moderate, Left lateral neck. 08:30 Musculoskeletal/extremity: ROM: limited active range of motion due to pain, in the left elbow and left shoulder, Circulation is intact in all extremities. Pulses: are normal with no appreciated deficits, Sensation intact. Pain elicited with any movement of the left shoulder and extension of the left elbow.. Vital Signs: 08:32 BP 113 / 79; Pulse 54; Resp 15; Temp 98.4(O); Pulse Ox 99% on R/A; Weight 69.85 kg; tf2 Height 5 ft. 4 in. ; 10:15 BP 110 / 56; Pulse 64; Resp 15; Pulse Ox 99% on R/A; tf2 08:32 Body Mass Index 26.43 (69.85 kg, 162.56 cm) tf2 [place] Coma Score: 10:23 Eye Response: spontaneous(4). Motor Response: obeys commands(6). Verbal Response: tf2 oriented(5). Total: 15. Trauma Score (Adult): 10:23 Eye Response: spontaneous(1); Verbal Response: oriented(1); Motor Response: obeys tf2 commands(2); Systolic BP: > 89 mm Hg(4); Respiratory Rate: 10 to 29 per min(4); [place] Score: 15; Trauma Score: 12 MDM: 08:11 Patient medically screened. [facility] 10:00 Differential diagnosis: contusion, fracture, sprain, strain. Data reviewed: vital [facility] signs, nurses notes, radiologic studies, plain films. Independent interpretation of the following test(s) in the Emergency Department X-Ray: My interpretation is no fractures. Historians other than the Patient: Spouse/Significant Other: . Counseling: I had a detailed discussion with the patient and/or guardian regarding: the historical points, exam findings, and any diagnostic results supporting the discharge/admit diagnosis, to return to the emergency department if symptoms worsen or persist or if there are any questions or concerns that arise at home. 11/05 08:23 Order name: XRAY Shoulder LEFT 2 view; Complete Time: 09:51 [facility] 11/05 08:23 Order name: XRAY Scapula LEFT; Complete Time: 09:51 [facility] 11/05 08:23 Order name: XRAY C Spine Ap/lat; Complete Time: 09:51 [facility] 11/05 08:23 Order name: XRAY Elbow LEFT 3 view; Complete Time: 09:51 [facility] 11/05 09:57 Order name: Sling; Complete Time: 10:00 [facility] Administered Medications: No medications were administered Disposition: 10:53 Co-signature as Attending Physician, Papito Joe MD I reviewed the patient's care rn provided by the Advanced Practice Provider and agree with the diagnosis and treatment plan. Disposition Summary: 11/05/22 09:57 Discharge Ordered Location: Home [facility] Problem: new [facility] Symptoms: are unchanged [facility] Condition: Stable [facility] Diagnosis - Contusion of left shoulder 7 - Other sprain of left elbow [facility] Followup: [facility] - With: Private Physician - When: 2 - 3 days - Reason: Recheck today's complaints Discharge Instructions: - Discharge Summary Sheet 7 - Contusion 7 - Fall Prevention in the Home, Adult [facility] - How to Use a Sling [facility] - Elbow Sprain [facility] Forms: - Medication Reconciliation Form [facility] - Thank You Letter [facility] - Prescription Opioid Use jh - Patient Portal Instructions [facility] Prescriptions: - Zanaflex 4 mg Oral Tablet - take 1 tablet by ORAL route every 8 hours As needed; 20 tablet; Refills: 0, [facility] Product Selection Permitted - Tramadol 50 mg Oral Tablet - take 1 tablet by ORAL route every 8 hours as needed; 12 tablet; Refills: 0, [facility] Product Selection Permitted Signatures: Dispatcher [employer] EDPapito Dangelo MD MD rn Hadash, Jennifer, MEMBERSHIP SALES REPRESENTATIVE MEMBERSHIP SALES REPRESENTATIVE [facility] Mindy Vargas RN RN tf2
--- NOTE | 2022-11-05 09:58 | ER ---
Nurse's Notes [facility] Name: Sonja Bella Age: 27 yrs Sex: Female : 1995 Arrival Date: 11/05/2022 Time: 08:05 Bed 9 Private MD: Diagnosis: Contusion of left shoulder;Other sprain of left elbow Presentation: 11/05 08:32 Chief complaint: Patient states: Pt c/o left should pain secondary to ground level fall tf2 this morning; pt also having left hip pain; pt denies head strike; denies LOC; slipped and fell; no blood thinners. LMP 09/23/22. Coronavirus screen: Client denies travel out of the [place] in the last 14 days. At this time, the client does not indicate any symptoms associated with coronavirus-19. Ebola Screen: No symptoms or risks identified at this time. Initial Sepsis Screen: Does the patient meet any 2 criteria? No. Patient's initial sepsis screen is negative. Does the patient have a suspected source of infection? No. Patient's initial sepsis screen is negative. Risk Assessment: Do you want to hurt yourself or someone else? Patient reports no desire to harm self or others. Note Triage completed using language line with ASL for pt who is deaf. Pt has friend at bedside that can translate simple requests. Onset of symptoms was November 05, 2022 at 07:30. Care prior to arrival: None. Activity prior to arrival: None. 08:32 Method Of Arrival: Ambulatory tf2 08:32 Acuity: JANNY 4 tf2 Triage Assessment: 08:43 General: Appears uncomfortable, Behavior is calm, cooperative. Pain: Complains of pain tf2 in left arm. EENT: No deficits noted. Neuro: No deficits noted. Cardiovascular: No deficits noted. Respiratory: No deficits noted. GI: No deficits noted. : No deficits noted. Derm: No deficits noted. Musculoskeletal: Circulation, motion, and sensation intact. Capillary refill Range of motion: limited in left shoulder and left elbow Swelling absent. Historical: - Allergies: 08:38 Fentanyl; tf2 08:38 Motrin; tf2 - Home Meds: 08:38 levothyroxine 50 mcg tab 1 tab once daily [Active]; tf2 - PMHx: 08:38 Hypothyroidism; PE; tf2 - Social history:: Smoking status: Patient denies any tobacco usage or history of. Patient/guardian denies using street drugs. Screenin:01 [facility] ED Fall Risk Assessment (Adult) History of falling in the last 3 months, tf2 including since admission Yes- single mechanical fall (1 pt) Confusion or Disorientation No (0 pts) Intoxicated or Sedated No (0 pts) Impaired Gait No (0 pts) Mobility Assist Device Used No (0 pt) Altered Elimination No (0 pt) Score/Fall Risk Level 0 - 2 = Low Risk Oriented to surroundings, Maintained a safe environment, Educated pt \T\ family on fall prevention, incl call for assistance when getting out of bed, Assessed \T\ reinforced patient's understanding of fall precautions, Provided non-skid footwear. Abuse screen: Denies threats or abuse. Denies injuries from another. Nutritional screening: No deficits noted. Tuberculosis screening: No symptoms or risk factors identified. Exposure risk/Travel Screening: None identified. Primary Survey: 10:23 NO uncontrolled hemorrhage observed. A: The client is awake and alert. The airway is tf2 patent. Breathing/Chest: Spontaneous respiratory effort, equal unlabored respirations, breath sounds clear bilaterally, regular pattern, symmetrical chest rise and fall. Circulation: No external hemorrhage present. Regular and strong central pulse, skin warm/dry/normal color. Disability Pupils are equal, round, reactive to light and accommodation. Client is alert. Exposure/Environment: All clothing and personal items were removed. in tank top; clothing not removed. Reassessment Alertness and Airway: Awake and alert. The airway is patent. Breathing: Spontaneous respiratory effort, equal unlabored respirations, breath sounds clear bilaterally, regular pattern with symmetrical chest rise and fall. Circulation: No external hemorrhage noted. Regular and strong central pulse, skin warm/dry/normal color. Disability: Alert. Secondary Survey: 10:23 HEENT: No deficits noted. Gastrointestinal: No deficits noted. : No deficits noted. tf2 Musculoskeletal: Reports pain in left arm. Assessment: 10:20 General: Appears in no apparent distress. tf2 Vital Signs: 08:32 BP 113 / 79; Pulse 54; Resp 15; Temp 98.4(O); Pulse Ox 99% on R/A; Weight 69.85 kg; tf2 Height 5 ft. 4 in. ; 10:15 BP 110 / 56; Pulse 64; Resp 15; Pulse Ox 99% on R/A; tf2 08:32 Body Mass Index 26.43 (69.85 kg, 162.56 cm) tf2 [place] Coma Score: 10:23 Eye Response: spontaneous(4). Motor Response: obeys commands(6). Verbal Response: tf2 oriented(5). Total: 15. Trauma Score (Adult): 10:23 Eye Response: spontaneous(1); Verbal Response: oriented(1); Motor Response: obeys tf2 commands(2); Systolic BP: > 89 mm Hg(4); Respiratory Rate: 10 to 29 per min(4); [place] Score: 15; Trauma Score: 12 ED Course: 08:08 Patient arrived in ED. 4 08:11 Elma Green FNP is [facility]. jh7 08:11 Papito Joe MD is Attending Physician. jh7 08:32 Mindy Vargas, RN is Primary Nurse. tf2 08:38 Triage completed. tf2 09:22 XRAY Shoulder LEFT 2 view In Process Unspecified. EDMS 09:22 XRAY Scapula LEFT In Process Unspecified. EDMS 09:22 XRAY C Spine Ap/lat In Process Unspecified. EDMS 09:22 XRAY Elbow LEFT 3 view In Process Unspecified. EDMS 10:01 No apparent distress. tf2 10:01 Patient has correct armband on for positive identification. Bed in low position. Call tf2 light in reach. Side rails up X2. Adult w/ patient. Provided Education on: Sling applied; with conditioner tumbler operator, explained use and what to watch for.. 10:01 No provider procedures requiring assistance completed. Patient did not have IV access tf2 during this emergency room visit. 10:23 Patient maintains SpO2 saturation greater than 95% on room air. tf2 Administered Medications: No medications were administered Intake: 10:23 PO: 0ml; IV: 0ml; Total: 0ml. tf2 Output: 10:23 Urine: 0ml; Total: 0ml. tf2 Outcome: 09:57 Discharge ordered by . jh7 10:01 Discharged to home ambulatory. tf2 10:01 Condition: stable 10:01 Discharge instructions given to patient, Instructed on discharge instructions, sling Prescriptions given X 2. 10:23 Patient's length of stay was not longer than 2 hours. tf2 10:26 Patient left the ED. tf2 Signatures: Dispatcher [employer] CADENLA France Moore rg4 Elma Green, PROVIDER RELATIONS REP PROVIDER RELATIONS REP jh7 Mindy Vargas, RN RN tf2
[2022-11-05 10:37] VITALS: TEMP 98.4; O2SAT 99
[2022-11-05 10:38] VITALS: BP 110/56
== END 2022-11-05 10:26 | disposition home or self-care (01) ==
LOC: ER 08:05 → MERGE 08:05 → ER 10:26
DX: S53.492A Other sprain of left elbow, initial encounter (principal); S40.012A Contusion of left shoulder, initial encounter
CPT/HCPCS: 72040; 73010; 99284

== ENCOUNTER 2022-11-18 15:28 | Emergency (ER) | payer SELFPAY ==
[2022-11-18 18:25] LABS: Specific Gravity 1.007 (1.005-1.030)
[2022-11-18 18:30] LABS: Urine Bacteria <20 /HPF (<20); Urine Mucus Slight /HPF (None Seen); Urine RBC <5 /HPF (None Seen)
--- NOTE | 2022-11-18 19:56 | ER ---
Nurse's Notes [facility] Name: Sonja Bella Age: 27 yrs Sex: Female : 1995 Arrival Date: 11/18/2022 Time: 15:28 Bed 11 Private MD: Diagnosis: Vaginitis, vulvitis and vulvovaginitis in diseases classified elsewhere;Encounter for screening for infections with a predominantly sexual mode of transmission Presentation: 11/18 16:03 Chief complaint: Patient states: White vaginal discharge along with vaginal pain, nj1 itching and burning sensation for about 3-4 days. Coronavirus screen: Vaccine status: Patient reports being unvaccinated. Ebola Screen: Patient denies travel to an Ebola-affected area in the 21 days before illness onset. Initial Sepsis Screen: Does the patient meet any 2 criteria? No. Patient's initial sepsis screen is negative. Does the patient have a suspected source of infection? No. Patient's initial sepsis screen is negative. Risk Assessment: Do you want to hurt yourself or someone else? Patient reports no desire to harm self or others. Onset of symptoms was October 2022. 16:03 Method Of Arrival: Ambulatory nj1 16:03 Acuity: JANNY 4 nj1 Historical: - Allergies: 16:06 Fentanyl; nj1 16:06 Motrin; nj1 - PMHx: 16:06 HEARING IMPAIRED; Hypothyroidism; PE; nj1 - PSHx: 16:06 right ovarian cyst removed; nj1 - Immunization history:: Client reports having NOT received the Covid vaccine. - Social history:: Smoking status: Patient denies any tobacco usage or history of. Screenin:38 [facility] ED Fall Risk Assessment (Adult) Score/Fall Risk Level 0 - 2 = Low Risk hb Oriented to surroundings, Maintained a safe environment. Abuse screen: Denies threats or abuse. Denies injuries from another. Nutritional screening: No deficits noted. Tuberculosis screening: No symptoms or risk factors identified. Assessment: 18:38 General: Appears in no apparent distress. Behavior is calm, cooperative. Pain: Pain hb currently is 2 out of 10 on a pain scale. Neuro: Level of Consciousness is awake, alert, obeys commands, Oriented to person, place, time, situation. Cardiovascular: Patient's skin is warm and dry. Respiratory: Respiratory effort is even, unlabored, Respiratory pattern is regular, symmetrical. GI: No signs and/or symptoms were reported involving the gastrointestinal system. : Reports pain. EENT: No signs and/or symptoms were reported regarding the EENT system. Derm: Skin is pink, warm \T\ dry. Musculoskeletal: No signs and/or symptoms reported regarding the musculoskeletal system. 20:31 Reassessment: No changes from previously documented assessment. Patient is alert, kl oriented x 3, equal unlabored respirations, skin warm/dry/pink. Vital Signs: 16:03 BP 122 / 83; Pulse 65; Resp 16; Temp 98.7(O); Pulse Ox 100% ; Weight 68.04 kg; Height 5 nj ft. 4 in. ; 20:31 Pulse 68; Resp 17; Pulse Ox 97% on R/A; kl 16:03 Body Mass Index 25.75 (68.04 kg, 162.56 cm) [facility] ED Course: 15:33 Patient arrived in ED. im 15:35 Micheal Leon PA is PHCP. cp 15:35 Jazmine Perez MD is Attending Physician. cp 16:06 Triage completed. nj1 16:07 Arm band placed on left wrist. [facility] 17:16 Yael Sosa RN is Primary Nurse. hb 18:38 Patient has correct armband on for positive identification. Provided Education on: . hb 18:38 Assist provider with pelvic exam: Set up pelvic tray. Performed by Micheal TONEY hb Specimens sent to lab. Patient tolerated well. Patient did not have IV access during this emergency room visit. Administered Medications: 20:15 Drug: Rocephin (cefTRIAXone) IM 250 mg Route: IM; Site: right deltoid; kl 20:31 Follow up: Response: No adverse reaction kl 20:15 Drug: AZITHromycin PO 1 grams Route: PO; kl 20:31 Follow up: Response: No adverse reaction Medication: 18:38 VIS not applicable for this client. hb Outcome: 19:56 Discharge ordered by . cp 20:31 Discharged to home ambulatory. kl 20:31 Condition: stable 20:31 Discharge instructions given to patient, Instructed on discharge instructions, follow up and referral plans. medication usage, Demonstrated understanding of instructions, follow-up care, medications, Prescriptions given X 2. 20:32 Patient left the ED. kl Signatures: Jose E, ChellyAPARNA lemus RN, Corey, PA PA cp Baxter, Heather, RN RN Dilcia Welch RN RN nj1 Marleny Flores Corrections: (The following items were deleted from the chart) 16:08 16:03 Pulse 65bpm; Resp 16bpm; Pulse Ox 100%; Temp 98.7F Oral; 68.04 kg; Height 5 ft. 4 nj1 in.; BMI: 25.7; nj1
--- NOTE | 2022-11-18 19:56 | EDPHYS ---
Physician Documentation [facility] Name: Sonja Bella Age: 27 yrs Sex: Female : 1995 Arrival Date: 11/18/2022 Time: 15:28 Bed 11 Private MD: ED Physician Jazmine Perez HPI: 11/18 16:15 This 27 yrs old Female presents to ER via Ambulatory with complaints of STD cp Exposure. 16:15 The patient presents with perineal itching, a possible exposure to a sexually cp transmitted disease, vaginal discharge, that is white discharge, purulent discharge. 16:15 Onset: The symptoms/episode began/occurred 4 day(s) ago. cp 16:15 Associated signs and symptoms: Pertinent negatives: constipation, diarrhea, fever, cp hematuria, vaginal bleeding. Severity of symptoms: in the emergency department the symptoms are unchanged, despite home interventions. The patient is sexually active, does not use protection during intercourse. The patient's method of control includes nothing. Historical: - Allergies: 16:06 Fentanyl; nj1 16:06 Motrin; nj1 - PMHx: 16:06 HEARING IMPAIRED; Hypothyroidism; PE; nj1 - PSHx: 16:06 right ovarian cyst removed; nj1 - Immunization history:: Client reports having NOT received the Covid vaccine. - Social history:: Smoking status: Patient denies any tobacco usage or history of. ROS: 16:20 Constitutional: Negative for body aches, chills, fever, poor PO intake. cp 16:20 Eyes: Negative for injury, pain, redness, and discharge. cp 16:20 Cardiovascular: Negative for chest pain, palpitations. 16:20 Respiratory: Negative for cough, shortness of breath, wheezing. 16:20 Abdomen/GI: Negative for abdominal pain, nausea, vomiting, and diarrhea. 16:20 : Positive for vaginal discharge, vaginal itching, Negative for hematuria, flank pain, vaginal bleeding. 16:20 Skin: Negative for rash. 16:20 Neuro: Negative for altered mental status, dizziness, headache, weakness. 16:20 All other systems are negative. Exam: 16:25 Constitutional: The patient appears in no acute distress, alert, awake, comfortable, cp non-toxic, well developed, well nourished. 16:25 Head/Face: Normocephalic, atraumatic. cp 16:25 Eyes: Periorbital structures: appear normal, Conjunctiva: normal, no exudate, no injection, Sclera: no appreciated abnormality, Lids and lashes: appear normal, bilaterally. 16:25 ENT: External ear(s): are unremarkable, Nose: is normal, Mouth: Lips: moist, Oral mucosa: moist, Posterior pharynx: is normal, airway is patent, no erythema, no exudate. 16:25 Chest/axilla: Inspection: normal. 16:25 Cardiovascular: Rate: normal, Rhythm: regular. 16:25 Respiratory: the patient does not display signs of respiratory distress, Respirations: normal, no use of accessory muscles, no retractions, labored breathing, is not present, Breath sounds: are clear throughout, no decreased breath sounds, no stridor, no wheezing. 16:25 Abdomen/GI: Inspection: abdomen appears normal, Palpation: abdomen is soft and non-tender, in all quadrants. 16:25 Back: CVA tenderness, is absent. 16:25 Skin: cellulitis, is not appreciated, no rash present. 18:18 : Pelvic Exam: External exam: is normal, Speculum exam: no bleeding is noted, no cp cervicitis, os that is closed, bimanual exam reveals no cervical motion tenderness, no uterine tenderness, no adnexa tenderness or masses bilaterally, discharge, white, yellow, the nurse was present for the exam. Vital Signs: 16:03 BP 122 / 83; Pulse 65; Resp 16; Temp 98.7(O); Pulse Ox 100% ; Weight 68.04 kg; Height 5 nj1 ft. 4 in. ; 20:31 Pulse 68; Resp 17; Pulse Ox 97% on R/A; kl 16:03 Body Mass Index 25.75 (68.04 kg, 162.56 cm) nj1 MDM: 16:12 Patient medically screened. cp 19:55 Data reviewed: vital signs, nurses notes, lab test result(s). cp 19:55 Differential diagnosis: moe infection, cervicitis, pelvic inflammatory disease, cp urinary tract infection, vaginosis. I considered the following discharge prescriptions or medication management in the emergency department Medications were administered in the Emergency Department. See MAR. Counseling: I had a detailed discussion with the patient and/or guardian regarding the historical points, exam findings, and any diagnostic results supporting the discharge/admit diagnosis, lab results, the need for outpatient follow up, a family practitioner, to return to the emergency department if symptoms worsen or persist or if there are any questions or concerns that arise at home. 11/18 16:08 Order name: Urine Microscopic Only; Complete Time: 19:00 cp 11/18 19:00 Interpretation: Normal except: UWBC >50. cp 11/18 16:08 Order name: PREGU; Complete Time: 19:00 cp 11/18 17:25 Order name: GC (Ajit/Chl) Probe VAGINAL (Do not order if pt is under 13, order Culture cp instead) 11/18 18:35 Order name: Urine Culture EDNJ 11/18 18:38 Order name: Wet Prep EDNJ 11/18 17:25 Order name: Pelvic Exam Setup; Complete Time: 18:37 cp Administered Medications: 20:15 Drug: Rocephin (cefTRIAXone) IM 250 mg Route: IM; Site: right deltoid; kl 20:31 Follow up: Response: No adverse reaction kl 20:15 Drug: AZITHromycin PO 1 grams Route: PO; kl 20:31 Follow up: Response: No adverse reaction kl Disposition Summary: 11/18/22 19:56 Discharge Ordered Location: Home cp Problem: new cp Symptoms: have improved cp Condition: Stable cp Diagnosis - Vaginitis, vulvitis and vulvovaginitis in diseases classified elsewhere cp - Encounter for screening for infections with a predominantly sexual mode of cp transmission Followup: cp - With: Private Physician - When: 2 - 3 days - Reason: Worsening of condition Discharge Instructions: - Discharge Summary Sheet cp - Vaginitis cp - Health Maintenance, Female cp - Preventing Sexually Transmitted Infections, Adult cp Forms: - Medication Reconciliation Form cp - Thank You Letter cp - Antibiotic Education cp - Prescription Opioid Use cp - Patient Portal Instructions cp - Leadership Thank You Letter cp Prescriptions: - Metronidazole 500 mg Oral Tablet - take 1 tablet by ORAL route every 8 hours; 30 tablet; Refills: 0, Product cp Selection Permitted - Doxycycline Monohydrate 100 mg Oral Tablet - take 1 tablet by ORAL route every 12 hours for 10 days; 20 tablet; Refills: 0, cp Product Selection Permitted Signatures: Dispatcher [facility] Chelly Roach RN RN kl Page, Micheal, PA PA cp Yuri, Dilcia, RN RN nj1 Corrections: (The following items were deleted from the chart) 18:38 17:25 Wet Prep+BA.JUAN.MAX ordered. EDMS EDMS
[2022-11-18] MEDS ORDERED: CEFTRIAXONE 250 MG/VIAL ONE (20:29)
[2022-11-18] MEDS ORDERED: AZITHROMYCIN 250 MG TAB ONE (20:29)
[2022-11-18 21:11] VITALS: BP 122/83; TEMP 98.7
[2022-11-18 21:12] VITALS: O2SAT 97
== END 2022-11-18 20:32 | disposition home or self-care (01) ==
LOC: ER 15:28
DX: Z11.3 Encounter for screening for infections with a predominantly sexual mode of transmission (principal); N77.1 Vaginitis, vulvitis and vulvovaginitis in diseases classified elsewhere
CPT/HCPCS: 81015; 81025; 87086; 87088; 87210; 87490; 87590; 96372; 99284; J0696

== ENCOUNTER 2023-02-25 14:32 | Emergency (ER) | payer SELFPAY ==
[2023-02-25 16:49] LABS: SARS-COV-2 RT PCR NEGATIVE (NEGATIVE)
--- NOTE | 2023-02-25 16:53 | EDPHYS ---
Physician Documentation [facility] Name: Sonja Bella Age: 28 yrs Sex: Female : 1995 Arrival Date: 02/25/2023 Time: 14:32 Bed DX4 Private MD: ED Physician Jacob Harrison HPI: 02/25 16:48 This 28 yrs old Female presents to ER via Ambulatory with complaints of Mouth snw Blisters. 16:48 Onset: The symptoms/episode began/occurred gradually. It is unknown whether or not the snw patient has had similar symptoms in the past. Historical: - Allergies: 14:44 Fentanyl; mb9 14:44 Motrin; mb9 - Home Meds: 14:44 levothyroxine 50 mcg tab 1 tab once daily [Active]; mb9 - PMHx: 14:44 HEARING IMPAIRED; Hypothyroidism; PE; mb9 - PSHx: 14:44 right ovarian cyst removed; mb9 - Immunization history:: Adult Immunizations up to date. - Social history:: Smoking status: Patient denies any tobacco usage or history of. ROS: 16:25 Constitutional: Negative for fever, chills, and weight loss, + fatigue/malaise Eyes: snw Negative for injury, pain, redness, and discharge, Neck: Negative for injury, pain, and swelling, Cardiovascular: Negative for chest pain, palpitations, and edema, Respiratory: Negative for shortness of breath, cough, wheezing, and pleuritic chest pain, Abdomen/GI: Negative for abdominal pain, nausea, vomiting, diarrhea, and constipation, Back: Negative for injury and pain, : Negative for injury, bleeding, discharge, and swelling, MS/Extremity: Negative for injury and deformity, Skin: Negative for injury, rash, and discoloration, Neuro: Negative for headache, weakness, numbness, tingling, and seizure, Psych: Negative for depression, anxiety, suicide ideation, homicidal ideation, and hallucinations, 16:25 Neck: Negative for injury, pain, and swelling, 16:25 ENT: Positive for sore throat, fatigue, Exam: 16:21 Constitutional: This is a well developed, well nourished patient who is awake, alert, snw and in no acute distress. Head/Face: Normocephalic, atraumatic. Eyes: Pupils equal round and reactive to light, extra-ocular motions intact. Lids and lashes normal. Conjunctiva and sclera are non-icteric and not injected. Cornea within normal limits. Periorbital areas with no swelling, redness, or edema. Neck: Trachea midline, no thyromegaly or masses palpated, and no cervical lymphadenopathy. Supple, full range of motion without nuchal rigidity, or vertebral point tenderness. No Meningismus. Chest/axilla: Normal chest wall appearance and motion. Nontender with no deformity. No lesions are appreciated. Cardiovascular: Regular rate and rhythm with a normal S1 and S2. No gallops, murmurs, or rubs. Normal PMI, no JVD. No pulse deficits. Respiratory: Lungs have equal breath sounds bilaterally, clear to auscultation and percussion. No rales, rhonchi or wheezes noted. No increased work of breathing, no retractions or nasal flaring. Abdomen/GI: Soft, non-tender, with normal bowel sounds. No distension or tympany. No guarding or rebound. No evidence of tenderness throughout. Back: No spinal tenderness. No costovertebral tenderness. Full range of motion. Skin: Warm, dry with normal turgor. Normal color with no rashes, no lesions, and no evidence of cellulitis. MS/ Extremity: Pulses equal, no cyanosis. Neurovascular intact. Full, normal range of motion. Neuro: Awake and alert, GCS 15, oriented to person, place, time, and situation. Cranial nerves II-XII grossly intact. Motor strength 5/5 in all extremities. Sensory grossly intact. Cerebellar exam normal. Normal gait. Psych: Awake, alert, with orientation to person, place and time. Behavior, mood, and affect are within normal limits. 16:21 ENT: External ear(s): are unremarkable, TM's: are normal, Nose: is normal, Mouth: Oral mucosa: pink and intact, mucocele to lower left lateral lip , Posterior pharynx: erythema, that is mild, Voice: is normal, Vital Signs: 14:43 BP 123 / 85; Pulse 82; Resp 16; Temp 98.2; Pulse Ox 100% ; Weight 68.04 kg; Height 5 mb9 ft. 4 in. ; 17:01 BP 118 / 82; Pulse 80; Resp 16; Pulse Ox 100% on R/A; mb9 14:43 Body Mass Index 25.75 (68.04 kg, 162.56 cm) mb9 MDM: 15:48 Patient medically screened. snw 16:21 Differential diagnosis: viral Infection, bacterial infection. Data reviewed: vital snw signs, nurses notes. 16:30 Historians other than the Patient: Parent: Mom. Counseling: I had a detailed discussion snw with the patient and/or guardian regarding the historical points, exam findings, and any diagnostic results supporting the discharge/admit diagnosis, the need for outpatient follow up, for definitive care, to return to the emergency department if symptoms worsen or persist or if there are any questions or concerns that arise at home. Special discussion: Based on the history and exam findings, there is no indication for further emergent testing or inpatient evaluation. I discussed with the patient/guardian the need to see the hydrocrane operator for further evaluation of the symptoms. 16:45 ED course: pt also mentions she has an intimate partner who is + for HSV. Would like snw testing. Encouraged to f/u balance assembler, [facility] clinic. 16:46 ED course: Mom states pt has been taking Levaquin but does not seem better. Asked snw pt/Mom to consider body aches, sore throat might be because of a viral as opposed to a bacterial source. 02/25 15:59 Order name: COVID-19/FLU A+B/RSV; Complete Time: 16:51 snw Administered Medications: No medications were administered Disposition: 18:10 I was immediately available on-site in the Emergency Department for consultation in the ms3 care of the patient. Disposition Summary: 02/25/23 16:52 Discharge Ordered Notes: Continue current medications until finished Location: Home snw Condition: Stable snw Diagnosis - Acute pharyngitis, unspecified snw - Other malaise and fatigue snw - Mucocele inside lower lip snw Followup: snw - With: Emergency Department - When: As needed - Reason: Worsening of condition Followup: snw - With: Private Physician - When: 2 - 3 days - Reason: Recheck today's complaints, Continuance of care, Re-evaluation by your physician Discharge Instructions: - Discharge Summary Sheet snw - Pharyngitis snw - Sore Throat snw - Fatigue snw - Rehydration, Adult snw - Safe Sex snw - Viral Illness, Adult snw - Preventing Sexually Transmitted Infections, Adult snw Forms: - Medication Reconciliation Form snw - Thank You Letter snw - Antibiotic Education snw - Prescription Opioid Use snw - Patient Portal Instructions snw - Leadership Thank You Letter snw Signatures: Dispatcher [employer] EDMS Eusebia Pinzon, BILINGUAL MIDDLE SCHOOL TEACHER-C BILINGUAL MIDDLE SCHOOL TEACHER-Csnw Jacob Harrison DO DO ms3 Joy Silva RN RN mb9 Corrections: (The following items were deleted from the chart) 15:18 14:36 COVID-19/FLU A+B/RSV+MOL.LAB.BRZ ordered. EDMS EDMS 15:19 14:36 Group A Streptococcus Rapid Sc+BA.LAB.BRZ ordered. EDMS EDMS
--- NOTE | 2023-02-25 16:53 | ER ---
Nurse's Notes [facility] Name: Sonja Bella Age: 28 yrs Sex: Female : 1995 Arrival Date: 02/25/2023 Time: 14:32 Bed DX4 Private MD: Diagnosis: Acute pharyngitis, unspecified;Other malaise and fatigue;Mucocele inside lower lip Presentation: 02/25 14:40 Chief complaint: Parent and/or Guardian states: "I've had mouth blisters for months mb9 now. She want's her Thyroid level checked out as well. ". Coronavirus screen: Vaccine status: Patient reports being unvaccinated. Ebola Screen: No symptoms or risks identified at this time. 14:40 Method Of Arrival: Ambulatory mb9 14:43 Initial Sepsis Screen: Does the patient meet any 2 criteria? No. Patient's initial mb9 sepsis screen is negative. Does the patient have a suspected source of infection? No. Patient's initial sepsis screen is negative. Risk Assessment: Do you want to hurt yourself or someone else? Patient reports no desire to harm self or others. Onset of symptoms was February 25, 2023. 14:43 Acuity: JANNY 3 mb9 Triage Assessment: 14:45 General: Appears in no apparent distress. Behavior is calm, cooperative. Pain: Denies mb9 pain. EENT: Throat is clear. Neuro: Reports fatigue. Cardiovascular: Patient's skin is warm and dry. Respiratory: Airway is patent Respiratory effort is even, unlabored, Respiratory pattern is regular, symmetrical. GI: No signs and/or symptoms were reported involving the gastrointestinal system. : No signs and/or symptoms were reported regarding the genitourinary system. Derm: Skin is pink, warm \\T\\ dry. Musculoskeletal: Range of motion: intact in all extremities. Historical: - Allergies: 14:44 Fentanyl; mb9 14:44 Motrin; mb9 - Home Meds: 14:44 levothyroxine 50 mcg tab 1 tab once daily [Active]; mb9 - PMHx: 14:44 HEARING IMPAIRED; Hypothyroidism; PE; mb9 - PSHx: 14:44 right ovarian cyst removed; mb9 - Immunization history:: Adult Immunizations up to date. - Social history:: Smoking status: Patient denies any tobacco usage or history of. Screenin:51 [facility] ED Fall Risk Assessment (Adult) History of falling in the last 3 months, mb9 including since admission No falls in past 3 months (0 pts) Confusion or Disorientation No (0 pts) Intoxicated or Sedated No (0 pts) Impaired Gait No (0 pts) Mobility Assist Device Used No (0 pt) Altered Elimination No (0 pt) Score/Fall Risk Level 0 - 2 = Low Risk Oriented to surroundings, Maintained a safe environment, Educated pt \\T\\ family on fall prevention, incl call for assistance when getting out of bed. Abuse screen: Denies threats or abuse. Nutritional screening: No deficits noted. Tuberculosis screening: No symptoms or risk factors identified. Assessment: 15:51 Reassessment: see triage assessment. mb9 16:10 Reassessment: No changes from previously documented assessment. Patient and/or family mb9 updated on plan of care and expected duration. Pain level reassessed. Patient is alert, oriented x 3, equal unlabored respirations, skin warm/dry/pink. 17:01 Reassessment: Patient appears in no apparent distress at this time. No changes from mb9 previously documented assessment. Patient and/or family updated on plan of care and expected duration. Pain level reassessed. Patient is alert, oriented x 3, equal unlabored respirations, skin warm/dry/pink. Vital Signs: 14:43 BP 123 / 85; Pulse 82; Resp 16; Temp 98.2; Pulse Ox 100% ; Weight 68.04 kg; Height 5 mb9 ft. 4 in. ; 17:01 BP 118 / 82; Pulse 80; Resp 16; Pulse Ox 100% on R/A; mb9 14:43 Body Mass Index 25.75 (68.04 kg, 162.56 cm) mb9 ED Course: 14:33 Patient arrived in ED. rg4 14:35 Eusebia Pinzon FNP-C [facility]. snw 14:35 Jacob Harrison DO is Attending Physician. snw 14:44 Triage completed. mb9 14:44 Arm band placed on. mb9 15:51 Patient has correct armband on for positive identification. Adult w/ patient. mb9 15:51 No provider procedures requiring assistance completed. mb9 16:10 COVID-19/FLU A+B/RSV Sent. mb9 16:10 Patient did not have IV access during this emergency room visit. mb9 Administered Medications: No medications were administered Medication: 15:51 VIS not applicable for this client. mb9 Outcome: 16:52 Discharge ordered by . mayte 17:01 Discharged to home ambulatory, mb9 17:01 Condition: stable 17:01 Discharge instructions given to patient, Instructed on discharge instructions, follow up and referral plans. Demonstrated understanding of instructions, follow-up care, 17:02 Patient left the ED. mb9 Signatures: Eusebia Pinzon, MELT ROOM OPERATOR-C MELT ROOM OPERATOR-[place] Nolasco rg4 Joy Silva RN RN mb9 Corrections: (The following items were deleted from the chart) 14:44 14:40 Chief complaint: Parent and/or Guardian states: "I've had mouth blisters for mb9 months now. She want's her Thyroid level checked out as well. " mb9
[2023-02-25 17:09] VITALS: TEMP 98.2; O2SAT 100
[2023-02-25 17:10] VITALS: BP 118/82
== END 2023-02-25 17:02 | disposition home or self-care (01) ==
LOC: ER 14:32
DX: J02.9 Acute pharyngitis, unspecified (principal); K11.6 Mucocele of salivary gland; R53.81 Other malaise; Z11.52 Encounter for screening for COVID-19
CPT/HCPCS: 0241U; 99283

== ENCOUNTER → 2023-06-20 | Emergency (ER) | payer SELFPAY ==
[~2023-06-20] MED LIST: DIAZEPAM 10 MG/2 ML INJ SYRINGE ONE; DIPHENHYDRAMINE 50 MG/ML VIAL ONE; FAMOTIDINE 20 MG/2 ML VIAL IV ONE; METHYLPREDNISOLONE 125 MG INJ ONE; NA CHLORIDE 0.9% 1,000 ML ONE
[2023-06-20 23:32] LABS: Absolute Eosinophils 0.1 K/uL (0-0.5); Absolute Lymphocytes (CBC) 1.8 K/uL (0.7-4.9); Absolute Monocytes 0.4 K/uL (0.1-1.3); Absolute Neutrophil 5.5 K/uL (1.8-8.0); Basophils % 0.3 % (0-1.3); Eosinophils % 1.6 % (0-4.4); Hemoglobin 14.1 g/dL (12.0-15.0); Lymphocytes % 23.1 % (15.3-44.8); MCH 32.5 pg (27.0-35.0); MCHC 35.4 g/dL (32.0-36.0); MPV 8.9 fL (7.6-11.3); Monocytes % 5.5 % (3.3-12.3); Neutrophils % 69.5 % (41.7-73.7); Nucleated Red Blood Cells % 0.1 % (0-0); Platelets 270 thou/uL (152-406); RBC Red Blood Cell Count 4.35 M/uL (3.86-4.86); Red Cell Distribution Width 12.7 % (12.1-15.2)
[2023-06-20 23:39] LABS: Albumin 3.7 g/dL (3.4-5.0); Albumin/Globulin Ratio 0.9 (1.1-1.8); Anion Gap 8.6 mEq/L (5.0-15.0); Bilirubin Total 0.7 mg/dL (0.2-1.0); Potassium 3.6 mEq/L (3.5-5.1); Protein, Total 7.7 g/dL (6.4-8.2); Thyroid Stimulating Hormone 1.27 uIU/mL (0.358-3.740)
--- NOTE | 2023-06-20 23:54 | ER ---
Nurse's Notes [facility] Name: Sonja Bella Age: 28 yrs Sex: Female : 1995 Arrival Date: 06/20/2023 Time: 21:28 Bed 7 Private MD: Katerina Coburn Diagnosis: Hypothyroidism, unspecified;Acute allergic reaction, acute generalized pruritus Presentation: 06/19 21:46 Chief complaint: Parent and/or Guardian states: rash starting 1 hour ago all over body km8 that is itchy in nature; happened after eating soup that had mint in it. Coronavirus screen: Client denies travel out of the [place] in the last 14 days. Ebola Screen: No symptoms or risks identified at this time. Onset: The symptoms/episode began/occurred suddenly, 1 hour(s) ago. Anaphylaxis evaluation, the patient reports or I have noted the following symptoms which indicate a significant risk of anaphylaxis: urticaria. Initial Sepsis Screen: Does the patient meet any 2 criteria? No. Patient's initial sepsis screen is negative. Does the patient have a suspected source of infection? No. Patient's initial sepsis screen is negative. Risk Assessment: Do you want to hurt yourself or someone else? Patient reports no desire to harm self or others. Onset of symptoms was June 20, 2023 at 20:45. 21:46 Method Of Arrival: Ambulatory km8 21:46 Acuity: JANNY 2 km8 Triage Assessment: 21:46 General: Appears uncomfortable, Behavior is anxious, restless. Pain: Complains of pain km8 in generalized Pain currently is 10 out of 10 on a pain scale. EENT: Reports lips tingling. Neuro: Level of Consciousness is awake, alert, obeys commands, Oriented to person, place, time, situation. Cardiovascular: Denies chest pain, shortness of breath, Patient's skin is warm and dry. Respiratory: Airway is patent Respiratory effort is even, unlabored, Respiratory pattern is regular, symmetrical. GI: No signs and/or symptoms were reported involving the gastrointestinal system. : No signs and/or symptoms were reported regarding the genitourinary system. Derm: Skin is intact, is healthy with good turgor, Skin is dry, Skin is pink, warm \T\ dry. normal, Skin temperature is warm Rash noted that is itchy, urticaria. Musculoskeletal: No signs and/or symptoms reported regarding the musculoskeletal system. Range of motion: intact in all extremities. INSPECTOR MULTIFOCAL LENS: 21:46 LMP 06/14/2023, unknown km8 Historical: - Allergies: 21:46 Fentanyl; km8 21:46 Motrin; km8 - Home Meds: 21:46 levothyroxine 50 mcg tab 1 tab once daily [Active]; km8 - PMHx: 21:46 HEARING IMPAIRED; Hypothyroidism; PE; km8 - PSHx: 21:46 right ovarian cyst removed; km8 - Immunization history:: Client reports receiving the 2nd dose of the Covid vaccine, Flu vaccine is up to date. - Social history:: Smoking status: Patient denies any tobacco usage or history of. Patient/guardian denies using alcohol, street drugs. - Family history:: not pertinent. Vital Signs: 21:46 BP 129 / 81; Pulse 82; Resp 18; Temp 98.4(O); Pulse Ox 98% on R/A; Weight 68.04 kg (R); km8 Height 5 ft. 5 in. (R); Pain 10/10; 21:46 Body Mass Index 24.96 (68.04 kg, 165.1 cm) km8 21:46 Pain Scale: Adult km8 ED Course: 21:30 Patient arrived in ED. mr 21:31 Reinier Ríos MD is Attending Physician. sp4 21:31 Katerina Coburn is Private Physician. mr 21:46 Arm band placed on right wrist. km8 21:48 Triage completed. km8 23:07 Inserted saline lock: 20 gauge in left antecubital area, using aseptic technique. Blood lg3 collected. 23:07 Initial lab(s) drawn, by wa, sent to lab. lg3 Administered Medications: 23:07 Drug: Famotidine IVP 20 mg IVP once; dilute with 10 mL 0.9% NaCl; give over 2 minutes lg3 Route: IVP; Site: left antecubital; 23:07 Drug: NS 0.9% IV 1000 ml IV at 1 bolus Per protocol; 1000 mL bolus Route: IV; Rate: 1 lg3 bolus; Site: left antecubital; 23:08 Drug: Diazepam IVP 5 mg IVP once Route: IVP; Site: left antecubital; lg3 23:08 Drug: diphenhydrAMINE IVP 25 mg IVP once Route: IVP; Site: left antecubital; lg3 23:08 Drug: MethylPrednisoLONE IVP 125 mg IVP once Route: IVP; Site: left antecubital; lg3 Outcome: 23:53 Discharge ordered by MD. clark 06/20 00:20 Patient left the ED. jb4 Signatures: Joy Cabrera, Geovany Reg Dre Bishop RN RN jb4 Erica Atkins RN RN lg3 Reinier Ríos MD MD sp4 Angie Jerome RN RN km8
--- NOTE | 2023-06-20 23:54 | EDPHYS ---
Physician Documentation [facility] Name: Sonja Bella Age: 28 yrs Sex: Female : 1995 Arrival Date: 06/20/2023 Time: 21:28 Bed 7 Private MD: Katerina Coburn ED Physician Reinier Ríos HPI: 06/19 21:31 This 28 yrs old Female presents to ER via Unassigned with complaints of sp4 Allergic Reaction. 21:58 28-year-old female presents with acute A chain generalized itching and a rash sp4 associated with a recent consumption of mint in the soup. Patient states she is on Synthroid 50 mcg a daily but she has been out of it for the past 2 weeks. . 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 - Social history:: Smoking status: Patient denies any tobacco usage or history of. Patient/guardian denies using alcohol, street drugs. - Family history:: not pertinent. ROS: 21:58 Constitutional: Negative for fever, chills, and weight loss, positive for rash, sp4 positive for itching, positive for anxiety 21:58 All other systems are negative, Exam: 21:58 Constitutional: This is a well developed, well nourished patient who is awake, alert, sp4 patient is acutely anxious with generalized itching, mild redness to face upper extremities as well. Persistent anxiety and pruritus Head/Face: Normocephalic, atraumatic. Eyes: Pupils equal round and reactive to light, extra-ocular motions intact. Lids and lashes normal. Conjunctiva and sclera are not injected. Cornea within normal limits. Periorbital areas with no swelling, redness, or edema. ENT: Nares patent. No nasal discharge, no septal abnormalities noted. Tympanic membranes are normal and external auditory canals are clear. Oropharynx with no redness, swelling, or masses, exudates, or evidence of obstruction, uvula midline. Mucous membranes moist. Neck: Trachea midline, no thyromegaly or masses palpated, and no cervical lymphadenopathy. Supple, full range of motion without nuchal rigidity, or vertebral point tenderness. Chest/axilla: Normal chest wall appearance and motion. Nontender with no deformity. No lesions are appreciated. Cardiovascular: Regular rate and rhythm with a normal S1 and S2. No gallops, murmurs, or rubs. Normal PMI, no JVD. No pulse deficits. Respiratory: Lungs have equal breath sounds bilaterally, clear to auscultation and percussion. No rales, rhonchi or wheezes noted. No increased work of breathing, no retractions or nasal flaring. Abdomen/GI: Soft, with normal bowel sounds. No distension or tympany. No guarding or rebound. No evidence of tenderness throughout. Back: No spinal tenderness. No costovertebral tenderness. Skin: Warm, dry with normal turgor. There is mild redness to upper extremities and face associated with itching. No signs of significant hives. MS/ Extremity: Pulses equal, no cyanosis. Neurovascular intact. Full, normal range of motion. Neuro: Awake and alert, GCS 15, oriented to person, place, time, and situation. Cranial nerves II-XII grossly intact. Motor strength 5/5 in all extremities. Sensory grossly intact. Psych: Awake, alert, with orientation to person, place and time. Behavior, mood, and affect are within normal limits Vital Signs: 21:46 BP 129 / 81; Pulse 82; Resp 18; Temp 98.4(O); Pulse Ox 98% on R/A; Weight 68.04 kg (R); km8 Height 5 ft. 5 in. (R); Pain 10/10; 21:46 Body Mass Index 24.96 (68.04 kg, 165.1 cm) [facility] 21:46 Pain Scale: Adult [facility] MDM: 21:41 Patient medically screened. sp4 23:49 Differential diagnosis: anaphylaxis, angioedema, Arrhythmias bronchospasm, Vasovagal sp4 Reactions. Data reviewed: vital signs, nurses notes, lab test result(s), CBC, electrolytes, hepatic panel. ED course: Patient has markedly improved after medications. Will provide levothyroxine 50 mcg for the next 60 days. We will also provide p.o. prednisone and Benadryl for the next 5 days. . 06/19 21:53 Order name: CBC with Diff; Complete Time: 23:49 sp4 06/19 21:53 Order name: Test, Serum; Complete Time: 23:49 sp4 06/19 21:53 Order name: CMP; Complete Time: 23:49 sp4 06/19 21:53 Order name: TSH; Complete Time: 23:49 sp4 06/19 21:53 Order name: T4 Free; Complete Time: 23:49 sp4 Administered Medications: 23:07 Drug: Famotidine IVP 20 mg IVP once; dilute with 10 mL 0.9% NaCl; give over 2 minutes lg3 Route: IVP; Site: left antecubital; 23:07 Drug: NS 0.9% IV 1000 ml IV at 1 bolus Per protocol; 1000 mL bolus Route: IV; Rate: 1 lg3 bolus; Site: left antecubital; 23:08 Drug: Diazepam IVP 5 mg IVP once Route: IVP; Site: left antecubital; lg3 23:08 Drug: diphenhydrAMINE IVP 25 mg IVP once Route: IVP; Site: left antecubital; lg3 23:08 Drug: MethylPrednisoLONE IVP 125 mg IVP once Route: IVP; Site: left antecubital; lg3 Disposition Summary: 06/20/23 23:53 Discharge Ordered Notes: Location: Home sp4 Problem: new sp4 Symptoms: have improved sp4 Condition: Stable sp4 Diagnosis - Hypothyroidism, unspecified sp4 - Acute allergic reaction, acute generalized pruritus sp4 Followup: sp4 - With: Private Physician - When: 7 - 10 days - Reason: Recheck today's complaints Discharge Instructions: - Discharge Summary Sheet sp4 - Hives, [id number] sp4 Forms: - Patient Portal Instructions sp4 Prescriptions: - diphenhydramine HCl 25 mg Oral tablet - take 1 tablet ORAL route every 8 hours PRN itching; 50 tablet; Refills: 0, sp4 Product Selection Permitted - Levothyroxine 50 mcg Oral tablet - take 1 tablet ORAL route once daily take 30 minutes before breakfast; 60 sp4 tablet; Refills: 0, Product Selection Permitted - Prednisone 20 mg Oral Tablet - take 2 tablets ORAL route once daily for 5 days; 10 tablet; Refills: 0, Product sp4 Selection Permitted Signatures: Dispatcher [employer] Erica Ray RN RN lg3 Reinier Ríos MD MD sp4 Angie Jerome RN RN km8
[2023-06-21 00:50] VITALS: BP 129/81; TEMP 98.4; O2SAT 98
== END ==
LOC: ER 21:28
DX: E03.9 Hypothyroidism, unspecified (principal); L29.9 Pruritus, unspecified
CPT/HCPCS: 36415; 80053; 84439; 84443; 84703; 85025; 96374; 96375; 99284; J1200; J2930; J3360; J7030

== ENCOUNTER 2025-01-03 23:30 | Emergency (ER) | payer SELFPAY ==
--- OUTSIDE RECORDS SUMMARY | 2025-01-03 23:34 | XMS REPORT | Continuity of Care Document ---
Author Name Unknown Address [address] [facility] [address] [place] [address] Organization [facility] [place] Address [address] [facility] [address] [place] [address] Care Team Providers Care Event Attendant Name Role Phone Mimi Segovia Primary Care Physician [phone] FINA EDDY Attending Clinician Unavail able Doctor Unassigned, [place] Attending Clinician U navailable Fina Tanner Attending Clinician + Ultrasound, Lucas-Mfjeff Attending Clinician Unavaila Rohini Servin MD Attending Clinician [phone] Risk, Lva-Uhxei-Hj/High Attending Clinician Unav ailable Jennifer Vazquez Attending Clinician JENNIFER RODRIGUES Attending Clinician Unavailable Aneta Aleman RN Attending Clinician Unavail able Payers Payer Name Policy Type Policy Number Effective Date Expirati on Date Source [facility] MOM CHIP CRESCENCIO LOW FPL [id number] 2024 00:00:00 MEDICAID PENDING PENDING 1998 00:00:00 1998 00:00:00 Problems Condition Name Condition Details Condition Category Status Onset Date Resolution Date Last Treatment Date Treating Clinician Comments Source Susceptibl e to varicella (non-immun e), currently Susceptibl e to varicella (non-immun e), currently Disease Active 12-10 00:00: 00 [facility] Multiparit y Multiparit y Disease Active 11-09 00:00: 00 [facility] Supervisio n of high risk , antepartum Supervisio n of high risk , antepartum Disease Active 8 00:00: 00 [facility] Hypothyroi d in , antepartum Hypothyroi d in , antepartum Disease Active 8 00:00: 00 [facility] Nonspeakin g deaf Nonspeakin g deaf Disease Active 06-10 00:00: 00 [facility] General counseling and advice on contracept noe management General counseling and advice on contracept noe management Disease Resolve d 2012-04 00:00: 00 2024-11-09 00:00:00 2024-11-09 14:12:26 [facility] Need for influenza vaccinatio n Need for influenza vaccinatio n Disease Resolve d 12-13 00:00: 00 2013-01-28 00:00:00 2013-01-28 10:47:55 [facility] Normal delivery Normal delivery Disease Resolve d 12-13 00:00: 00 2012-12-31 00:00:00 2012-12-31 14:04:58 [facility] Backache Backache Disease Resolve d 29 00:00: 00 2012-12-13 00:00:00 2021-10-15 00:24:15 [facility] High-risk High-risk Disease Resolve d 06-10 00:00: 00 2012-12-13 00:00:00 2021-10-15 00:23:22 [facility] Chlamydia trachomati s infection of lower genitourin sherri sites Chlamydia trachomati s infection of lower genitourin sherri sites Disease Resolve d 06-10 00:00: 00 2012-12-13 00:00:00 2021-10-15 00:23:22 [facility] Threatened premature labor, antepartum (644.03) Threatened premature labor, antepartum (644.03) Disease Resolve d 11-28 00:00: 00 2012-12-03 00:00:00 2012-12-03 09:18:56 [facility] Nausea & vomiting Nausea & vomiting Disease Resolve d 4-29 00:00: 00 2012-12-03 00:00:00 2012-12-03 09:15:40 [facility] Headache Headache Disease Resolve d 4-19 00:00: 00 2012-12-03 00:00:00 2021-10-15 00:24:06 [facility] Heartburn in Heartburn in Disease Resolve d 07-28 00:00: 00 2012-10-28 00:00:00 2012-10-28 10:28:13 [facility] Deaf Deaf Disease Resolve d 2012-06-10 00:00:00 2012-06-10 18:30:40 [facility] Allergies, Adverse Reactions, Alerts Allergy Name Allergy Type Status Severity Reaction(s) Onset Date Inactive Date Treating Clinician Comments Source IBUPROFE N DRUG INGREDI Active High Swelling 8 00:00: 00 [facility] Ibuprofe n Propensi ty to adverse reaction s Active Swelling 8 00:00: 00 [facility] Motrin Propensi ty to adverse reaction to drug Active 712 00:00: 00 Valentino Bonilla NO KNOWN ALLERGIE S Drug Class Active [facility] Social History Social Habit Start Date Stop Date Quantity Comments Source ASSERTION 2024-07-23 00:00:00 [facility] Alcoholic beverage intake 2024-11-25 00:00:00 2024-11-25 00:00:00 Current non-drinker of alcohol (finding) [facility] Tobacco use and exposure 2024-11-09 00:00:00 2024-11-09 00:00:00 Former smokeless tobacco user [facility] History of Social function 2024-11-09 00:00:00 2024-11-09 00:00:00 [facility] Tobacco Comment 2024-11-09 00:00:00 2024-11-09 00:00:00 Vaping stopped 2-3 years ago [facility] Sex assigned at 1995 00:00:00 1995 00:00:00 [facility] Smoking Status Start Date Stop Date Source Never smoked tobacco [facility] Medications Ordered Medication Name Filled Medication Name Start Date Stop Date Current Medication? Ordering Clinician Indication Dosage Frequency Signature (SIG) Comments Components Source levothyroxi ne 50 mcg tablet 0 7-09 00:00: 00 Yes 50ug Take 1 tablet by mouth every morning. [facility] loratadine 10 mg tablet 3-04 00:00: 00 Yes 1mg Valentino Bonilla trazodone 50 mg tablet 3-04 00:00: 00 Yes 1mg Valentino Bonilla levothyroxi ne 50 mcg tablet 3-04 00:00: 00 Yes 1mcg Valentino Bonilla amoxicillin 500 mg capsule 3-04 00:00: 00 Yes 1mg Valentino Bonilla levothyroxi ne 50 mcg tablet 0 5-06 00:00: 00 Yes 1mcg Valentino Bonilla levothyroxi ne 50 mcg tablet 4-23 00:00: 00 Yes 1mcg Valentino Bonilla TAKE 1 TABLET BY MOUTH EVERY 8 HOURS 8-20 00:00: 00 Yes Valentino Bonilla TAKE 1 TABLET BY MOUTH EVERY 12 HOURS FOR 10 DAYS 8-20 00:00: 00 Yes Valentino Bonilla levothyroxi ne 50 mcg tablet 0 8-18 00:00: 00 Yes mcg Valentino Bonilla levonorgest rel-ethinyl estradiol (SRONYX) 0.1-20 mg-mcg per tablet 2012-04 00:00: 00 11-25 00:00 :00 No [id number] 1{tbl} Take 1 Tab by mouth daily. [facility] Immunizations Ordered Immunization Name Filled Immunization Name Date Status Comments Source Varicella (varivax)(chicken pox) 2012-12-13 00:00:00 Completed [facility] Influenza Virus Vaccine 2012-12-13 00:00:00 Completed TDAP 2012-09-29 00:00:00 Completed [facility] Rubella 2012-04-24 00:00:00 Completed Varicella (varivax)(chicken pox) 2012-04-24 00:00:00 Completed Influenza Virus Vaccine - Whole 2012-04-24 00:00:00 Completed [facility] Vital Signs Vital Name Observation Time Observation Value Comments Wes perdue Systolic blood pressure 2024-12-09 18:46:00 118 mm[Hg] [facility] Diastolic blood pressure 2024-12-09 18:46:00 76 mm[Hg] [facility] Heart rate 2024-12-09 18:46:00 104 /min Unive [facility] Body temperature 2024-12-09 18:46:00 36.28 Laxmi [facility] Respiratory rate 2024-12-09 18:46:00 19 /min [facility] Body height 2024-12-09 18:46:00 165.1 cm [facility] Body weight 2024-12-09 18:46:00 77.593 kg [facility] BMI 2024-12-09 18:46:00 28.47 kg/m2 [facility] Body temperature 2024-11-25 19:43:00 36.17 Laxmi [facility] Respiratory rate 2024-11-25 19:43:00 18 /min [facility] Body height 2024-11-25 19:43:00 165.1 cm [facility] Body weight 2024-11-25 19:43:00 75.978 kg [facility] BMI 2024-11-25 19:43:00 27.87 kg/m2 [facility] Systolic blood pressure 2024-11-25 19:43:00 117 mm[Hg] [facility] Diastolic blood pressure 2024-11-25 19:43:00 67 mm[Hg] [facility] Heart rate 2024-11-25 19:43:00 75 /min Unive [facility] Systolic blood pressure 2024-11-09 19:02:00 107 mm[Hg] [facility] Diastolic blood pressure 2024-11-09 19:02:00 67 mm[Hg] [facility] Heart rate 2024-11-09 19:02:00 90 /min [facility] Body temperature 2024-11-09 19:02:00 36.39 Laxmi [facility] Respiratory rate 2024-11-09 19:02:00 18 /min [facility] Body height 2024-11-09 19:02:00 165.1 cm [facility] Body weight 2024-11-09 19:02:00 74.929 kg [facility] BMI 2024-11-09 19:02:00 27.49 kg/m2 [facility] BP Systolic 2024-09-15 11:52:00 118 mm[Hg] Step hen F Chad BP Diastolic 2024-09-15 11:52:00 74 mm[Hg] Kavin phen F Chad Weight Measured 2024-09-15 11:52:00 158.00 pounds Valentino F Chad Height Measured 2024-09-15 11:52:00 65.00 inches Valentino F Chad Body Temperature 2024-09-15 11:52:00 98.20 degrees Valentino F Chad Heart Rate 2024-09-15 11:52:00 77.00 /min Deborah en F Chad Respiratory Rate 2024-09-15 11:52:00 18.00 /min Valentino F Chad BP Systolic 2024-08-20 11:43:00 116 mm[Hg] Step hen F Chad BP Diastolic 2024-08-20 11:43:00 79 mm[Hg] Kavin phen F Chad Weight Measured 2024-08-20 11:43:00 158.00 pounds Valentino F Chad Height Measured 2024-08-20 11:43:00 65.00 inches Valentino F Chad Body Temperature 2024-08-20 11:43:00 98.30 degrees Valentino F Chad Heart Rate 2024-08-20 11:43:00 90.00 /min Deborah en F Chad Respiratory Rate 2024-08-20 11:43:00 18.00 /min Valentino F Chad BP Systolic 2024-08-13 10:41:00 118 mm[Hg] Step hen F Chad BP Diastolic 2024-08-13 10:41:00 82 mm[Hg] Kavin phen F Chad Weight Measured 2024-08-13 10:41:00 341.72 pounds Valentino F Chad Height Measured 2024-08-13 10:41:00 65.00 inches Valentino F Chad Body Temperature 2024-08-13 10:41:00 97.70 degrees Valentino F Chad Heart Rate 2024-08-13 10:41:00 102.00 /min Step hen F Chad Respiratory Rate 2024-08-13 10:41:00 18.00 /min Valentino F Chad Heart Rate 2024-06-02 11:20:00 72.00 /min Deborah en F Chad Respiratory Rate 2024-06-02 11:20:00 18.00 /min Valentino F Chad BP Systolic 2024-06-02 11:20:00 120 mm[Hg] Step hen F Chad BP Diastolic 2024-06-02 11:20:00 100 mm[Hg] Kavin phen F Chad Weight Measured 2024-06-02 11:20:00 157.00 pounds Valentino F Chad Height Measured 2024-06-02 11:20:00 65.00 inches Valentino F Chad Body Temperature 2024-06-02 11:20:00 98.20 degrees Valentino F Chad BP Systolic 2023-07-23 17:14:00 120 mm[Hg] Step hen F Chad BP Diastolic 2023-07-23 17:14:00 80 mm[Hg] Kavin phen F Chad Weight Measured 2023-07-23 17:14:00 158.00 pounds Valentino F Chad Height Measured 2023-07-23 17:14:00 65.00 inches Valentino F Chad Body Temperature 2023-07-23 17:14:00 98.30 degrees Valentino F Chad Heart Rate 2023-07-23 17:14:00 90.00 /min Deborah en F Chad Respiratory Rate 2023-07-23 17:14:00 18.00 /min Valentino F Chad Procedures Procedure Date / Time Performed Performing Clinician Source SECOND AND THIRD TRIMESTER ULTRASOUND 2024-12-24 18:27:00 Fina Eddy [facility] THYROID STIMULATING HORMONE 2024-12-09 19:48:00 Fina Eddy [facility] VZV ANTIBODY SCREEN 2024-12-09 19:48:00 Shade Eddy [facility] POCT MOLECULAR STREP 2024-12-09 18:58:00 Quintin Eddy [facility] POCT MOLECULAR FLU 2024-12-09 18:57:00 Casper Eddy [facility] POCT TEST 2024-11-09 00:00:00 Shade Eddy [facility] POCT URINALYSIS W/O SPECIFIC GRAVITY 2024-11-09 00:00:00 Fina Eddy [facility] Encounters Start Date/Time End Date/Time Encounter Type Admission Type Attending Clinicians Care Facility Care Department Encounter ID Source 2024-12-01 00:00:00 2025-01-02 18:22:21 Patient Secure Msg Doctor Unassigned, [place] Doctor Unassigned, [place] [facility] 1.2840.114 350.1.13.10 4.2.7.2.686 [id number] [facility] 2024-12-24 00:00:00 2024-12-24 14:09:03 Abstract Fina Eddy [facility] 1.2840.114 350.1.13.10 4.2.7.2.686 [id number] [facility] 2024-12-24 13:00:00 2024-12-24 13:57:33 Explosive Operator Supervisor Visit R Renata, Rohini More [facility] 1.2840.114 350.1.13.10 4.2.7.2.686 [id number] [facility] 2024-12-09 14:15:00 2024-12-09 14:49:17 Routine Visit R Fina Eddy [facility] [id number] 350.1.13.10 4.2.7.2.686 [id number] [facility] 2024-11-25 14:30:00 2024-11-25 15:15:48 Office Visit R Risk, Ang-Rmchp-N p/High Jennifer Rodrigues Risk, Ang-Rmchp-N p/High [facility] [id number] 350.1.13.10 4.2.7.2.686 [id number] [facility] 2024-11-18 15:45:00 2024-11-18 15:45:00 Outpatient R JENNIFER RODRIGUES [facility] [id number] [facility] 2024-11-17 00:00:00 2024-11-18 12:50:40 Telephone Fina Eddy [facility] [id number] 350.1.13.10 4.2.7.2.686 [id number] [facility] 2024-11-13 00:00:00 2024-11-13 16:15:51 Telephone Risk, Ang-Rmchp-N p/High Risk, Ang-Rmchp-N p/High [facility] [id number] 350.1.13.10 4.2.7.2.686 [id number] [facility] 2024-11-09 00:00:00 2024-11-10 02:03:24 Orders Only Aneta Aleman Zayuri [facility] [id number] 350.1.13.10 4.2.7.2.686 [id number] [facility] 2024-11-09 13:45:00 2024-11-09 15:30:37 Initial Visit R FINA EDDY [facility] [id number] 350.1.13.10 4.2.7.2.686 [id number] [facility] 2024-11-09 13:15:00 2024-11-09 14:16:32 Outpatient FINA GHOTRA [facility] [id number] [facility] 2024-09-15 11:40:01 2024-09-15 11:40:01 Outpatient SFA SFA [id number] Valentino Bonilla 2024-09-15 00:00:00 2024-09-15 00:00:00 Outpatient Visit SFA [id number] Valentino Bonilla 2024-08-28 11:40:26 2024-08-28 11:40:26 Outpatient SFA SFA [id number] Valentino Bonilla 2024-08-26 09:25:50 2024-08-26 09:25:50 Outpatient SFA SFA [id number] Valentino Bonilla 2024-08-20 11:24:39 2024-08-20 11:24:39 Outpatient SFA SFA [id number] Valentino Bonilla 2024-08-20 00:00:00 2024-08-20 00:00:00 Outpatient Visit SFA [id number] Valentino Bonilla 2024-08-17 10:08:56 2024-08-17 10:08:56 Outpatient SFA SFA [id number] Valentino Bonilla 2024-08-13 10:24:25 2024-08-13 10:24:25 Outpatient SFA SFA [id number] Valentino Bonilla 2024-08-13 00:00:00 2024-08-13 00:00:00 Outpatient Visit SFA [id number] Valentino Bonilla 2024-06-15 14:25:29 2024-06-15 14:25:29 Outpatient SFA SFA [id number] Valentino Bonilla 2024-06-02 11:04:07 2024-06-02 11:04:[address] [facility] [id number] Valentino Bonilla 2024-06-02 00:00:00 2024-06-02 00:00:[address] [facility] [id number] Valentino Bonilla Results Test Description Test Time Test Comments Results Result Co mments Source [facility] MOLECULAR [id number] 19:05:55* Test Item Value Reference Range Interpretation Comme nts POCT Molecular Strep (test c ode = 20284-3) Negative Negative Lab Interpretation (test cod e = 94864-7) Normal [facility] [id number] 19:04:00* Test Item Value Reference Range Interpretation Comme nts POCT PREG (test code = 1605) Positive On board controls acceptable with C Line (test code = 3574) Yes POCT PREG LOT # (test code = 3575) POCT PREG TEST DATE ( test code = 3576) [facility] Urinalysis w/o Specific [id number] 19:04:00* Test Item Value Reference Range Interpretation Comme nts POCT PH U (test code = 3254) 7 mg/dl 5-8 POCT U LEUK EST (test code = 3263) 1+ Negative - Negative POCT U NIT (test code = 3262) neg Negative - Negati ve POCT U PROT (test code = 3259) trace Negative - Negat noe POCT U GLU (test code = 3256) nml Negative - Negati ve POCT U KETONE (test code = 3258) neg Negative - Neg ative POCT U BLD (test code = 3257) trace Negative - Negati ve [facility]2024-08-28 00:00:00* Test Item Value Reference Range Interpretation Comme nts URINE RESULTS (test code = 80105-9) NO DRUG(S) DETECTED COMMENT (test code = ) DNR Valentino BonillaVARICELLA ZOSTER VIRUS ANTIBODY (IGG)2024-08-26 00:00:00* Test Item Value Reference Range Interpretation Comme nts VARICELLA ZOSTER VIRUS ANTIB REINALDO (IGG) (test code = 5403-1) 3.61 S/CO Valentino BonillaHEMOGLOBINOPATHY [id number] 00:00:00* Test Item Value Reference Range Interpretation Comme nts RED BLOOD CELL COUNT (test code = 789-8) 4.46 Million/uL HEMOGLOBIN (test code = 718-7) 14.2 g/dL HEMATOCRIT (test code = 4544-3) 44.6 % MCV (test code = 787-2) 100.0 fL MCH (test code = 785-6) 31.8 pg RDW (test code = 788-0) 12.4 % HEMOGLOBIN A (test code = 4546-8) 97.8 % HEMOGLOBIN F (test code = 4576-5) <1.0 % HEMOGLOBIN A2 (QUANT) (test code = 4551-8) 2.2 % HEMOGLOBIN S (test code = 4625-0) DNR % HEMOGLOBIN C (test code = 4563-3) DNR % HEMOGLOBIN E (test code = 4575-7) DNR % OTHER HEMOGLOBIN 2 (test cod e = 33290-4) DNR Valentino BonillaCHLAMYDIA/N. GONORRHOEAE RNA, [id number] 00:00:00* Test Item Value Reference Range Interpretation Comme nts CHLAMYDIA TRACHOMATIS RNA, T MA, UROGENITAL (test code = 87987-1) TNP NEISSERIA GONORRHOEAE RNA, T MA, UROGENITAL (test code = 32819-4) DNR Valentino BonillaOBSTETRIC PANEL W/FOURTH GENERATION [id number] 00:00:00* Test Item Value Reference Range Interpretation Comme nts WHITE BLOOD CELL COUNT (test code = 6690-2) 6.8 Thousand/uL RED BLOOD CELL COUNT (test code = 789-8) 4.40 Million/uL HEMOGLOBIN (test code = 718-7) 14.2 g/dL HEMATOCRIT (test code = 4544-3) 42.3 % MCV (test code = 787-2) 96.1 fL MCH (test code = 785-6) 32.3 pg MCHC (test code = 786-4) 33.6 g/dL RDW (test code = 788-0) 11.5 % PLATELET COUNT (test code = 777-3) 275 Thousand/uL MPV (test code = 776-5) 11.5 fL ABSOLUTE NEUTROPHILS (test code = 751-8) 4916 cells/uL ABSOLUTE BAND NEUTROPHILS (test code = 50640-6) DNR cells/uL ABSOLUTE METAMYELOCYTES (test code = 94709-7) DNR cells/uL ABSOLUTE MYELOCYTES (test code = 15848-9) DNR cells/uL ABSOLUTE PROMYELOCYTES (test code = 71709-6) DNR cells/uL ABSOLUTE LYMPHOCYTES (test code = 731-0) 1428 cells/uL ABSOLUTE MONOCYTES (test code = 742-7) 333 cells/uL ABSOLUTE EOSINOPHILS (test code = 711-2) 102 cells/uL ABSOLUTE BASOPHILS (test code = 704-7) 20 cells/uL ABSOLUTE BLASTS (test code = 45484-8) DNR cells/uL ABSOLUTE NUCLEATED RBC (test code = 98714-2) DNR cells/uL NEUTROPHILS (test code = 770-8) 72.3 % BAND NEUTROPHILS (test code = 764-1) DNR % METAMYELOCYTES (test code = 740-1) DNR % MYELOCYTES (test code = 749-2) DNR % PROMYELOCYTES (test code = 783-1) DNR % LYMPHOCYTES (test code = 736-9) 21.0 % REACTIVE LYMPHOCYTES (test code = 35145-0) DNR % MONOCYTES (test code = 5905-5) 4.9 % EOSINOPHILS (test code = 713-8) 1.5 % BASOPHILS (test code = 706-2) 0.3 % BLASTS (test code = 709-6) DNR % NUCLEATED RBC (test code = 69107-3) DNR /100WBC COMMENT(S) (test code = 8251-1) DNR ANTIBODY SCREEN, RBC W/REFL ID, TITER AND AG (test code = 890-4) NO ANTIBODIES DETECTED ABO GROUP (test code = 883-9) O RH TYPE (test code = 78418-6) RH(D) POSITIVE RPR (DX) W/REFL TITER AND CONFIRMATORY TESTING (test code = 75518-7) NON-REACTIVE HEPATITIS B SURFACE ANTIGEN (test code = 5196-1) NON-REACTIVE CONFIRMATION (test code = 7905-3) DNR RUBELLA AB (IGG), IMMUNE STATUS (test code = 5334-8) 5.17 Index HIV AG/AB, 4TH GEN (test code = 92373-2) NON-REACTIVE Valentino Bunch AustinTHINPREP TIS PAP AND HPV mRNA E6/E7 REFLEX HPV 16,18/45 2024-08-25 00:00:00* Test Item Value Reference Range Interpretation Comme nts REPORT STATUS: (test code = 8251-1) DNR GENERAL CATEGORIZATION: (benita t code = 96608-3) DNR INFECTION: (test code = 29729-2) DNR REVIEW FREELANCE RECRUITER: (te st code = 70730-1) DNR PATHOLOGIST: (test code = 05584-7) DNR HPV mRNA E6/E7 (test code = 54498-1) Not Detected Valentino Bunch AustinCULTURE, URINE, [id number] 00:00:00* Test Item Value Reference Range Interpretation Comme nts CULTURE, URINE, ROUTINE (benita t code = 630-4) SEE NOTE Valentino Bunch AustinCULTURE, URINE, [id number] 00:00:00* Test Item Value Reference Range Interpretation Comme nts CULTURE, URINE, ROUTINE (benita t code = 630-4) SEE NOTE Valentino Bunch AustinBV/VAGINITIS PANEL DNA [id number] 00:00:00* Test Item Value Reference Range Interpretation Comme nts TRICHOMONAS: (test code = 6568-0) NOT DETECTED GARDNERELLA: (test code = 6410-5) NOT DETECTED YOCASTA: (test code = 16494-9) NOT DETECTED Valentino Bunch AustinBV/VAGINITIS PANEL DNA [id number] 00:00:00* Test Item Value Reference Range Interpretation Comme nts TRICHOMONAS: (test code = 6568-0) NOT DETECTED GARDNERELLA: (test code = 6410-5) NOT DETECTED YOCASTA: (test code = 47943-5) NOT DETECTED Valentino Bunch [id number] 00:00:00* Test Item Value Reference Range Interpretation Comme nts TSH (test code = 3016-3) 2.21 mIU/L Valentino Bunch [id number] 00:00:00* Test Item Value Reference Range Interpretation Comme nts TSH (test code = 3016-3) 2.21 mIU/L Valentino Bunch [id number] 00:00:00* Test Item Value Reference Range Interpretation Comme nts TSH (test code = 3016-3) 2.21 mIU/L Valentino [id number] 00:00:00* Test Item Value Reference Range Interpretation Comme nts TSH, THIRD GENERATION (test code = 2821) 1.630 UIU/ML Valentino [id number] 00:00:00* Test Item Value Reference Range Interpretation Comme nts TSH, THIRD GENERATION (test code = 2821) 1.630 UIU/ML Valentino [id number] 00:00:00* Test Item Value Reference Range Interpretation Comme nts TSH, THIRD GENERATION (test code = 2821) 1.630 UIU/ML Valentino [id number] 00:00:00* Test Item Value Reference Range Interpretation Comme nts TSH, THIRD GENERATION (test code = 2821) 1.630 UIU/ML Valentino Bunch Chad Notes Date/Time Note Provider Source 2024-11-19 14:20:39 Pt called, discussed results and rescheduled HR appt. Verbalized understanding. Marlena Connors RN 11/19/24 2:21 PM Marlena Connors RN [facility] 2024-11-18 12:50:14 3rd attempt to call patient, message states not available, will await return call. AT Nohemy Moore LVN [facility] 2024-11-18 08:13:05 2nd attempt to call patient, message states phone not in service, will try again at a later time. [facility] 2024-11-17 10:55:34 Attempted to call patient, message states not in service, will try again at a later time. [facility] 2024-11-17 09:54:02 Copied from [facility] #[id number]. Topic: Clinical - Medical Advice >> Nov 17, 2024 9:53 AM Patient [employer] wrote: Pt is requesting call back to discuss results, please call [phone] (home) SERGO Young [facility] 2024-11-13 16:13:31 Called pt, Number not in service. Marlena Connors RN 11/13/24 4:15 PM Marlena Connors RN [facility] 2024-11-13 13:33:46 Called pt, wireless customer not available. Marlena Connors RN 11/13/24 1:34 PM [facility] 2024-11-13 13:22:19 Copied from [facility] #[id number]. Topic: Clinical - Medical Advice >> Nov 13, 2024 1:19 PM Patient [employer] wrote: Troy Covarrubias is a 29 year old female Pt. Is calling via senior product designer, to discuss results from labs and pap smear. Pls call and adv. [phone] (home) [facility]2025-05-22 00:00:00 [facility]2025-05-15 00:00:00 [facility]2025-03-04 00:00:00 [facility]
[2025-01-04 00:01] LABS: Absolute Lymphocytes (CBC) 1.5 K/uL (0.7-4.9); Hematocrit 32.9 % (36.0-45.0); Hemoglobin 11.5 g/dL (12.0-15.0); MCH 31.5 pg (27.0-35.0); MCHC 34.8 g/dL (32.0-36.0); MCV 90.6 fL (80-100); MPV 8.3 fL (7.6-11.3); Nucleated RBC Absolute Count 0.0 (0-0); Nucleated Red Blood Cells % 0.0 % (0-0); RBC Red Blood Cell Count 3.63 M/uL (3.86-4.86); White Blood Count 8.60 thou/uL (4.3-10.9)
[2025-01-04] MEDS ORDERED: ONDANSETRON 4 MG/2 ML VIAL ONE (00:01)
[2025-01-04] MEDS ORDERED: MORPHINE 4 MG/ML SYR ONE ×2 (00:02→00:32)
[2025-01-04] MEDS ORDERED: NA CHLORIDE 0.9% 1,000 ML ONE ×2 (00:02→00:32)
[2025-01-04 00:20] LABS: ALT/SGPT 28.0 U/L (13-56); AST/SGOT 12.0 U/L (15-37); Albumin 2.4 g/dL (3.4-5.0); Albumin/Globulin Ratio 0.7 (1.1-1.8); Alkaline Phosphatase 87.0 U/L (45-117); Anion Gap 9.7 mEq/L (5.0-15.0); BUN Blood Urea Nitrogen 8.0 mg/dL (7-18); Globulin 3.5 g/dL (2.3-3.5); Glucose Level 102.0 mg/dL (74-106); Lipase 46.0 U/L (13-75); Potassium 3.7 mEq/L (3.5-5.1)
[2025-01-04] MEDS ORDERED: CEFTRIAXONE 1000 MG/VIAL ONE (00:31)
[2025-01-04] MEDS ORDERED: METRONIDAZOLE 500mg IVPB 500 MG/100 ML BAG IV ONE (00:32)
[2025-01-04 00:41] LABS: Sqamous Epithelial <5 /HPF (None Seen); Urine Crystals Unidentified Few /HPF (None Seen); Urine Culture Reflex Order NOT NEEDED; Urine Microscopic Reflex YN ORDER UMIC; Urine WBC Clump Rare /HPF (None Seen)
--- NOTE | 2025-01-04 01:20 | ER ---
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 Coronavirus screen: Client denies travel out of the [place] in the last 14 days. At this time, the client does not indicate any symptoms associated with coronavirus-19. Ebola Screen: Patient negative for fever greater than or equal to 101.5 degrees Fahrenheit, and additional compatible Ebola Virus Disease symptoms Patient denies exposure to infectious person. Patient denies travel to an Ebola-affected area in the 21 days before illness onset. No symptoms or risks identified at this time. Initial Sepsis Screen: Does the patient meet any 2 criteria? No. Patient's initial sepsis screen is negative. Does the patient have a suspected source of infection? No. Patient's initial sepsis screen is negative. Risk Assessment: Do you want to hurt yourself or someone else? Patient reports no desire to harm self or others. Onset of symptoms was January 03, 2025 at 23:10. 23:48 Method Of Arrival: Ambulatory vc1 23:48 Acuity: JANNY 3 vc1 Triage Assessment: 23:53 General: Appears in no apparent distress. uncomfortable, Behavior is calm, cooperative. vc1 Pain: Complains of pain in left upper quadrant and right upper quadrant Pain radiates to mid back area Pain currently is 10 out of 10 on a pain scale. EENT: No deficits noted. No signs and/or symptoms were reported regarding the EENT system. Neuro: Level of Consciousness is awake, alert, obeys commands, Oriented to person, place, time, situation, Appropriate for age. Cardiovascular: Capillary refill < 3 seconds Patient's skin is warm and dry. Respiratory: Airway is patent Respiratory effort is even, unlabored, Respiratory pattern is regular, symmetrical. GI: No deficits noted. No signs and/or symptoms were reported involving the gastrointestinal system. : Denies vaginal bleeding. Derm: Skin is intact, is healthy with good turgor, Skin is dry, Skin is normal, Skin temperature is warm. Musculoskeletal: Circulation, motion, and sensation intact. Range of motion: intact in all extremities. ANIMAL PATHOLOGIST: 23:53 2, Full Term 1, Living 1, Verified vc1 Historical: - Allergies: 23:51 Fentanyl; vc1 23:51 Motrin; vc1 - Home Meds: 23:51 levothyroxine 50 mcg tab 1 tab once daily [Active]; vc1 - PMHx: 23:51 HEARING IMPAIRED; Hypothyroidism; PE; vc1 - PSHx: 23:51 right ovarian cyst removed; vc1 - Immunization history:: Adult Immunizations up to date. - Infectious Disease History:: Denies. - Social history:: Smoking status: Patient denies any tobacco usage or history of. - Family history:: not pertinent. Screenin:52 [facility] ED Fall Risk Assessment (Adult) History of falling in the last 3 months, vc1 including since admission No falls in past 3 months (0 pts) Confusion or Disorientation No (0 pts) Intoxicated or Sedated No (0 pts) Impaired Gait No (0 pts) Mobility Assist Device Used No (0 pt) Altered Elimination No (0 pt) Score/Fall Risk Level 0 - 2 = Low Risk Oriented to surroundings, Maintained a safe environment, Educated pt \T\ family on fall prevention, incl call for assistance when getting out of bed, Assessed \T\ reinforced patient's understanding of fall precautions, Hourly rounding (assess needs \T\ fall precautionary measures) done. Abuse screen: Denies threats or abuse. Nutritional screening: No deficits noted. Tuberculosis screening: No symptoms or risk factors identified. Assessment: 23:47 Pain: Complains of pain in right upper quadrant and left upper quadrant Pain radiates kd3 to right mid back. Neuro: Level of Consciousness is awake, alert, obeys commands, Oriented to person, place, time, situation. Cardiovascular: Capillary refill < 3 seconds Patient's skin is warm and dry. Respiratory: Airway is patent Trachea midline Respiratory effort is even, unlabored, Respiratory pattern is regular, symmetrical. GI: Bowel sounds present X 4 quads. Abdomen is tender to palpation in right upper quadrant and left upper quadrant. 01/04 02:59 General: Appears in no apparent distress. Behavior is calm, cooperative. Neuro: Level kd3 of Consciousness is awake, alert, obeys commands, Oriented to person, place, time, situation. Cardiovascular: Capillary refill < 3 seconds Patient's skin is warm and dry. Respiratory: Airway is patent Trachea midline Respiratory effort is even, unlabored, Respiratory pattern is regular, symmetrical. Vital Signs: 01/03 23:48 BP 117 / 68; Pulse 89; Resp 20; Temp 98.9; Pulse Ox 98% ; Weight 87.09 kg; Height 5 ft. vc1 7 in. ; Pain 01/08; 01/04 01:14 BP 113 / 62; Pulse 85; Resp 16; Pulse Ox 97% on R/A; kd3 02:11 BP 117 / 57; Pulse 87; Resp 16 S; Pulse Ox 98% on R/A; kd3 03:00 BP 117 / 77; Pulse 84; Resp 19; Pulse Ox 99% on R/A; kd3 01/03 23:48 Body Mass Index 30.07 (87.09 kg, 170.18 cm) vc1 01/03 23:48 Pain Scale: Adult vc1 [place] Coma Score: 21:26 Eye Response: spontaneous(4). Motor Response: obeys commands(6). Verbal Response: sp4 oriented(5). Total: 15. ED Course: 01/03 23:31 Patient arrived in ED. mr 23:37 Reinier Ríos MD is Attending Physician. sp4 23:46 Gilma Ochoa RN is Primary Nurse. kd3 23:48 Initial lab(s) drawn, by sd, sent to lab. Inserted saline lock: 20 gauge in left kd3 antecubital area, using aseptic technique. Blood collected. Flushed with 10 mL NS. 23:51 Triage completed. vc1 23:52 Arm band placed on right wrist. vc1 23:53 Patient has correct armband on for positive identification. Bed in low position. Call vc1 light in reach. Provided Education on: Plan of care. Pulse ox on. NIBP on. 01/04 00:11 UA Rfx Tomas Cult if indicated Sent. kd3 00:16 OB Limited In Process Unspecified. EDMS 00:17 Abdomen Limited US In Process Unspecified. EDMS 01:48 initiated with [facility] for OB. vk 02:09 patient was accepted to [facility] OB triage to Dr. Walker \T\0200 accepting admin Thelma Dave \T\0200. 02:19 No provider procedures requiring assistance completed. Patient transferred, IV remains kd3 in place. Administered Medications: 00:10 Not Given (wrong route ): morphine5 mg Sub-Q once kd3 00:11 Drug: Ondansetron IVP 4 mg IVP once; over 2 minutes Route: IVP; Site: right antecubital;kd3 03:01 Follow up: Response: No adverse reaction; Nausea is decreased kd3 00:11 Drug: NS 0.9% IV 1000 ml IV at 1 bolus Per protocol; to be given as a bolus over 60 kd3 minutes Route: IV; Rate: 1 bolus; Site: left antecubital; 03:01 Follow up: IV Status: Infusion continued kd3 00:11 Drug: morphine IVP or IV 4 mg IVP once over 4 mins Route: IVP; Infused Over: 4 mins; kd3 Site: left antecubital; 02:20 Follow up: Response: No adverse reaction; Pain is decreased kd3 00:44 Drug: morphine IVP or IV 4 mg IVP once over 4 mins Route: IVP; Infused Over: 4 mins; kd3 Site: right antecubital; 02:20 Follow up: Response: No adverse reaction; Pain is decreased kd3 00:44 Drug: Rocephin - Rocephin (cefTRIAXone) IVPB 1 grams IVPB once over 30 mins; (mix in 50 kd3 mL NS) Route: IVPB; Infused Over: 30 mins; Site: left antecubital; 02:20 Follow up: IV Status: Completed infusion kd3 00:44 Drug: metroNIDAZOLE IVPB 500 mg 100 ml IVPB at 200 ml/hr once over 30 mins Volume: 100 kd3 ml; Route: IVPB; Rate: 200 ml/hr; Infused Over: 30 mins; Site: left antecubital; 02:20 Follow up: IV Status: Completed infusion kd3 02:21 Not Given (Pt transfered with bolus ): ns 0.9% 1000 ml IV at 125 ml/hr once; to be kd3 given at 125 ml/hour Medication: 01/03 23:52 VIS not applicable for this client. vc1 Outcome: 10/06 01:20 ER care complete, transfer ordered by spTha 02:19 Transferred by ground EMS to [facility], kd3 02:19 Condition: stable 02:19 Discharge instructions given to patient, family, Instructed on the need for transfer, 03:09 Patient left the ED. kd3 Signatures: Dispatcher [employer] EDNV Rick Joy, Reg Reg Gilma Ayers RN RN kd3 Irasema Odell RN RN vc1 Reinier Ríos MD MD sp4 Lore Christensen vk Corrections: (The following items were deleted from the chart) 02: 02:09 initiated with [facility] Octavio for OB vk vk
--- NOTE | 2025-01-04 01:20 | EDPHYS ---
Physician Documentation [facility] Name: Sonja Bella Age: 29 yrs Sex: Female : 1995 Arrival Date: 01/03/2025 Time: 23:30 Bed 1 Private MD: ED Physician Reinier Ríos HPI: 01/03 23:37 This 29 yrs old Female presents to ER via Unassigned with complaints of 25 wks sp4 , Abdominal Pain. 01/04 21:21 Patient who is G2, P1001 , developed sudden onset of acute right upper abdominal pain sp4 and right flank pain. Patient has history of sensorineural hearing loss and she communicates via sign language. Patient reports she has EGA of 25 weeks 0 days based on ultrasound. Her OB group as at [facility] 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 - Infectious Disease History:: Denies. - Social history:: Smoking status: Patient denies any tobacco usage or history of. - Family history:: not pertinent. ROS: 01/04 21:23 Constitutional: Negative for fever, chills, and weight loss, positive for right sp4 abdominal pain and right flank pain All other systems are negative, Exam: 21:26 Constitutional: This is a well developed, well nourished patient who is awake, alert, sp4 and in no acute distress. Head/Face: Normocephalic, atraumatic. Eyes: Pupils equal round and reactive to light, extra-ocular motions intact. Lids and lashes normal. Conjunctiva and sclera are not injected. Cornea within normal limits. Periorbital areas with no swelling, redness, or edema. ENT: Nares patent. No nasal discharge, no septal abnormalities noted. Tympanic membranes are normal and external auditory canals are clear. Oropharynx with no redness, swelling, or masses, exudates, or evidence of obstruction, uvula midline. Mucous membranes moist. Neck: Trachea midline, no thyromegaly or masses palpated, and no cervical lymphadenopathy. Supple, full range of motion without nuchal rigidity, or vertebral point tenderness. Chest/axilla: Normal chest wall appearance and motion. Nontender with no deformity. No lesions are appreciated. Cardiovascular: Regular rate and rhythm with a normal S1 and S2. No gallops, murmurs, or rubs. No pulse deficits. Respiratory: Lungs have equal breath sounds bilaterally, clear to auscultation and percussion. No rales, rhonchi or wheezes noted. No increased work of breathing, no retractions or nasal flaring. Abdomen/GI: Soft, with normal bowel sounds. No distension or tympany. There is gravid uterus, there is significant tenderness right upper abdominal quadrant and right lower abdominal quadrant. Equivocal rebound. Back: No spinal tenderness. No costovertebral tenderness. Skin: Warm, dry with normal turgor. Normal color with no rashes, no lesions, and no evidence of cellulitis. MS/ Extremity: Pulses equal, no cyanosis. Neurovascular intact. Full, normal range of motion. Neuro: Awake and alert, GCS 15, oriented to person, place, time, and situation. Motor strength 5/5 in all extremities. Sensory grossly intact. Patient has sensorineural hearing loss and communicates via sign language. Psych: Awake, alert, with orientation to person, place and time. Behavior, mood, and affect are within normal limits Vital Signs: 01/03 23:48 BP 117 / 68; Pulse 89; Resp 20; Temp 98.9; Pulse Ox 98% ; Weight 87.09 kg; Height 5 ft. vc1 7 in. ; Pain 01/08; 01/04 01:14 BP 113 / 62; Pulse 85; Resp 16; Pulse Ox 97% on R/A; kd3 02:11 BP 117 / 57; Pulse 87; Resp 16 S; Pulse Ox 98% on R/A; kd3 03:00 BP 117 / 77; Pulse 84; Resp 19; Pulse Ox 99% on R/A; kd3 01/03 23:48 Body Mass Index 30.07 (87.09 kg, 170.18 cm) vc1 01/03 23:48 Pain Scale: Adult vc1 [place] Coma Score: 21:26 Eye Response: spontaneous(4). Motor Response: obeys commands(6). Verbal Response: sp4 oriented(5). Total: 15. MDM: 01/03 23:39 Medical Screening Exam initiated sp4 01/04 01:18 ED course: EXAM: US , Limited CLINICAL HISTORY: The patient is 29 years old sp4 and is Female; ABD PAIN TECHNIQUE: Real-time limited ultrasound of the maternal uterus with image documentation. COMPARISON: No relevant prior studies available. FINDINGS: FETUS: motion throughout the exam is noted. GESTATIONAL AGE: Gestational age is 24 weeks 6 days based on single femur length of 4.5 cm. POSITION: A single intrauterine gestation is present. presentation is breech. HEART RATE: heart rate 143 bpm. PLACENTA: The placenta is anterior in location. AMNIOTIC FLUID: ANJALI maximal vertical pocket 5 cm. CERVIX: The cervix is closed measuring 3.5 cm. IMPRESSION: Single IUP at 24 weeks 6 days with heart rate 143 bpm. ED course: INDICATION: ABD PAIN COMPARISON: No existing relevant imaging studies are available FINDINGS: Real-time grayscale and color Doppler ultrasound of the gallbladder was performed. GALLBLADDER: Gallbladder appears normal without gallstones, wall thickening, or pericholecystic fluid. BILE DUCTS: Common bile duct measures 3 mm. ADDITIONAL FINDINGS: None. IMPRESSION: Normal sonographic appearance of the gallbladder. . 21:27 Differential diagnosis: appendicitis, Endometriosis, gastritis, Hepatitis, Irritable sp4 bowel syndrome, Ovarian Torsion. Data reviewed: vital signs, nurses notes, lab test result(s), radiologic studies, ultrasound. Consideration of Admission/Observation Escalation of care including admission/observation considered. Management of patient was discussed with the following: Fleet Dispatch Manager: Discussed with supervisory cbp officer from [facility]. Stable for transfer at this time. 01/03 23:38 Order name: CBC with Diff; Complete Time: 00:35 sp4 01/03 23:38 Order name: CMP; Complete Time: 00:35 sp4 01/03 23:38 Order name: Lipase; Complete Time: 00:35 sp4 01/03 23:38 Order name: UA Rfx Tomas Cult if indicated; Complete Time: 01:09 sp4 01/03 23:38 Order name: Abdomen Limited US sp4 01/04 00:16 Order name: OB Limited EDMS 01/03 23:38 Order name: IV Saline Lock; Complete Time: 23:49 sp4 01/03 23:38 Order name: Labs collected and sent; Complete Time: 23:49 sp4 Administered Medications: 00:10 Not Given (wrong route ): morphine5 mg Sub-Q once kd3 00:11 Drug: Ondansetron IVP 4 mg IVP once; over 2 minutes Route: IVP; Site: right antecubital;kd3 03:01 Follow up: Response: No adverse reaction; Nausea is decreased kd3 00:11 Drug: NS 0.9% IV 1000 ml IV at 1 bolus Per protocol; to be given as a bolus over 60 kd3 minutes Route: IV; Rate: 1 bolus; Site: left antecubital; 03:01 Follow up: IV Status: Infusion continued kd3 00:11 Drug: morphine IVP or IV 4 mg IVP once over 4 mins Route: IVP; Infused Over: 4 mins; kd3 Site: left antecubital; 02:20 Follow up: Response: No adverse reaction; Pain is decreased kd3 00:44 Drug: morphine IVP or IV 4 mg IVP once over 4 mins Route: IVP; Infused Over: 4 mins; kd3 Site: right antecubital; 02:20 Follow up: Response: No adverse reaction; Pain is decreased kd3 00:44 Drug: Rocephin - Rocephin (cefTRIAXone) IVPB 1 grams IVPB once over 30 mins; (mix in 50 kd3 mL NS) Route: IVPB; Infused Over: 30 mins; Site: left antecubital; 02:20 Follow up: IV Status: Completed infusion kd3 00:44 Drug: metroNIDAZOLE IVPB 500 mg 100 ml IVPB at 200 ml/hr once over 30 mins Volume: 100 kd3 ml; Route: IVPB; Rate: 200 ml/hr; Infused Over: 30 mins; Site: left antecubital; 02:20 Follow up: IV Status: Completed infusion kd3 02:21 Not Given (Pt transfered with bolus ): ns 0.9% 1000 ml IV at 125 ml/hr once; to be kd3 given at 125 ml/hour Disposition: 21:27 Chart complete. sp4 Disposition Summary: 01/04/25 01:20 Transfer Ordered Notes: Transfer Location: [facility] sp4 Reason: Higher level of care sp4 Condition: Stable sp4 Problem: new sp4 Symptoms: have improved sp4 Accepting Physician: [facility] OB Attending (01/04/25 03:09) [email or web address] Diagnosis - Upper abdominal pain, unspecified sp4 - Acute right upper abdominal pain, acute right flank pain, at 24 weeks 6 sp4 days EGA Forms: - Medication Reconciliation Form sp4 - SBAR form sp4 Signatures: Dispatcher [employer] EDVA Gilma Ochoa RN RN kd3 Irasema Odell RN RN vc1 Reinier Ríos MD MD sp4 Corrections: (The following items were deleted from the chart) 00:16 01/03 23:39 OB Complete+US.RAD.BRZ ordered. [facility] EDVA 01/04 03:09 01:20 [facility] OB Attending sp4 kd3
[2025-01-04 03:40] VITALS: TEMP 98.9
[2025-01-04 03:44] VITALS: BP 117/77; O2SAT 99
--- NOTE | 2025-01-04 07:04 | RAD REPORT ---
INDICATION: ABD PAIN COMPARISON: No existing relevant imaging studies are available FINDINGS: Real-time grayscale and color Doppler ultrasound of the gallbladder was performed. GALLBLADDER: Gallbladder appears normal without gallstones, wall thickening, or pericholecystic fluid . BILE DUCTS: Common bile duct measures 3 mm. ADDITIONAL FINDINGS: None. IMPRESSION: Normal sonographic appearance of the gallbladder. Electronically signed by: Aman Petty DO 01/04/2025 12:46 AM CDT RP NR Due to temporary technical issues with the PACS/[employer] reporting system, reports are being francia d by the in-house radiologist without review as a courtesy to ensure prompt reporting the interpreting radiologist is fully responsible for the content of the report. Transcribed Date/Time: 01/04/2025 7:03 AM
--- NOTE | 2025-01-04 07:07 | RAD REPORT ---
EXAM: US , Limited CLINICAL HISTORY: The patient is 29 years old and is Female; ABD PAIN TECHNIQUE: Real-time limited ultrasound of the maternal uterus with image documentation. COMPARISON: No relevant prior studies available. FINDINGS: FETUS: motion throughout the exam is noted. GESTATIONAL AGE: Gestational age is 24 weeks 6 days based on single femur length of 4.5 cm. POSITION: A single intrauterine gestation is present. presentation is breech. HEART RATE: heart rate 143 bpm. PLACENTA: The placenta is anterior in location. AMNIOTIC FLUID: ANJALI maximal vertical pocket 5 cm. CERVIX: The cervix is closed measuring 3.5 cm. IMPRESSION: Single IUP at 24 weeks 6 days with heart rate 143 bpm. Electronically signed by: Kayli Mcdonald MD 01/04/2025 12:46 AM CDT D ue to temporary technical issues with the PACS/[employer] reporting system, reports are being signed by the in-house radiologist without review as a courtesy to ensure prompt reporting the [facility] radiologist is fully responsible for the content of the report. Transcribed Date/Time: 01/04/2025 7:07 AM
== END 2025-01-04 03:09 | disposition short-term general hospital (02) ==
LOC: ER 23:30
DX: O26.92 Pregnancy related conditions, unspecified, second trimester (principal); R10.11 Right upper quadrant pain; E03.9 Hypothyroidism, unspecified; Z3A.25 25 weeks gestation of pregnancy
CPT/HCPCS: 36415; 76705; 76815; 80053; 81001; 83690; 85025; 99285; J0696; J2405; J7030

== ENCOUNTER 2025-01-22 18:14 | Emergency (ER) | payer SELFPAY ==
--- NOTE | 2025-01-22 18:47 | EDPHYS ---
Physician Documentation [facility] Name: Sonja Bella Age: 29 yrs Sex: Female : 1995 Arrival Date: 01/22/2025 Time: 18:14 Bed 10 Private MD: ED Physician Jazmine Perez HPI: 01/22 18:39 This 29 yrs old Female presents to ER via Ambulatory with complaints of Rash - cp left leg, 28 Weeks . 18:39 The patient's rash thought to be caused by an unknown cause. The rash is located on the cp left groin area. The rash can be described as erythematous, burning. Onset: The symptoms/episode began/occurred 2 week(s) ago. 18:40 Associated signs and symptoms: Pertinent positives: 28 weeks , Pertinent cp negatives: fever, drainage from rash. 18:40 Treatment given at home: none. cp MANAGER RETIREMENT: 18:23 Verified me1 Historical: - Allergies: 18:23 Fentanyl; me1 18:23 Motrin; me1 - PMHx: 18:23 HEARING IMPAIRED; Hypothyroidism; PE; me1 - PSHx: 18:23 right ovarian cyst removed; me1 - Immunization history:: Adult Immunizations up to date. - Infectious Disease History:: Denies. - Social history:: Smoking status: Patient denies any tobacco usage or history of. ROS: 18:40 Constitutional: Negative for body aches, chills, fever, cp 18:40 Skin: Positive for erythema, rash, of the left groin area, 18:40 Eyes: Negative for injury, pain, redness, and discharge, cp 18:40 Cardiovascular: Negative for chest pain, cp 18:40 Respiratory: Negative for cough, shortness of breath, wheezing, 18:40 Abdomen/GI: Negative for abdominal pain, vomiting, diarrhea, constipation, 18:40 Back: Negative for pain at rest, pain with movement, 18:40 : Negative for urinary symptoms, vaginal bleeding, vaginal discharge, 18:40 All other systems are negative, Exam: 18:43 Constitutional: The patient appears in no acute distress, alert, awake, non-toxic, well cp developed, well groomed, 18:43 Head/Face: Normocephalic, atraumatic. cp 18:43 Chest/axilla: Inspection: normal, 18:43 Cardiovascular: Rate: normal, 18:43 Respiratory: the patient does not display signs of respiratory distress, Respirations: normal, no use of accessory muscles, no retractions, labored breathing, is not present, 18:43 Abdomen/GI: Inspection: gravid appearance, is noted, 18:43 Skin: left groin rash appears with mild erythema, smaller satellite areas of rash. Vital Signs: 18:21 BP 115 / 76; Pulse 94; Resp 17; Temp 98.1; Pulse Ox 100% ; Weight 83.46 kg; Height 5 me1 ft. 4 in. ; 18:21 Body Mass Index 31.58 (83.46 kg, 162.56 cm) me1 MDM: 18:22 Medical Screening Exam initiated cp 18:45 Differential diagnosis: cellulitis, abscess, tinea, candidiasis. cp 18:45 Test considered but Not performed: Labs: cbc, bmp. Ultrasound . cp 18:46 Data reviewed: vital signs, nurses notes, and as a result, I will discharge patient. cp 18:46 Counseling: I had a detailed discussion with the patient and/or guardian regarding the cp historical points, exam findings, and any diagnostic results supporting the discharge/admit diagnosis. Administered Medications: No medications were administered Disposition Summary: 01/22/25 18:46 Discharge Ordered Notes: Location: Home cp Problem: new cp Symptoms: are unchanged cp Condition: Stable cp Diagnosis - Tinea cruris cp Followup: cp - With: Private Physician - When: 1 week - Reason: Recheck today's complaints Discharge Instructions: - Discharge Summary Sheet cp - Jock Itch cp Forms: - Medication Reconciliation Form cp - Antibiotic Education cp - Prescription Opioid Use cp - Patient Portal Instructions cp - Leadership Thank You Letter cp Prescriptions: - nystatin 100,000 unit/gram Topical cream - apply 1 application TOPICAL route 2-3 times daily; 45 gram tube; Refills: 0, cp Product Selection Permitted Signatures: Micheal Leon PA-C PA-C cp Eddleman, Michelle, RN RN me1
--- NOTE | 2025-01-22 18:47 | ER ---
Nurse's Notes [facility] Name: Sonja Bella Age: 29 yrs Sex: Female : 1995 Arrival Date: 01/22/2025 Time: 18:14 Bed 10 Private MD: Diagnosis: Tinea cruris Presentation: 01/22 18:21 Chief complaint: Parent and/or Guardian states: rash to left inner thigh/groin area for me1 a few weeks but is getting bigger. Itches. Coronavirus screen: At this time, the client does not indicate any symptoms associated with coronavirus-19. Ebola Screen: No symptoms or risks identified at this time. Initial Sepsis Screen: Does the patient meet any 2 criteria? HR > 90 bpm. Does the patient have a suspected source of infection? No. Patient's initial sepsis screen is negative. Risk Assessment: Do you want to hurt yourself or someone else? Patient reports no desire to harm self or others. Onset of symptoms is unknown. 18:21 Method Of Arrival: Ambulatory [facility] 18:21 Acuity: JANNY 4 wv1 Triage Assessment: 18:27 General: Appears in no apparent distress. Behavior is calm, cooperative, appropriate wv1 for age, Reports red, raised itchy rash to left inner thigh/groin area. Pain: Denies pain. EENT: No signs and/or symptoms were reported regarding the EENT system. hearing impaired.. Neuro: Level of Consciousness is awake, alert, obeys commands, Oriented to person, place, time, situation, Appropriate for age. Cardiovascular: Patient's skin is warm and dry. Respiratory: Airway is patent Respiratory effort is even, unlabored, Respiratory pattern is regular, symmetrical. GI: No signs and/or symptoms were reported involving the gastrointestinal system. : No signs and/or symptoms were reported regarding the genitourinary system. Derm: Rash noted that is red, raised, on left femoral area and medial aspect of left thigh. Musculoskeletal: Circulation, motion, and sensation intact. Range of motion: intact in all extremities. MARINA PORTER: 18:23 Verified me1 Historical: - Allergies: 18:23 Fentanyl; me1 18:23 Motrin; me1 - PMHx: 18:23 HEARING IMPAIRED; Hypothyroidism; PE; me1 - PSHx: 18:23 right ovarian cyst removed; me1 - Immunization history:: Adult Immunizations up to date. - Infectious Disease History:: Denies. - Social history:: Smoking status: Patient denies any tobacco usage or history of. Screenin:29 [facility] ED Fall Risk Assessment (Adult) History of falling in the last 3 months, me1 including since admission No falls in past 3 months (0 pts) Confusion or Disorientation No (0 pts) Intoxicated or Sedated No (0 pts) Impaired Gait No (0 pts) Mobility Assist Device Used No (0 pt) Altered Elimination No (0 pt) Score/Fall Risk Level 0 - 2 = Low Risk Maintained a safe environment, Provided non-skid footwear, Hourly rounding (assess needs \T\ fall precautionary measures) done. Abuse screen: Denies threats or abuse. Nutritional screening: No deficits noted. Tuberculosis screening: No symptoms or risk factors identified. Assessment: 18:29 General: See triage assessment. me1 Vital Signs: 18:21 BP 115 / 76; Pulse 94; Resp 17; Temp 98.1; Pulse Ox 100% ; Weight 83.46 kg; Height 5 me1 ft. 4 in. ; 18:21 Body Mass Index 31.58 (83.46 kg, 162.56 cm) me1 ED Course: 18:18 Patient arrived in ED. im 18:22 Micheal Leon PA-C is PHCP. cp 18:22 Jazmine Perez MD is Attending Physician. cp 18:23 Triage completed. me1 18:23 Arm band placed on Patient placed in an exam room. me1 18:29 Patient has correct armband on for positive identification. Bed in low position. Call [facility] light in reach. Side rails up X 1. Provided Education on: POC Verbalized understanding.. 18:56 No provider procedures requiring assistance completed. Patient did not have IV access ss during this emergency room visit. Administered Medications: No medications were administered Medication: 18:29 VIS not applicable for this client. me1 Outcome: 18:46 Discharge ordered by . cp 18:56 Discharged to home ambulatory, with family, ss 18:56 Condition: good 18:56 Discharge instructions given to patient, family, Instructed on discharge instructions, follow up and referral plans. medication usage, Demonstrated understanding of instructions, follow-up care, medications, Prescriptions given X 1, 18:58 Patient left the ED. ss Signatures: Cathi Lambert, RN RN ss Micheal Leon, LAYA PAMarleny Linn cp, Michelle, RN RN me1
[2025-01-23 01:59] VITALS: BP 115/76; TEMP 98.1; O2SAT 100
== END 2025-01-22 18:58 | disposition home or self-care (01) ==
LOC: ER 18:14
DX: O99.712 Diseases of the skin and subcutaneous tissue complicating pregnancy, second trimester (principal); Z3A.28 28 weeks gestation of pregnancy; B35.6 Tinea cruris
CPT/HCPCS: 99283